=== PATIENT | female | born 1965 | race Caucasian/White ===

== ENCOUNTER 2018-03-08 07:52 | Inpatient (IN) | payer BC, MEDICARE ==
[2018-03-08] MEDS ORDERED: Acetaminophen 500 MG Tab PO ONE (08:15)
[2018-03-08] MEDS ORDERED: Celecoxib 200 MG Cap PO ONE (08:15)
[2018-03-08] MEDS ORDERED: Dextrose 5%-Lactated Ringers 1,000 ML IV SCH (08:30)
[2018-03-08] MEDS ORDERED: Naloxone 0.4 MG/ML SDV IV PRN (08:42)
[2018-03-08] MEDS ORDERED: Succinylcholine 200 MG/10 ML MDV ONE (08:54)
[2018-03-08] MEDS ORDERED: fentaNYL 250 MCG/5 ML SDV ONE ×3 (08:54→12:17)
[2018-03-08] MEDS ORDERED: Propofol 200 MG/20 ML SDV ONE (08:54)
[2018-03-08] MEDS ORDERED: Neostigmine Methylsulfate 1 MG/ML 5 ML Syringe ONE (08:54)
[2018-03-08] MEDS ORDERED: Dexamethasone 4 MG/ML SDV ONE (08:54)
[2018-03-08] MEDS ORDERED: Ondansetron 4 MG/2 ML SDV ONE (08:54)
[2018-03-08] MEDS ORDERED: Rocuronium 50 MG/5 ML Vial ONE ×3 (08:54→12:56)
[2018-03-08] MEDS ORDERED: Glycopyrrolate 0.2 MG/ML 5 ML MDV ONE (08:54)
[2018-03-08] MEDS ORDERED: Meropenem 500 MG SDV ONE (09:20)
[2018-03-08] MEDS ORDERED: cefOXitin 2 GM in Sodium Chloride 0.9% 50 ML IV ONE ×4 (09:30)
[2018-03-08] MEDS ORDERED: Lidocaine 2% 100 MG/5 ML Syringe IVPUSH SCH (09:45)
[2018-03-08] MEDS ORDERED: Ketamine 50 MG in Sodium Chloride 0.9% 49.5 ML IV SCH (09:45)
[2018-03-08] MEDS ORDERED: Ropivacaine 34 ML, Dexamethasone 8 MG, EPINEPHrine 0.4 MG, Sodium Chloride 0.9% 43.6 ML NERVRT SCH ×4 (09:45)
[2018-03-08] MEDS ORDERED: Ketamine 500 MG/5 ML MDV IV SCH (09:45)
[2018-03-08] MEDS: HYDROmorphone/Normal Saline 15 MG/30 ML PCA IV PRN (10:06)
[2018-03-08] MEDS ORDERED: Lactated Ringers 1,000 ML ONE ×2 (11:46→14:05)
[2018-03-08] MEDS ORDERED: Labetalol 20 MG/4 ML Syringe ONE (12:57)
[2018-03-08] MEDS ORDERED: hydrOXYzine HCl 100 MG/2 ML SDV IM ONE (15:29)
[2018-03-08] MEDS ORDERED: Labetalol 20 MG/4 ML Syringe IVPUSH PRN (16:00)
[2018-03-08] MEDS ORDERED: Metoclopramide 10 MG/2 ML SDV IVPUSH PRN (16:00)
[2018-03-08] MEDS ORDERED: diphenhydrAMINE 50 MG/ML SDV IVPUSH PRN (16:00)
[2018-03-08] MEDS ORDERED: SCOPOLAMINE PATCH CHECK TOP SCH (16:00)
[2018-03-08] MEDS: Acetaminophen Soln 650 MG/20.3 ML UD Cup PO SCH ×2 (16:35→21:44)
[2018-03-08] MEDS: Pantoprazole 40 MG Vial IVPUSH SCH (16:35)
[2018-03-08] MEDS: Lidocaine 0.4%/D5W 2 GM/500 ML BAG IV SCH (16:36)
[2018-03-08] MEDS: cefOXitin 2 GM in Sodium Chloride 0.9% 50 ML IV SCH ×2 (16:36→21:46)
[2018-03-08] MEDS: Dextrose 5%-Lactated Ringers 1,000 ML IV SCH (18:39)
[2018-03-09] MEDS: Dextrose 5%-Lactated Ringers 1,000 ML IV SCH ×2 (00:44→05:21)
[2018-03-09] MEDS ORDERED: Iohexol 647 MG/ML 50 ML SDV PO STA (03:42)
[2018-03-09] MEDS: cefOXitin 2 GM in Sodium Chloride 0.9% 50 ML IV SCH ×4 (05:20→23:02)
[2018-03-09] MEDS: Acetaminophen Soln 650 MG/20.3 ML UD Cup PO SCH ×4 (05:20→23:02)
[2018-03-09] MEDS ORDERED: Celecoxib 200 MG Cap PO SCH (08:00)
[2018-03-09] MEDS ORDERED: LORazepam 0.5 MG Tab PO PRN (08:24)
[2018-03-09] MEDS ORDERED: Central Total Parenteral Nutrition Bag SCH (08:30)
--- NOTE | 2018-03-09 08:38 | CR ---
CHEST: Portable CLINICAL HISTORY:NG tube placement COMPARISON:None FINDINGS: Patient is a central venous line from the left subclavian approach. The tip is in the right atrium. NG tube is in the body of the stomach. There are surgical drains in the left upper quadrant. Lung trotter are clear Impression: Recent abdominal surgery Lungs are clear NG tube and central venous catheter are in place
--- NOTE | 2018-03-09 08:44 | CR ---
UGI wo KUB HISTORY: eval R -Y GBP FINDINGS: After administration of oral contrast, upright views were obtained. Post operative changes gastric bypass. Surgical drains in place. No evidence for leak. There is a delay in passage of contrast into the small bowel L2 the 1 hour 45 minute delayed image. IMPRESSION: No evidence for leak. There is delay of passage of contrast into the small bowel. This may represent postop ileus. Some element of obstruction is not excluded. Short-term follow-up recommended
[2018-03-09] MEDS ORDERED: Non-Formulary Medication 1 Each (Estradiol [Estradiol] 2 MG) PO SCH (09:00)
[2018-03-09] MEDS ORDERED: Dextrose 5%-Lactated Ringers 1,000 ML IV SCH (09:00)
[2018-03-09] MEDS: ESTRADIOL 1 MG PO SCH (09:56)
[2018-03-09] MEDS ORDERED: [UNRECOGNIZED DRUG - MIXTURE] IV SCH (11:00)
[2018-03-09] MEDS: Magnesium Sulfate/Water 2 GM in Premix Bag 1 BAG IV SCH ×3 (11:48→23:02)
[2018-03-09] MEDS: Lidocaine 0.4%/D5W 2 GM/500 ML BAG IV SCH (12:48)
[2018-03-09] MEDS: [UNRECOGNIZED DRUG - MIXTURE] IV SCH (13:06)
[2018-03-09] MEDS: Pantoprazole 40 MG Vial IVPUSH SCH (16:46)
--- NOTE | 2018-03-09 18:03 | PN ---
DATE OF SERVICE: 03/09/2018 SUBJECTIVE: Trisha is postoperative day #1. She states her pain is controlled. Urine output has been marginal since surgery at 366 mL. JOSUE drain put out 40 and 50 of a light red drainage. Oral intake 180. Vital signs have been stable. REVIEW OF SYSTEMS: Remainder of review of systems negative for any pertinent positives or negatives. OBJECTIVE: GENERAL: Trisha Wilcox is a 52-year-old female. She is alert and orientated, sitting up in bed. VITAL SIGNS: TPR is 98.6, 96, 16, and blood pressure 125/78. HEENT: Negative. NECK: Supple. HEART: Regular rate and rhythm. LUNGS: Clear. ABDOMEN: Dressings dry and intact. JOSUE drains intact. Keller catheter in place. EXTREMITIES: SCDs are on, and there is no peripheral edema. ASSESSMENT: Exploratory laparotomy with esophageal gastrectomy and placement of central venous catheter for inadequate peripheral vein access. Date of surgery, 03/08/2018. PLAN: 1. TPN, order sheet faxed to Pharmacy. 2. Magnesium 2 grams IV q.6 hours x72 hours. 3. Leave Keller catheter in for accurate intake and output. 4. When TPN is started, to decrease IV to 100 mL per hour. 5. Decrease IV to 25 mL per hour at 1800 hours. 6. Check CBC, CMP, and phos. 7. Home medications were started. She is to use her estradiol 2 mg p.o. daily, to restart Cymbalta. 8. Good pulmonary toilet. 9. We will evaluate p.r.n. or in a.m. Peri Zambrano PA-C /[id number]
[2018-03-09] MEDS: hydrOXYzine HCl 100 MG/2 ML SDV IM PRN (20:22)
[2018-03-09] MEDS: HYDROmorphone/Normal Saline 15 MG/30 ML PCA IV PRN (20:29)
[2018-03-10] MEDS: Acetaminophen Soln 650 MG/20.3 ML UD Cup PO SCH ×4 (03:41→20:59)
[2018-03-10] MEDS: Magnesium Sulfate/Water 2 GM in Premix Bag 1 BAG IV SCH ×4 (03:42→20:59)
[2018-03-10] MEDS: cefOXitin 2 GM in Sodium Chloride 0.9% 50 ML IV SCH ×4 (03:46→20:59)
[2018-03-10] MEDS: ESTRADIOL 1 MG PO SCH (08:32)
--- NOTE | 2018-03-10 08:57 | CR ---
Abdomen 2V AP Flat Upright CLINICAL HISTORY: Abdominal pain and pressure FINDINGS: The patient is status post bariatric surgery. Oral contrast is now seen in the right colon. The intestinal gas pattern is nonacute IMPRESSION: Status post bariatric surgery Nonacute intestinal gas pattern
[2018-03-10] MEDS ORDERED: Cyanocobalamin (Vitamin B12) 1,000 MCG/ML SDV IM ONE (09:00)
[2018-03-10] MEDS: [UNRECOGNIZED DRUG - MIXTURE] IV SCH (09:22)
[2018-03-10] MEDS: Potassium Phosphates 20 MMOLE in Sodium Chloride 0.9% 100 ML IV SCH ×3 (09:23→15:25)
--- NOTE | 2018-03-10 09:23 | PN ---
DATE OF SERVICE: 03/10/2018 SUBJECTIVE: Trisha has been up ambulating 5 times. She reports pain consistently at a 7, but is resting comfortably. LABORATORY DATA: Labs this morning, phosphorus was 2.4 and albumin was 1.7. Oral intake is 710. Urine output via Keller catheter was 1755. Ej-Kelley drains have put out 95 and 90 respectively of a light red drainage. REVIEW OF SYSTEMS: Remainder of review of systems is negative for any pertinent positives and negatives. OBJECTIVE: GENERAL: Trisha Wilcox is a 52-year-old female. VITAL SIGNS: Temperature is 98.7, pulse is 85, respirations are 14, and blood pressure is 117/22. HEENT: Negative. NECK: Supple. HEART: Regular rate and rhythm. PULMONARY: Lungs are clear. ABDOMEN: Dressings are dry and intact. JOSUE drains, as above. Abdominal binder is on. EXTREMITIES: Without peripheral edema. ASSESSMENT: Exploratory laparotomy with esophageal gastrectomy and placement of central venous catheter for inadequate peripheral vein access. Date of surgery was 03/08/2018. PLAN: 1. K-Phos 60 millimoles in minimal IV fluids, IV today. 2. Step-2 gastric bypass diet with no solids. 3. Albumin 25 g daily IV x4 days. 4. Discontinue Keller catheter. 5. Check abdominal flat and upright now, and to notify Stan Atkinson MD, in OR that the x- ray is completed. 6. Shower, leaving Aquacel on. 7. Check CBC, CMP, and phosphorus in a.m. 8. Good pulmonary toilet. 9. We will evaluate p.r.n. or in a.m. Peri Zambrano PA-C /[id number]
[2018-03-10] MEDS: Pantoprazole 40 MG Vial IVPUSH SCH (15:35)
[2018-03-10] MEDS: hydrOXYzine HCl 100 MG/2 ML SDV IM PRN (22:26)
[2018-03-11] MEDS: HYDROmorphone/Normal Saline 15 MG/30 ML PCA IV PRN (01:54)
[2018-03-11] MEDS: Acetaminophen Soln 650 MG/20.3 ML UD Cup PO SCH ×4 (03:30→22:25)
[2018-03-11] MEDS: cefOXitin 2 GM in Sodium Chloride 0.9% 50 ML IV SCH ×4 (03:30→22:27)
[2018-03-11] MEDS: [UNRECOGNIZED DRUG - MIXTURE] IV SCH (03:30)
[2018-03-11] MEDS: Magnesium Sulfate/Water 2 GM in Premix Bag 1 BAG IV SCH ×4 (03:35→22:32)
[2018-03-11] MEDS ORDERED: Central Total Parenteral Nutrition Bag SCH (07:15)
[2018-03-11] MEDS: oxyCODONE 5 MG Tab PO PRN ×4 (07:35→22:54)
[2018-03-11] MEDS: ESTRADIOL 1 MG PO SCH (08:56)
[2018-03-11] MEDS: Magnesium Hydroxide 400 MG/5 ML Susp 30 ML Cup PO SCH ×2 (08:56→22:25)
--- NOTE | 2018-03-11 09:49 | PN ---
DATE OF SERVICE: 03/11/2018 HISTORY OF PRESENT ILLNESS: Trisha is postoperative day 4. She states her pain is between a 5 and a 6/10. She is using her GAS LEAK TESTER. TPN is running without difficulty. Urine output is 4050. JOSUE drains put out 25 and 50 respectively of a light pink red drainage. Afebrile, up ambulating, has not started to pass flatus yet. REVIEW OF SYSTEMS: Remainder of review of systems negative for any pertinent positives and negatives. OBJECTIVE: GENERAL: Trisha Wilcox is a pleasant 52-year-old female. VITAL SIGNS: TPR is 97.8, 99, 18, blood pressure 107/75. HEENT: Negative. NECK: Supple. HEART: Regular rate and rhythm. LUNGS: Clear. ABDOMEN: Aquacel dressing is on. There is some shadowing. JOSUE drains x2 and abdominal binder has been on. EXTREMITIES: Without peripheral edema. ASSESSMENT: Exploratory laparotomy with lysis of extensive adhesions, esophagogastrostomy with esophagogastric anastomosis, small bowel resection, separate small bowel stricturoplasty, partial left hepatic lobectomy, excision of possible neuroma involving the right interior inguinal nerve, placement of Interceed mesh x2, and insertion of left subclavian triple lumen for limited peripheral vein access, extensive intraabdominal adhesions, persistent stricturing and dysphagia at the esophagogastric junction, severe persistent diarrhea with focal devascularized small bowel, left lobe of liver closely adherent to previous gastrojejunostomy, separate small-bowel stricture, and probable neuroma in lower aspect of the left mid incision. Date of surgery, 03/08/2018. Surgeon, Stan Atkinson MD. PLAN: 1. Continue same TPN rate and content. 2. Check CBC, CMP, phos in a.m. 3. Atarax 50 mg every 4 hours p.r.n. severe pain, 7-10. 4. Milk of magnesia 30 mL b.i.d. today. 5. Oxycodone 5 mg p.o. every 4 hours, take 1-2. 6. Remove Aquacel dressing. 7. Discontinue GAS LEAK TESTER. 8. Discontinue continuous pulse ox. 9. Discontinue cardiac monitoring. 10.Good pulmonary toilet. 11.We will evaluate p.r.n. or in a.m. Peri Zambrano PA-C /[id number]
[2018-03-11] MEDS: hydrOXYzine HCl 25 MG Tab PO PRN (12:38)
[2018-03-11] MEDS: Dextrose 5%-Lactated Ringers 1,000 ML IV SCH (12:43)
[2018-03-11] MEDS: Ondansetron 4 MG/2 ML SDV IVPUSH PRN (15:00)
[2018-03-11] MEDS: Pantoprazole 40 MG Delayed-Release Granules 1 Packet PO SCH (16:47)
[2018-03-11] MEDS: hydrOXYzine HCl 100 MG/2 ML SDV IM PRN (18:52)
[2018-03-11] MEDS: LORazepam 2 MG/ML SDV IVPUSH PRN (20:46)
[2018-03-11] MEDS: Metoclopramide 10 MG/2 ML SDV IVPUSH SCH (22:25)
[2018-03-12] MEDS: AA 5%/Calcium/D15W/Lytes 1,000 ML IV SCH ×6 (01:36→21:09)
[2018-03-12] MEDS: Magnesium Sulfate/Water 2 GM in Premix Bag 1 BAG IV SCH (03:25)
[2018-03-12] MEDS: Metoclopramide 10 MG/2 ML SDV IVPUSH SCH ×4 (03:25→22:44)
[2018-03-12] MEDS: cefOXitin 2 GM in Sodium Chloride 0.9% 50 ML IV SCH ×4 (03:25→22:44)
[2018-03-12] MEDS: Acetaminophen Soln 650 MG/20.3 ML UD Cup PO SCH ×4 (03:26→22:44)
[2018-03-12] MEDS: oxyCODONE 5 MG Tab PO PRN (03:42)
[2018-03-12] MEDS ORDERED: Iohexol 647 MG/ML 50 ML SDV IVPUSH PRN (06:55)
[2018-03-12] MEDS: ESTRADIOL 1 MG PO SCH (08:38)
[2018-03-12] MEDS ORDERED: Naloxone 0.4 MG/ML SDV IV PRN (09:16)
[2018-03-12] MEDS: HYDROmorphone/Normal Saline 15 MG/30 ML PCA IV PRN (10:35)
[2018-03-12] MEDS: Hyoscyamine 0.125 MG Tab.SL SL SCH ×3 (12:08→22:44)
[2018-03-12] MEDS: Pantoprazole 40 MG Delayed-Release Granules 1 Packet PO SCH (16:59)
[2018-03-12] MEDS: hydrOXYzine HCl 100 MG/2 ML SDV IM PRN (23:48)
[2018-03-13] MEDS: Acetaminophen Soln 650 MG/20.3 ML UD Cup PO SCH ×4 (04:01→22:45)
[2018-03-13] MEDS: Metoclopramide 10 MG/2 ML SDV IVPUSH SCH ×4 (04:01→22:45)
[2018-03-13] MEDS: cefOXitin 2 GM in Sodium Chloride 0.9% 50 ML IV SCH ×4 (04:01→22:45)
[2018-03-13] MEDS: Hyoscyamine 0.125 MG Tab.SL SL SCH ×4 (05:57→22:45)
[2018-03-13] MEDS: AA 5%/Calcium/D15W/Lytes 1,000 ML IV SCH ×4 (07:58→17:05)
[2018-03-13] MEDS: Dextrose 5%-Lactated Ringers 1,000 ML IV SCH (07:58)
[2018-03-13] MEDS ORDERED: fentaNYL 100 MCG/2 ML SDV ONE (08:07)
[2018-03-13] MEDS ORDERED: Propofol 200 MG/20 ML SDV ONE (08:08)
[2018-03-13] MEDS ORDERED: Midazolam 1 MG/ML 2 ML SDV ONE (08:08)
[2018-03-13] MEDS ORDERED: Central Total Parenteral Nutrition Bag SCH (10:00)
[2018-03-13] MEDS: ESTRADIOL 1 MG PO SCH ×2 (11:32→16:36)
[2018-03-13] MEDS: Magnesium Hydroxide 400 MG/5 ML Susp 30 ML Cup PO SCH (16:37)
[2018-03-13] MEDS: Pantoprazole 40 MG Delayed-Release Granules 1 Packet PO SCH (16:38)
[2018-03-13] MEDS: HYDROmorphone/Normal Saline 15 MG/30 ML PCA IV PRN (19:42)
[2018-03-14] MEDS: AA 5%/Calcium/D15W/Lytes 1,000 ML IV SCH ×6 (02:41→23:03)
[2018-03-14] MEDS: Acetaminophen Soln 650 MG/20.3 ML UD Cup PO SCH ×4 (03:56→21:07)
[2018-03-14] MEDS: Metoclopramide 10 MG/2 ML SDV IVPUSH SCH ×4 (03:57→21:07)
[2018-03-14] MEDS: cefOXitin 2 GM in Sodium Chloride 0.9% 50 ML IV SCH ×4 (03:57→21:09)
[2018-03-14] MEDS: Hyoscyamine 0.125 MG Tab.SL SL SCH ×4 (05:52→21:10)
[2018-03-14] MEDS ORDERED: Central Total Parenteral Nutrition Bag SCH (07:45)
[2018-03-14] MEDS: Magnesium Hydroxide 400 MG/5 ML Susp 30 ML Cup PO SCH ×2 (08:01→21:07)
[2018-03-14] MEDS: ESTRADIOL 1 MG PO SCH (08:02)
--- NOTE | 2018-03-14 08:28 | PN ---
DATE OF SERVICE: 03/12/2018 The patient has been afebrile with stable vital signs. The main complaint is some ongoing nausea and heartburn type symptoms. We did repeat upper GI x-ray this morning. It does show things emptying out of the esophagus, but holding up a fair bit in the stomach, and we will repeat another x-ray in about an hour and half to see how the stomach emptying is going. Otherwise, we will get her back to SPECIAL EDUCATION TUTOR today so that we are not having to rely on oral absorption for pain control and also add some Levsin sublingual to see if that helps with regard to the esophageal spasm. If she continues to have problems with gastric emptying, we will consider an upper endoscopy and dilation of pyloric sphincter tomorrow. Stan Atkinson MD /[id number]
--- NOTE | 2018-03-14 08:59 | OR ---
DATE OF PROCEDURE: 03/08/2018 PREOPERATIVE DIAGNOSES: 1. Persistent stricturing and dysphagia of esophagogastric junction and gastrojejunostomy. 2. Severe persistent diarrhea. 3. Probable neuroma involving the lower aspect of the lower midline incision. 4. Limited peripheral venous access. POSTOPERATIVE DIAGNOSES: 1. Persistent stricturing and dysphagia of esophagogastric junction and gastrojejunostomy. 2. Severe persistent diarrhea with focal defunctionalization of the small bowel. 3. Left lobe of liver densely adherent to previous gastrojejunostomy and esophagogastric junction. 4. Separate small bowel stricture. 5. Probable neuroma of lower aspect of the midline incision. 6. Limited peripheral venous access. OPERATIVE PROCEDURE: 1. Insertion of left subclavian vein triple-lumen catheter (63181). 2. Exploratory laparotomy with lysis of extensive adhesions and: a. Esophagogastrectomy with esophagogastric anastomosis (69473). b. Small bowel resection (37041). c. Separate small bowel stricturoplasty (25450). d. Partial left hepatic lobectomy (96500). e. Excision of a nerve entering the probable neuroma, lower midline incision (68817). f. Placement of Interceed mesh to limit recurrent adhesion formation (63304). ANESTHESIA: General. FREIGHT CAR BUILDER: Peri Zambrano PA-C INDICATIONS FOR PROCEDURE: This is a 52-year-old status post previous Ozzy-en-Y gastric bypass, presenting with problems of persistent stricturing and dysphagia at esophagogastric junction and gastrojejunostomy and also severe persistent diarrhea, despite ongoing medical management. The plan is to proceed with an open laparotomy and esophagogastrectomy with esophagogastric anastomosis, and we will then also review the small bowel to see what pathology might be associated with the poorly functioning small bowel. The patient also has chronic pain in a focal area in the lowermost aspect of her midline incision, more or less in the suprapubic area, suggestive of probable neuroma in that area. Finally, the patient has limited peripheral venous access and will have a central line inserted to facilitate perioperative care, along with providing postoperative IV hyperalimentation. Potential risks of the procedure including bleeding, infection, leaks from various GI tract closures, possible persistence of some or all of the symptoms postoperatively, along with possible pneumohemothorax or vascular injury with the central line insertion were gone over, and the patient wishes to proceed. DETAILS OF PROCEDURE: The patient was taken to the operating room and after general endotracheal anesthesia was induced, the upper chest and neck areas were prepped and draped. The left subclavian vein was then cannulated and guidewire passed, and over the guidewire, a triple-lumen catheter was positioned. Good in and outflow was confirmed. The ports were flushed with heparinized saline, and the catheter was sutured to skin with some 3-0 silk stitch. Subsequent chest x-ray showed good catheter position without any complication. At this point, the abdomen was prepped and draped. Initially, with continuous ultrasound guidance, transversus abdominis plane blocks were placed bilaterally and Keller catheter was inserted, and the abdomen was prepped and draped. A midline incision which eventually extended from the xiphoid to somewhat below the umbilicus in terms of full-thickness and then extending also somewhat into the subcutaneous tissue down to the end of the incision. At the end of the incision, a painful scar was identified, consistent with neuroma, and nerve entering that was also individually identified and divided. These were sent as separate specimens to facilitate a more complete pathologic exam. The nerve divided would be consistent with the ilioinguinal nerve in terms of its location, this coming from the right side. Upon entering the peritoneal cavity, extensive adhesions were encountered. These were eventually all lysed to the point where the anatomy could be sorted out. The patient had extremely dense scarring in the area of the esophagogastric anastomosis and distal esophagus. The left lobe of the liver in that area was essentially fused with that region. After this was dissected free, it was felt that that segment of liver would be best resected. This was accomplished with FAIZAN staple loads, removing roughly the lateral third of segments II and III of the liver. At that point, the distal esophagus was then encircled and divided with a FAIZAN black load. The small bowel adjacent to the gastrojejunostomy was then likewise divided, and the remaining attachments of the distal esophagus, proximal stomach, and adjacent gastrojejunostomy were divided with mesenteric loads and the specimen delivered from the field. The small bowel was then evaluated. There appeared to be a large defunctionalized area where the patient had a previous jejunojejunostomy. This likely may be contributing to the patient's diarrhea, as there may be some overgrowth of that occurring in that area. This was strikingly dilated. This area was then resected, along with some of the slightly more proximal small bowel leading up to the previous Ozzy limb. The bowel being divided with FAIZAN saucedo loads and the mesentery with mesenteric and saucedo loads, depending upon the thickness, and that specimen delivered from the field. What had now been the distal end of the biliopancreatic limb was now anastomosed to the area that had previously been the proximalmost area of the common limb. This was with internal firings of the FAIZAN saucedo load, the common opening closed transversely with the purple load. The angles were anastomosed. The mesenteric defect was approximated with some 3-0 Vicryl stitch. The patient was noted to have, in the mid ileum, a separate area of stricturing present. After bringing up the adhesions in that area, the bowel was flipped over on itself, enterotomy made, and a stricturoplasty accomplished with firing of the FAIZAN stapler into one of these portions of bowel lying [id number], common opening closed transversely with purple load. Then, the angles were anastomosed and were reinforced with some 3-0 Vicryl stitch. At this point, the small bowel was then mapped out from the ligament of Treitz to the ileocecal valve. This measured now around 600 cm, which should be quite sufficient with regard to the absorptive capacity with all that bowel being relatively normal in appearance at this point. At this point, the esophagogastric anastomosis was accomplished. A 25 mm EEA stapler anvil was then attached to a Beckham sump tube, brought down through the mouth, taken out of a small opening in the distal esophagus. In the greater curvature of the stomach, a gastrotomy was then placed, and the main body of the EEA stapler was passed several centimeters into the lumen of the stomach up to the most dependent portion lying up against the divided esophagus, and the 2 components of the stapler then united, creating the esophagogastric anastomosis. Upon removal of the stapler, double donuts of mucosa were noted within it, and the stomach opening was then closed off with a purple FAIZAN load. A Beckham sump tube was then passed nasally per Anesthesia, taken across the esophagogastric anastomosis, then through length of the stomach and into the duodenum, confirming that the pylorus at this point was wide open. The esophagogastric anastomosis was reinforced with some 3-0 Vicryl seromuscular stitch, along with fibrin sealant. At that point, no further problems noted. Two Ej- Kelley drains were placed in the left subcostal area, placed adjacent to the esophagogastric anastomosis. Interceed mesh was placed underneath the open part of the incision, as no omentum was available to separate that area of the incision, as well as the pelvic sidewalls from the underlying viscera, and at that point, the midline fascia was approximated with #2 stitch. The subcutaneous tissue was then approximated with 2 layers of 3-0 and 4-0 Vicryl stitch deep and kecia for the skin. Dressing was applied. The patient was taken to the recovery room in satisfactory condition. There were no evident complications. Physician physician assistant psychiatry, Peri Zambrano, played an essential role in assisting in this case, helping to position the patient, retract structures as needed, as well as suturing and stapling when necessary. Her presence improved the patient's safety and decreased operative time. Stan Atkinson MD /[id number]
[2018-03-14] MEDS: HYDROmorphone 2 MG Tab PO PRN ×3 (10:03→21:08)
--- NOTE | 2018-03-14 10:23 | CR ---
UGI wo KUB HISTORY: Prior Ozzy-en-Y surgery. COMPARISON: 03/10/2018 FINDINGS: The stomach is partially emptied since the prior film. Contrast in the right colon fairly similar to prior study with some mild dilatation may represent mild ileus of the right colon. Surgical drains underneath the left hemidiaphragm in good position.
--- NOTE | 2018-03-14 10:50 | CR ---
Abdomen 2V AP Flat Upright HISTORY: Gastroparesis. Prior Ozzy-en-Y surgery. COMPARISON: 03/12/2018 FINDINGS: Diffuse contrast overlying the region of the stomach. 2 surgical drains present. The stomach appears to be more distended with contrast on the prior study. Contrast remains within the right colon.
--- NOTE | 2018-03-14 11:47 | PN ---
DATE OF SERVICE: 03/14/2018 SUBJECTIVE: The patient is feeling better after her EGD. She remains on clear liquids. OBJECTIVE: Vital signs have been stable. Pain has been controlled and she has had one bowel movement. REVIEW OF SYSTEMS: Remainder of review of systems negative for any pertinent positives and negatives. OBJECTIVE: Trisha Wilcox is a pleasant 52-year-old female. VITAL SIGNS: TPR is 98.4, 91, 16, blood pressure 131/77. HEENT: Negative. NECK: Supple. HEART: Regular rate and rhythm. LUNGS: Clear. ABDOMEN: Dressings dry and intact. Abdominal binder is on. EXTREMITIES: Without peripheral edema. ASSESSMENT: 1. EGD with removal of foreign body, old food/fluid from stomach and dilatation of the pyloric sphincter for esophageal gastric spasms, large volume retained fluid and food in stomach and tight pyloric sphincter. Date of surgery 03/13/2018. Surgeon, Stan Atkinson MD. 2. Exploratory laparotomy with lysis of extensive adhesions, esophagogastrostomy with esophagogastric anastomosis, small bowel resection, separate small bowel strictureplasty, partial left hepatic lobectomy, excision of possible neuroma involving the right anterior inguinal nerve, placement of Interceed mesh x2 and insertion of left subclavian triple lumen for limited peripheral access, extensive intraabdominal adhesions, persistent stricturing and dysphagia at the esophagogastric junction, severe persistent diarrhea with focal devascularized small bowel. Left lobe of liver closely adherent to previous gastrojejunostomy, separate small bowel stricture and probable neuroma in lower aspect of the left mid incision. Date of surgery 03/08/2018. Surgeon, Stan Atkinson MD. PLAN: 1. Clear liquid diet. 2. Ensure Clear three times a day. 3. Continue same TPN rate and content. 4. Discontinue CIVIL DESIGN TECHNICIAN and continuous pulse ox. 5. Dilaudid 2 mg 1 to 2 every 4 hours p.r.n. pain. 6. Check CBC, CMP, mag, and phos in a.m. 7. Good pulmonary toilet. 8. We will evaluate p.r.n. or in a.m. Peri Zambrano PA-C /[id number]
[2018-03-14] MEDS: Calcium Carbonate 500 MG Tab.Chew PO PRN ×2 (14:16→21:09)
[2018-03-14] MEDS: Dextrose 5%-Lactated Ringers 1,000 ML IV SCH (15:10)
--- NOTE | 2018-03-14 15:26 | OR ---
DATE OF PROCEDURE: 03/13/2018 PREOPERATIVE DIAGNOSIS: Gastroparesis with large volume of retained fluid in stomach. POSTOPERATIVE DIAGNOSIS: Gastroparesis associated with large volume of retained fluid as well as solid food in stomach. OPERATIVE PROCEDURES: Esophagogastroduodenoscopy with; 1. Removal of foreign body (old food and fluid) from the stomach (94250). 2. Dilation of pyloric sphincter to facilitate gastric emptying (47389). ANESTHESIA: IV sedation. INDICATIONS FOR PROCEDURE: The patient is status post takedown of gastric bypass and now has problems with gastroparesis with a large amount of retained fluid present within the stomach. The plan is to proceed with upper GI endoscopy, evacuation of where food would be in the stomach and dilation of pyloric sphincter to facilitate gastric emptying. Potential risks of the procedure including bleeding, perforation, and aspiration of gastric contents were reviewed, and the patient wishes to proceed. DETAILS OF PROCEDURE: The patient was taken to the operating room and placed in a semi- sitting position. She was maintained in roughly 45-degree upright position to minimize aspiration risk. IV sedation was administered, after which the gastroscope was then passed into the distal esophagus. At that point, a fair amount of fluid was present, and this was evacuated. The scope was then passed into the stomach. Further large amount of fluid, with a total of around 300 mL of fluid being eventually evacuated, was identified. This included some solid food, which was evacuated by means of suction as well as an endoscopic net. Once these were well evacuated, the scope was then further sent into the more distal stomach. The pyloric sphincter was identified. The scope could gradually be advanced across that, although this was fairly tight, and the Bard gastrointestinal balloon catheter was then deployed, and then the scope was pulled back such that the catheter traversed the pylorus. This was then inflated to 45-Greek size and held in position for 1 minute, after which, the balloon catheter was deflated and withdrawn. The scope was easily then passed through the pylorus. There was visible increase in diameter at this point, and the scope was withdrawn. The procedure concluded. There were no evident complications. Stan Atkinson MD /[id number]
--- NOTE | 2018-03-14 15:44 | PN ---
DATE OF SERVICE: 03/13/2018 Trisha continues to have some nausea and heartburn overnight. Her abdominal x-ray today shows some retained contrast within the stomach, consistent with gastroparesis. Plan will be to proceed with an upper endoscopy later today along with evacuation of the fluid and dilation of pyloric sphincter, hopefully to facilitate more satisfactory drainage of the stomach. Otherwise, continue the TPN and maximize activity and work with pulmonary toilet. Stan Atkinson MD /[id number]
[2018-03-14] MEDS: Pantoprazole 40 MG Delayed-Release Granules 1 Packet PO SCH (16:13)
[2018-03-14] MEDS: hydrOXYzine HCl 25 MG Tab PO PRN (23:39)
[2018-03-15] MEDS: HYDROmorphone 2 MG Tab PO PRN ×4 (03:05→22:17)
[2018-03-15] MEDS: Acetaminophen Soln 650 MG/20.3 ML UD Cup PO SCH ×4 (03:08→21:57)
[2018-03-15] MEDS: Metoclopramide 10 MG/2 ML SDV IVPUSH SCH ×4 (03:09→21:57)
[2018-03-15] MEDS: cefOXitin 2 GM in Sodium Chloride 0.9% 50 ML IV SCH ×2 (03:17→09:05)
[2018-03-15] MEDS: hydrOXYzine HCl 25 MG Tab PO PRN (04:19)
[2018-03-15] MEDS: Hyoscyamine 0.125 MG Tab.SL SL SCH ×4 (05:59→21:57)
[2018-03-15] MEDS: AA 5%/Calcium/D15W/Lytes 1,000 ML IV SCH ×4 (08:01→19:38)
[2018-03-15] MEDS: Magnesium Hydroxide 400 MG/5 ML Susp 30 ML Cup PO SCH ×2 (08:02→20:07)
[2018-03-15] MEDS: ESTRADIOL 1 MG PO SCH (08:02)
[2018-03-15] MEDS ORDERED: Pantoprazole 40 MG Delayed-Release Granules 1 Packet PO SCH (09:00)
--- NOTE | 2018-03-15 13:36 | PN ---
DATE OF SERVICE: 03/15/2018 The patient has been afebrile with stable vital signs. She began having a little bit in the way of nausea and heartburn overnight and backed down on the oral intake somewhat. She did have 460 mL in during the 24-hour period. She is on scheduled Reglan and I think we will go to a full-liquid diet with no solids today which might be a little less irritating than the clear liquids. She is uncertain what reaction she had from the erythromycin, but does not remember anything being severe with that. So, to augment gastric emptying, I think we will put her on some low-dose erythromycin orally 50 mg q.i.d. and stop that if she has some adverse reaction to that. Otherwise, we will get the JOSUE drains out, continue the TPN, add some fat emulsion at this point as well to the TPN regimen. Stan Atkinson MD /[id number]
[2018-03-15] MEDS: Erythromycin Ethylsuccinate Susp 400 MG/5 ML 100 ML Bottle PO SCH ×3 (14:02→21:57)
[2018-03-15] MEDS: Pantoprazole 40 MG Delayed-Release Granules 1 Packet PO SCH (15:56)
[2018-03-15] MEDS: Fat Emulsion 100 ML IV SCH (15:56)
[2018-03-16] MEDS: HYDROmorphone 2 MG Tab PO PRN ×2 (02:11→12:58)
[2018-03-16] MEDS: Hyoscyamine 0.125 MG Tab.SL SL SCH ×4 (05:23→22:23)
[2018-03-16] MEDS: Erythromycin Ethylsuccinate Susp 400 MG/5 ML 100 ML Bottle PO SCH ×2 (05:23→05:30)
[2018-03-16] MEDS: Acetaminophen Soln 650 MG/20.3 ML UD Cup PO SCH ×4 (05:23→22:25)
[2018-03-16] MEDS: Metoclopramide 10 MG/2 ML SDV IVPUSH SCH ×4 (05:23→22:23)
[2018-03-16] MEDS: AA 5%/Calcium/D15W/Lytes 1,000 ML IV SCH ×4 (05:23→15:34)
[2018-03-16] MEDS: Dextrose 5%-Lactated Ringers 1,000 ML IV SCH (05:25)
[2018-03-16] MEDS ORDERED: Central Total Parenteral Nutrition Bag SCH (07:30)
[2018-03-16] MEDS: Ondansetron 4 MG/2 ML SDV IVPUSH PRN ×2 (07:51→16:00)
[2018-03-16] MEDS: Cyclobenzaprine 10 MG Tab PO PRN ×2 (07:59→14:30)
[2018-03-16] MEDS: Pantoprazole 40 MG Delayed-Release Granules 1 Packet PO SCH ×2 (08:07→15:34)
[2018-03-16] MEDS: ESTRADIOL 1 MG PO SCH (09:19)
--- NOTE | 2018-03-16 10:08 | PN ---
DATE OF SERVICE: 03/16/2018 SUBJECTIVE: Trisha has had more pressure in her chest with swallowing. Oral intake was 350. She has had several loose stools. TPN is running without difficulty, requesting some Flexeril. She is thinking that will help with some of the muscle tightness and the incision. Alk phosphate was 198. Sodium was 138 and hemoglobin 9.8 this morning. Not tolerating the erythromycin stating it is causing a lot a cramping. REVIEW OF SYSTEMS: Remainder of review of systems is negative for any pertinent positives and negatives. OBJECTIVE: GENERAL: Trisha Wilcox is a 52-year-old female. VITAL SIGNS: TPR on 03/16/2018, at 04:00, 97,2, 86, 16, blood pressure 133/87. HEENT: Negative. NECK: Supple. HEART: Regular rate and rhythm. LUNGS: Clear. ABDOMEN: Dressings dry and intact. JOSUE drains were removed yesterday. EXTREMITIES: Without peripheral edema. ASSESSMENT: 1. Insertion of left subclavian vein triple-lumen catheter. 2. Exploratory laparotomy with lysis of extensive adhesion and. a. Esophageal gastrectomy with esophagogastric anastomosis. b. Small-bowel resection. c. Separate small bowel stricture plasty. d. Partial left hepatic lobectomy. e. Excision of nerve entering the probable neuroma lower midline incision. f. Placement of Interceed mesh, to limit recurrent adhesion formation. Date of surgery 03/08/2018. Surgeon, Stan Atkinson MD. 3. EGD with: a. Removal of foreign body (old food and fluid) from the stomach. b. Dilation of pyloric sphincter to facilitate gastric emptying. Date of procedure 03/13/2018. Surgeon, Stan Atknison MD. PLAN: 1. Schedule and have consent signed for EGD on 03/17/2018, IV sedation, n.p.o. after midnight. 2. Hold erythromycin. 3. Continue TPN rate and content. 4. Flexeril 10 mg q.6 hours p.o. p.r.n. muscle spasms. 5. Milk of magnesia was discontinued due to loose bowel movements as already ordered. 6. Good pulmonary toilet. We will evaluate p.r.n. or in a.m. Peri Zambrano PA-C /[id number]
[2018-03-16] MEDS: Fat Emulsion 100 ML IV SCH (15:34)
[2018-03-16] MEDS ORDERED: Naloxone 0.4 MG/ML SDV IV PRN (16:21)
[2018-03-16] MEDS: HYDROmorphone/Normal Saline 15 MG/30 ML PCA IV PRN (17:30)
[2018-03-16] MEDS: Pantoprazole 40 MG Vial IVPUSH SCH (22:23)
[2018-03-17] MEDS: AA 5%/Calcium/D15W/Lytes 1,000 ML IV SCH ×6 (01:36→21:48)
[2018-03-17] MEDS: Metoclopramide 10 MG/2 ML SDV IVPUSH SCH ×4 (05:30→21:14)
[2018-03-17] MEDS: Hyoscyamine 0.125 MG Tab.SL SL SCH ×4 (05:30→21:14)
[2018-03-17] MEDS ORDERED: Propofol 200 MG/20 ML SDV ONE (07:11)
[2018-03-17] MEDS ORDERED: Midazolam 1 MG/ML 2 ML SDV ONE (07:11)
[2018-03-17] MEDS ORDERED: fentaNYL 100 MCG/2 ML SDV ONE (07:11)
[2018-03-17] MEDS ORDERED: Central Total Parenteral Nutrition Bag SCH (07:30)
[2018-03-17] MEDS: Pantoprazole 40 MG Vial IVPUSH SCH ×2 (09:26→21:13)
[2018-03-17] MEDS: ESTRADIOL 1 MG PO SCH (09:29)
--- NOTE | 2018-03-17 09:40 | PN ---
DATE OF SERVICE: 03/17/2018 SUBJECTIVE: Trisha is n.p.o. She will be going down to Surgery to have an EGD. She did have one emesis. Has head of the bed elevated to 45 degrees. Oral intake 120. Urine output is 2140. Vital signs, afebrile. 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 REVIEW OF SYSTEMS: Remainder of review of systems negative for any pertinent positives and negatives. OBJECTIVE: GENERAL: Trisha Wilcox is a 52-year-old female. VITAL SIGNS: TPR is 97.7, 112, 18, and blood pressure 122/76. HEENT: Negative. NECK: Supple. HEART: Regular rate and rhythm. LUNGS: Clear. ABDOMEN: Dressings dry and intact. Abdominal binder is on. EXTREMITIES: Without peripheral edema. ASSESSMENT: 1. Insertion of left subclavian vein triple-lumen catheter. 2. Exploratory laparotomy with lysis of extensive adhesions and;. a. Esophageal gastrectomy and esophagogastric anastomosis. b. Small-bowel resection. c. Separate small bowel stricturoplasty. d. Partial left hepatic lobectomy. e. Excision of nerve entering the probable neuroma lower midline incision. f. Placement of Interceed mesh to limit recurrent adhesion formation. Date of surgery, 03/08/2018. Surgeon, Stan Atkinson MD. 1. EGD with;. a. Removal of foreign body (old food and fluid) from the stomach. b. Dilation of the pyloric sphincter to facilitate gastric emptying. Date of procedure, 03/13/2018. Surgeon, Stan Atkinson MD. PLAN: 1. Continue same TPN rate and content. 2. Orders to be written after EGD. Peri Zambrano PA-C /[id number]
[2018-03-17] MEDS: Cyclobenzaprine 10 MG Tab PO PRN ×2 (11:50→18:23)
[2018-03-17] MEDS: Dextrose 5%-Lactated Ringers 1,000 ML IV SCH (11:51)
[2018-03-17] MEDS: Fat Emulsion 100 ML IV SCH (15:47)
[2018-03-18] MEDS: HYDROmorphone/Normal Saline 15 MG/30 ML PCA IV PRN (02:51)
[2018-03-18] MEDS: Cyclobenzaprine 10 MG Tab PO PRN ×4 (03:04→21:34)
[2018-03-18] MEDS: Hyoscyamine 0.125 MG Tab.SL SL SCH ×4 (05:44→21:34)
[2018-03-18] MEDS: Metoclopramide 10 MG/2 ML SDV IVPUSH SCH ×4 (05:45→21:34)
[2018-03-18] MEDS: AA 5%/Calcium/D15W/Lytes 1,000 ML IV SCH ×4 (08:45→18:34)
[2018-03-18] MEDS: Pantoprazole 40 MG Vial IVPUSH SCH ×2 (09:16→21:34)
[2018-03-18] MEDS: ESTRADIOL 1 MG PO SCH (09:16)
--- NOTE | 2018-03-18 11:19 | PN ---
DATE OF SERVICE: 03/17/2018 The patient underwent an upper endoscopy today. She had quite a bit of retained fluid as well as some solid material within the stomach, which was removed, and the pyloric sphincter was dilated to a 54-[place] size. At this point, we will see whether or not the more aggressive dilation is helpful with regard to establishing more adequate gastric emptying. We will continue the TPN and will let limited oral intake for today and then progress from that point further if tolerated. Otherwise, continue the TPN, maximize activity and work with pulmonary toilet. Stan Atkinson MD /[id number]
--- NOTE | 2018-03-18 11:19 | PN ---
DATE OF SERVICE: 03/18/2018 The patient has been afebrile with stable vital signs. Still having some sense of heartburn, but has not had any further emesis. A discussion was held with the patient regarding the plan at this point. We would continue with TPN through the weekend and see how she does with the liquid diet. If, by some chance, she is able to progress with that, we would continue in that mode. If, over the next 48 hours, we are not seeing any significant improvement, we will probably need to do a reoperation, I might need to provide a gastric drainage procedure, most likely, either a short Ozzy limb or loop gastrojejunostomy to more or less obviate the problem of, what appears to be, severe gastroparesis. Otherwise, continue the TPN, maximize activity and work with pulmonary toilet. We will leave the [employer] ongoing for the weekend as well. Stan Atkinson MD /[id number]
[2018-03-18] MEDS: Ondansetron 4 MG/2 ML SDV IVPUSH PRN (11:43)
[2018-03-18] MEDS: Fat Emulsion 100 ML IV SCH (15:40)
[2018-03-18] MEDS ORDERED: Naloxone 0.4 MG/ML SDV IV PRN (15:58)
[2018-03-18] MEDS: fentaNYL/Normal Saline 600 MCG/30 ML PCA Vial IV PRN (16:20)
[2018-03-19] MEDS: Metoclopramide 10 MG/2 ML SDV IVPUSH SCH (03:58)
[2018-03-19] MEDS: Cyclobenzaprine 10 MG Tab PO PRN ×3 (03:58→16:35)
[2018-03-19] MEDS: Dextrose 5%-Lactated Ringers 1,000 ML IV SCH (03:59)
[2018-03-19] MEDS: AA 5%/Calcium/D15W/Lytes 1,000 ML IV SCH ×4 (04:38→14:37)
[2018-03-19] MEDS: Hyoscyamine 0.125 MG Tab.SL SL SCH ×4 (05:50→22:35)
[2018-03-19] MEDS: Pantoprazole 40 MG Vial IVPUSH SCH ×2 (09:14→20:36)
[2018-03-19] MEDS: ESTRADIOL 1 MG PO SCH (09:21)
--- NOTE | 2018-03-19 10:40 | PN ---
DATE OF SERVICE: 03/19/2018 The patient has been afebrile with stable vital signs. No major problems have been noted overnight, other than that she is still having very limited oral intake and a sense of heartburn, indicating her stomach is still not emptying satisfactorily. She was having some jerking yesterday, which she thought might be related to the Dilaudid. On review of her medication, Reglan may be contributing to that as well, and we will stop that. She was switched over to fentanyl for the SKIN DIVER, which she has apparently having problems with nausea. At this point, she is doing okay without any additional pain medication. The plan at this point will be to see how things go over the next couple of days. If we are still looking at the situation of the stomach not emptying, we will need to reoperate on Wednesday to provide a drainage procedure to the stomach, most likely we will broaden the gastrojejunostomy. Otherwise, continue the TPN, maximize activity and work with pulmonary toilet. Stan Atkinson MD /[id number]
[2018-03-19] MEDS: Fat Emulsion 100 ML IV SCH (16:17)
[2018-03-19] MEDS: fentaNYL/Normal Saline 600 MCG/30 ML PCA Vial IV PRN (16:28)
[2018-03-19] MEDS: Acetaminophen 325 MG Tab PO PRN (23:02)
[2018-03-20] MEDS: AA 5%/Calcium/D15W/Lytes 1,000 ML IV SCH ×6 (00:36→20:05)
[2018-03-20] MEDS: Dextrose 5%-Lactated Ringers 1,000 ML IV SCH (00:36)
[2018-03-20] MEDS: Hyoscyamine 0.125 MG Tab.SL SL SCH ×4 (05:23→21:49)
[2018-03-20] MEDS: ESTRADIOL 1 MG PO SCH (08:59)
[2018-03-20] MEDS: Pantoprazole 40 MG Vial IVPUSH SCH ×2 (08:59→20:06)
--- NOTE | 2018-03-20 10:00 | PCM.PN ---
- General Info Date of Service: 03/20/18 Functional Status: Reports: Pain Controlled, Ambulating, Urinating, Other ( Abdominal pain continues. Passing some gas and loose stools. ) - Review of Systems General: Reports: Other (Chronic abdominal pain. ) Pulmonary: Reports: No Symptoms Cardiovascular: Reports: No Symptoms Gastrointestinal: Reports: Abdominal Pain Genitourinary: Reports: No Symptoms Musculoskeletal: Reports: No Symptoms Skin: Reports: No Symptoms Neurological: Reports: No Symptoms Psychiatric: Reports: No Symptoms - Patient Data Vitals - Most Recent: Last Vital Signs Temp 98.0 F 03/20/18 07:31 Pulse 85 03/20/18 07:31 Resp 16 03/20/18 07:31 BP 105/59 L 03/20/18 07:31 Pulse Ox 97 03/20/18 07:47 Weight - Most Recent: 153 lb I&O - Last 24 Hours: Intake & Output 03/19/18 03/20/18 03/20/18 22:59 06:59 14:59 Intake Total 1516 1578 Output Total 400 1750 300 Balance 1116 -172 -300 Lab Results Last 24 Hours: Laboratory Results - last 24 hr 03/20/18 03/20/18 03/20/18 Range/Units 04:23 04:23 04:23 WBC 7.1 (4.5-11.0) K/uL RBC 3.15 L (3.30-5.50) M/uL Hgb 9.6 L (12.0-15.0) g/dL Hct 30.2 L (36.0-48.0) % MCV 96 (80-98) fL MCH 31 (27-31) pg MCHC 32 (32-36) % Plt Count 378 (150-400) K/uL Sodium 138 L (140-148) mmol/L Potassium 4.3 (3.6-5.2) mmol/L Chloride 103 (100-108) mmol/L Carbon Dioxide 25 (21-32) mmol/L Anion Gap 14.3 H (5.0-14.0) mmol/L BUN 15 (7-18) mg/dL Creatinine 0.6 (0.6-1.0) mg/dL Est Cr Clr Drug Dosing 107.94 mL/min Estimated GFR (MDRD) > 60 (>60) Glucose 129 H (74-106) mg/dL Calcium 9.0 (8.5-10.1) mg/dL Phosphorus 3.7 (2.5-4.9) mg/dL Magnesium 1.7 L (1.8-2.4) mg/dL Total Bilirubin 0.2 (0.2-1.0) mg/dL AST 21 (15-37) U/L ALT 37 (12-78) U/L Alkaline Phosphatase 168 H (46-116) U/L Total Protein 5.8 L (6.4-8.2) g/dL Albumin 2.4 L (3.4-5.0) g/dL Globulin 3.4 (2.3-3.5) g/dL Albumin/Globulin Ratio 0.7 L (1.2-2.2) Blood Type O POSITIVE Gel Antibody Screen Negative Crossmatch See Detail Med Orders - Current: Current Medications Acetaminophen (Tylenol) 650 mg PO Q4H PRN PRN Reason: Pain Last Admin: 03/19/18 23:02 Dose: 650 mg Calcium Carbonate/Glycine (Tums) 1,000 mg PO Q2H PRN PRN Reason: Indigestion Last Admin: 03/14/18 21:09 Dose: 1,000 mg Cyclobenzaprine HCl (Flexeril) 10 mg PO Q6H PRN PRN Reason: MUSCLE SPASM Last Admin: 03/19/18 16:35 Dose: 10 mg Diphenhydramine HCl (Benadryl) 50 mg IVPUSH Q4H PRN PRN Reason: ITCHING Fentanyl Citrate (Fentanyl In Ns 20 Mcg/Ml 30 Ml Discovery Guide) 0 mcg IV ASDIRECTED PRN; Protocol PRN Reason: PAIN Last Admin: 03/19/18 16:28 Dose: 600 mcg Heparin Sodium (Porcine) (Heparin Lock Flush 100 Units/Ml) 500 units FLUSH ASDIRECTED PRN PRN Reason: Flush central line Last Admin: 03/14/18 10:03 Dose: 500 units Hydroxyzine HCl (Vistaril) 100 mg IM Q4H PRN PRN Reason: pain Last Admin: 03/12/18 23:48 Dose: 100 mg Hyoscyamine (Hyomax-Sl) 0.125 mg SL QID REYNALDO Last Admin: 03/20/18 05:23 Dose: 0.125 mg Dextrose/Lactated Ringer's (Dextrose 5%-Lactated Ringers) 1,000 mls @ 25 mls/ hr IV ASDIRECTED [facility] Last Admin: 03/20/18 00:36 Dose: 25 mls/hr Amino Ac/Electrol/Dextrose/Calcium (Clinimix E 5/15) 1,000 mls @ 100 mls/hr IV .Q10H [facility] Last Admin: 03/20/18 00:36 Dose: 100 mls/hr Labetalol HCl (Normodyne) 5 mg IVPUSH Q5M PRN PRN Reason: SBP over 160 OR DBP over 95 Lorazepam (Ativan) 0.5 mg IVPUSH Q2H PRN PRN Reason: Anxiety Last Admin: 03/11/18 20:46 Dose: 0.5 mg Naloxone HCl (Narcan) 0.1 mg IV ASDIRECTED PRN PRN Reason: RESP DISTRESS Ondansetron HCl (Zofran) 4 mg IVPUSH Q4H PRN PRN Reason: Nausea/Vomiting Last Admin: 03/18/18 11:43 Dose: 4 mg Pantoprazole Sodium (Protonix Iv) 40 mg IVPUSH Q12H [facility] Last Admin: 03/20/18 08:59 Dose: 40 mg Estradiol 1mg Tabs (Pom) 0 each PO DAILY [facility] Last Admin: 03/20/18 08:59 Dose: 2 each Discontinued Medications Acetaminophen (Tylenol Extra Strength) 1,000 mg PO ONETIME ONE Stop: 03/08/18 08:16 Last Admin: 03/08/18 08:32 Dose: 1,000 mg Acetaminophen (Tylenol) 650 mg PO Q6H [facility] Last Admin: 03/16/18 22:25 Dose: Not Given Celecoxib (Celebrex) 200 mg PO ONETIME ONE Stop: 03/08/18 08:16 Last Admin: 03/08/18 08:32 Dose: 200 mg Celecoxib (Celebrex) 200 mg PO DAILY@0800 [facility] Last Admin: 03/09/18 08:40 Dose: 200 mg Ropivacaine 34 ml/Dexamethasone 8 mg/Epinephrine HCl 0.4 mg/ Sodium Chloride 43.6 ml 0 ml NERVRT ASDIRECTED [facility] Last Admin: 03/08/18 11:15 Dose: 80 syringe Cyanocobalamin (Vitamin B12) 1,000 mcg IM ONETIME ONE Stop: 03/10/18 09:01 Last Admin: 03/10/18 08:34 Dose: Not Given Cyclobenzaprine HCl (Flexeril) 10 mg PO Q6H PRN PRN Reason: muscle spasms Last Admin: 03/16/18 14:30 Dose: 10 mg Dexamethasone (Dexamethasone) Confirm Administered Dose 4 mg .ROUTE .STK-MED ONE Stop: 03/08/18 08:55 Erythromycin Ethylsuccinate (Eryped 400) 50 mg PO QID REYNALDO Last Admin: 03/16/18 05:30 Dose: Not Given Fentanyl (Sublimaze) Confirm Administered Dose 250 mcg .ROUTE .STK-MED ONE Stop: 03/08/18 08:55 Fentanyl (Sublimaze) Confirm Administered Dose 250 mcg .ROUTE .STK-MED ONE Stop: 03/08/18 11:44 Fentanyl (Sublimaze) Confirm Administered Dose 250 mcg .ROUTE .STK-MED ONE Stop: 03/08/18 12:18 Fentanyl (Sublimaze) Confirm Administered Dose 100 mcg .ROUTE .STK-MED ONE Stop: 03/13/18 08:08 Fentanyl (Sublimaze) Confirm Administered Dose 100 mcg .ROUTE .STK-MED ONE Stop: 03/17/18 07:12 Glycopyrrolate (Robinul) Confirm Administered Dose 1 mg .ROUTE .STK-MED ONE Stop: 03/08/18 08:55 Heparin Sodium (Porcine) (Heparin Lock Flush 100 Units/Ml) Confirm Administered Dose 500 units .ROUTE .STK-MED ONE Stop: 03/08/18 10:07 Last Admin: 03/08/18 11:13 Dose: 500 units Hydromorphone HCl (Dilaudid Discovery Guide 15 Mg In Ns 30 Ml) 0 mg IV ASDIRECTED PRN; Protocol PRN Reason: Pain Last Admin: 03/11/18 01:54 Dose: 15 mg Hydromorphone HCl (Dilaudid Discovery Guide 15 Mg In Ns 30 Ml) 0 mg IV ASDIRECTED PRN; Protocol PRN Reason: Pain Last Admin: 03/13/18 19:42 Dose: 15 mg Hydromorphone HCl (Dilaudid) 2 - 4 mg PO Q4H PRN PRN Reason: Pain Last Admin: 03/16/18 12:58 Dose: 4 mg Hydromorphone HCl (Dilaudid Discovery Guide 15 Mg In Ns 30 Ml) 0 mg IV ASDIRECTED PRN; Protocol PRN Reason: PAIN Last Admin: 03/18/18 02:51 Dose: 15 mg Hydroxyzine HCl (Vistaril) 100 mg IM ONETIME ONE Stop: 03/08/18 15:30 Last Admin: 03/08/18 15:34 Dose: 100 mg Hydroxyzine HCl (Atarax) 50 mg PO Q4H PRN PRN Reason: Pain (Severe 7-10) Last Admin: 03/15/18 04:19 Dose: 50 mg Cefoxitin Sodium 2 gm/ Sodium (Chloride) 50 mls @ 100 mls/hr IV ONETIME ONE Stop: 03/08/18 09:59 Dextrose/Lactated Ringer's (Dextrose 5%-Lactated Ringers) 1,000 mls @ 100 mls/ hr IV ASDIRECTED [facility] Last Admin: 03/08/18 08:32 Dose: 100 mls/hr Lidocaine HCl/Dextrose (Lidocaine 2 Gm/D5w 500 Ml) 2 gm in 500 mls @ 15 mls/hr IV .Q24H [facility] Stop: 03/09/18 16:00 Last Admin: 03/09/18 12:48 Dose: Not Given Ketamine HCl 50 mg/ Sodium (Chloride) 50 mls @ 18.82 mls/hr IV ASDIRECTED [facility] Cefoxitin Sodium 2 gm/ Sodium (Chloride) 50 mls @ 100 mls/hr IV ONETIME ONE Stop: 03/08/18 09:59 Last Admin: 03/08/18 10:45 Dose: 100 mls/hr Lactated Ringer's (Ringers, Lactated) Confirm Administered Dose 1,000 mls @ as directed .ROUTE .STK-MED ONE Stop: 03/08/18 11:47 Lactated Ringer's (Ringers, Lactated) Confirm Administered Dose 1,000 mls @ as directed .ROUTE .STK-MED ONE Stop: 03/08/18 14:06 Dextrose/Lactated Ringer's (Dextrose 5%-Lactated Ringers) 1,000 mls @ 200 mls/ hr IV ASDIRECTED [facility] Last Admin: 03/09/18 05:21 Dose: 200 mls/hr Cefoxitin Sodium 2 gm/ Sodium (Chloride) 50 mls @ 100 mls/hr IV Q6H [facility] Last Admin: 03/15/18 09:05 Dose: 100 mls/hr Magnesium Sulfate 2 gm/ Premix 50 mls @ 25 mls/hr IV Q6H REYNALDO Stop: 03/12/18 05:59 Last Admin: 03/12/18 03:25 Dose: 25 mls/hr Dextrose/Lactated Ringer's (Dextrose 5%-Lactated Ringers) 1,000 mls @ 100 mls/ hr IV ASDIRECTED REYNALDO Stop: 03/09/18 17:59 Amino Ac/Electrol/Dextrose/Calcium (Clinimix E 5/15) 2,000 mls @ 100 mls/hr IV .BY DURATION REYNALDO Stop: 03/11/18 22:59 Last Admin: 03/11/18 03:30 Dose: 100 mls/hr Amino Ac/Electrol/Dextrose/Calcium (Clinimix E 5/15) 2,000 mls @ 100 mls/hr IV .BY DURATION REYNALDO Stop: 03/11/18 22:59 Potassium Phosphate 20 mmole/ (Sodium Chloride) 106.6667 mls @ 35 mls/hr IV Q3H REYNALDO Stop: 03/10/18 18:29 Last Admin: 03/10/18 15:25 Dose: 35 mls/hr Albumin Human (Albumin 25%) 25 gm in 100 mls @ 25 mls/hr IV DAILY REYNALDO Stop: 03/14/18 09:01 Last Admin: 03/14/18 08:01 Dose: 25 mls/hr Amino Ac/Electrol/Dextrose/Calcium (Clinimix E 5/15) 1,000 mls @ 100 mls/hr IV .Q10H [facility] Last Admin: 03/17/18 11:52 Dose: 100 mls/hr Fat Emulsion Intravenous (Intralipid 20%) 100 mls @ 8.3 mls/hr IV Q24H REYNALDO Stop: 03/20/18 05:00 Last Admin: 03/19/18 16:17 Dose: 8.3 mls/hr Iohexol (Omnipaque-300) 50 ml PO .ASDIRECTED STA Stop: 03/09/18 03:43 Last Admin: 03/09/18 04:27 Dose: 50 ml Iohexol (Omnipaque-300) 50 ml IVPUSH . DIRECTED PRN PRN Reason: RADIOLOGY EXAM Stop: 03/13/18 06:56 Last Admin: 03/12/18 07:09 Dose: 50 ml Labetalol HCl (Normodyne) Confirm Administered Dose 20 mg .ROUTE .STK-MED ONE Stop: 03/08/18 12:58 Lidocaine HCl (Xylocaine 2%) 96 mg IVPUSH ASDIRECTED [facility] Lorazepam (Ativan) 0.5 mg PO BID PRN PRN Reason: Anxiety Magnesium Hydroxide (Milk Of Magnesia) 30 ml PO BID [facility] Stop: 03/11/18 23:59 Last Admin: 03/11/18 22:25 Dose: 30 ml Magnesium Hydroxide (Milk Of Magnesia) 30 ml PO BID [facility] Last Admin: 03/15/18 20:07 Dose: Not Given Meropenem (Merrem) Confirm Administered Dose 500 mg .ROUTE .STK-MED ONE Stop: 03/08/18 09:21 Last Admin: 03/08/18 11:44 Dose: 500 mg Metoclopramide HCl (Reglan) 10 mg IVPUSH Q6H PRN PRN Reason: NAUSEA NOT CONTROL BY ZOFRAN Last Admin: 03/11/18 15:34 Dose: 10 mg Metoclopramide HCl (Reglan) 10 mg IVPUSH Q6H [facility] Last Admin: 03/19/18 03:58 Dose: 10 mg Midazolam HCl (Versed 1 Mg/Ml) Confirm Administered Dose 2 mg .ROUTE .STK-MED ONE Stop: 03/13/18 08:09 Midazolam HCl (Versed 1 Mg/Ml) Confirm Administered Dose 2 mg .ROUTE .STK-MED ONE Stop: 03/17/18 07:12 Naloxone HCl (Narcan) 0.1 mg IV ASDIRECTED PRN PRN Reason: decreased respiratory rate Naloxone HCl (Narcan) 0.1 mg IV ASDIRECTED PRN PRN Reason: decreased respiratory rate Naloxone HCl (Narcan) 0.1 mg IV ASDIRECTED PRN PRN Reason: decreased respiratory rate Neostigmine Methylsulfate (Neostigmine) Confirm Administered Dose 5 mg .ROUTE .STK-MED ONE Stop: 03/08/18 08:55 Scopolamine Patch (Check) 1 each TOP DAILY [facility] Stop: 03/10/18 16:01 Non-Formulary Medication (Total Parenteral Nutrition, Central) 1,000 ml .XX .Continue Order [facility] Stop: 03/11/18 09:00 Non-Formulary Medication (Total Parenteral Nutrition, Central) 1,000 ml .XX .Continue Order [facility] Stop: 03/13/18 11:00 Non-Formulary Medication (Total Parenteral Nutrition, Central) 1,000 ml .XX .Continue Order [facility] Stop: 03/14/18 16:00 Non-Formulary Medication (Total Parenteral Nutrition, Central) 1,000 ml .XX .Continue Order [facility] Stop: 03/16/18 12:00 Non-Formulary Medication (Total Parenteral Nutrition, Central) 1,000 ml .XX .Continue Order [facility] Stop: 03/17/18 07:31 Ondansetron HCl (Zofran) Confirm Administered Dose 4 mg .ROUTE .STK-MED ONE Stop: 03/08/18 08:55 Oxycodone HCl (Oxycodone) 5 mg PO Q4H PRN PRN Reason: Pain (severe 7-10) Last Admin: 03/12/18 03:42 Dose: 5 mg Pantoprazole Sodium (Protonix Iv) 40 mg IVPUSH Q24H [facility] Last Admin: 03/10/18 15:35 Dose: 40 mg Pantoprazole Sodium (Protonix Granules) 40 mg PO Q24H [facility] Last Admin: 03/14/18 16:13 Dose: 40 mg Pantoprazole Sodium (Protonix Granules) 40 mg PO DAILY@0730 [facility] Last Admin: 03/15/18 08:57 Dose: 40 mg Pantoprazole Sodium (Protonix Granules) 40 mg PO BIDAC [facility] Last Admin: 03/16/18 15:34 Dose: 40 mg Pharmacy Consult (Consult To Pharmacy) 1 each .XX ASDIRECTED [facility] Pharmacy Consult (Consult To Pharmacy) 1 each .XX ASDIRECTED [facility] Stop: 03/08/18 17:04 Propofol (Diprivan 20 Ml) Confirm Administered Dose 200 mg .ROUTE .STK-MED ONE Stop: 03/08/18 08:55 Propofol (Diprivan 20 Ml) Confirm Administered Dose 200 mg .ROUTE .STK-MED ONE Stop: 03/13/18 08:09 Propofol (Diprivan 20 Ml) Confirm Administered Dose 200 mg .ROUTE .STK-MED ONE Stop: 03/17/18 07:12 Rocuronium [place] (Zemuron) Confirm Administered Dose 50 mg .ROUTE .STK-MED ONE Stop: 03/08/18 08:55 Rocuronium [place] (Zemuron) Confirm Administered Dose 50 mg .ROUTE .STK-MED ONE Stop: 03/08/18 11:45 Rocuronium [place] (Zemuron) Confirm Administered Dose 100 mg .ROUTE .STK-MED ONE Stop: 03/08/18 12:57 Succinylcholine Chloride (Quelicin) Confirm Administered Dose 200 mg .ROUTE .STK -MED ONE Stop: 03/08/18 08:55 - Exam General: Alert, Oriented, Cooperative, Mild Distress (Up walking in the griffin.) Lungs: Clear to Auscultation, Normal Respiratory Effort Cardiovascular: Regular Rate, Regular Rhythm GI/Abdominal Exam: Normal Bowel Sounds, Tender (No peritoneal signs. ) Back Exam: Normal Inspection Extremities: Normal Inspection Skin: Warm, Dry, Intact Psy/Mental Status: Alert, Normal Affect - Problem List & Annotations (1) Abdominal pain SNOMED Code(s): 63433670 Code(s): R10.9 - UNSPECIFIED ABDOMINAL PAIN Status: Acute Current Visit: No - Problem List Review Problem List Initiated/Reviewed/Updated: Yes - Assessment Assessment:: Poor gastric emptying. - Plan Plan:: Continue TPN. Probable surgery tomorrow.
[2018-03-20] MEDS: Acetaminophen 325 MG Tab PO PRN (18:20)
[2018-03-21] MEDS: Hyoscyamine 0.125 MG Tab.SL SL SCH ×4 (05:53→21:13)
[2018-03-21] MEDS: AA 5%/Calcium/D15W/Lytes 1,000 ML IV SCH ×4 (05:53→18:39)
[2018-03-21] MEDS ORDERED: Meropenem 500 MG SDV ONE (07:26)
[2018-03-21] MEDS ORDERED: Bupivacaine 0.5%/EPINEPHrine 1:200,000 50 ML MDV ONE (07:26)
[2018-03-21] MEDS ORDERED: Rocuronium 50 MG/5 ML Vial ONE (09:18)
[2018-03-21] MEDS ORDERED: Dexamethasone 4 MG/ML SDV ONE (09:18)
[2018-03-21] MEDS ORDERED: Glycopyrrolate 0.2 MG/ML 5 ML MDV ONE (09:18)
[2018-03-21] MEDS ORDERED: Ondansetron 4 MG/2 ML SDV ONE (09:18)
[2018-03-21] MEDS ORDERED: Succinylcholine 200 MG/10 ML MDV ONE (09:18)
[2018-03-21] MEDS ORDERED: Propofol 200 MG/20 ML SDV ONE (09:18)
[2018-03-21] MEDS ORDERED: fentaNYL 250 MCG/5 ML SDV ONE ×2 (09:18→13:00)
[2018-03-21] MEDS ORDERED: Neostigmine Methylsulfate 1 MG/ML 5 ML Syringe ONE (09:18)
[2018-03-21] MEDS ORDERED: Ampicillin/Sulbactam Na 3 GM in Sodium Chloride 0.9% 100 ML IV ONE (09:30)
[2018-03-21] MEDS: ESTRADIOL 1 MG PO SCH (09:41)
[2018-03-21] MEDS: Fluconazole/Normal Saline 200 MG in Premix Bag 1 BAG IV SCH (09:43)
[2018-03-21] MEDS: Pantoprazole 40 MG Vial IVPUSH SCH ×2 (09:43→21:13)
[2018-03-21] MEDS ORDERED: Fluconazole/Normal Saline 200 MG in Premix Bag 1 BAG IV ONE (10:00)
[2018-03-21] MEDS ORDERED: Naloxone 0.4 MG/ML SDV IV PRN (10:00)
[2018-03-21] MEDS: HYDROmorphone/Normal Saline 15 MG/30 ML PCA IV PRN (10:19)
[2018-03-21] MEDS ORDERED: Ropivacaine 35 ML, Dexamethasone 8 MG, EPINEPHrine 0.4 MG, Sodium Chloride 0.9% 42.6 ML NERVRT SCH ×4 (11:00)
[2018-03-21] MEDS ORDERED: Lactated Ringers 1,000 ML ONE (12:23)
[2018-03-21] MEDS: Dextrose 5%-Lactated Ringers 1,000 ML IV SCH (16:13)
[2018-03-21] MEDS: Ondansetron 4 MG/2 ML SDV IVPUSH PRN ×2 (18:01→22:28)
[2018-03-21] MEDS ORDERED: Dextrose 5%-Lactated Ringers 1,000 ML IV SCH (20:00)
[2018-03-21] MEDS: Ampicillin/Sulbactam Na 3 GM in Sodium Chloride 0.9% 100 ML IV SCH (21:13)
[2018-03-21] MEDS ORDERED: Lactated Ringers 500 ML IV SCH (23:30)
[2018-03-22] MEDS: AA 5%/Calcium/D15W/Lytes 1,000 ML IV SCH ×6 (03:45→23:21)
[2018-03-22] MEDS: Ampicillin/Sulbactam Na 3 GM in Sodium Chloride 0.9% 100 ML IV SCH ×4 (03:46→21:38)
[2018-03-22] MEDS ORDERED: Iohexol 647 MG/ML 50 ML SDV PO SCH (04:00)
[2018-03-22] MEDS: Hyoscyamine 0.125 MG Tab.SL SL SCH ×4 (05:36→21:30)
[2018-03-22] MEDS ORDERED: Benzocaine/Cetylpyridinium/Menthol Lozenge MUCMEM PRN (08:16)
[2018-03-22] MEDS: Dextrose 5%-Lactated Ringers 1,000 ML IV SCH (09:04)
[2018-03-22] MEDS: Pantoprazole 40 MG Vial IVPUSH SCH ×2 (09:10→21:29)
[2018-03-22] MEDS: Fluconazole/Normal Saline 200 MG in Premix Bag 1 BAG IV SCH (09:10)
[2018-03-22] MEDS: ESTRADIOL 1 MG PO SCH (09:10)
[2018-03-22] MEDS: HYDROmorphone/Normal Saline 15 MG/30 ML PCA IV PRN (21:43)
[2018-03-23] MEDS: Ampicillin/Sulbactam Na 3 GM in Sodium Chloride 0.9% 100 ML IV SCH ×3 (04:29→16:00)
[2018-03-23] MEDS: Hyoscyamine 0.125 MG Tab.SL SL SCH ×4 (06:47→22:08)
--- NOTE | 2018-03-23 08:59 | CR ---
UGI wo KUB HISTORY: eval R -Y GBP FINDINGS: After administration of oral contrast, upright views were obtained. Post operative changes in the upper abdomen. No evidence for leak. Contrast remains in the presumed gastric pouch and extends minimally into the Ozzy limb, out to 2 hours and 45 minutes. Continued imaging recommended. IMPRESSION: Delayed passage of oral contrast. Continued imaging recommended.
--- NOTE | 2018-03-23 09:00 | CR ---
Abdomen 1V Upright INDICATION: assess gastric emptying FINDINGS: Comparison exam from yesterday. Moderate oral contrast persists within the presumed gastric pouch. There is now extension of contrast into the right side of the colon. IMPRESSION: Extension of contrast to the colon.
[2018-03-23] MEDS: Pantoprazole 40 MG Vial IVPUSH SCH ×2 (09:20→22:08)
[2018-03-23] MEDS: Fluconazole/Normal Saline 200 MG in Premix Bag 1 BAG IV SCH (09:26)
[2018-03-23] MEDS: ESTRADIOL 1 MG PO SCH ×2 (09:30→09:32)
[2018-03-23] MEDS: AA 5%/Calcium/D15W/Lytes 1,000 ML IV SCH ×4 (12:06→22:30)
--- NOTE | 2018-03-23 12:24 | PN ---
DATE OF SERVICE: 03/22/2018 The patient has been afebrile with stable vital signs. Generally, feeling a little bit better, not as much in the way of heartburn and such. Her abdominal x-ray still shows a fair bit of hang-up in the stomach, but it appears to be emptying out of the gastrojejunostomy reasonably well. I think, once the dye gets out of the stomach and goes so quickly through the small bowel, that we are not seeing it really aggregating and overtime, the volume in the stomach appears to be decreasing over the series of x-rays. The plan will be to keep her more or less n.p.o., except ice chips for today. We will reassess the gastric emptying level with followup x-ray. Otherwise, continue the TPN. She is more mobile and appears to be in better spirits, generally feeling less in the way of heartburn, and fairly less in the way of nausea. So, I think things are gradually improving. We will continue to maximize activity and work with pulmonary toilet. Stan Atkinson MD /[id number]
--- NOTE | 2018-03-23 13:01 | PN ---
DATE OF SERVICE: 03/21/2018 The patient has clinically not significantly changed. She is still having quite a bit in the way of heartburn even though she is n.p.o. and it is fairly clear that her stomach is not adequately emptying. The plan is to proceed with exploratory laparotomy with formation of gastrojejunostomy. We will probably do a short Ozzy limb for that procedure so as to avoid problems with bile getting into the stomach, which I think would be problematic in this case. Prior to her going to sleep, we will do an upper GI endoscopy with the patient in the sitting position to empty the fluid out of her stomach, which will make the induction of the general anesthetic safer. Otherwise, she may have some yeast-type symptoms, so we will give her some IV Diflucan this morning and then continue that postoperatively. Otherwise, continue the present TPN today. Stan Atkinson MD /[id number]
--- NOTE | 2018-03-23 13:10 | PN ---
DATE OF SERVICE: 03/23/2018 The patient has been afebrile with stable vital signs. No major problems have been noted overnight. Her abdominal x-ray shows still quite a bit of dye in the stomach, but a large amount has gotten into the large bowel, indicating that it is getting some ongoing emptying through the small bowel. I think, once it gets to the small bowel, the rapidity of the transit time is such that it doesn't fill enough to see well on the x-rays. At any rate, we will not push the oral intake until we see better gastric emptying, repeat an x-ray tomorrow, and continue the TPN. This may be a case in which we might have to consider a period of home TPN, while we are waiting for the edema around the gastrojejunostomy to subside. Stan Atkinson MD /[id number]
[2018-03-23] MEDS: Dextrose 5%-Lactated Ringers 1,000 ML IV SCH (22:23)
[2018-03-24] MEDS: Acetaminophen 325 MG Tab PO PRN ×3 (01:17→21:06)
[2018-03-24] MEDS: Hyoscyamine 0.125 MG Tab.SL SL SCH ×4 (06:30→21:07)
[2018-03-24] MEDS: Ondansetron 4 MG/2 ML SDV IVPUSH PRN ×2 (07:24→12:24)
[2018-03-24] MEDS ORDERED: Central Total Parenteral Nutrition Bag SCH (07:30)
[2018-03-24] MEDS: AA 5%/Calcium/D15W/Lytes 1,000 ML IV SCH ×4 (08:54→19:00)
[2018-03-24] MEDS: Fluconazole/Normal Saline 200 MG in Premix Bag 1 BAG IV SCH (08:55)
[2018-03-24] MEDS: Pantoprazole 40 MG Vial IVPUSH SCH ×2 (09:01→21:07)
[2018-03-24] MEDS: ESTRADIOL 1 MG PO SCH (09:05)
[2018-03-25] MEDS: Acetaminophen 325 MG Tab PO PRN (03:20)
[2018-03-25] MEDS: Ondansetron 4 MG/2 ML SDV IVPUSH PRN ×3 (03:30→17:09)
[2018-03-25] MEDS: Hyoscyamine 0.125 MG Tab.SL SL SCH ×4 (05:13→22:12)
[2018-03-25] MEDS: AA 5%/Calcium/D15W/Lytes 1,000 ML IV SCH ×2 (05:13)
[2018-03-25] MEDS ORDERED: Acetaminophen 1,000 MG in Premix Bag 1 BAG IV ONE (07:46)
[2018-03-25] MEDS ORDERED: Central Total Parenteral Nutrition Bag SCH (08:00)
[2018-03-25] MEDS: Dextrose 5%-Lactated Ringers 1,000 ML IV SCH (08:11)
[2018-03-25] MEDS: Fluconazole/Normal Saline 200 MG in Premix Bag 1 BAG IV SCH (09:21)
[2018-03-25] MEDS: Pantoprazole 40 MG Vial IVPUSH SCH ×2 (09:21→20:11)
[2018-03-25] MEDS: ESTRADIOL 1 MG PO SCH (09:30)
--- NOTE | 2018-03-25 09:36 | CR ---
Single view abdomen Comparison: Previous day. There continues to be a large amount of ingested contrast remaining within the stomach. The contrast is more diluted. There has been progression of the contrast through the bowel on the right. Impression: 1. Mild progression of gastric emptying.
--- NOTE | 2018-03-25 09:38 | CR ---
Single view abdomen Comparison: 24 March 2018 Contrast within the stomach is more dilute. There is likely progression of emptying. There continues to be contrast within the bowel on the right. Increasing accumulation of contrast in the right lower quadrant.
--- NOTE | 2018-03-25 10:04 | PN ---
DATE OF SERVICE: 03/25/2018 SUBJECTIVE: Trisha has been nauseated and took Zofran twice yesterday. She is having more abdominal discomfort and gas and reports a headache. REVIEW OF SYSTEMS: Remainder of review of systems negative for any pertinent positives or negatives. OBJECTIVE: GENERAL: Trisha Wilcox is a 52-year-old female. VITAL SIGNS: TPR is 97.9, 99, 16, blood pressure 127/83. HEENT: Negative. NECK: Supple. HEART: Regular rate and rhythm. LUNGS: Clear. ABDOMEN: Dressings dry and intact. Abdominal binder is on. EXTREMITIES: Without peripheral edema. ASSESSMENT: 1. Exploratory laparotomy, formation of the gastrojejunostomy, debridement of abdominal wall, partial gastrectomy, and gastroscopy. Date of surgery: 03/21/2018. 2. Insertion of left subclavian vein triple-lumen, exploratory laparotomy with lysis of extensive adhesions: a. Esophageal gastrectomy and esophagogastric anastomosis. b. Small-bowel resection. c. Separate small bowel strictureplasty. d. Partial left hepatic lobectomy. e. Excision of nerve entering the probable neuroma, lower midline incision. f. Placement of Interceed mesh to limit recurrent adhesion formation. Date of surgery: 03/08/2018. Surgeon: Stan Atkinson MD. 3. Esophagogastroduodenoscopy with: a. Removal of foreign body (old food and fluid from the stomach). b. Dilatation of the pyloric sphincter to facilitate gastric emptying. Date of procedure: 03/13/2018. Surgeon: Stan Atkinson MD. PLAN: 1. Dulcolax suppository b.i.d. until BM. 2. IV Tylenol 1 g one time today. 3. Set up home care for home TPN. Plan discharge on Wednesday03/30/2018. 4. Continue same TPN rate and content. Peri Zambrano PA-C /[id number]
--- NOTE | 2018-03-25 13:08 | CR ---
Chest 2V FINDINGS: The heart and vascular structures are normal in appearance. No infiltrates or effusions are demonstrated. The skeletal structures are unremarkable. There is a left-sided venous catheter. The tip descends down into the SVC. IMPRESSION: 1. No acute findings.
[2018-03-25] MEDS: Bisacodyl 10 MG Supp RECTAL SCH ×2 (13:18→20:12)
[2018-03-25] MEDS ORDERED: Lactated Ringers 1,000 ML IV SCH (13:30)
--- NOTE | 2018-03-25 13:36 | PCM.CONS ---
H&P History of Present Illness - General Date of Service: 03/25/18 Admit Problem/Dx: Admission Diagnosis/Problem Admission Diagnosis/Problem Abdominal adhesions Source of Information: Patient, Old Records, Provider, RN Notes Reviewed History Limitations: Reports: No Limitations - History of Present Illness Initial Comments - Free Text/Narative: Ms. Wilcox is a 52-year-old woman with been asked to see by Dr. Atkinson for further suggestions concerning evaluation and management of fever. She was admitted to this facility on 09 March and underwent a takedown of her gastric bypass surgery because of ongoing difficulty with stricturing in maintaining adequate nutrition. She is been found to have an element of gastroparesis and had been receiving TPN through a left subclavian central line. She was doing well until yesterday when she began to develop frontal headache with generalized weakness and fatigue. This morning white blood cell count was normal but she has spiked a temp to 101.7. Associated with this has been a sinus tachycardia rate of 130. Urinalysis is pending, chest x-ray shows no obvious infiltrates. She has had ongoing abdominal pain related to abdominal wall incisions and denies that abdominal pain has changed or worsen in anyway over the past few days. Abdomen Pain Score (Numeric/FACES): 8 - Related Data Allergies/Adverse Reactions: Allergies Allergy/AdvReac Type Severity Reaction Status Date / Time clarithromycin [From Biaxin] Allergy Severe Difficulty Verified 03/08/18 08:25 Breathing multivitamin infusion, adult Allergy Severe Respiratory Verified 03/08/18 08:25 no.4 w Distress [From Infuvite Adult] Sulfa (Sulfonamide Allergy Severe Cardiac Verified 03/08/18 08:25 Antibiotics) Arrest celecoxib [From Celebrex] Allergy Itching Verified 03/09/18 12:19 erythromycin base Allergy Other Verified 03/08/18 08:25 fentanyl [From Duragesic] Allergy Hives Verified 03/08/18 08:25 mushroom Allergy Hives Verified 03/10/18 10:54 scopolamine Allergy Rash Verified 03/08/18 08:25 duloxetine HCl AdvReac Hallucinati Verified 03/16/18 16:20 [From Cymbalta] ons morphine AdvReac Hallucinati Verified 03/16/18 16:20 ons *banna bag Allergy Severe Difficulty Uncoded 03/08/18 08:25 Breathing Home Medications: Home Meds Aspirin 81 mg PO DAILY 10/29/18 [History] Cyanocobalamin (Vitamin B-12) [Cyanocobalamin Injection] 1,000 mcg IJ ASDIRECTED 01/24/18 [History] Diphenoxylate HCl/Atropine [Diphenoxylate-Atrop 2.5-0.025] 1 tab PO ASDIRECTED PRN 01/24/18 [History] Ergocalciferol (Vitamin D2) [Ergocalciferol] 50,000 unit PO WEEKLY 01/24/18 [ History] Estradiol 2 mg PO DAILY 01/24/18 [History] LORazepam [Ativan] 0.5 mg PO BID PRN 01/24/18 [History] Lansoprazole [Prevacid Solutab] 30 mg PO DAILY 01/24/18 [History] Multivitamin with Minerals [Multiple Vitamin] 1 tab PO DAILY 01/24/18 [History] Acetaminophen/HYDROcodone [[place] 325-5 MG] 1 - 2 tab PO Q4H PRN #40 tablet 01/29 [Rx] Cyclobenzaprine [Flexeril] 5 mg PO Q6H PRN #30 tablet 01/29/18 [Rx] Ondansetron [Zofran ODT] 4 mg PO Q4H PRN #30 tab.dis 01/29/18 [Rx] Acetaminophen [Tylenol] 650 mg PO Q6H PRN 03/08/18 [History] Past Medical History HEENT History: Reports: Allergic Rhinitis, Impaired Vision Cardiovascular History: Reports: Hypertension Gastrointestinal History: Reports: Bowel Obstruction, Cholelithiasis, Chronic Diarrhea, GERD, Hemorrhoids, Irritable Bowel Syndrome Other Gastrointestinal History: dumping syndrome Genitourinary History: Reports: None TAX EXAMINER History: 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: Dysfunctional Uterine Bleeding, Other OB/BYN History: hysterectomy Musculoskeletal History: Reports: Arthritis, Fibromyalgia Other Musculoskeletal History: back pain, Other Endocrine/Metabolic History: none Hematologic History: Reports: B12 Deficiency, Blood Transfusion(s), Iron Deficiency - Infectious Disease History Infectious Disease History: Reports: Chicken Pox, Measles, Shingles - Past Surgical History HEENT Surgical History: Reports: Oral Surgery Cardiovascular Surgical History: Reports: None GI Surgical History: Reports: Appendectomy, Bariatric Procedure, Cholecystectomy , Colon, Colonoscopy, EGD, Hernia, Abdominal, Lysis of Adhesions, Small Bowel Other GI Surgeries/Procedures: 0000 Female Surgical History: Reports: Hysterectomy Other Endocrine Surgeries/Procedures: Pt states she is "hypoglycemic" and uses diet control Musculoskeletal Surgical History: Reports: Arthroscopic Knee, Knee Replacement Other Musculoskeletal Surgeries/Procedures:: mass removed from shoulder Benign Dermatological Surgical History: Reports: None, Other (See Below) Social & Family History - Family History Family Medical History: Noncontributory - Tobacco Use Smoking Status *Q: Never Smoker Second Hand Smoke Exposure: No - Caffeine Use Caffeine Use: Reports: Tea - Recreational Drug Use Recreational Drug Use: No H&P Review of Systems - Review of Systems: Review Of Systems: See Below General: Reports: Fever, Chills, Weakness, Fatigue HEENT: Reports: Headaches. Denies: Ear Pain, Rhinitis, Post Nasal Drip, Sinus Congestion, Sore Throat Pulmonary: Reports: No Symptoms Cardiovascular: Reports: No Symptoms Gastrointestinal: Reports: Abdominal Pain, Nausea. Denies: Black Stool, Bloody Stool, Constipation, Diarrhea, Difficulty Swallowing, Distension, Vomiting Genitourinary: Reports: No Symptoms Musculoskeletal: Reports: No Symptoms Skin: Reports: No Symptoms Neurological: Reports: Weakness. Denies: Confusion, Dizziness, Headache, Numbness, Paresthesia, Difficulty Walking, Change in Speech Exam - Exam Exam: See Below - Vital Signs Vital Signs: Last Vital Signs Temp 101.7 F H 03/25/18 13:13 Pulse 136 H 03/25/18 13:13 Resp 20 03/25/18 13:13 BP 147/93 H 03/25/18 11:05 Pulse Ox 95 03/25/18 13:13 Weight: 152 lb 8 oz - Exam Quality Assessment: DVT Prophylaxis General: Alert, Oriented, Moderate Distress Neck: Supple, Trachea Midline, +2 Carotid Pulse wo Bruit Lungs: Clear to Auscultation, Normal Respiratory Effort Cardiovascular: Regular Rhythm, Normal S1, Normal S2, Tachycardia. No: Systolic Murmur, Diastolic Murmur GI/Abdominal Exam: Soft, No Organomegaly, Tender. No: Distended, Guarding, Rigid, Rebound Extremities: Non-Tender, No Pedal Edema Skin: Warm, Dry, Intact Neurological: Cranial Nerves Intact, Strength Equal Bilateral, Normal Speech, Normal Tone, Sensation Intact. No: Focal Deficit Neuro Extensive - Mental Status: Alert, Oriented x3, Normal Mood/Affect, Normal Cognition, Memory Intact - Patient Data Lab Results Last 24 hrs: Laboratory Results - last 24 hr 03/25/18 03/25/18 Range/Units 04:00 04:15 WBC 7.2 (4.5-11.0) K/uL RBC 3.40 (3.30-5.50) M/uL Hgb 10.2 L (12.0-15.0) g/dL Hct 32.5 L (36.0-48.0) % MCV 96 (80-98) fL MCH 30 (27-31) pg MCHC 31 L (32-36) % Plt Count 348 (150-400) K/uL Sodium 136 L (140-148) mmol/L Potassium 4.3 (3.6-5.2) mmol/L Chloride 101 (100-108) mmol/L Carbon Dioxide 27 (21-32) mmol/L Anion Gap 12.3 (5.0-14.0) mmol/L BUN 16 (7-18) mg/dL Creatinine 0.6 (0.6-1.0) mg/dL Est Cr Clr Drug Dosing 106.66 mL/min Estimated GFR (MDRD) > 60 (>60) Glucose 137 H (74-106) mg/dL Calcium 9.1 (8.5-10.1) mg/dL Phosphorus 4.4 (2.5-4.9) mg/dL Magnesium 1.9 (1.8-2.4) mg/dL Total Bilirubin 0.3 (0.2-1.0) mg/dL AST 12 L (15-37) U/L ALT 21 (12-78) U/L Alkaline Phosphatase 88 (46-116) U/L Total Protein 6.3 L (6.4-8.2) g/dL Albumin 2.5 L (3.4-5.0) g/dL Globulin 3.8 H (2.3-3.5) g/dL Albumin/Globulin Ratio 0.7 L (1.2-2.2) Result Diagrams: 03/25/18 04:15 03/25/18 04:00 [place] Results Last 24 hrs: Microbiology 03/21/18 12:26 Gram Stain - Final Abdomen - Incision Wound Culture - Final Staphylococcus Epidermidis Anaerobic Culture - Final NO GROWTH AFTER 3 DAYS Consult PN Assessment/Plan Procedures: Procedures ASSAY OF LACTIC ACID (02/07/18) ASSAY OF LIPASE (02/07/18) C DIFF AMPLIFIED PROBE (02/09/18) COMPLETE CBC W/AUTO DIFF WBC (02/07/18) COMPREHEN METABOLIC PANEL (02/07/18) CT ABD & PELV W/CONTRAST (02/07/18) EMERGENCY DEPT VISIT (02/07/18) ROUTINE VENIPUNCTURE (02/07/18) THER/PROPH/DIAG INJ IV PUSH (02/07/18) TX/PRO/DX INJ NEW DRUG ADDON (02/07/18) URINALYSIS AUTO W/SCOPE (02/07/18) Problem List Initiated/Reviewed/Updated: Yes My Orders Last 24 Hours: My Active Orders 03/25/18 11:46 Blood Culture x2 Reflex Set [OM.PC] Urgent EKG 12 Lead [EK] Stat 03/25/18 12:04 CULTURE BLOOD [BC] Stat CULTURE BLOOD [BC] Stat 03/25/18 13:30 Lactated Ringers [Ringers, Lactated] 1,000 ml IV ASDIRECTED Linezolid [Zyvox] 600 mg Premix Bag 1 bag IV Q12H Meropenem [Merrem] 1 gm Sodium Chloride 0.9% [Normal Saline] 50 ml IV Q8H Plan: ASSESSMENT AND RECOMMENDATIONS FEVER-associated with frontal headache, nausea, malaise, and weakness. She had been progressing well following her surgery until yesterday. This morning was noted to have normal white blood cell count, now has spiked a temp to 101.7. Abdominal pain related to recent surgery which has not changed significantly over the past few days. By history and physical examination no other obvious source of potential infection. Blood cultures have been obtained, unable to draw blood from the central line, so cultures were not obtained through the line. -Urinalysis pending -Blood cultures pending -1000 mL fluid bolus lactated Ringer's over 2 hours -Initiate IV antibiotic therapy with Zyvox and meropenem pending culture results -Remove central line and culture tip STATUS POST REVERSAL OF LELAND-EN-Y GASTRIC BYPASS SURGERY -Postoperative care per Dr. Atkinson Requesting Provider: [facility] Date Consult Requested: 03/25/18 Reason for Consult: Fever Patient History Reviewed: Yes
[2018-03-25] MEDS ORDERED: Sodium Chloride 0.9% 10 ML Syringe FLUSH PRN (13:37)
[2018-03-25] MEDS: Linezolid 600 MG in Premix Bag 1 BAG IV SCH (13:55)
[2018-03-25] MEDS ORDERED: Dextrose 5%-Lactated Ringers 1,000 ML IV SCH (14:00)
[2018-03-25] MEDS: Acetaminophen 1,000 MG in Premix Bag 1 BAG IV SCH ×2 (15:14→20:11)
[2018-03-25] MEDS ORDERED: HYDROmorphone 1 MG/ML Syringe IVPUSH PRN (19:24)
[2018-03-25] MEDS ORDERED: Sodium Chloride 0.9% 1,000 ML IV SCH (19:30)
--- NOTE | 2018-03-25 19:33 | PCM.SN ---
- Free Text/Narrative Note: time : 1800 , call from [address] [place] [address], Ms. Wilcox continues to have frontal headache. no other concerns O: vital signs 37.0-124- blood pressure 128/86 O2 sat 100% A: headache P: give fluid bolus, 1 liter NS over one hour, then restart IV fluids at previous rate order Dilaudid 1 mg IV every 4 hours as needed for pain continue present plan of care.
[2018-03-25] MEDS: oxyCODONE 5 MG Tab PO PRN (22:12)
[2018-03-26] MEDS: Linezolid 600 MG in Premix Bag 1 BAG IV SCH ×3 (01:51→13:22)
[2018-03-26] MEDS ORDERED: Dextrose 5%-Lactated Ringers 1,000 ML IV SCH ×2 (02:00→08:15)
[2018-03-26] MEDS: Acetaminophen 1,000 MG in Premix Bag 1 BAG IV SCH (02:02)
[2018-03-26] MEDS: oxyCODONE 5 MG Tab PO PRN ×2 (02:07→06:26)
[2018-03-26] MEDS: Hyoscyamine 0.125 MG Tab.SL SL SCH ×4 (06:26→21:12)
[2018-03-26] MEDS: Fluconazole/Normal Saline 200 MG in Premix Bag 1 BAG IV SCH (08:43)
[2018-03-26] MEDS: Pantoprazole 40 MG Vial IVPUSH SCH ×2 (08:43→21:12)
[2018-03-26] MEDS: ESTRADIOL 1 MG PO SCH (08:44)
[2018-03-26] MEDS ORDERED: Ketorolac 60 MG/2 ML SDV IM ONE (09:00)
--- NOTE | 2018-03-26 10:01 | PCM.CONSN ---
- General Info Date of Service: 03/26/18 Subjective Update: Ms. Wilcox feels modestly improved today, headache better but has not totally resolved. Continues to experience symptoms of nausea with poor appetite. Heart rate has improved following hydration and initiation of antibiotic therapy. Blood cultures growing gram-positive cocci, there is also growth from the catheter tip that was removed yesterday. Functional Status: Reports: Pain Controlled, Urinating - Review of Systems General: Reports: Fever, Weakness Pulmonary: Reports: No Symptoms Cardiovascular: Reports: No Symptoms Gastrointestinal: Reports: Abdominal Pain, Nausea. Denies: Diarrhea, Difficulty Swallowing, Vomiting - Patient Data Vitals - Most Recent: Last Vital Signs Temp 98.1 F 03/26/18 07:19 Pulse 98 03/26/18 07:19 Resp 16 03/26/18 07:19 BP 109/73 03/26/18 07:19 Pulse Ox 99 03/26/18 07:19 Weight - Most Recent: 149 lb 8 oz I&O - Last 24 Hours: Intake & Output 03/25/18 03/26/18 03/26/18 22:59 06:59 14:59 Intake Total 2084 1639 100 Output Total 300 300 Balance 1784 1339 100 Lab Results Last 24 Hours: Laboratory Results - last 24 hr 03/25/18 Range/Units 14:39 Urine Color Yellow Urine Appearance Slightly cloudy Urine pH 5.0 (4.5-8.0) Ur Specific [place] 1.015 (1.008-1.030) Urine Protein Negative (NEGATIVE) mg/dL Urine Glucose (UA) Normal (NEGATIVE) mg/dL Urine Ketones Negative (NEGATIVE) mg/dL Urine Occult Blood Moderate (NEGATIVE) Urine Nitrite Negative (NEGATIVE) Urine Bilirubin Negative (NEGATIVE) Urine Urobilinogen Normal (NORMAL) mg/dL Ur Leukocyte Esterase Moderate (NEGATIVE) Urine RBC 0-5 (0-5) Urine WBC 5-10 H (0-5) Ur Epithelial Cells Few Amorphous Sediment Not seen Urine Bacteria Few Urine Mucus Rare [place] Results Last 24 Hours: Microbiology 03/25/18 13:56 Catheter Tip Culture - Preliminary Catheter Tip Other - Central Line 03/25/18 12:04 Aerobic Blood Culture - Preliminary Blood - Venous 03/25/18 12:04 Aerobic Blood Culture - Preliminary Blood - Venous - Lab Draw 03/21/18 12:26 Gram Stain - Final Abdomen - Incision Wound Culture - Final Staphylococcus Epidermidis Anaerobic Culture - Final NO GROWTH AFTER 3 DAYS Med Orders - Current: Current Medications Acetaminophen (Tylenol) 650 mg PO Q4H PRN PRN Reason: Pain OR HEADACHE Last Admin: 03/25/18 03:20 Dose: 650 mg Benzocaine/Menthol (Cepacol Sore Throat) 1 lozenge MUCMEM ASDIRECTED PRN PRN Reason: Sore Throat Last Admin: 03/22/18 09:19 Dose: 1 lozenge Bisacodyl (Dulcolax) 10 mg RECTAL BID PRN PRN Reason: Constipation Calcium Carbonate/Glycine (Tums) 1,000 mg PO Q2H PRN PRN Reason: Indigestion Last Admin: 03/14/18 21:09 Dose: 1,000 mg Cyclobenzaprine HCl (Flexeril) 10 mg PO Q6H PRN PRN Reason: MUSCLE SPASM Last Admin: 03/19/18 16:35 Dose: 10 mg Diphenhydramine HCl (Benadryl) 50 mg IVPUSH Q4H PRN PRN Reason: ITCHING Heparin Sodium (Porcine) (Heparin Lock Flush 100 Units/Ml) 500 units FLUSH ASDIRECTED PRN PRN Reason: Flush central line Last Admin: 03/21/18 16:21 Dose: 500 units Hydroxyzine HCl (Vistaril) 100 mg IM Q4H PRN PRN Reason: pain Last Admin: 03/12/18 23:48 Dose: 100 mg Hyoscyamine (Hyomax-Sl) 0.125 mg SL QID [facility] Last Admin: 03/26/18 09:44 Dose: Not Given Fluconazole/Sodium Chloride (200 mg/ Premix) 100 mls @ 100 mls/hr IV Q24H [facility] Last Admin: 03/26/18 08:43 Dose: 100 mls/hr Linezolid 600 mg/ Premix 300 mls @ 300 mls/hr IV Q12H [facility] Last Admin: 03/26/18 02:28 Dose: 150 mls/hr Dextrose/Lactated Ringer's (Dextrose 5%-Lactated Ringers) 1,000 mls @ 100 mls/ hr IV ASDIRECTED [facility] Labetalol HCl (Normodyne) 5 mg IVPUSH Q5M PRN PRN Reason: SBP over 160 OR DBP over 95 Lorazepam (Ativan) 0.5 mg IVPUSH Q2H PRN PRN Reason: Anxiety Last Admin: 03/11/18 20:46 Dose: 0.5 mg Ondansetron HCl (Zofran) 4 mg IVPUSH Q4H PRN PRN Reason: Nausea/Vomiting Last Admin: 03/25/18 17:09 Dose: 4 mg Oxycodone HCl (Oxycodone) 5 - 10 mg PO Q4H PRN PRN Reason: Pain Last Admin: 03/26/18 06:26 Dose: 5 mg Pantoprazole Sodium (Protonix Iv) 40 mg IVPUSH Q12H [facility] Last Admin: 03/26/18 08:43 Dose: 40 mg Estradiol 1mg Tabs (Pom) 0 each PO DAILY [facility] Last Admin: 03/26/18 08:44 Dose: 1 each Sodium Chloride (Saline Flush) 10 ml FLUSH ASDIRECTED PRN PRN Reason: Keep Vein Open Discontinued Medications Acetaminophen (Tylenol Extra Strength) 1,000 mg PO ONETIME ONE Stop: 03/08/18 08:16 Last Admin: 03/08/18 08:32 Dose: 1,000 mg Acetaminophen (Tylenol) 650 mg PO Q6H [facility] Last Admin: 03/16/18 22:25 Dose: Not Given Bisacodyl (Dulcolax) 10 mg RECTAL BID [facility] Last Admin: 03/25/18 20:12 Dose: Not Given Bupivacaine HCl/Epinephrine Bitart (Marcaine 0.5%/Epinephrine 1:200,000) Confirm Administered Dose 50 ml .ROUTE .STK-MED ONE Stop: 03/21/18 07:27 Celecoxib (Celebrex) 200 mg PO ONETIME ONE Stop: 03/08/18 08:16 Last Admin: 03/08/18 08:32 Dose: 200 mg Celecoxib (Celebrex) 200 mg PO DAILY@0800 [facility] Last Admin: 03/09/18 08:40 Dose: 200 mg Ropivacaine 34 ml/Dexamethasone 8 mg/Epinephrine HCl 0.4 mg/ Sodium Chloride 43.6 ml 0 ml NERVRT ASDIRECTED [facility] Last Admin: 03/08/18 11:15 Dose: 80 syringe Ropivacaine 35 ml/Dexamethasone 8 mg/Epinephrine HCl 0.4 mg/ Sodium Chloride 42.6 ml 0 ml NERVRT ASDIRECTED [facility] Last Admin: 03/21/18 13:32 Dose: 80 syringe Cyanocobalamin (Vitamin B12) 1,000 mcg IM ONETIME ONE Stop: 03/10/18 09:01 Last Admin: 03/10/18 08:34 Dose: Not Given Cyclobenzaprine HCl (Flexeril) 10 mg PO Q6H PRN PRN Reason: muscle spasms Last Admin: 03/16/18 14:30 Dose: 10 mg Dexamethasone (Dexamethasone) Confirm Administered Dose 4 mg .ROUTE .STK-MED ONE Stop: 03/08/18 08:55 Dexamethasone (Dexamethasone) Confirm Administered Dose 4 mg .ROUTE .STK-MED ONE Stop: 03/21/18 09:19 Erythromycin Ethylsuccinate (Eryped 400) 50 mg PO QID [facility] Last Admin: 03/16/18 05:30 Dose: Not Given Fentanyl (Sublimaze) Confirm Administered Dose 250 mcg .ROUTE .STK-MED ONE Stop: 03/08/18 08:55 Fentanyl (Sublimaze) Confirm Administered Dose 250 mcg .ROUTE .STK-MED ONE Stop: 03/08/18 11:44 Fentanyl (Sublimaze) Confirm Administered Dose 250 mcg .ROUTE .STK-MED ONE Stop: 03/08/18 12:18 Fentanyl (Sublimaze) Confirm Administered Dose 100 mcg .ROUTE .STK-MED ONE Stop: 03/13/18 08:08 Fentanyl (Sublimaze) Confirm Administered Dose 100 mcg .ROUTE .STK-MED ONE Stop: 03/17/18 07:12 Fentanyl (Sublimaze) Confirm Administered Dose 250 mcg .ROUTE .STK-MED ONE Stop: 03/21/18 09:19 Fentanyl (Sublimaze) Confirm Administered Dose 250 mcg .ROUTE .STK-MED ONE Stop: 03/21/18 13:01 Fentanyl Citrate (Fentanyl In Ns 20 Mcg/Ml 30 Ml Cloth Bolt Bander) 0 mcg IV ASDIRECTED PRN; Protocol PRN Reason: PAIN Stop: 03/21/18 11:00 Last Admin: 03/19/18 16:28 Dose: 600 mcg Glycopyrrolate (Robinul) Confirm Administered Dose 1 mg .ROUTE .STK-MED ONE Stop: 03/08/18 08:55 Glycopyrrolate (Robinul) Confirm Administered Dose 1 mg .ROUTE .STK-MED ONE Stop: 03/21/18 09:19 Heparin Sodium (Porcine) (Heparin Lock Flush 100 Units/Ml) Confirm Administered Dose 500 units .ROUTE .STK-MED ONE Stop: 03/08/18 10:07 Last Admin: 03/08/18 11:13 Dose: 500 units Hydromorphone HCl (Dilaudid Cloth Bolt Bander 15 Mg In Ns 30 Ml) 0 mg IV ASDIRECTED PRN; Protocol PRN Reason: Pain Last Admin: 03/11/18 01:54 Dose: 15 mg Hydromorphone HCl (Dilaudid Cloth Bolt Bander 15 Mg In Ns 30 Ml) 0 mg IV ASDIRECTED PRN; Protocol PRN Reason: Pain Last Admin: 03/13/18 19:42 Dose: 15 mg Hydromorphone HCl (Dilaudid) 2 - 4 mg PO Q4H PRN PRN Reason: Pain Last Admin: 03/16/18 12:58 Dose: 4 mg Hydromorphone HCl (Dilaudid Cloth Bolt Bander 15 Mg In Ns 30 Ml) 0 mg IV ASDIRECTED PRN; Protocol PRN Reason: PAIN Last Admin: 03/18/18 02:51 Dose: 15 mg Hydromorphone HCl (Dilaudid Cloth Bolt Bander 15 Mg In Ns 30 Ml) 0 mg IV ASDIRECTED PRN; Protocol PRN Reason: [employer] PAIN CONTROL Last Admin: 03/22/18 21:43 Dose: 15 mg Hydromorphone HCl (Dilaudid) 1 mg IVPUSH Q4H PRN PRN Reason: Pain (moderate 4-6) Hydroxyzine HCl (Vistaril) 100 mg IM ONETIME ONE Stop: 03/08/18 15:30 Last Admin: 03/08/18 15:34 Dose: 100 mg Hydroxyzine HCl (Atarax) 50 mg PO Q4H PRN PRN Reason: Pain (Severe 7-10) Last Admin: 03/15/18 04:19 Dose: 50 mg Cefoxitin Sodium 2 gm/ Sodium (Chloride) 50 mls @ 100 mls/hr IV ONETIME ONE Stop: 03/08/18 09:59 Dextrose/Lactated Ringer's (Dextrose 5%-Lactated Ringers) 1,000 mls @ 100 mls/ hr IV ASDIRECTED [facility] Last Admin: 03/08/18 08:32 Dose: 100 mls/hr Lidocaine HCl/Dextrose (Lidocaine 2 Gm/D5w 500 Ml) 2 gm in 500 mls @ 15 mls/hr IV .Q24H [facility] Stop: 03/09/18 16:00 Last Admin: 03/09/18 12:48 Dose: Not Given Ketamine HCl 50 mg/ Sodium (Chloride) 50 mls @ 18.82 mls/hr IV ASDIRECTED [facility] Cefoxitin Sodium 2 gm/ Sodium (Chloride) 50 mls @ 100 mls/hr IV ONETIME ONE Stop: 03/08/18 09:59 Last Admin: 03/08/18 10:45 Dose: 100 mls/hr Lactated Ringer's (Ringers, Lactated) Confirm Administered Dose 1,000 mls @ as directed .ROUTE .STK-MED ONE Stop: 03/08/18 11:47 Lactated Ringer's (Ringers, Lactated) Confirm Administered Dose 1,000 mls @ as directed .ROUTE .STK-MED ONE Stop: 03/08/18 14:06 Dextrose/Lactated Ringer's (Dextrose 5%-Lactated Ringers) 1,000 mls @ 200 mls/ hr IV ASDIRECTED [facility] Last Admin: 03/09/18 05:21 Dose: 200 mls/hr Cefoxitin Sodium 2 gm/ Sodium (Chloride) 50 mls @ 100 mls/hr IV Q6H [facility] Last Admin: 03/15/18 09:05 Dose: 100 mls/hr Dextrose/Lactated Ringer's (Dextrose 5%-Lactated Ringers) 1,000 mls @ 75 mls/ hr IV ASDIRECTED [facility] Last Admin: 03/21/18 16:13 Dose: 25 mls/hr Magnesium Sulfate 2 gm/ Premix 50 mls @ 25 mls/hr IV Q6H [facility] Stop: 03/12/18 05:59 Last Admin: 03/12/18 03:25 Dose: 25 mls/hr Dextrose/Lactated Ringer's (Dextrose 5%-Lactated Ringers) 1,000 mls @ 100 mls/ hr IV ASDIRECTED [facility] Stop: 03/09/18 17:59 Amino Ac/Electrol/Dextrose/Calcium (Clinimix E 08/10) 2,000 mls @ 100 mls/hr IV .BY DURATION [facility] Stop: 03/11/18 22:59 Last Admin: 03/11/18 03:30 Dose: 100 mls/hr Amino Ac/Electrol/Dextrose/Calcium (Clinimix E 5/15) 2,000 mls @ 100 mls/hr IV .BY DURATION [facility] Stop: 03/11/18 22:59 Potassium Phosphate 20 mmole/ (Sodium Chloride) 106.6667 mls @ 35 mls/hr IV Q3H [facility] Stop: 03/10/18 18:29 Last Admin: 03/10/18 15:25 Dose: 35 mls/hr Albumin Human (Albumin 25%) 25 gm in 100 mls @ 25 mls/hr IV DAILY [facility] Stop: 03/14/18 09:01 Last Admin: 03/14/18 08:01 Dose: 25 mls/hr Amino Ac/Electrol/Dextrose/Calcium (Clinimix E 5/15) 1,000 mls @ 100 mls/hr IV .Q10H [facility] Last Admin: 03/17/18 11:52 Dose: 100 mls/hr Fat Emulsion Intravenous (Intralipid 20%) 100 mls @ 8.3 mls/hr IV Q24H [facility] Stop: 03/20/18 05:00 Last Admin: 03/19/18 16:17 Dose: 8.3 mls/hr Amino Ac/Electrol/Dextrose/Calcium (Clinimix E 5/15) 1,000 mls @ 100 mls/hr IV .Q10H [facility] Stop: 03/23/18 17:59 Last Admin: 03/23/18 12:06 Dose: 100 mls/hr Fluconazole/Sodium Chloride (200 mg/ Premix) 100 mls @ 100 mls/hr IV ONETIME ONE Stop: 03/21/18 10:59 Last Admin: 03/21/18 11:16 Dose: 100 mls/hr Ampicillin Sodium/Sulbactam (Sodium 3 gm/ Sodium Chloride) 100 mls @ 200 mls/ hr IV ONETIME ONE Stop: 03/21/18 09:59 Last Admin: 03/21/18 15:15 Dose: Not Given Lactated Ringer's (Ringers, Lactated) Confirm Administered Dose 1,000 mls @ as directed .ROUTE .STK-MED ONE Stop: 03/21/18 12:24 Ampicillin Sodium/Sulbactam (Sodium 3 gm/ Sodium Chloride) 100 mls @ 200 mls/ hr IV Q6H [facility] Stop: 03/23/18 16:29 Last Admin: 03/23/18 16:00 Dose: 200 mls/hr Dextrose/Lactated Ringer's (Dextrose 5%-Lactated Ringers) 1,000 mls @ 75 mls/ hr IV ASDIRECTED [facility] Lactated Ringer's (Ringers, Lactated) 500 mls @ 500 mls/hr IV .BOLUS [facility] Last Admin: 03/21/18 23:31 Dose: 500 mls/hr Dextrose/Lactated Ringer's (Dextrose 5%-Lactated Ringers) 1,000 mls @ 25 mls/ hr IV ASDIRECTED [facility] Last Admin: 03/25/18 08:11 Dose: 25 mls/hr Amino Ac/Electrol/Dextrose/Calcium (Clinimix E 5/15) 1,000 mls @ 100 mls/hr IV .Q10H [facility] Last Admin: 03/25/18 05:13 Dose: 100 mls/hr Acetaminophen 1,000 mg/ Premix 100 mls @ 400 mls/hr IV NOW ONE Stop: 03/25/18 08:00 Last Admin: 03/25/18 08:14 Dose: 400 mls/hr Meropenem 1 gm/ Sodium (Chloride) 50 mls @ 100 mls/hr IV Q8H [facility] Last Admin: 03/26/18 06:26 Dose: 100 mls/hr Lactated Ringer's (Ringers, Lactated) 1,000 mls @ 500 mls/hr IV ASDIRECTED [facility] Stop: 03/25/18 15:31 Acetaminophen 1,000 mg/ Premix 100 mls @ 400 mls/hr IV Q6H [facility] Stop: 03/26/18 09:14 Last Admin: 03/26/18 02:02 Dose: 400 mls/hr Dextrose/Lactated Ringer's (Dextrose 5%-Lactated Ringers) 1,000 mls @ 125 mls/ hr IV ASDIRECTED [facility] Sodium Chloride (Normal Saline) 1,000 mls @ 999 mls/hr IV ASDIRECTED [facility] Last Infusion: 03/25/18 20:46 Dose: 500 mls/hr Dextrose/Lactated Ringer's (Dextrose 5%-Lactated Ringers) 1,000 mls @ 125 mls/ hr IV ASDIRECTED [facility] Last Admin: 03/26/18 02:29 Dose: 125 mls/hr Iohexol (Omnipaque-300) 50 ml PO .ASDIRECTED [facility] Stop: 03/09/18 03:43 Last Admin: 03/09/18 04:27 Dose: 50 ml Iohexol (Omnipaque-300) 50 ml IVPUSH . DIRECTED PRN PRN Reason: RADIOLOGY EXAM Stop: 03/13/18 06:56 Last Admin: 03/12/18 07:09 Dose: 50 ml Iohexol (Omnipaque-300) 50 ml PO .ASDIRECTED [facility] Last Admin: 03/22/18 04:39 Dose: 50 ml Ketorolac Tromethamine (Toradol) 60 mg IM ONETIME ONE Stop: 03/26/18 09:01 Last Admin: 03/26/18 08:47 Dose: 60 mg Labetalol HCl (Normodyne) Confirm Administered Dose 20 mg .ROUTE .STK-MED ONE Stop: 03/08/18 12:58 Lidocaine HCl (Xylocaine 2%) 96 mg IVPUSH ASDIRECTED [facility] Lorazepam (Ativan) 0.5 mg PO BID PRN PRN Reason: Anxiety Magnesium Hydroxide (Milk Of Magnesia) 30 ml PO BID [facility] Stop: 03/11/18 23:59 Last Admin: 03/11/18 22:25 Dose: 30 ml Magnesium Hydroxide (Milk Of Magnesia) 30 ml PO BID [facility] Last Admin: 03/15/18 20:07 Dose: Not Given Meropenem (Merrem) Confirm Administered Dose 500 mg .ROUTE .STK-MED ONE Stop: 03/08/18 09:21 Last Admin: 03/08/18 11:44 Dose: 500 mg Meropenem (Merrem) Confirm Administered Dose 500 mg .ROUTE .STK-MED ONE Stop: 03/21/18 07:27 Last Admin: 03/21/18 13:32 Dose: 500 mg Metoclopramide HCl (Reglan) 10 mg IVPUSH Q6H PRN PRN Reason: NAUSEA NOT CONTROL BY ZOFRAN Last Admin: 03/11/18 15:34 Dose: 10 mg Metoclopramide HCl (Reglan) 10 mg IVPUSH Q6H [facility] Last Admin: 03/19/18 03:58 Dose: 10 mg Midazolam HCl (Versed 1 Mg/Ml) Confirm Administered Dose 2 mg .ROUTE .STK-MED ONE Stop: 03/13/18 08:09 Midazolam HCl (Versed 1 Mg/Ml) Confirm Administered Dose 2 mg .ROUTE .STK-MED ONE Stop: 03/17/18 07:12 Naloxone HCl (Narcan) 0.1 mg IV ASDIRECTED PRN PRN Reason: decreased respiratory rate Naloxone HCl (Narcan) 0.1 mg IV ASDIRECTED PRN PRN Reason: decreased respiratory rate Naloxone HCl (Narcan) 0.1 mg IV ASDIRECTED PRN PRN Reason: decreased respiratory rate Naloxone HCl (Narcan) 0.1 mg IV ASDIRECTED PRN PRN Reason: decreased respiratory rate Neostigmine Methylsulfate (Neostigmine) Confirm Administered Dose 5 mg .ROUTE .STK-MED ONE Stop: 03/08/18 08:55 Neostigmine Methylsulfate (Neostigmine) Confirm Administered Dose 5 mg .ROUTE .STK-MED ONE Stop: 03/21/18 09:19 Scopolamine Patch (Check) 1 each TOP DAILY [facility] Stop: 03/10/18 16:01 Non-Formulary Medication (Total Parenteral Nutrition, Central) 1,000 ml .XX .Continue Order [facility] Stop: 03/11/18 09:00 Non-Formulary Medication (Total Parenteral Nutrition, Central) 1,000 ml .XX .Continue Order [facility] Stop: 03/13/18 11:00 Non-Formulary Medication (Total Parenteral Nutrition, Central) 1,000 ml .XX .Continue Order [facility] Stop: 03/14/18 16:00 Non-Formulary Medication (Total Parenteral Nutrition, Central) 1,000 ml .XX .Continue Order [facility] Stop: 03/16/18 12:00 Non-Formulary Medication (Total Parenteral Nutrition, Central) 1,000 ml .XX .Continue Order [facility] Stop: 03/17/18 07:31 Non-Formulary Medication (Total Parenteral Nutrition, Central) 1,000 ml .XX .Continue Order [facility] Stop: 03/24/18 16:00 Ondansetron HCl (Zofran) Confirm Administered Dose 4 mg .ROUTE .STK-MED ONE Stop: 03/08/18 08:55 Ondansetron HCl (Zofran) Confirm Administered Dose 4 mg .ROUTE .STK-MED ONE Stop: 03/21/18 09:19 Oxycodone HCl (Oxycodone) 5 mg PO Q4H PRN PRN Reason: Pain (severe 7-10) Last Admin: 03/12/18 03:42 Dose: 5 mg Pantoprazole Sodium (Protonix Iv) 40 mg IVPUSH Q24H [facility] Last Admin: 03/10/18 15:35 Dose: 40 mg Pantoprazole Sodium (Protonix Granules) 40 mg PO Q24H [facility] Last Admin: 03/14/18 16:13 Dose: 40 mg Pantoprazole Sodium (Protonix Granules) 40 mg PO DAILY@0730 [facility] Last Admin: 03/15/18 08:57 Dose: 40 mg Pantoprazole Sodium (Protonix Granules) 40 mg PO BIDAC [facility] Last Admin: 03/16/18 15:34 Dose: 40 mg Pharmacy Consult (Consult To Pharmacy) 1 each .XX ASDIRECTED [facility] Pharmacy Consult (Consult To Pharmacy) 1 each .XX ASDIRECTED [facility] Stop: 03/08/18 17:04 Propofol (Diprivan 20 Ml) Confirm Administered Dose 200 mg .ROUTE .STK-MED ONE Stop: 03/08/18 08:55 Propofol (Diprivan 20 Ml) Confirm Administered Dose 200 mg .ROUTE .STK-MED ONE Stop: 03/13/18 08:09 Propofol (Diprivan 20 Ml) Confirm Administered Dose 200 mg .ROUTE .STK-MED ONE Stop: 03/17/18 07:12 Propofol (Diprivan 20 Ml) Confirm Administered Dose 200 mg .ROUTE .STK-MED ONE Stop: 03/21/18 09:19 Rocuronium [place] (Zemuron) Confirm Administered Dose 50 mg .ROUTE .STK-MED ONE Stop: 03/08/18 08:55 Rocuronium [place] (Zemuron) Confirm Administered Dose 50 mg .ROUTE .STK-MED ONE Stop: 03/08/18 11:45 Rocuronium [place] (Zemuron) Confirm Administered Dose 100 mg .ROUTE .STK-MED ONE Stop: 03/08/18 12:57 Rocuronium [place] (Zemuron) Confirm Administered Dose 50 mg .ROUTE .STK-MED ONE Stop: 03/21/18 09:19 Succinylcholine Chloride (Quelicin) Confirm Administered Dose 200 mg .ROUTE .STK -MED ONE Stop: 03/08/18 08:55 Succinylcholine Chloride (Quelicin) Confirm Administered Dose 200 mg .ROUTE .STK -MED ONE Stop: 03/21/18 09:19 - Exam General: Alert, Oriented, Cooperative, Mild Distress Lungs: Clear to Auscultation, Normal Respiratory Effort Cardiovascular: Regular Rate, Regular Rhythm, No Murmurs Extremities: Non-Tender, No Pedal Edema Consult PN Assessment/Plan Procedures: Procedures ASSAY OF LACTIC ACID (02/07/18) ASSAY OF LIPASE (02/07/18) C DIFF AMPLIFIED PROBE (02/09/18) COMPLETE CBC W/AUTO DIFF WBC (02/07/18) COMPREHEN METABOLIC PANEL (02/07/18) CT ABD & PELV W/CONTRAST (02/07/18) EMERGENCY DEPT VISIT (02/07/18) ROUTINE VENIPUNCTURE (02/07/18) THER/PROPH/DIAG INJ IV PUSH (02/07/18) TX/PRO/DX INJ NEW DRUG ADDON (02/07/18) URINALYSIS AUTO W/SCOPE (02/07/18) Problem List Initiated/Reviewed/Updated: Yes My Orders Last 24 Hours: My Active Orders 03/25/18 11:46 Blood Culture x2 Reflex Set [OM.PC] Urgent EKG 12 Lead [EK] Stat 03/25/18 11:48 UA W/MICROSCOPIC [URIN] Stat 03/25/18 12:04 CULTURE BLOOD [BC] Stat CULTURE BLOOD [BC] Stat 03/25/18 13:30 Linezolid [Zyvox] 600 mg Premix Bag 1 bag IV Q12H Plan: ASSESSMENT AND RECOMMENDATIONS CENTRAL LINE CATHETER INFECTION-associated with frontal headache, nausea, malaise, and weakness. Modest improvement since yesterday. Blood cultures growing gram-positive cocci, final ID and sensitivities are pending. Central line catheter tip also showing growth, ID and sensitivities pending. -Blood cultures and catheter tip cultures pending -Continue IV Zyvox -Discontinue meropenem STATUS POST REVERSAL OF LELAND-EN-Y GASTRIC BYPASS SURGERY -Postoperative care per Dr. Atkinson
--- NOTE | 2018-03-26 21:07 | PCM.SN ---
- Free Text/Narrative Note: time: 2199 call from [address] [place] [address], Ms. Wilcox has concerns of thrush O: Nursing staff report white exudates on tongue and inflammation of oral cavity A: thrush P: Clotrimazole 10mg 5 times a day continue present plan of care.
[2018-03-26] MEDS: Clotrimazole 10 MG Troche PO SCH (21:13)
[2018-03-27] MEDS: Linezolid 600 MG in Premix Bag 1 BAG IV SCH ×2 (01:25→14:28)
[2018-03-27] MEDS: Hyoscyamine 0.125 MG Tab.SL SL SCH ×4 (05:12→21:18)
[2018-03-27] MEDS: Clotrimazole 10 MG Troche PO SCH ×5 (05:15→21:18)
[2018-03-27] MEDS: Fluconazole/Normal Saline 200 MG in Premix Bag 1 BAG IV SCH (08:56)
[2018-03-27] MEDS: Pantoprazole 40 MG Vial IVPUSH SCH ×2 (08:57→21:18)
[2018-03-27] MEDS: ESTRADIOL 1 MG PO SCH (08:57)
[2018-03-27] MEDS ORDERED: Ketorolac 60 MG/2 ML SDV IM ONE (09:30)
--- NOTE | 2018-03-27 11:16 | PCM.CONSN ---
- General Info Date of Service: 03/27/18 Subjective Update: Ms. Wilcox continues to experience difficulty with nausea as well as abdominal distention. Vital signs have been stable and she has remained afebrile. Blood cultures as well as catheter tip are growing staph aureus, sensitivities are pending. - Review of Systems General: Reports: Weakness. Denies: Fever, Chills Pulmonary: Reports: No Symptoms Cardiovascular: Reports: No Symptoms Gastrointestinal: Reports: Abdominal Pain, Decreased Appetite, Nausea, Vomiting - Patient Data Vitals - Most Recent: Last Vital Signs Temp 97.9 F 03/27/18 10:59 Pulse 86 03/27/18 10:59 Resp 16 03/27/18 10:59 BP 110/75 03/27/18 10:59 Pulse Ox 97 03/27/18 10:59 Weight - Most Recent: 156 lb I&O - Last 24 Hours: Intake & Output 03/26/18 03/27/18 03/27/18 22:59 06:59 14:59 Intake Total 1818 Output Total 500 200 600 Balance -500 1618 -600 [place] Results Last 24 Hours: Microbiology 03/25/18 12:04 Aerobic Blood Culture - Preliminary Blood - Venous - Lab Draw Staphylococcus Aureus Anaerobic Blood Culture - Preliminary NO GROWTH AFTER 2 DAYS 03/25/18 12:04 Aerobic Blood Culture - Preliminary Blood - Venous Staphylococcus Aureus Anaerobic Blood Culture - Final NO GROWTH AFTER 2 DAYS 03/25/18 13:56 Catheter Tip Culture - Preliminary Catheter Tip Other - Central Line Staphylococcus Aureus Med Orders - Current: Current Medications Acetaminophen (Tylenol) 650 mg PO Q4H PRN PRN Reason: Pain OR HEADACHE Last Admin: 03/25/18 03:20 Dose: 650 mg Benzocaine/Menthol (Cepacol Sore Throat) 1 lozenge MUCMEM ASDIRECTED PRN PRN Reason: Sore Throat Last Admin: 03/22/18 09:19 Dose: 1 lozenge Bisacodyl (Dulcolax) 10 mg RECTAL BID PRN PRN Reason: Constipation Calcium Carbonate/Glycine (Tums) 1,000 mg PO Q2H PRN PRN Reason: Indigestion Last Admin: 03/14/18 21:09 Dose: 1,000 mg Clotrimazole (Mycelex) 10 mg PO 5XDAY [facility] Last Admin: 03/27/18 09:01 Dose: 10 mg Cyclobenzaprine HCl (Flexeril) 10 mg PO Q6H PRN PRN Reason: MUSCLE SPASM Last Admin: 03/19/18 16:35 Dose: 10 mg Diphenhydramine HCl (Benadryl) 50 mg IVPUSH Q4H PRN PRN Reason: ITCHING Heparin Sodium (Porcine) (Heparin Lock Flush 100 Units/Ml) 500 units FLUSH ASDIRECTED PRN PRN Reason: Flush central line Last Admin: 03/21/18 16:21 Dose: 500 units Hydroxyzine HCl (Vistaril) 100 mg IM Q4H PRN PRN Reason: pain Last Admin: 03/12/18 23:48 Dose: 100 mg Hyoscyamine (Hyomax-Sl) 0.125 mg SL QID [facility] Last Admin: 03/27/18 09:01 Dose: Not Given Fluconazole/Sodium Chloride (200 mg/ Premix) 100 mls @ 100 mls/hr IV Q24H [facility] Last Admin: 03/27/18 08:56 Dose: 100 mls/hr Linezolid 600 mg/ Premix 300 mls @ 300 mls/hr IV Q12H [facility] Last Admin: 03/27/18 01:25 Dose: 150 mls/hr Dextrose/Lactated Ringer's (Dextrose 5%-Lactated Ringers) 1,000 mls @ 125 mls/ hr IV ASDIRECTED [facility] Labetalol HCl (Normodyne) 5 mg IVPUSH Q5M PRN PRN Reason: SBP over 160 OR DBP over 95 Lorazepam (Ativan) 0.5 mg IVPUSH Q2H PRN PRN Reason: Anxiety Last Admin: 03/11/18 20:46 Dose: 0.5 mg Ondansetron HCl (Zofran) 4 mg IVPUSH Q4H PRN PRN Reason: Nausea/Vomiting Last Admin: 03/25/18 17:09 Dose: 4 mg Oxycodone HCl (Oxycodone) 5 - 10 mg PO Q4H PRN PRN Reason: Pain Last Admin: 03/26/18 06:26 Dose: 5 mg Pantoprazole Sodium (Protonix Iv) 40 mg IVPUSH Q12H [facility] Last Admin: 03/27/18 08:57 Dose: 40 mg Estradiol 1mg Tabs (Pom) 0 each PO DAILY [facility] Last Admin: 03/27/18 08:57 Dose: 1 each Sodium Chloride (Saline Flush) 10 ml FLUSH ASDIRECTED PRN PRN Reason: Keep Vein Open Discontinued Medications Acetaminophen (Tylenol Extra Strength) 1,000 mg PO ONETIME ONE Stop: 03/08/18 08:16 Last Admin: 03/08/18 08:32 Dose: 1,000 mg Acetaminophen (Tylenol) 650 mg PO Q6H [facility] Last Admin: 03/16/18 22:25 Dose: Not Given Bisacodyl (Dulcolax) 10 mg RECTAL BID [facility] Last Admin: 03/25/18 20:12 Dose: Not Given Bupivacaine HCl/Epinephrine Bitart (Marcaine 0.5%/Epinephrine 1:200,000) Confirm Administered Dose 50 ml .ROUTE .STK-MED ONE Stop: 03/21/18 07:27 Celecoxib (Celebrex) 200 mg PO ONETIME ONE Stop: 03/08/18 08:16 Last Admin: 03/08/18 08:32 Dose: 200 mg Celecoxib (Celebrex) 200 mg PO DAILY@0800 [facility] Last Admin: 03/09/18 08:40 Dose: 200 mg Ropivacaine 34 ml/Dexamethasone 8 mg/Epinephrine HCl 0.4 mg/ Sodium Chloride 43.6 ml 0 ml NERVRT ASDIRECTED [facility] Last Admin: 03/08/18 11:15 Dose: 80 syringe Ropivacaine 35 ml/Dexamethasone 8 mg/Epinephrine HCl 0.4 mg/ Sodium Chloride 42.6 ml 0 ml NERVRT ASDIRECTED [facility] Last Admin: 03/21/18 13:32 Dose: 80 syringe Cyanocobalamin (Vitamin B12) 1,000 mcg IM ONETIME ONE Stop: 03/10/18 09:01 Last Admin: 03/10/18 08:34 Dose: Not Given Cyclobenzaprine HCl (Flexeril) 10 mg PO Q6H PRN PRN Reason: muscle spasms Last Admin: 03/16/18 14:30 Dose: 10 mg Dexamethasone (Dexamethasone) Confirm Administered Dose 4 mg .ROUTE .STK-MED ONE Stop: 03/08/18 08:55 Dexamethasone (Dexamethasone) Confirm Administered Dose 4 mg .ROUTE .STK-MED ONE Stop: 03/21/18 09:19 Erythromycin Ethylsuccinate (Eryped 400) 50 mg PO QID [facility] Last Admin: 03/16/18 05:30 Dose: Not Given Fentanyl (Sublimaze) Confirm Administered Dose 250 mcg .ROUTE .STK-MED ONE Stop: 03/08/18 08:55 Fentanyl (Sublimaze) Confirm Administered Dose 250 mcg .ROUTE .STK-MED ONE Stop: 03/08/18 11:44 Fentanyl (Sublimaze) Confirm Administered Dose 250 mcg .ROUTE .STK-MED ONE Stop: 03/08/18 12:18 Fentanyl (Sublimaze) Confirm Administered Dose 100 mcg .ROUTE .STK-MED ONE Stop: 03/13/18 08:08 Fentanyl (Sublimaze) Confirm Administered Dose 100 mcg .ROUTE .STK-MED ONE Stop: 03/17/18 07:12 Fentanyl (Sublimaze) Confirm Administered Dose 250 mcg .ROUTE .STK-MED ONE Stop: 03/21/18 09:19 Fentanyl (Sublimaze) Confirm Administered Dose 250 mcg .ROUTE .STK-MED ONE Stop: 03/21/18 13:01 Fentanyl Citrate (Fentanyl In Ns 20 Mcg/Ml 30 Ml [facility]) 0 mcg IV ASDIRECTED PRN; Protocol PRN Reason: PAIN Stop: 03/21/18 11:00 Last Admin: 03/19/18 16:28 Dose: 600 mcg Glycopyrrolate (Robinul) Confirm Administered Dose 1 mg .ROUTE .STK-MED ONE Stop: 03/08/18 08:55 Glycopyrrolate (Robinul) Confirm Administered Dose 1 mg .ROUTE .STK-MED ONE Stop: 03/21/18 09:19 Heparin Sodium (Porcine) (Heparin Lock Flush 100 Units/Ml) Confirm Administered Dose 500 units .ROUTE .STK-MED ONE Stop: 03/08/18 10:07 Last Admin: 03/08/18 11:13 Dose: 500 units Hydromorphone HCl (Dilaudid [facility] 15 Mg In Ns 30 Ml) 0 mg IV ASDIRECTED PRN; Protocol PRN Reason: Pain Last Admin: 03/11/18 01:54 Dose: 15 mg Hydromorphone HCl (Dilaudid [facility] 15 Mg In Ns 30 Ml) 0 mg IV ASDIRECTED PRN; Protocol PRN Reason: Pain Last Admin: 03/13/18 19:42 Dose: 15 mg Hydromorphone HCl (Dilaudid) 2 - 4 mg PO Q4H PRN PRN Reason: Pain Last Admin: 03/16/18 12:58 Dose: 4 mg Hydromorphone HCl (Dilaudid [facility] 15 Mg In Ns 30 Ml) 0 mg IV ASDIRECTED PRN; Protocol PRN Reason: PAIN Last Admin: 03/18/18 02:51 Dose: 15 mg Hydromorphone HCl (Dilaudid [facility] 15 Mg In Ns 30 Ml) 0 mg IV ASDIRECTED PRN; Protocol PRN Reason: [employer] PAIN CONTROL Last Admin: 03/22/18 21:43 Dose: 15 mg Hydromorphone HCl (Dilaudid) 1 mg IVPUSH Q4H PRN PRN Reason: Pain (moderate 4-6) Hydroxyzine HCl (Vistaril) 100 mg IM ONETIME ONE Stop: 03/08/18 15:30 Last Admin: 03/08/18 15:34 Dose: 100 mg Hydroxyzine HCl (Atarax) 50 mg PO Q4H PRN PRN Reason: Pain (Severe 7-10) Last Admin: 03/15/18 04:19 Dose: 50 mg Cefoxitin Sodium 2 gm/ Sodium (Chloride) 50 mls @ 100 mls/hr IV ONETIME ONE Stop: 03/08/18 09:59 Dextrose/Lactated Ringer's (Dextrose 5%-Lactated Ringers) 1,000 mls @ 100 mls/ hr IV ASDIRECTED [facility] Last Admin: 03/08/18 08:32 Dose: 100 mls/hr Lidocaine HCl/Dextrose (Lidocaine 2 Gm/D5w 500 Ml) 2 gm in 500 mls @ 15 mls/hr IV .Q24H [facility] Stop: 03/09/18 16:00 Last Admin: 03/09/18 12:48 Dose: Not Given Ketamine HCl 50 mg/ Sodium (Chloride) 50 mls @ 18.82 mls/hr IV ASDIRECTED [facility] Cefoxitin Sodium 2 gm/ Sodium (Chloride) 50 mls @ 100 mls/hr IV ONETIME ONE Stop: 03/08/18 09:59 Last Admin: 03/08/18 10:45 Dose: 100 mls/hr Lactated Ringer's (Ringers, Lactated) Confirm Administered Dose 1,000 mls @ as directed .ROUTE .STK-MED ONE Stop: 03/08/18 11:47 Lactated Ringer's (Ringers, Lactated) Confirm Administered Dose 1,000 mls @ as directed .ROUTE .STK-MED ONE Stop: 03/08/18 14:06 Dextrose/Lactated Ringer's (Dextrose 5%-Lactated Ringers) 1,000 mls @ 200 mls/ hr IV ASDIRECTED [facility] Last Admin: 03/09/18 05:21 Dose: 200 mls/hr Cefoxitin Sodium 2 gm/ Sodium (Chloride) 50 mls @ 100 mls/hr IV Q6H [facility] Last Admin: 03/15/18 09:05 Dose: 100 mls/hr Dextrose/Lactated Ringer's (Dextrose 5%-Lactated Ringers) 1,000 mls @ 75 mls/ hr IV ASDIRECTED [facility] Last Admin: 03/21/18 16:13 Dose: 25 mls/hr Magnesium Sulfate 2 gm/ Premix 50 mls @ 25 mls/hr IV Q6H [facility] Stop: 03/12/18 05:59 Last Admin: 03/12/18 03:25 Dose: 25 mls/hr Dextrose/Lactated Ringer's (Dextrose 5%-Lactated Ringers) 1,000 mls @ 100 mls/ hr IV ASDIRECTED [facility] Stop: 03/09/18 17:59 Amino Ac/Electrol/Dextrose/Calcium (Clinimix E 5/15) 2,000 mls @ 100 mls/hr IV .BY DURATION [facility] Stop: 03/11/18 22:59 Last Admin: 03/11/18 03:30 Dose: 100 mls/hr Amino Ac/Electrol/Dextrose/Calcium (Clinimix E 5/15) 2,000 mls @ 100 mls/hr IV .BY DURATION [facility] Stop: 03/11/18 22:59 Potassium Phosphate 20 mmole/ (Sodium Chloride) 106.6667 mls @ 35 mls/hr IV Q3H [facility] Stop: 03/10/18 18:29 Last Admin: 03/10/18 15:25 Dose: 35 mls/hr Albumin Human (Albumin 25%) 25 gm in 100 mls @ 25 mls/hr IV DAILY [facility] Stop: 03/14/18 09:01 Last Admin: 03/14/18 08:01 Dose: 25 mls/hr Amino Ac/Electrol/Dextrose/Calcium (Clinimix E 5/15) 1,000 mls @ 100 mls/hr IV .Q10H [facility] Last Admin: 03/17/18 11:52 Dose: 100 mls/hr Fat Emulsion Intravenous (Intralipid 20%) 100 mls @ 8.3 mls/hr IV Q24H [facility] Stop: 03/20/18 05:00 Last Admin: 03/19/18 16:17 Dose: 8.3 mls/hr Amino Ac/Electrol/Dextrose/Calcium (Clinimix E 5/15) 1,000 mls @ 100 mls/hr IV .Q10H [facility] Stop: 03/23/18 17:59 Last Admin: 03/23/18 12:06 Dose: 100 mls/hr Fluconazole/Sodium Chloride (200 mg/ Premix) 100 mls @ 100 mls/hr IV ONETIME ONE Stop: 03/21/18 10:59 Last Admin: 03/21/18 11:16 Dose: 100 mls/hr Ampicillin Sodium/Sulbactam (Sodium 3 gm/ Sodium Chloride) 100 mls @ 200 mls/ hr IV ONETIME ONE Stop: 03/21/18 09:59 Last Admin: 03/21/18 15:15 Dose: Not Given Lactated Ringer's (Ringers, Lactated) Confirm Administered Dose 1,000 mls @ as directed .ROUTE .STK-MED ONE Stop: 03/21/18 12:24 Ampicillin Sodium/Sulbactam (Sodium 3 gm/ Sodium Chloride) 100 mls @ 200 mls/ hr IV Q6H [facility] Stop: 03/23/18 16:29 Last Admin: 03/23/18 16:00 Dose: 200 mls/hr Dextrose/Lactated Ringer's (Dextrose 5%-Lactated Ringers) 1,000 mls @ 75 mls/ hr IV ASDIRECTED [facility] Lactated Ringer's (Ringers, Lactated) 500 mls @ 500 mls/hr IV .BOLUS [facility] Last Admin: 03/21/18 23:31 Dose: 500 mls/hr Dextrose/Lactated Ringer's (Dextrose 5%-Lactated Ringers) 1,000 mls @ 25 mls/ hr IV ASDIRECTED [facility] Last Admin: 03/25/18 08:11 Dose: 25 mls/hr Amino Ac/Electrol/Dextrose/Calcium (Clinimix E 5/15) 1,000 mls @ 100 mls/hr IV .Q10H [facility] Last Admin: 03/25/18 05:13 Dose: 100 mls/hr Acetaminophen 1,000 mg/ Premix 100 mls @ 400 mls/hr IV NOW ONE Stop: 03/25/18 08:00 Last Admin: 03/25/18 08:14 Dose: 400 mls/hr Meropenem 1 gm/ Sodium (Chloride) 50 mls @ 100 mls/hr IV Q8H [facility] Last Admin: 03/26/18 06:26 Dose: 100 mls/hr Lactated Ringer's (Ringers, Lactated) 1,000 mls @ 500 mls/hr IV ASDIRECTED [facility] Stop: 03/25/18 15:31 Acetaminophen 1,000 mg/ Premix 100 mls @ 400 mls/hr IV Q6H [facility] Stop: 03/26/18 09:14 Last Admin: 03/26/18 02:02 Dose: 400 mls/hr Dextrose/Lactated Ringer's (Dextrose 5%-Lactated Ringers) 1,000 mls @ 125 mls/ hr IV ASDIRECTED [facility] Sodium Chloride (Normal Saline) 1,000 mls @ 999 mls/hr IV ASDIRECTED [facility] Last Infusion: 03/25/18 20:46 Dose: 500 mls/hr Dextrose/Lactated Ringer's (Dextrose 5%-Lactated Ringers) 1,000 mls @ 125 mls/ hr IV ASDIRECTED [facility] Last Admin: 03/26/18 02:29 Dose: 125 mls/hr Dextrose/Lactated Ringer's (Dextrose 5%-Lactated Ringers) 1,000 mls @ 100 mls/ hr IV ASDIRECTED [facility] Last Admin: 03/27/18 01:27 Dose: 100 mls/hr Iohexol (Omnipaque-300) 50 ml PO .ASDIRECTED [facility] Stop: 03/09/18 03:43 Last Admin: 03/09/18 04:27 Dose: 50 ml Iohexol (Omnipaque-300) 50 ml IVPUSH . DIRECTED PRN PRN Reason: RADIOLOGY EXAM Stop: 03/13/18 06:56 Last Admin: 03/12/18 07:09 Dose: 50 ml Iohexol (Omnipaque-300) 50 ml PO .ASDIRECTED [facility] Last Admin: 03/22/18 04:39 Dose: 50 ml Ketorolac Tromethamine (Toradol) 60 mg IM ONETIME ONE Stop: 03/26/18 09:01 Last Admin: 03/26/18 08:47 Dose: 60 mg Ketorolac Tromethamine (Toradol) 60 mg IM ONETIME ONE Stop: 03/27/18 09:31 Last Admin: 03/27/18 08:56 Dose: 60 mg Labetalol HCl (Normodyne) Confirm Administered Dose 20 mg .ROUTE .STK-MED ONE Stop: 03/08/18 12:58 Lidocaine HCl (Xylocaine 2%) 96 mg IVPUSH ASDIRECTED [facility] Lorazepam (Ativan) 0.5 mg PO BID PRN PRN Reason: Anxiety Magnesium Hydroxide (Milk Of Magnesia) 30 ml PO BID [facility] Stop: 03/11/18 23:59 Last Admin: 03/11/18 22:25 Dose: 30 ml Magnesium Hydroxide (Milk Of Magnesia) 30 ml PO BID [facility] Last Admin: 03/15/18 20:07 Dose: Not Given Meropenem (Merrem) Confirm Administered Dose 500 mg .ROUTE .STK-MED ONE Stop: 03/08/18 09:21 Last Admin: 03/08/18 11:44 Dose: 500 mg Meropenem (Merrem) Confirm Administered Dose 500 mg .ROUTE .STK-MED ONE Stop: 03/21/18 07:27 Last Admin: 03/21/18 13:32 Dose: 500 mg Metoclopramide HCl (Reglan) 10 mg IVPUSH Q6H PRN PRN Reason: NAUSEA NOT CONTROL BY ZOFRAN Last Admin: 03/11/18 15:34 Dose: 10 mg Metoclopramide HCl (Reglan) 10 mg IVPUSH Q6H [facility] Last Admin: 03/19/18 03:58 Dose: 10 mg Midazolam HCl (Versed 1 Mg/Ml) Confirm Administered Dose 2 mg .ROUTE .STK-MED ONE Stop: 03/13/18 08:09 Midazolam HCl (Versed 1 Mg/Ml) Confirm Administered Dose 2 mg .ROUTE .STK-MED ONE Stop: 03/17/18 07:12 Naloxone HCl (Narcan) 0.1 mg IV ASDIRECTED PRN PRN Reason: decreased respiratory rate Naloxone HCl (Narcan) 0.1 mg IV ASDIRECTED PRN PRN Reason: decreased respiratory rate Naloxone HCl (Narcan) 0.1 mg IV ASDIRECTED PRN PRN Reason: decreased respiratory rate Naloxone HCl (Narcan) 0.1 mg IV ASDIRECTED PRN PRN Reason: decreased respiratory rate Neostigmine Methylsulfate (Neostigmine) Confirm Administered Dose 5 mg .ROUTE .STK-MED ONE Stop: 03/08/18 08:55 Neostigmine Methylsulfate (Neostigmine) Confirm Administered Dose 5 mg .ROUTE .STK-MED ONE Stop: 03/21/18 09:19 Scopolamine Patch (Check) 1 each TOP DAILY [facility] Stop: 03/10/18 16:01 Non-Formulary Medication (Total Parenteral Nutrition, Central) 1,000 ml .XX .Continue Order [facility] Stop: 03/11/18 09:00 Non-Formulary Medication (Total Parenteral Nutrition, Central) 1,000 ml .XX .Continue Order [facility] Stop: 03/13/18 11:00 Non-Formulary Medication (Total Parenteral Nutrition, Central) 1,000 ml .XX .Continue Order [facility] Stop: 03/14/18 16:00 Non-Formulary Medication (Total Parenteral Nutrition, Central) 1,000 ml .XX .Continue Order [facility] Stop: 03/16/18 12:00 Non-Formulary Medication (Total Parenteral Nutrition, Central) 1,000 ml .XX .Continue Order [facility] Stop: 03/17/18 07:31 Non-Formulary Medication (Total Parenteral Nutrition, Central) 1,000 ml .XX .Continue Order [facility] Stop: 03/24/18 16:00 Ondansetron HCl (Zofran) Confirm Administered Dose 4 mg .ROUTE .STK-MED ONE Stop: 03/08/18 08:55 Ondansetron HCl (Zofran) Confirm Administered Dose 4 mg .ROUTE .STK-MED ONE Stop: 03/21/18 09:19 Oxycodone HCl (Oxycodone) 5 mg PO Q4H PRN PRN Reason: Pain (severe 7-10) Last Admin: 03/12/18 03:42 Dose: 5 mg Pantoprazole Sodium (Protonix Iv) 40 mg IVPUSH Q24H [facility] Last Admin: 03/10/18 15:35 Dose: 40 mg Pantoprazole Sodium (Protonix Granules) 40 mg PO Q24H [facility] Last Admin: 03/14/18 16:13 Dose: 40 mg Pantoprazole Sodium (Protonix Granules) 40 mg PO DAILY@0730 [facility] Last Admin: 03/15/18 08:57 Dose: 40 mg Pantoprazole Sodium (Protonix Granules) 40 mg PO BIDAC [facility] Last Admin: 03/16/18 15:34 Dose: 40 mg Pharmacy Consult (Consult To Pharmacy) 1 each .XX ASDIRECTED [facility] Pharmacy Consult (Consult To Pharmacy) 1 each .XX ASDIRECTED [facility] Stop: 03/08/18 17:04 Propofol (Diprivan 20 Ml) Confirm Administered Dose 200 mg .ROUTE .STK-MED ONE Stop: 03/08/18 08:55 Propofol (Diprivan 20 Ml) Confirm Administered Dose 200 mg .ROUTE .STK-MED ONE Stop: 03/13/18 08:09 Propofol (Diprivan 20 Ml) Confirm Administered Dose 200 mg .ROUTE .STK-MED ONE Stop: 03/17/18 07:12 Propofol (Diprivan 20 Ml) Confirm Administered Dose 200 mg .ROUTE .STK-MED ONE Stop: 03/21/18 09:19 Rocuronium Luck (Zemuron) Confirm Administered Dose 50 mg .ROUTE .STK-MED ONE Stop: 03/08/18 08:55 Rocuronium Luck (Zemuron) Confirm Administered Dose 50 mg .ROUTE .STK-MED ONE Stop: 03/08/18 11:45 Rocuronium Luck (Zemuron) Confirm Administered Dose 100 mg .ROUTE .STK-MED ONE Stop: 03/08/18 12:57 Rocuronium Luck (Zemuron) Confirm Administered Dose 50 mg .ROUTE .STK-MED ONE Stop: 03/21/18 09:19 Succinylcholine Chloride (Quelicin) Confirm Administered Dose 200 mg .ROUTE .STK -MED ONE Stop: 03/08/18 08:55 Succinylcholine Chloride (Quelicin) Confirm Administered Dose 200 mg .ROUTE .STK -MED ONE Stop: 03/21/18 09:19 - Exam General: Alert, Oriented, Cooperative, Moderate Distress Lungs: Clear to Auscultation, Normal Respiratory Effort Cardiovascular: Regular Rate, Regular Rhythm, No Murmurs GI/Abdominal Exam: Soft, Non-Tender, No Organomegaly, No Distention Extremities: Non-Tender, No Pedal Edema Consult PN Assessment/Plan Procedures: Procedures ASSAY OF LACTIC ACID (02/07/18) ASSAY OF LIPASE (02/07/18) C DIFF AMPLIFIED PROBE (02/09/18) COMPLETE CBC W/AUTO DIFF WBC (02/07/18) COMPREHEN METABOLIC PANEL (02/07/18) CT ABD & PELV W/CONTRAST (02/07/18) EMERGENCY DEPT VISIT (02/07/18) ROUTINE VENIPUNCTURE (02/07/18) THER/PROPH/DIAG INJ IV PUSH (02/07/18) TX/PRO/DX INJ NEW DRUG ADDON (02/07/18) URINALYSIS AUTO W/SCOPE (02/07/18) Problem List Initiated/Reviewed/Updated: Yes Plan: ASSESSMENT AND RECOMMENDATIONS CENTRAL LINE CATHETER INFECTION-associated with frontal headache, nausea, malaise, and weakness. Staph aureus growing from both blood cultures as well as catheter tip, sensitivities pending -Continue IV Zyvox, pending sensitivity results STATUS POST REVERSAL OF LELAND-EN-Y GASTRIC BYPASS SURGERY -Postoperative care per Dr. Atkinson
[2018-03-27] MEDS: Bisacodyl 10 MG Supp RECTAL PRN (14:37)
[2018-03-27] MEDS: Dextrose 5%-Lactated Ringers 1,000 ML IV SCH (22:46)
[2018-03-28] MEDS: Linezolid 600 MG in Premix Bag 1 BAG IV SCH ×2 (02:29→13:51)
[2018-03-28] MEDS: Clotrimazole 10 MG Troche PO SCH ×5 (05:05→22:35)
[2018-03-28] MEDS: Hyoscyamine 0.125 MG Tab.SL SL SCH (05:05)
[2018-03-28] MEDS: LORazepam 2 MG/ML SDV IVPUSH PRN (06:32)
[2018-03-28] MEDS ORDERED: Ketorolac 60 MG/2 ML SDV IM PRN (07:59)
[2018-03-28] MEDS ORDERED: Ciprofloxacin in D5W 400 MG in Premix Bag 1 BAG IV SCH ×2 (08:00)
[2018-03-28] MEDS: ESTRADIOL 1 MG PO SCH (08:05)
[2018-03-28] MEDS: Pantoprazole 40 MG Vial IVPUSH SCH ×2 (08:07→20:18)
[2018-03-28] MEDS: Fluconazole/Normal Saline 200 MG in Premix Bag 1 BAG IV SCH (08:07)
[2018-03-28] MEDS ORDERED: Bisacodyl 10 MG Supp RECTAL ONE (08:15)
[2018-03-28] MEDS ORDERED: Central Total Parenteral Nutrition Bag SCH (08:15)
[2018-03-28] MEDS: Dextrose 5%-Lactated Ringers 1,000 ML IV SCH (08:17)
--- NOTE | 2018-03-28 10:22 | CR ---
Chest 2V HISTORY: Central line removed. COMPARISON: 03/25/2018 FINDINGS: Cardiac size and pulmonary vessels are normal. No pneumothorax or infiltrates. Left-sided central line catheter has been removed.
--- NOTE | 2018-03-28 10:28 | PCM.CONSN ---
- General Info Date of Service: 03/28/18 Subjective Update: There were no acute events overnight. She continues to have sensation of nausea and has been having difficulty eating. Blood culture and catheter tip culture returned with MSSA. She was started on ciprofloxacin this morning but unfortunately had a reaction to this with erythema and itching at the IV insertion site. Feeding tube and Boyd placement are planned for tomorrow. Functional Status: Reports: Pain Controlled - Review of Systems Gastrointestinal: Reports: Nausea - Patient Data Vitals - Most Recent: Last Vital Signs Temp 37.2 C 03/28/18 07:57 Pulse 73 03/28/18 07:57 Resp 16 03/28/18 07:57 BP 138/84 03/28/18 07:57 Pulse Ox 97 03/28/18 07:57 Weight - Most Recent: 70.307 kg I&O - Last 24 Hours: Intake & Output 03/27/18 03/28/18 03/28/18 22:59 06:59 14:59 Intake Total 1589 360 Output Total 500 1950 Balance -500 -361 360 Lab Results Last 24 Hours: Laboratory Results - last 24 hr 03/28/18 03/28/18 Range/Units 04:30 04:30 WBC 6.3 (4.5-11.0) K/uL RBC 3.08 L (3.30-5.50) M/uL Hgb 9.3 L (12.0-15.0) g/dL Hct 28.8 L (36.0-48.0) % MCV 94 (80-98) fL MCH 30 (27-31) pg MCHC 32 (32-36) % Plt Count 207 (150-400) K/uL Neut % (Auto) 60 (36-66) % Lymph % (Auto) 19 L (24-44) % Peach % (Auto) 17 H (2-6) % Eos % (Auto) 4 (2-4) % Baso % (Auto) 0 (0-1) % Sodium 138 L (140-148) mmol/L Potassium 3.3 L (3.6-5.2) mmol/L Chloride 102 (100-108) mmol/L Carbon Dioxide 25 (21-32) mmol/L Anion Gap 14.3 H (5.0-14.0) mmol/L BUN 4 L D (7-18) mg/dL Creatinine 0.7 (0.6-1.0) mg/dL Est Cr Clr Drug Dosing 91.42 mL/min Estimated GFR (MDRD) > 60 (>60) Glucose 117 H (74-106) mg/dL Calcium 8.5 (8.5-10.1) mg/dL Phosphorus 2.0 L (2.5-4.9) mg/dL Magnesium 1.6 L (1.8-2.4) mg/dL Total Bilirubin 0.3 (0.2-1.0) mg/dL AST 31 D (15-37) U/L ALT 24 (12-78) U/L Alkaline Phosphatase 157 H D (46-116) U/L Total Protein 5.6 L (6.4-8.2) g/dL Albumin 2.1 L (3.4-5.0) g/dL Globulin 3.5 (2.3-3.5) g/dL Albumin/Globulin Ratio 0.6 L (1.2-2.2) Davis Results Last 24 Hours: Microbiology 03/25/18 12:04 Aerobic Blood Culture - Final Blood - Venous Staphylococcus Aureus Anaerobic Blood Culture - Final Not Reportable 03/25/18 12:04 Aerobic Blood Culture - Final Blood - Venous - Lab Draw Staphylococcus Aureus Anaerobic Blood Culture - Final Not Reportable 03/25/18 13:56 Catheter Tip Culture - Final Catheter Tip Other - Central Line Staphylococcus Aureus Med Orders - Current: Current Medications Acetaminophen (Tylenol) 650 mg PO Q4H PRN PRN Reason: Pain OR HEADACHE Last Admin: 03/25/18 03:20 Dose: 650 mg Benzocaine/Menthol (Cepacol Sore Throat) 1 lozenge MUCMEM ASDIRECTED PRN PRN Reason: Sore Throat Last Admin: 03/22/18 09:19 Dose: 1 lozenge Bisacodyl (Dulcolax) 10 mg RECTAL BID PRN PRN Reason: Constipation Last Admin: 03/27/18 14:37 Dose: 10 mg Calcium Carbonate/Glycine (Tums) 1,000 mg PO Q2H PRN PRN Reason: Indigestion Last Admin: 03/14/18 21:09 Dose: 1,000 mg Clotrimazole (Mycelex) 10 mg PO 5XDAY RE[facility]NALDO Last Admin: 03/28/18 05:05 Dose: 10 mg Cyclobenzaprine HCl (Flexeril) 10 mg PO Q6H PRN PRN Reason: MUSCLE SPASM Last Admin: 03/19/18 16:35 Dose: 10 mg Diphenhydramine HCl (Benadryl) 50 mg IVPUSH Q4H PRN PRN Reason: ITCHING Heparin Sodium (Porcine) (Heparin Lock Flush 100 Units/Ml) 500 units FLUSH ASDIRECTED PRN PRN Reason: Flush central line Last Admin: 03/21/18 16:21 Dose: 500 units Hydroxyzine HCl (Vistaril) 100 mg IM Q4H PRN PRN Reason: pain Last Admin: 03/12/18 23:48 Dose: 100 mg Fluconazole/Sodium Chloride (200 mg/ Premix) 100 mls @ 100 mls/hr IV Q24H [facility] Last Admin: 03/28/18 08:07 Dose: 100 mls/hr Dextrose/Lactated Ringer's (Dextrose 5%-Lactated Ringers) 1,000 mls @ 125 mls/ hr IV ASDIRECTED [facility] Last Admin: 03/28/18 08:17 Dose: 125 mls/hr Magnesium Sulfate 2 gm/ Premix 50 mls @ 25 mls/hr IV BID [facility] Stop: 04/02/18 22:59 Potassium Phosphate 22.5 mmole (/ Sodium Chloride) 257.5 mls @ 85 mls/hr IV Q3H [facility] Stop: 03/28/18 15:29 Linezolid 600 mg/ Premix 300 mls @ 300 mls/hr IV Q12H [facility] Ketorolac Tromethamine (Toradol) 60 mg IM ONETIME PRN PRN Reason: Headache Stop: 04/02/18 08:00 Labetalol HCl (Normodyne) 5 mg IVPUSH Q5M PRN PRN Reason: SBP over 160 OR DBP over 95 Lorazepam (Ativan) 0.5 mg IVPUSH Q2H PRN PRN Reason: Anxiety Last Admin: 03/28/18 06:32 Dose: 0.5 mg Ondansetron HCl (Zofran) 4 mg IVPUSH Q4H PRN PRN Reason: Nausea/Vomiting Last Admin: 03/25/18 17:09 Dose: 4 mg Oxycodone HCl (Oxycodone) 5 - 10 mg PO Q4H PRN PRN Reason: Pain Last Admin: 03/26/18 06:26 Dose: 5 mg Pantoprazole Sodium (Protonix Iv) 40 mg IVPUSH Q12H [facility] Last Admin: 03/28/18 08:07 Dose: 40 mg Estradiol 1mg Tabs (Pom) 0 each PO DAILY [facility] Last Admin: 03/28/18 08:05 Dose: 2 each Sodium Chloride (Saline Flush) 10 ml FLUSH ASDIRECTED PRN PRN Reason: Keep Vein Open Discontinued Medications Acetaminophen (Tylenol Extra Strength) 1,000 mg PO ONETIME ONE Stop: 03/08/18 08:16 Last Admin: 03/08/18 08:32 Dose: 1,000 mg Acetaminophen (Tylenol) 650 mg PO Q6H [facility] Last Admin: 03/16/18 22:25 Dose: Not Given Bisacodyl (Dulcolax) 10 mg RECTAL BID [facility] Last Admin: 03/25/18 20:12 Dose: Not Given Bisacodyl (Dulcolax) 10 mg RECTAL ONETIME ONE Stop: 03/28/18 08:16 Last Admin: 03/28/18 09:46 Dose: 10 mg Bupivacaine HCl/Epinephrine Bitart (Marcaine 0.5%/Epinephrine 1:200,000) Confirm Administered Dose 50 ml .ROUTE .STK-MED ONE Stop: 03/21/18 07:27 Celecoxib (Celebrex) 200 mg PO ONETIME ONE Stop: 03/08/18 08:16 Last Admin: 03/08/18 08:32 Dose: 200 mg Celecoxib (Celebrex) 200 mg PO DAILY@0800 [facility] Last Admin: 03/09/18 08:40 Dose: 200 mg Ropivacaine 34 ml/Dexamethasone 8 mg/Epinephrine HCl 0.4 mg/ Sodium Chloride 43.6 ml 0 ml NERVRT ASDIRECTED [facility] Last Admin: 03/08/18 11:15 Dose: 80 syringe Ropivacaine 35 ml/Dexamethasone 8 mg/Epinephrine HCl 0.4 mg/ Sodium Chloride 42.6 ml 0 ml NERVRT ASDIRECTED [facility] Last Admin: 03/21/18 13:32 Dose: 80 syringe Cyanocobalamin (Vitamin B12) 1,000 mcg IM ONETIME ONE Stop: 03/10/18 09:01 Last Admin: 03/10/18 08:34 Dose: Not Given Cyclobenzaprine HCl (Flexeril) 10 mg PO Q6H PRN PRN Reason: muscle spasms Last Admin: 03/16/18 14:30 Dose: 10 mg Dexamethasone (Dexamethasone) Confirm Administered Dose 4 mg .ROUTE .STK-MED ONE Stop: 03/08/18 08:55 Dexamethasone (Dexamethasone) Confirm Administered Dose 4 mg .ROUTE .STK-MED ONE Stop: 03/21/18 09:19 Erythromycin Ethylsuccinate (Eryped 400) 50 mg PO QID [facility] Last Admin: 03/16/18 05:30 Dose: Not Given Fentanyl (Sublimaze) Confirm Administered Dose 250 mcg .ROUTE .STK-MED ONE Stop: 03/08/18 08:55 Fentanyl (Sublimaze) Confirm Administered Dose 250 mcg .ROUTE .STK-MED ONE Stop: 03/08/18 11:44 Fentanyl (Sublimaze) Confirm Administered Dose 250 mcg .ROUTE .STK-MED ONE Stop: 03/08/18 12:18 Fentanyl (Sublimaze) Confirm Administered Dose 100 mcg .ROUTE .STK-MED ONE Stop: 03/13/18 08:08 Fentanyl (Sublimaze) Confirm Administered Dose 100 mcg .ROUTE .STK-MED ONE Stop: 03/17/18 07:12 Fentanyl (Sublimaze) Confirm Administered Dose 250 mcg .ROUTE .STK-MED ONE Stop: 03/21/18 09:19 Fentanyl (Sublimaze) Confirm Administered Dose 250 mcg .ROUTE .STK-MED ONE Stop: 03/21/18 13:01 Fentanyl Citrate (Fentanyl In Ns 20 Mcg/Ml 30 Ml Food Mixer Assembler) 0 mcg IV ASDIRECTED PRN; Protocol PRN Reason: PAIN Stop: 03/21/18 11:00 Last Admin: 03/19/18 16:28 Dose: 600 mcg Glycopyrrolate (Robinul) Confirm Administered Dose 1 mg .ROUTE .STK-MED ONE Stop: 03/08/18 08:55 Glycopyrrolate (Robinul) Confirm Administered Dose 1 mg .ROUTE .STK-MED ONE Stop: 03/21/18 09:19 Heparin Sodium (Porcine) (Heparin Lock Flush 100 Units/Ml) Confirm Administered Dose 500 units .ROUTE .STK-MED ONE Stop: 03/08/18 10:07 Last Admin: 03/08/18 11:13 Dose: 500 units Hydromorphone HCl (Dilaudid [employer] Assembler 15 Mg In Ns 30 Ml) 0 mg IV ASDIRECTED PRN; Protocol PRN Reason: Pain Last Admin: 03/11/18 01:54 Dose: 15 mg Hydromorphone HCl (Dilaudid Food Mixer Assembler 15 Mg In Ns 30 Ml) 0 mg IV ASDIRECTED PRN; Protocol PRN Reason: Pain Last Admin: 03/13/18 19:42 Dose: 15 mg Hydromorphone HCl (Dilaudid) 2 - 4 mg PO Q4H PRN PRN Reason: Pain Last Admin: 03/16/18 12:58 Dose: 4 mg Hydromorphone HCl (Dilaudid [employer] Assembler 15 Mg In Ns 30 Ml) 0 mg IV ASDIRECTED PRN; Protocol PRN Reason: PAIN Last Admin: 03/18/18 02:51 Dose: 15 mg Hydromorphone HCl (Dilaudid Food Mixer Assembler 15 Mg In Ns 30 Ml) 0 mg IV ASDIRECTED PRN; Protocol PRN Reason: [employer]ESSOR PAIN CONTROL Last Admin: 03/22/18 21:43 Dose: 15 mg Hydromorphone HCl (Dilaudid) 1 mg IVPUSH Q4H PRN PRN Reason: Pain (moderate 4-6) Hydroxyzine HCl (Vistaril) 100 mg IM ONETIME ONE Stop: 03/08/18 15:30 Last Admin: 03/08/18 15:34 Dose: 100 mg Hydroxyzine HCl (Atarax) 50 mg PO Q4H PRN PRN Reason: Pain (Severe 7-10) Last Admin: 03/15/18 04:19 Dose: 50 mg Hyoscyamine (Hyomax-Sl) 0.125 mg SL QID [facility] Last Admin: 03/28/18 05:05 Dose: Not Given Cefoxitin Sodium 2 gm/ Sodium (Chloride) 50 mls @ 100 mls/hr IV ONETIME ONE Stop: 03/08/18 09:59 Dextrose/Lactated Ringer's (Dextrose 5%-Lactated Ringers) 1,000 mls @ 100 mls/ hr IV ASDIRECTED [facility]LDO Last Admin: 03/08/18 08:32 Dose: 100 mls/hr Lidocaine HCl/Dextrose (Lidocaine 2 Gm/D5w 500 Ml) 2 gm in 500 mls @ 15 mls/hr IV .Q24H [facility] Stop: 03/09/18 16:00 Last Admin: 03/09/18 12:48 Dose: Not Given Ketamine HCl 50 mg/ Sodium (Chloride) 50 mls @ 18.82 mls/hr IV ASDIRECTED [facility] Cefoxitin Sodium 2 gm/ Sodium (Chloride) 50 mls @ 100 mls/hr IV ONETIME ONE Stop: 03/08/18 09:59 Last Admin: 03/08/18 10:45 Dose: 100 mls/hr Lactated Ringer's (Ringers, Lactated) Confirm Administered Dose 1,000 mls @ as directed .ROUTE .STK-MED ONE Stop: 03/08/18 11:47 Lactated Ringer's (Ringers, Lactated) Confirm Administered Dose 1,000 mls @ as directed .ROUTE .STK-MED ONE Stop: 03/08/18 14:06 Dextrose/Lactated Ringer's (Dextrose 5%-Lactated Ringers) 1,000 mls @ 200 mls/ hr IV ASDIRECTED [facility] Last Admin: 03/09/18 05:21 Dose: 200 mls/hr Cefoxitin Sodium 2 gm/ Sodium (Chloride) 50 mls @ 100 mls/hr IV Q6H [facility] Last Admin: 03/15/18 09:05 Dose: 100 mls/hr Dextrose/Lactated Ringer's (Dextrose 5%-Lactated Ringers) 1,000 mls @ 75 mls/ hr IV ASDIRECTED [facility] Last Admin: 03/21/18 16:13 Dose: 25 mls/hr Magnesium Sulfate 2 gm/ Premix 50 mls @ 25 mls/hr IV Q6H [facility] Stop: 03/12/18 05:59 Last Admin: 03/12/18 03:25 Dose: 25 mls/hr Dextrose/Lactated Ringer's (Dextrose 5%-Lactated Ringers) 1,000 mls @ 100 mls/ hr IV ASDIRECTED [facility] Stop: 03/09/18 17:59 Amino Ac/Electrol/Dextrose/Calcium (Clinimix E 5/15) 2,000 mls @ 100 mls/hr IV .BY DURATION [facility] Stop: 03/11/18 22:59 Last Admin: 03/11/18 03:30 Dose: 100 mls/hr Amino Ac/Electrol/Dextrose/Calcium (Clinimix E 5/15) 2,000 mls @ 100 mls/hr IV .BY DURATION [facility] Stop: 03/11/18 22:59 Potassium Phosphate 20 mmole/ (Sodium Chloride) 106.6667 mls @ 35 mls/hr IV Q3H [facility] Stop: 03/10/18 18:29 Last Admin: 03/10/18 15:25 Dose: 35 mls/hr Albumin Human (Albumin 25%) 25 gm in 100 mls @ 25 mls/hr IV DAILY [facility] Stop: 03/14/18 09:01 Last Admin: 03/14/18 08:01 Dose: 25 mls/hr Amino Ac/Electrol/Dextrose/Calcium (Clinimix E 5/15) 1,000 mls @ 100 mls/hr IV .Q10H [facility] Last Admin: 03/17/18 11:52 Dose: 100 mls/hr Fat Emulsion Intravenous (Intralipid 20%) 100 mls @ 8.3 mls/hr IV Q24H [facility] Stop: 03/20/18 05:00 Last Admin: 03/19/18 16:17 Dose: 8.3 mls/hr Amino Ac/Electrol/Dextrose/Calcium (Clinimix E 5/15) 1,000 mls @ 100 mls/hr IV .Q10H [facility] Stop: 03/23/18 17:59 Last Admin: 03/23/18 12:06 Dose: 100 mls/hr Fluconazole/Sodium Chloride (200 mg/ Premix) 100 mls @ 100 mls/hr IV ONETIME ONE Stop: 03/21/18 10:59 Last Admin: 03/21/18 11:16 Dose: 100 mls/hr Ampicillin Sodium/Sulbactam (Sodium 3 gm/ Sodium Chloride) 100 mls @ 200 mls/ hr IV ONETIME ONE Stop: 03/21/18 09:59 Last Admin: 03/21/18 15:15 Dose: Not Given Lactated Ringer's (Ringers, Lactated) Confirm Administered Dose 1,000 mls @ as directed .ROUTE .STK-MED ONE Stop: 03/21/18 12:24 Ampicillin Sodium/Sulbactam (Sodium 3 gm/ Sodium Chloride) 100 mls @ 200 mls/ hr IV Q6H [facility] Stop: 03/23/18 16:29 Last Admin: 03/23/18 16:00 Dose: 200 mls/hr Dextrose/Lactated Ringer's (Dextrose 5%-Lactated Ringers) 1,000 mls @ 75 mls/ hr IV ASDIRECTED [facility]LDO Lactated Ringer's (Ringers, Lactated) 500 mls @ 500 mls/hr IV .BOLUS REYNALDO Last Admin: 03/21/18 23:31 Dose: 500 mls/hr Dextrose/Lactated Ringer's (Dextrose 5%-Lactated Ringers) 1,000 mls @ 25 mls/ hr IV ASDIRECTED [facility] Last Admin: 03/25/18 08:11 Dose: 25 mls/hr Amino Ac/Electrol/Dextrose/Calcium (Clinimix E 5/15) 1,000 mls @ 100 mls/hr IV .Q10H [facility] Last Admin: 03/25/18 05:13 Dose: 100 mls/hr Acetaminophen 1,000 mg/ Premix 100 mls @ 400 mls/hr IV NOW ONE Stop: 03/25/18 08:00 Last Admin: 03/25/18 08:14 Dose: 400 mls/hr Linezolid 600 mg/ Premix 300 mls @ 300 mls/hr IV Q12H [facility] Last Admin: 03/28/18 02:29 Dose: 150 mls/hr Meropenem 1 gm/ Sodium (Chloride) 50 mls @ 100 mls/hr IV Q8H [facility] Last Admin: 03/26/18 06:26 Dose: 100 mls/hr Lactated Ringer's (Ringers, Lactated) 1,000 mls @ 500 mls/hr IV ASDIRECTED [facility] Stop: 03/25/18 15:31 Acetaminophen 1,000 mg/ Premix 100 mls @ 400 mls/hr IV Q6H [facility] Stop: 03/26/18 09:14 Last Admin: 03/26/18 02:02 Dose: 400 mls/hr Dextrose/Lactated Ringer's (Dextrose 5%-Lactated Ringers) 1,000 mls @ 125 mls/ hr IV ASDIRECTED [facility]LDO Sodium Chloride (Normal Saline) 1,000 mls @ 999 mls/hr IV ASDIRECTED REYNALDO Last Infusion: 03/25/18 20:46 Dose: 500 mls/hr Dextrose/Lactated Ringer's (Dextrose 5%-Lactated Ringers) 1,000 mls @ 125 mls/ hr IV ASDIRECTED [facility] Last Admin: 03/26/18 02:29 Dose: 125 mls/hr Dextrose/Lactated Ringer's (Dextrose 5%-Lactated Ringers) 1,000 mls @ 100 mls/ hr IV ASDIRECTED [facility] Last Admin: 03/27/18 01:27 Dose: 100 mls/hr Ciprofloxacin/Dextrose 400 mg/ (Premix) 200 mls @ 200 mls/hr IV Q12H [facility] Last Admin: 03/28/18 09:46 Dose: 200 mls/hr Iohexol (Omnipaque-300) 50 ml PO .ASDIRECTED [facility] Stop: 03/09/18 03:43 Last Admin: 03/09/18 04:27 Dose: 50 ml Iohexol (Omnipaque-300) 50 ml IVPUSH . DIRECTED PRN PRN Reason: RADIOLOGY EXAM Stop: 03/13/18 06:56 Last Admin: 03/12/18 07:09 Dose: 50 ml Iohexol (Omnipaque-300) 50 ml PO .ASDIRECTED [facility] Last Admin: 03/22/18 04:39 Dose: 50 ml Ketorolac Tromethamine (Toradol) 60 mg IM ONETIME ONE Stop: 03/26/18 09:01 Last Admin: 03/26/18 08:47 Dose: 60 mg Ketorolac Tromethamine (Toradol) 60 mg IM ONETIME ONE Stop: 03/27/18 09:31 Last Admin: 03/27/18 08:56 Dose: 60 mg Labetalol HCl (Normodyne) Confirm Administered Dose 20 mg .ROUTE .STK-MED ONE Stop: 03/08/18 12:58 Lidocaine HCl (Xylocaine 2%) 96 mg IVPUSH ASDIRECTED [facility] Lorazepam (Ativan) 0.5 mg PO BID PRN PRN Reason: Anxiety Magnesium Hydroxide (Milk Of Magnesia) 30 ml PO BID [facility] Stop: 03/11/18 23:59 Last Admin: 03/11/18 22:25 Dose: 30 ml Magnesium Hydroxide (Milk Of Magnesia) 30 ml PO BID [facility] Last Admin: 03/15/18 20:07 Dose: Not Given Meropenem (Merrem) Confirm Administered Dose 500 mg .ROUTE .STK-MED ONE Stop: 03/08/18 09:21 Last Admin: 03/08/18 11:44 Dose: 500 mg Meropenem (Merrem) Confirm Administered Dose 500 mg .ROUTE .STK-MED ONE Stop: 03/21/18 07:27 Last Admin: 03/21/18 13:32 Dose: 500 mg Metoclopramide HCl (Reglan) 10 mg IVPUSH Q6H PRN PRN Reason: NAUSEA NOT CONTROL BY ZOFRAN Last Admin: 03/11/18 15:34 Dose: 10 mg Metoclopramide HCl (Reglan) 10 mg IVPUSH Q6H [facility] Last Admin: 03/19/18 03:58 Dose: 10 mg Midazolam HCl (Versed 1 Mg/Ml) Confirm Administered Dose 2 mg .ROUTE .STK-MED ONE Stop: 03/13/18 08:09 Midazolam HCl (Versed 1 Mg/Ml) Confirm Administered Dose 2 mg .ROUTE .STK-MED ONE Stop: 03/17/18 07:12 Naloxone HCl (Narcan) 0.1 mg IV ASDIRECTED PRN PRN Reason: decreased respiratory rate Naloxone HCl (Narcan) 0.1 mg IV ASDIRECTED PRN PRN Reason: decreased respiratory rate Naloxone HCl (Narcan) 0.1 mg IV ASDIRECTED PRN PRN Reason: decreased respiratory rate Naloxone HCl (Narcan) 0.1 mg IV ASDIRECTED PRN PRN Reason: decreased respiratory rate Neostigmine Methylsulfate (Neostigmine) Confirm Administered Dose 5 mg .ROUTE .STK-MED ONE Stop: 03/08/18 08:55 Neostigmine Methylsulfate (Neostigmine) Confirm Administered Dose 5 mg .ROUTE .STK-MED ONE Stop: 03/21/18 09:19 Scopolamine Patch (Check) 1 each TOP DAILY [facility] Stop: 03/10/18 16:01 Non-Formulary Medication (Total Parenteral Nutrition, Central) 1,000 ml .XX .Continue Order [facility] Stop: 03/11/18 09:00 Non-Formulary Medication (Total Parenteral Nutrition, Central) 1,000 ml .XX .Continue Order [facility] Stop: 03/13/18 11:00 Non-Formulary Medication (Total Parenteral Nutrition, Central) 1,000 ml .XX .Continue Order [facility] Stop: 03/14/18 16:00 Non-Formulary Medication (Total Parenteral Nutrition, Central) 1,000 ml .XX .Continue Order [facility] Stop: 03/16/18 12:00 Non-Formulary Medication (Total Parenteral Nutrition, Central) 1,000 ml .XX .Continue Order [facility] Stop: 03/17/18 07:31 Non-Formulary Medication (Total Parenteral Nutrition, Central) 1,000 ml .XX .Continue Order [facility] Stop: 03/24/18 16:00 Ondansetron HCl (Zofran) Confirm Administered Dose 4 mg .ROUTE .STK-MED ONE Stop: 03/08/18 08:55 Ondansetron HCl (Zofran) Confirm Administered Dose 4 mg .ROUTE .STK-MED ONE Stop: 03/21/18 09:19 Oxycodone HCl (Oxycodone) 5 mg PO Q4H PRN PRN Reason: Pain (severe 7-10) Last Admin: 03/12/18 03:42 Dose: 5 mg Pantoprazole Sodium (Protonix Iv) 40 mg IVPUSH Q24H [facility] Last Admin: 03/10/18 15:35 Dose: 40 mg Pantoprazole Sodium (Protonix Granules) 40 mg PO Q24H [facility] Last Admin: 03/14/18 16:13 Dose: 40 mg Pantoprazole Sodium (Protonix Granules) 40 mg PO DAILY@0730 [facility] Last Admin: 03/15/18 08:57 Dose: 40 mg Pantoprazole Sodium (Protonix Granules) 40 mg PO BIDAC [facility] Last Admin: 03/16/18 15:34 Dose: 40 mg Pharmacy Consult (Consult To Pharmacy) 1 each .XX ASDIRECTED [facility] Pharmacy Consult (Consult To Pharmacy) 1 each .XX ASDIRECTED [facility] Stop: 03/08/18 17:04 Propofol (Diprivan 20 Ml) Confirm Administered Dose 200 mg .ROUTE .STK-MED ONE Stop: 03/08/18 08:55 Propofol (Diprivan 20 Ml) Confirm Administered Dose 200 mg .ROUTE .STK-MED ONE Stop: 03/13/18 08:09 Propofol (Diprivan 20 Ml) Confirm Administered Dose 200 mg .ROUTE .STK-MED ONE Stop: 03/17/18 07:12 Propofol (Diprivan 20 Ml) Confirm Administered Dose 200 mg .ROUTE .STK-MED ONE Stop: 03/21/18 09:19 Rocuronium [place] (Zemuron) Confirm Administered Dose 50 mg .ROUTE .STK-MED ONE Stop: 03/08/18 08:55 Rocuronium [place] (Zemuron) Confirm Administered Dose 50 mg .ROUTE .STK-MED ONE Stop: 03/08/18 11:45 Rocuronium [place] (Zemuron) Confirm Administered Dose 100 mg .ROUTE .STK-MED ONE Stop: 03/08/18 12:57 Rocuronium [place] (Zemuron) Confirm Administered Dose 50 mg .ROUTE .STK-MED ONE Stop: 03/21/18 09:19 Succinylcholine Chloride (Quelicin) Confirm Administered Dose 200 mg .ROUTE .STK -MED ONE Stop: 03/08/18 08:55 Succinylcholine Chloride (Quelicin) Confirm Administered Dose 200 mg .ROUTE .STK -MED ONE Stop: 03/21/18 09:19 - Exam Quality Assessment: No: Supplemental Oxygen General: Alert, Oriented, Cooperative, No Acute Distress Lungs: Normal Respiratory Effort GI/Abdominal Exam: Soft, No Distention Extremities: No Pedal Edema Skin: Warm, Dry, Rash (erythema right wrist near IV site ) Psy/Mental Status: Alert, Normal Affect Consult PN Assessment/Plan Procedures: Procedures ASSAY OF LACTIC ACID (02/07/18) ASSAY OF LIPASE (02/07/18) C DIFF AMPLIFIED PROBE (02/09/18) COMPLETE CBC W/AUTO DIFF WBC (02/07/18) COMPREHEN METABOLIC PANEL (02/07/18) CT ABD & PELV W/CONTRAST (02/07/18) EMERGENCY DEPT VISIT (02/07/18) ROUTINE VENIPUNCTURE (02/07/18) THER/PROPH/DIAG INJ IV PUSH (02/07/18) TX/PRO/DX INJ NEW DRUG ADDON (02/07/18) URINALYSIS AUTO W/SCOPE (02/07/18) Problem List Initiated/Reviewed/Updated: Yes My Orders Last 24 Hours: My Active Orders 03/28/18 10:30 Linezolid [Zyvox] 600 mg Premix Bag 1 bag IV Q12H Plan: ASSESSMENT AND RECOMMENDATIONS CENTRAL LINE CATHETER INFECTION - cultures grew out MSSA. Antibiotics were switched to ciprofloxacin this morning but unfortunately she had a reaction to this so linezolid has been restarted. -currently on linezolid, could consider cefazolin -recommend two weeks of therapy with Staph bacteremia STATUS POST REVERSAL OF LELAND-EN-Y GASTRIC BYPASS SURGERY - complicated by gastroparesis. -Postoperative care per Dr. Demetrio Leiva M.D.
--- NOTE | 2018-03-28 10:45 | CR ---
Abdomen 1V Upright HISTORY: Follow-up ileus. COMPARISON: 03/25/2018. FINDINGS: Previously seen contrast in the right colon is much less apparent some of this is in the transverse colon extensive postoperative changes in the left abdomen. Surgical clips in the midline. No dilated bowel loops or free air seen.
--- NOTE | 2018-03-28 10:52 | CR ---
Abdomen 1V Upright HISTORY: Follow-up ileus. COMPARISON: 03/27/2018 FINDINGS: Minimal contrast in the distal transverse colon similar to yesterday's study. No dilated small or large bowel loops. No free air seen. Extensive postoperative change.
[2018-03-28] MEDS: Magnesium Sulfate/Water 2 GM in Premix Bag 1 BAG IV SCH ×2 (11:09→20:17)
--- NOTE | 2018-03-28 14:18 | PN ---
DATE OF SERVICE: 03/28/2018 SUBJECTIVE: Trisha was started on linezolid, broad-spectrum antibiotic for the catheter tip and blood cultures showing Staphylococcus aureus. She has been afebrile. Oral intake zero. Reports increased nausea. Has not been receiving TPN because of the triple lumen being removed. Reports daily headaches, but it has helped with one dose of Toradol 60 mg IM. REVIEW OF SYSTEMS: Remainder of review of systems is negative for any pertinent positives and negatives. OBJECTIVE: GENERAL: Trisha is a 52-year-old female, alert and orientated. VITAL SIGNS: TPR is 98.9,73, 16, blood pressure 138/84. HEENT: Negative. NECK: Supple. HEART: Regular rate and rhythm. LUNGS: Clear. ABDOMEN: Negative. Abdominal binder is on. EXTREMITIES: Without peripheral edema. LABORATORY DATA: Labs today hemoglobin is 9.3, potassium is 3.3, phosphorus is 2, magnesium is 1.6. ASSESSMENT: 1. Nausea. 2. Staphylococci aureus blood culture and catheter tip. Abdominal incision, Staphylococcus epidermidis. 3. Exploratory laparotomy, formation of the gastrojejunostomy, debridement of abdominal wall, partial gastrectomy, and gastroscopy. Date of surgery 03/21/2018. 4. Insertion of left subclavian vein triple-lumen, exploratory laparotomy with lysis of extensive adhesions. a. Esophageal gastrectomy and esophagogastric anastomosis. b. Small-bowel resection. c. Separate small bowel stricture plasty. d. Partial left hepatic lobectomy: I. Excision of nerve entering the probable neuroma of lower midline incision. e. Placement of Interceed mesh, to limit recurrent adhesion formation. Date of surgery 03/08/2018. Surgeon, Stan Atkinson MD. 5. Esophagogastroduodenoscopy with: a. Removal of foreign body (old food and fluid from the stomach). b. Dilatation of the pyloric sphincter to facilitate gastric emptying. Date of procedure, 03/13/2018. Surgeon, Stan Atkinson MD. PLAN: 1. Cipro 500 mg IV q.12 hour. Discontinue linezolid. 2. Rx K-Phos 45 millimoles IV today. 3. Magnesium 2 g IV q.12 hours x72 hours. 4. Toradol 60 mg IM every 24 hours p.r.n. headache. 5. Discontinue Levsin. 6. Dulcolax suppositories, give one this morning, then b.i.d. p.r.n. 7. Schedule and have consent signed for placement of Boyd catheter and gastrostomy tube with local plus IV sedation, possible general on 03/29/2018 at 07:30, surgeon, Stan Atkinson MD. NPO after midnight. Continue good pulmonary toilet. 8. We will evaluate p.r.n. or in a.m. Peri Zambrano PA-C /[id number]
[2018-03-28] MEDS: Potassium Phosphates 22.5 MMOLE in Sodium Chloride 0.9% 250 ML IV SCH ×2 (15:03→18:54)
--- NOTE | 2018-03-28 22:00 | OR ---
DATE OF PROCEDURE: 03/21/2018 PREOPERATIVE DIAGNOSIS: Persistent gastroparesis despite medical management. POSTOPERATIVE DIAGNOSES: 1. Persistent gastroparesis, refractory to medical management. 2. Retained intragastric contents. 3. Focal abdominal wall necrosis. 4. Extensive intraabdominal adhesions. OPERATIVE PROCEDURE: 1. Upper GI endoscopy with evacuation of gastric contents (12627). 2. Exploratory laparotomy with lysis of extensive adhesions with. a. Partial gastrectomy with Ozzy-en-Y gastrojejunostomy (15147). b. Placement of Interceed mesh to limit recurrent adhesion formation between the viscera and abdominopelvic wall (17071). c. Debridement of abdominal wall (42313). ANESTHESIA: General. INDICATIONS FOR PROCEDURE: Please see previous progress notes. The potential risks of the procedure including bleeding, infection, leaks from various GI tract closures, possibility that the stomach may not empty well despite placement of a wide gastrojejunostomy, were all gone over and the patient wishes to proceed. Preliminary upper endoscopy will be performed with IV sedation prior to the induction of general anesthetic so as to minimize the risk of aspiration of the gastric contents. DETAILS OF PROCEDURE: The patient was taken to the operating room and placed in a 45-degree upright position. Initially IV sedation was administered, after which the upper GI endoscope was passed orally through the length of the esophagus and into the stomach. Moderate amount of old liquid and small pieces of solid material were then evacuated to the point where it became evident that it would be safe to proceed with the general anesthetic. Scope was then withdrawn and general endotracheal anesthetic was induced. A Keller catheter was inserted, and the abdomen was prepped and draped. Using ultrasound guidance, bilateral subcostal transversus abdominis plane blocks were then placed as well. The previous midline incision was then opened up to where it would have been more or less down to the area of the umbilicus. This included the entire area of full laparotomy previously undertaken. As expected, the patient had very tedious adhesions present, which were eventually taken down. No inverted enterotomies occurred during the course of the dissection. Potentially the area of the distal stomach more or less the junction between the antrum and the body was dissected free on its inferior aspect. A small amount of this was then resected and through that opening prior to this being closed, a 28 mm EEA stapler anvil was placed into the stomach and after epigastric resection was closed, this was then brought out through that staple line with the closure of the stomach being accomplished with FAIZAN black loads. The small bowel at that point was dissected out so as to avoid problems with bowel reflux into the stomach. A short Ozzy limb was fashioned. This measured roughly 45 cm. Initially, the bowel was divided roughly 20 cm distal to the ligament of Treitz and then a secondary anastomosis that being jejunojejunostomy was accomplished kind of roughly 45 cm distal to the initial point of bowel division. This was accomplished with an internal firing of the Endo-FAIZAN 60 mm stapler. Common opening was closed transversely with the same stapler and the angles anastomosed, reinforced with some 3-0 Vicryl stitch and fibrin sealant. The divided Ozzy limb was then brought up through an opening made in the transverse mesocolon. This was intentionally made quite wide open so as to avoid any increased resistance of flow through that subsequent gastrojejunostomy, and divided Ozzy limb was then opened and the main body of the EEA stapler brought a few centimeters into it or up to the anvil and fired, thus creating the gastrojejunostomy. Upon removal of stapler, double donuts of mucosa were noted within it and prior to closure of the small bowel, the anastomosis was inspected digitally and found to be wide open with a good solid bring-up tissue in all areas of the anastomosis. The small bowel was then closed off with a FAIZAN saucedo load and the gastrojejunostomy reinforced with some 3-0 Vicryl seromuscular stitch along with fibrin sealant. At that point, no further problems were noted intra-abdominally. A drain was felt not to be necessary. We were at one point considering placement of gastrostomy tube, but the anastomosis at this point appeared to be extremely wide open and one would expect the stomach, which should be able to pass through the empty fairly well. Given this, the area was irrigated with meropenem-containing saline solution to limit recurrent adhesion formation. Interceed mesh was then placed behind the urinary bladder along the abdominal wall and underneath the current incision to displace fistula from those surfaces to limit recurrent adhesion formation. The patient was noted to have some focal necrosis of abdominal wall, which included subcutaneous tissue and fascia. This was debrided. The midline fascia was then approximated with #2 Vicryl stitch and the subcutaneous tissue approximated with 2 layers of 3-0 and 4-0 Vicryl stitch deep. A Ej- Kelley drain was taken out through a stab wound beneath the incision and placed along the bed of the fascial closure and the skin closed with kecia. Dressing was applied and the patient was taken to the recovery room in satisfactory condition. There were no other complications. Stan Atkinson MD /[id number]
--- NOTE | 2018-03-29 01:00 | OR ---
DATE OF PROCEDURE: 03/17/2018 PREOPERATIVE DIAGNOSIS: Gastroparesis with retained gastric contents. POSTOPERATIVE DIAGNOSIS: Gastroparesis with retained gastric contents. PROCEDURE PERFORMED: Upper gastrointestinal endoscopy with: 1. Removal of foreign body (ingested food) from stomach (58898). 2. Dilation of pyloric sphincter (48955). ANESTHESIA: IV sedation. INDICATION FOR PROCEDURE: The patient continues to have a picture of gastroparesis with poor gastric emptying. The plan is to proceed with upper GI endoscopy. The patient notably has a fair amount of ingested contents within the stomach which will be evacuated and then we will attempt a dilation of pyloric sphincter. Previously, we dilated this to 45-Cambodian size which did not seem to help too much, and we will try a 54-Cambodian dilator today. She is aware this may or may not be efficacious and there is a rare chance of perforation or aspiration of GI contents during the procedure and wishes to proceed. DESCRIPTION OF PROCEDURE: The patient was taken to the operating room and placed in a sitting position more or less 45 degrees upright to minimize the aspiration risk. IV sedation was administered, after which the upper GI endoscope was passed orally through the length of the esophagus and the esophagogastric anastomosis and a large amount of old, primarily fluid was evacuated. Some small chunks of solids were present as well. This was all evacuated to the extent possible, which resulted in only minimal amount of gastric contents remaining. Following this, pyloric sphincter was identified. This was easily traversed with the gastroscope and a 54-Cambodian balloon catheter was then centered across the anastomosis and inflated and held there for 1 minute. Balloon catheter was deflated and withdrawn and the procedure then concluded. The patient was taken to the recovery room in satisfactory condition. There were no evident complications. Stan Atkinson MD /[id number]
[2018-03-29] MEDS: Dextrose 5%-Lactated Ringers 1,000 ML IV SCH (02:41)
[2018-03-29] MEDS: Linezolid 600 MG in Premix Bag 1 BAG IV SCH ×2 (02:42→13:04)
[2018-03-29] MEDS: Clotrimazole 10 MG Troche PO SCH ×5 (05:51→22:32)
[2018-03-29] MEDS ORDERED: Lidocaine 1% with EPINEPHrine 1:100,000 50 ML MDV ONE (06:25)
[2018-03-29] MEDS ORDERED: Bupivacaine 0.5% 50 ML MDV ONE (06:25)
[2018-03-29] MEDS ORDERED: Rocuronium 50 MG/5 ML Vial ONE (07:15)
[2018-03-29] MEDS ORDERED: Succinylcholine 200 MG/10 ML MDV ONE (07:15)
[2018-03-29] MEDS ORDERED: Ondansetron 4 MG/2 ML SDV ONE (07:15)
[2018-03-29] MEDS ORDERED: Glycopyrrolate 0.2 MG/ML 5 ML MDV ONE (07:15)
[2018-03-29] MEDS ORDERED: Dexamethasone 4 MG/ML SDV ONE (07:15)
[2018-03-29] MEDS ORDERED: Propofol 200 MG/20 ML SDV ONE (07:15)
[2018-03-29] MEDS ORDERED: Neostigmine Methylsulfate 1 MG/ML 5 ML Syringe ONE (07:15)
[2018-03-29] MEDS ORDERED: fentaNYL 250 MCG/5 ML SDV ONE (07:16)
[2018-03-29] MEDS ORDERED: Lactated Ringers 1,000 ML ONE (08:05)
[2018-03-29] MEDS ORDERED: Clindamycin Phosphate 900 MG/6 ML SDV ONE (08:45)
[2018-03-29] MEDS ORDERED: fentaNYL 100 MCG/2 ML SDV ONE (09:15)
[2018-03-29] MEDS ORDERED: Naloxone 0.4 MG/ML SDV IV PRN (09:48)
[2018-03-29] MEDS ORDERED: HYDROmorphone/Normal Saline 15 MG/30 ML PCA IV PRN (09:48)
[2018-03-29] MEDS: LORazepam 2 MG/ML SDV IVPUSH PRN ×3 (10:46→17:24)
[2018-03-29] MEDS: AA 5%/Calcium/D15W/Lytes 1,000 ML IV SCH ×4 (10:50→20:58)
[2018-03-29] MEDS: Pantoprazole 40 MG Vial IVPUSH SCH ×2 (10:51→20:32)
[2018-03-29] MEDS ORDERED: Dextrose 5%-Lactated Ringers 1,000 ML IV SCH (11:00)
[2018-03-29] MEDS: Magnesium Sulfate/Water 2 GM in Premix Bag 1 BAG IV SCH ×3 (11:05→21:00)
--- NOTE | 2018-03-29 11:14 | PN ---
DATE OF SERVICE: 03/29/2018 The patient has been afebrile over the last 24 hours, temperature is running in the 97 to 98 range and vital signs have been stable. She continues to be nauseated most of the time and the plan as outlined in the last couple of days will be to place Boyd catheter to facilitate IV hyperalimentation as well as placement of a gastrostomy tube to drain the stomach. The latter may need to be done with an open approach depending on whether or not we are able to identify light at the time of initial endoscopy. The potential risks of the procedure were reviewed with the patient and she wishes to proceed. The procedure will be undertaken later this morning and we will start the TPN later today as well. Stan Atkinson MD /[id number]
[2018-03-29] MEDS: Potassium Phosphates 20 MMOLE in Sodium Chloride 0.9% 100 ML IV SCH ×3 (11:48→18:23)
[2018-03-29] MEDS: Fluconazole/Normal Saline 200 MG in Premix Bag 1 BAG IV SCH (11:48)
[2018-03-29] MEDS: ESTRADIOL 1 MG PO SCH (11:53)
[2018-03-29] MEDS: Multivitamins with Iron Tab.Chew PO SCH (11:55)
[2018-03-29] MEDS: Metoclopramide 10 MG/2 ML SDV IV SCH ×2 (17:25→22:32)
[2018-03-29] MEDS: Sodium Chloride 0.9% 1,000 ML IV SCH (18:24)
[2018-03-29] MEDS: Cyclobenzaprine 10 MG Tab PO PRN (19:22)
[2018-03-30] MEDS: Linezolid 600 MG in Premix Bag 1 BAG IV SCH ×2 (03:23→15:40)
[2018-03-30] MEDS: Magnesium Sulfate/Water 2 GM in Premix Bag 1 BAG IV SCH ×4 (03:24→21:42)
[2018-03-30] MEDS: Metoclopramide 10 MG/2 ML SDV IV SCH ×4 (05:54→21:43)
[2018-03-30] MEDS: Clotrimazole 10 MG Troche PO SCH ×5 (05:54→21:43)
[2018-03-30] MEDS ORDERED: Central Total Parenteral Nutrition Bag SCH (08:00)
[2018-03-30] MEDS: AA 5%/Calcium/D15W/Lytes 1,000 ML IV SCH ×6 (08:06→20:17)
[2018-03-30] MEDS: ESTRADIOL 1 MG PO SCH (08:11)
[2018-03-30] MEDS: Fluconazole/Normal Saline 200 MG in Premix Bag 1 BAG IV SCH (08:11)
[2018-03-30] MEDS: Multivitamins with Iron Tab.Chew PO SCH (08:12)
[2018-03-30] MEDS: Pantoprazole 40 MG Vial IVPUSH SCH ×2 (08:12→21:42)
--- NOTE | 2018-03-30 08:28 | PN ---
DATE OF SERVICE: 03/26/2018 The patient developed a fever of 101 range and heart rate in the 130s yesterday. The only thing that became evident was possibility of a line infection. Cultures were obtained, which are pending. The line was removed, and she has now defervesced and now has a heart rate back in the normal range. Chest x-ray looks good, so it does not appear there has been an aspiration event, and the plan at this point will be to continue the peripheral IV through the weekend. On Wednesday or Wednesday, we will get a Boyd catheter in preparation for probable initiation of home TPN. She is still complaining of nausea and some heartburn, but much less than previous, so I think the stomach may be beginning to empty a little bit better, and we will try one dose of IM Toradol today for the headaches, which otherwise have been refractory to other approaches such as IV Tylenol. If her stomach continues to empty poorly over over the next 2 to 3 days, one consideration would be the placement of a gastrostomy tube, which would be helpful in regard to being able to vent the stomach and get rid of some of the nausea. She did switch over to oral oxycodone yesterday, so we will go ahead and switch her Tylenol to oral form as well. Stan Atkinson MD /[id number]
--- NOTE | 2018-03-30 08:54 | PN ---
DATE OF SERVICE: 03/27/2018 The patient has been afebrile with stable vital signs. The blood cultures and tip of the catheter appeared to be growing out Staph. Staph has been identified on the catheter tip, and the blood culture grew gram-positive cocci. The patient is presently on Zyvox, which should cover that, and we will simplify the antiobic selection once the sensitivities become available. Given this, I think we will hold off getting a Boyd catheter in, probably until Wednesday, giving some additional time for the IV antibiotics to treat the positive blood cultures. Otherwise, we will give her one additional dose of Toradol today, which seemed to help for many hours following the dose yesterday with headache, and bump up the IV rate somewhat, as urine output is slightly on the low side. She continued to have some nausea, and on Wednesday, if this still remains an issue, we will consider placement of gastrostomy tube at the time of Boyd catheter placement. Stan Atkinson MD /[id number]
--- NOTE | 2018-03-30 08:58 | PN ---
DATE OF SERVICE: 03/30/2018 SUBJECTIVE: Trisha had a G tube placed and Boyd catheter placed yesterday. She reports increased pain in left upper quadrant, an 8/10. 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 Episodic nausea remains. Has been up, ambulating, afebrile. REVIEW OF SYSTEMS: Remainder of review of systems negative for any pertinent positives and negatives. OBJECTIVE: GENERAL: Trisha Wilcox is a 52-year-old female. Color pale. VITAL SIGNS: TPR 98.3, 87, 16, blood pressure 125/67. HEENT: Negative. NECK: Supple. HEART: Regular rate and rhythm. LUNGS: Clear. ABDOMEN: Dressings dry and intact. Abdominal binder is on. Gastrostomy tube in place. EXTREMITIES: Without peripheral edema. ASSESSMENT: Placement of Boyd catheter and gastrostomy tube on 03/29/2018. PLAN: 1. Planned discharge on Wednesday04/04/2018 with home health care for TPN. New order written for TPN and lipids to be faxed to Pharmacy. 2. Check CBC, CMP, mag, and phos in a.m. Continue medications as is. 3. We will evaluate p.r.n. or in a.m. Peri Zambrano PA-C /[id number]
[2018-03-30] MEDS ORDERED: Fat Emulsion 100 ML IV ONE (16:00)
[2018-03-30] MEDS: LORazepam 2 MG/ML SDV IVPUSH PRN (16:49)
[2018-03-31] MEDS: Cyclobenzaprine 10 MG Tab PO PRN ×3 (00:44→19:52)
[2018-03-31] MEDS: Linezolid 600 MG in Premix Bag 1 BAG IV SCH ×2 (02:58→16:05)
[2018-03-31] MEDS: Magnesium Sulfate/Water 2 GM in Premix Bag 1 BAG IV SCH ×3 (03:07→22:36)
[2018-03-31] MEDS: Metoclopramide 10 MG/2 ML SDV IV SCH (05:04)
[2018-03-31] MEDS: AA 5%/Calcium/D15W/Lytes 1,000 ML IV SCH ×4 (05:05→15:28)
[2018-03-31] MEDS: Clotrimazole 10 MG Troche PO SCH ×5 (05:05→22:36)
[2018-03-31] MEDS ORDERED: Metoclopramide 10 MG/2 ML SDV IVPUSH PRN (07:29)
[2018-03-31] MEDS: ESTRADIOL 1 MG PO SCH (08:32)
[2018-03-31] MEDS: Multivitamins with Iron Tab.Chew PO SCH (08:32)
[2018-03-31] MEDS: Pantoprazole 40 MG Vial IVPUSH SCH ×2 (08:32→22:37)
[2018-03-31] MEDS: oxyCODONE 5 MG Tab PO PRN ×3 (08:54→22:35)
--- NOTE | 2018-03-31 10:25 | PN ---
DATE OF SERVICE: 03/31/2018 SUBJECTIVE: Trisha states that she feels her nausea is a little bit better. She has been up ambulating. Vital signs have been stable. Oral intake 240. Urine output 4500. TPN is running through Boyd catheter and gastrostomy tube. Gastric tube output in the past 24 hours was 350. REVIEW OF SYSTEMS: Remainder of review of systems negative for any pertinent positives and negatives. OBJECTIVE: GENERAL: Trisha Wilcox is a 52-year-old female. She does look like she is feeling better today. VITAL SIGNS: TPR is 98.4, pulse 96, respirations 18, blood pressure of 128/83. HEENT: Negative. NECK: Supple. HEART: Regular rate and rhythm. LUNGS: Clear. ABDOMEN: Gastrostomy tube intact to drainage. EXTREMITIES: Without peripheral edema. ASSESSMENT: 1. Chronic nausea, gastroparesis. 2. Staphylococcus aureus blood culture and catheter tip. Abdominal incision staphylococcus epidermidis. 3. Exploratory laparotomy, formation of gastrojejunostomy, debridement of abdominal wall, partial gastrectomy, and gastroscopy, date of surgery, 03/21/2018. 4. Insertion of left subclavian vein triple-lumen, exploratory laparotomy with lysis of extensive adhesions. a. Esophageal gastrectomy and esophagogastric anastomosis. b. Small-bowel resection. c. Separate small bowel stricture plasty. d. Partial left hepatic lobectomy. e. Excision of nerve entering the probable neuroma of the lower midline incision. f. Placement of Interceed mesh, to limit recurrent admission formation. Date of surgery, 03/08/2018. Surgeon, Stan Atkinson MD. 5. Esophagogastroduodenoscopy with: a. Removal of foreign body, old food and fluid from the stomach. b. Dilatation of the pyloric sphincter to facilitate gastric emptying. Date of procedure, 03/21/2018. Surgeon, Stan Atkinson MD. 6. Placement of Boyd catheter and gastrostomy tube on 03/29/2018. PLAN: 1. Decrease TPN to 40 mL per hour for 1 hour, then stop. 2. Off TPN from 8:00 a.m. to 4:00 p.m. daily. 3. Start TPN. New orders sent to pharmacy from 4:00 p.m. until 8:00 a.m. daily. 4. Give magnesium 2 g IV three times a day during the time that she is getting the TPN to allow her freedom from having to walk with the IV pull between 8:00 a.m. and 4:00 p.m. 5. An upper GI was scheduled with water-soluble contrast through the gastrostomy tube with radiologist present on 04/01/2018, unclamp tube after procedure. 6. Call Stan Atkinson MD when the procedure is done to discuss the results with radiologist. 7. Reglan 10 mg q.6 hours p.m. changed from scheduled to p.r.n. 8. Check CBC, CMP, phosphorus in a.m. 9. Good pulmonary toilet. 10.Planned discharge on Wednesday04/04/2018 with home health care and TPN. 11.We will evaluate p.r.n. or in a.m. Peri Zambrano PA-C /[id number]
[2018-03-31] MEDS ORDERED: Magnesium Sulfate/Water 2 GM in Premix Bag 1 BAG IV SCH (16:00)
[2018-03-31] MEDS ORDERED: Fat Emulsion 100 ML IV ONE (16:00)
[2018-03-31] MEDS: [UNRECOGNIZED DRUG - OTHER] IV SCH (16:06)
[2018-03-31] MEDS: LYTES IV SCH (16:06)
[2018-03-31] MEDS: CALCIUM IV SCH (16:06)
[2018-03-31] MEDS: LORazepam 2 MG/ML SDV IVPUSH PRN (17:34)
[2018-04-01] MEDS: Linezolid 600 MG in Premix Bag 1 BAG IV SCH ×2 (02:42→15:06)
[2018-04-01] MEDS: Ondansetron 4 MG/2 ML SDV IVPUSH PRN ×2 (02:56→12:19)
[2018-04-01] MEDS: oxyCODONE 5 MG Tab PO PRN ×2 (02:58→09:59)
[2018-04-01] MEDS: Magnesium Sulfate/Water 2 GM in Premix Bag 1 BAG IV SCH ×3 (05:30→21:43)
[2018-04-01] MEDS: Clotrimazole 10 MG Troche PO SCH ×5 (05:30→21:45)
[2018-04-01] MEDS ORDERED: Central Total Parenteral Nutrition Bag SCH (07:30)
[2018-04-01] MEDS: Multivitamins with Iron Tab.Chew PO SCH (10:00)
[2018-04-01] MEDS: Pantoprazole 40 MG Vial IVPUSH SCH ×2 (10:00→21:44)
[2018-04-01] MEDS: ESTRADIOL 1 MG PO SCH (10:01)
[2018-04-01] MEDS ORDERED: oxyCODONE 10 MG/0.5 ML ORAL U/D PO PRN (10:11)
[2018-04-01] MEDS: oxyCODONE 10 MG/0.5 ML ORAL U/D SL PRN ×2 (15:06→22:55)
[2018-04-01] MEDS ORDERED: Fat Emulsion 100 ML IV ONE (16:00)
--- NOTE | 2018-04-01 16:29 | PN ---
DATE OF SERVICE: 04/01/2018 DIAGNOSES: 1. Chronic nausea. 2. Gastroparesis. 3. Exploratory laparotomy with formation of gastrojejunostomy, debridement of abdominal wall, partial gastrectomy, and gastroscopy, date of surgery 03/21/2018. 4. Insertion of left subclavian vein triple-lumen, exploratory laparotomy with lysis of extensive adhesions, esophageal gastrectomy and esophagogastric anastomosis, small- bowel resection, separate small-bowel stricturoplasty, partial left hepatic lobectomy, excision of nerve entering the probable neuroma of the lower midline incision. Placement of Interceed mesh to limit recurrent adhesion formation, date of surgery 03/08/2018. 5. Removal of foreign body, old food and fluid from the stomach and dilatation of the pyloric sphincter to facilitate gastric emptying. Date of procedure 03/21/2018. Surgeon, Stan Atkinson MD. The patient is in need of home TPN therapy. Wait 3 months prior to TPN. On 02/02/2018, was 151. Weight today 147 pounds 12.8 ounces. Albumin prior on 03/28/2018 was 2.1. Length of stay in regard to TPN therapy will be when the patient is able to eat normally and maintain weight. See copy of labs, CT imaging, and nutritional assessment by registered dietitian. Peri Zambrano PA-C /[id number]
[2018-04-01] MEDS: LYTES IV SCH (16:47)
[2018-04-01] MEDS: CALCIUM IV SCH (16:47)
[2018-04-01] MEDS: [UNRECOGNIZED DRUG - OTHER] IV SCH (16:47)
[2018-04-01] MEDS: LORazepam 2 MG/ML SDV IVPUSH PRN (23:52)
[2018-04-02] MEDS: oxyCODONE 10 MG/0.5 ML ORAL U/D SL PRN ×4 (04:36→22:02)
[2018-04-02] MEDS: Linezolid 600 MG in Premix Bag 1 BAG IV SCH ×2 (04:54→16:16)
[2018-04-02] MEDS: LORazepam 2 MG/ML SDV IVPUSH PRN (06:34)
[2018-04-02] MEDS: Clotrimazole 10 MG Troche PO SCH ×5 (06:42→21:55)
[2018-04-02] MEDS ORDERED: LORazepam ORAL Concentrate 1MG/0.5ML U/D BUCCAL PRN (07:58)
[2018-04-02] MEDS: Multivitamins with Iron Tab.Chew PO SCH (08:28)
[2018-04-02] MEDS: ESTRADIOL 1 MG PO SCH (08:29)
[2018-04-02] MEDS: Pantoprazole 40 MG Vial IVPUSH SCH ×2 (08:29→21:54)
[2018-04-02] MEDS: Ondansetron 4 MG Tab.DIS PO SCH ×3 (11:00→21:55)
[2018-04-02] MEDS: Metoclopramide 10 MG Tab PO SCH ×3 (11:05→21:56)
[2018-04-02] MEDS: Bisacodyl 10 MG Supp RECTAL PRN ×2 (14:34→22:03)
[2018-04-02] MEDS: CALCIUM IV SCH (16:15)
[2018-04-02] MEDS: Fat Emulsion 100 ML IV SCH (16:15)
[2018-04-02] MEDS: [UNRECOGNIZED DRUG - OTHER] IV SCH (16:15)
[2018-04-02] MEDS: LYTES IV SCH (16:15)
[2018-04-03] MEDS: LORazepam 2 MG/ML SDV IVPUSH PRN ×3 (01:15→15:05)
[2018-04-03] MEDS: Sodium Chloride 0.9% 1,000 ML IV SCH (01:24)
[2018-04-03] MEDS: Linezolid 600 MG in Premix Bag 1 BAG IV SCH ×2 (04:22→16:02)
[2018-04-03] MEDS: Clotrimazole 10 MG Troche PO SCH ×5 (05:54→21:02)
[2018-04-03] MEDS ORDERED: Metoclopramide 10 MG/2 ML SDV IVPUSH PRN (05:56)
[2018-04-03] MEDS: Multivitamins with Iron Tab.Chew PO SCH (09:09)
[2018-04-03] MEDS: ESTRADIOL 1 MG PO SCH (09:11)
[2018-04-03] MEDS: Pantoprazole 40 MG Vial IVPUSH SCH ×2 (09:11→20:56)
[2018-04-03] MEDS: Scopolamine 1.5 MG Transdermal Patch TOP SCH (11:26)
[2018-04-03] MEDS: LYTES IV SCH (15:52)
[2018-04-03] MEDS: [UNRECOGNIZED DRUG - OTHER] IV SCH (15:52)
[2018-04-03] MEDS: CALCIUM IV SCH (15:52)
[2018-04-03] MEDS: oxyCODONE 10 MG/0.5 ML ORAL U/D SL PRN ×2 (15:52→21:05)
[2018-04-03] MEDS: Fat Emulsion 100 ML IV SCH (15:54)
[2018-04-04] MEDS: LORazepam 2 MG/ML SDV IVPUSH PRN (03:28)
[2018-04-04] MEDS: Linezolid 600 MG in Premix Bag 1 BAG IV SCH ×2 (03:31→15:55)
[2018-04-04] MEDS: oxyCODONE 10 MG/0.5 ML ORAL U/D SL PRN ×2 (03:56→08:50)
[2018-04-04] MEDS: Clotrimazole 10 MG Troche PO SCH ×5 (06:01→21:02)
[2018-04-04] MEDS ORDERED: Magnesium Sulfate/Water 2 GM in Premix Bag 1 BAG IV SCH (07:45)
[2018-04-04] MEDS ORDERED: Central Total Parenteral Nutrition Bag SCH (07:45)
[2018-04-04] MEDS: Metoclopramide 10 MG/2 ML SDV IVPUSH SCH ×3 (08:26→19:37)
[2018-04-04] MEDS: VERIFY SCOP PATCH TOP SCH (08:36)
[2018-04-04] MEDS: Pantoprazole 40 MG Vial IVPUSH SCH (08:37)
[2018-04-04] MEDS: Multivitamins with Iron Tab.Chew PO SCH (08:37)
[2018-04-04] MEDS: ESTRADIOL 1 MG PO SCH (08:39)
--- NOTE | 2018-04-04 08:43 | PN ---
DATE OF SERVICE: 04/04/2018 SUBJECTIVE: Trisha remains to be quite nauseated. G tube has put out 550 of a thick sputum type material. Oral intake zero. Emesis 50 mL. Ambulated once yesterday due to extensive nausea with movement. She did have a Scop patch placed, but has not noticed much difference yet. She is n.p.o., scheduled for an upper GI through the gastrostomy tube today. TPN is running without any difficulty. Labs were drawn today. Hemoglobin 9.2, sodium 135, glucose 182, magnesium is 1.5. REVIEW OF SYSTEMS: Remainder of review of systems negative for any pertinent positives and negatives. OBJECTIVE: GENERAL: Trisha Wilcox is a 52-year-old female. She is lying in bed. VITAL SIGNS: TPR is 98.2, 95, 15, blood pressure 104/60. HEENT: Negative. NECK: Supple. HEART: Regular rate and rhythm. LUNGS: Clear. ABDOMEN: Generalized tenderness. No distention. Abdominal binder has been on. G tube intact. EXTREMITIES: Without peripheral edema. ASSESSMENT: 1. Chronic nausea. 2. Low magnesium. 3. Gastroparesis. 4. Postop ileus. 5. Exploratory laparotomy, formation of gastrojejunostomy, debridement of abdominal wall, partial gastrectomy, and gastroscopy. Date of surgery: 03/21/2018. 6. Insertion of left subclavian vein triple-lumen exploratory laparotomy, lysis of extensive adhesions, esophageal gastrectomy, esophagogastric anastomosis, small bowel resection, separate small bowel stricture plasty, partial left hepatic lobectomy, excision of nerve entering the probable neuroma of the lower midline incision, placement of Interceed mesh to limit recurrent adhesion formation. Date of surgery: 03/08/2018. 7. Removal of foreign body (old food and fluid from the stomach) and dilatation of the pyloric sphincter to facilitate gastric emptying. Date of procedure: 03/21/2018. Surgeon: Stan Atkinson MD. PLAN: 1. Reglan 10 mg IV q.6 h. scheduled. 2. Magnesium 2 g IV q.6 h. x72 hours IV. 3. To call Stan Atkinson MD., after upper GI through gastrostomy tube. 4. Check CBC, CMP, and phos in a.m. Peri Zambrano PA-C /[id number]
--- NOTE | 2018-04-04 08:54 | PN ---
DATE OF SERVICE: 04/01/2018 SUBJECTIVE: Trisha was on oral pain medication yesterday stating her pain was not controlled. She did well until her TPN and magnesium were restarted at 4:00 p.m. yesterday, then became very nauseated, had 1 bowel movement yesterday. Vital signs have been stable. Oral intake 2500. Urine output 4850. Trisha did report during the night that she was becoming more depressed. REVIEW OF SYSTEMS: Remainder of review of systems negative for any pertinent positives and negatives. OBJECTIVE: GENERAL: Trisha Wilcox is a 52-year-old female. VITAL SIGNS: TPR is 98.1, 97, 15, and blood pressure 119/77. HEENT: Negative. NECK: Supple. HEART: Regular rate and rhythm. LUNGS: Clear. ABDOMEN: Ruby intact. Gastrostomy tube is in place. There is no redness or drainage around the tube site. EXTREMITIES: Without peripheral edema. ASSESSMENT: 1. Chronic nausea and gastroparesis. 2. Staphylococci aureus, blood cultures and catheter tip. Abdominal incision Staphylococcus epidermidis. 3. Exploratory laparotomy, formation of gastrojejunostomy, debridement of abdominal wall, partial gastrectomy, gastroscopy. Date of surgery 03/21/2018. 4. Insertion of left subclavian vein triple-lumen, exploratory laparotomy with lysis of extensive adhesions: a. Esophageal gastrectomy any esophagogastric anastomosis. b. Small-bowel resection. c. Separate small bowel strictureplasty. d. Partial left hepatic lobectomy. e. Excision of nerve entering probable neuroma of the lower midline incision. f. Placement of Interceed mesh to limit recurrent adhesion formation. Date of surgery 03/08/2018. Surgeon, Stan Atkinson MD. Esophagogastroduodenoscopy with: A. Removal of foreign body, old food and fluid from the stomach. B. Dilatation of the pyloric sphincter to facilitate gastric emptying. Date of surgery 03/21/2018. Surgeon, Stan Atkinson MD. PLAN: 1. Continue same TPN rate and content. 2. Restart CANCER REGISTRY MANAGER 0.3 settings. 3. Pharmacy consult to help with either sublingual or buccal pain management for better absorption. 4. Discharge planning in regard to discharge with TPN home care versus swing bed, pending insurance. 5. Discussion regarding antidepressants. Trisha states she has been on several antidepressants in the past, they usually make her worse. At this time opted to hold any additional medication. 6. Good referral to [facility] Services for lifestyle management to see Nick or Jamel. We will evaluate p.montserrat or in a.m. Peri Zambrano PA-C /[id number]
[2018-04-04] MEDS ORDERED: Iohexol 647 MG/ML 50 ML SDV PO SCH (13:00)
--- NOTE | 2018-04-04 14:20 | CR ---
Limited upper GI Approximately 100 cc of nonionic contrast was administered via the G-tube. The stomach is not distended. Contrast empties from the distal antral portion of the stomach into the duodenum. There is no extravasation of contrast. Multiple surgical sutures are demonstrated throughout the left abdomen. Contrast was noted to readily reflux into the esophagus. When the contrast refluxed to the mid thoracic level the patient became nauseated with the urge to vomit. The symptoms result in the upright position.
[2018-04-04] MEDS: LYTES IV SCH (15:46)
[2018-04-04] MEDS: CALCIUM IV SCH (15:46)
[2018-04-04] MEDS: [UNRECOGNIZED DRUG - OTHER] IV SCH (15:46)
[2018-04-04] MEDS: Magnesium Sulfate/Water 2 GM in Premix Bag 1 BAG IV SCH (15:52)
[2018-04-04] MEDS: Fat Emulsion 100 ML IV SCH (16:01)
[2018-04-04] MEDS: LORazepam 2 MG/ML SDV IVPUSH SCH ×2 (16:53→22:11)
--- NOTE | 2018-04-04 17:12 | PCM.CONSN ---
- General Info Date of Service: 04/04/18 Subjective Update: Ms. Wilcox is a 52-year-old woman who I been asked to see by Dr. Atkinson for reassessment concerning her ongoing symptoms of nausea. 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 Postoperative course has been complicated by difficulty with nausea and vomiting. She initially did better following the surgery but after a few weeks began to have more difficulty with nausea vomiting which has persisted over the past few weeks. Course was also complicated by central line infection, from which she has recovered and is completing a course of IV antibiotic therapy. She reports her symptoms of nausea recur even at the site of food, when she puts anything in her mouth including medications, any attempts at eating, activity of even minimal level, and manipulation of her gastrostomy tube. She has been treated with Reglan, Protonix, Zofran, and a scopolamine patch. She feels that none of these interventions have provided significant improvement in her ongoing symptoms of nausea. Other than use of IV lorazepam she is noted no other interventions that seemed to help. Symptoms are present throughout the day and there is no clear association with use of other medications as a precipitating factor. She is in the process of being evaluated for gastroparesis by Dr. Atkinson and did undergo upper GI x-ray today. Functional Status: Reports: Pain Controlled, Urinating. Denies: Tolerating Diet - Review of Systems General: Reports: Weakness. Denies: Fever, Chills Pulmonary: Reports: No Symptoms Cardiovascular: Reports: No Symptoms Gastrointestinal: Reports: Abdominal Pain, Flatus, Nausea, Vomiting. Denies: Constipation, Diarrhea, Difficulty Swallowing Psychiatric: Reports: Depression, Anxiety - Patient Data Vitals - Most Recent: Last Vital Signs Temp 98.6 F 04/04/18 14:35 Pulse 93 04/04/18 14:35 Resp 16 04/04/18 14:35 BP 103/65 04/04/18 14:35 Pulse Ox 97 04/04/18 14:35 Weight - Most Recent: 149 lb 12.8 oz I&O - Last 24 Hours: Intake & Output 04/04/18 04/04/18 04/04/18 06:59 14:59 22:59 Intake Total 2058 356 350 Output Total 625 600 Balance 1433 -244 350 Lab Results Last 24 Hours: Laboratory Results - last 24 hr 04/04/18 04/04/18 Range/Units 05:03 05:03 WBC 5.5 (4.5-11.0) K/uL RBC 3.17 L (3.30-5.50) M/uL Hgb 9.2 L (12.0-15.0) g/dL Hct 29.6 L (36.0-48.0) % MCV 93 (80-98) fL MCH 29 (27-31) pg MCHC 31 L (32-36) % Plt Count 272 (150-400) K/uL Sodium 135 L (140-148) mmol/L Potassium 4.0 (3.6-5.2) mmol/L Chloride 102 (100-108) mmol/L Carbon Dioxide 24 (21-32) mmol/L Anion Gap 13.0 (5.0-14.0) mmol/L BUN 19 H (7-18) mg/dL Creatinine 0.7 (0.6-1.0) mg/dL Est Cr Clr Drug Dosing 91.42 mL/min Estimated GFR (MDRD) > 60 (>60) Glucose 182 H (74-106) mg/dL Calcium 8.4 L (8.5-10.1) mg/dL Phosphorus 3.4 (2.5-4.9) mg/dL Magnesium 1.5 L D (1.8-2.4) mg/dL Total Bilirubin 0.2 (0.2-1.0) mg/dL AST 10 L (15-37) U/L ALT 14 (12-78) U/L Alkaline Phosphatase 118 H (46-116) U/L Total Protein 5.6 L (6.4-8.2) g/dL Albumin 2.2 L (3.4-5.0) g/dL Globulin 3.4 (2.3-3.5) g/dL Albumin/Globulin Ratio 0.7 L (1.2-2.2) Med Orders - Current: Current Medications Acetaminophen (Tylenol) 650 mg PO Q4H PRN PRN Reason: Pain OR HEADACHE Last Admin: 03/25/18 03:20 Dose: 650 mg Benzocaine/Menthol (Cepacol Sore Throat) 1 lozenge MUCMEM ASDIRECTED PRN PRN Reason: Sore Throat Last Admin: 03/22/18 09:19 Dose: 1 lozenge Bisacodyl (Dulcolax) 10 mg RECTAL BID PRN PRN Reason: Constipation Last Admin: 04/02/18 22:03 Dose: 10 mg Calcium Carbonate/Glycine (Tums) 1,000 mg PO Q2H PRN PRN Reason: Indigestion Last Admin: 03/14/18 21:09 Dose: 1,000 mg Clotrimazole (Mycelex) 10 mg PO 5XDAY [facility] Last Admin: 04/04/18 13:25 Dose: Not Given Cyclobenzaprine HCl (Flexeril) 10 mg PO Q6H PRN PRN Reason: MUSCLE SPASM Last Admin: 03/31/18 19:52 Dose: 10 mg Diphenhydramine HCl (Benadryl) 50 mg IVPUSH Q4H PRN PRN Reason: ITCHING Last Admin: 03/28/18 10:30 Dose: 50 mg Famotidine (Pepcid) 20 mg IVPUSH BID [facility] Heparin Sodium (Porcine) (Heparin Lock Flush 100 Units/Ml) 500 units FLUSH ASDIRECTED PRN PRN Reason: Flush central line Last Admin: 04/04/18 08:35 Dose: 500 units Hydromorphone HCl (Dilaudid Fire Tender 15 Mg In Ns 30 Ml) 0 mg IV ASDIRECTED PRN; Protocol PRN Reason: IT ADMINISTRATOR PAIN CONTROL Hydroxyzine HCl (Vistaril) 100 mg IM Q4H PRN PRN Reason: pain Last Admin: 03/12/18 23:48 Dose: 100 mg Sodium Chloride (Normal Saline) 1,000 mls @ 0 mls/hr IV ASDIRECTED [facility] Last Admin: 04/03/18 01:24 Dose: 25 mls/hr Fat Emulsion Intravenous (Intralipid 20%) 100 mls @ 8.333 mls/hr IV Q24H [facility] Last Admin: 04/04/18 16:01 Dose: 8.333 mls/hr Amino Ac/Electrol/Dextrose/Calcium (Clinimix E 20) 1,712 mls @ 107 mls/hr IV Q24H [facility] Last Admin: 04/04/18 15:46 Dose: 107 mls/hr Magnesium Sulfate 2 gm/ Premix 50 mls @ 25 mls/hr IV Q12H [facility] Stop: 04/07/18 05:59 Last Admin: 04/04/18 15:52 Dose: 25 mls/hr Doxycycline Hyclate 100 mg/ (Sodium Chloride) 100 mls @ 100 mls/hr IV Q12H [facility] Stop: 04/08/18 04:59 Labetalol HCl (Normodyne) 5 mg IVPUSH Q5M PRN PRN Reason: SBP over 160 OR DBP over 95 Lorazepam (Ativan) 0.5 mg IVPUSH Q2H PRN PRN Reason: Nausea Lorazepam (Ativan) 0.5 mg IVPUSH QID [facility] Last Admin: 04/04/18 16:53 Dose: 0.5 mg Metoclopramide HCl (Reglan) 10 mg IVPUSH Q6H [facility] Last Admin: 04/04/18 13:25 Dose: 10 mg Multivitamins/Iron (Child Chew Iron) 2 tab PO DAILY [facility] Last Admin: 04/04/18 08:37 Dose: Not Given Naloxone HCl (Narcan) 0.1 mg IV ASDIRECTED PRN PRN Reason: decreased respiratory rate Verify Scop Patch 0 each TOP DAILY [facility] Last Admin: 04/04/18 08:36 Dose: Not Given Ondansetron HCl (Zofran) 4 mg IVPUSH Q4H PRN PRN Reason: Nausea/Vomiting Oxycodone HCl (Oxycodone Oral Concentrate 10mg/0.5 Ml U/D) 10 mg SL Q3H PRN PRN Reason: Pain Last Admin: 04/04/18 08:50 Dose: 10 mg Estradiol 1mg Tabs (Pom) 0 each PO DAILY [facility] Last Admin: 04/04/18 08:39 Dose: 2 each Scopolamine (Transderm-Scop) 1.5 mg TOP Q48H [facility] Last Admin: 04/03/18 11:26 Dose: 1.5 mg Sodium Chloride (Saline Flush) 10 ml FLUSH ASDIRECTED PRN PRN Reason: Keep Vein Open Last Admin: 04/04/18 15:45 Dose: 10 ml Discontinued Medications Acetaminophen (Tylenol Extra Strength) 1,000 mg PO ONETIME ONE Stop: 03/08/18 08:16 Last Admin: 03/08/18 08:32 Dose: 1,000 mg Acetaminophen (Tylenol) 650 mg PO Q6H [facility] Last Admin: 03/16/18 22:25 Dose: Not Given Bisacodyl (Dulcolax) 10 mg RECTAL BID [facility] Last Admin: 03/25/18 20:12 Dose: Not Given Bisacodyl (Dulcolax) 10 mg RECTAL ONETIME ONE Stop: 03/28/18 08:16 Last Admin: 03/28/18 09:46 Dose: 10 mg Bupivacaine HCl (Marcaine 0.5%) Confirm Administered Dose 50 ml .ROUTE .STK-MED ONE Stop: 03/29/18 06:26 Last Admin: 03/29/18 11:11 Dose: 10 ml Bupivacaine HCl/Epinephrine Bitart (Marcaine 0.5%/Epinephrine 1:200,000) Confirm Administered Dose 50 ml .ROUTE .STK-MED ONE Stop: 03/21/18 07:27 Celecoxib (Celebrex) 200 mg PO ONETIME ONE Stop: 03/08/18 08:16 Last Admin: 03/08/18 08:32 Dose: 200 mg Celecoxib (Celebrex) 200 mg PO DAILY@0800 [facility] Last Admin: 03/09/18 08:40 Dose: 200 mg Clindamycin Phosphate (Cleocin) Confirm Administered Dose 900 mg .ROUTE .STK- MED ONE Stop: 03/29/18 08:46 Last Admin: 03/29/18 11:12 Dose: 900 mg Ropivacaine 34 ml/Dexamethasone 8 mg/Epinephrine HCl 0.4 mg/ Sodium Chloride 43.6 ml 0 ml NERVRT ASDIRECTED [facility] Last Admin: 03/08/18 11:15 Dose: 80 syringe Ropivacaine 35 ml/Dexamethasone 8 mg/Epinephrine HCl 0.4 mg/ Sodium Chloride 42.6 ml 0 ml NERVRT ASDIRECTED [facility] Last Admin: 03/21/18 13:32 Dose: 80 syringe Cyanocobalamin (Vitamin B12) 1,000 mcg IM ONETIME ONE Stop: 03/10/18 09:01 Last Admin: 03/10/18 08:34 Dose: Not Given Cyclobenzaprine HCl (Flexeril) 10 mg PO Q6H PRN PRN Reason: muscle spasms Last Admin: 03/16/18 14:30 Dose: 10 mg Dexamethasone (Dexamethasone) Confirm Administered Dose 4 mg .ROUTE .STK-MED ONE Stop: 03/08/18 08:55 Dexamethasone (Dexamethasone) Confirm Administered Dose 4 mg .ROUTE .STK-MED ONE Stop: 03/21/18 09:19 Dexamethasone (Dexamethasone) Confirm Administered Dose 4 mg .ROUTE .STK-MED ONE Stop: 03/29/18 07:16 Erythromycin Ethylsuccinate (Eryped 400) 50 mg PO QID [facility] Last Admin: 03/16/18 05:30 Dose: Not Given Fentanyl (Sublimaze) Confirm Administered Dose 250 mcg .ROUTE .STK-MED ONE Stop: 03/08/18 08:55 Fentanyl (Sublimaze) Confirm Administered Dose 250 mcg .ROUTE .STK-MED ONE Stop: 03/08/18 11:44 Fentanyl (Sublimaze) Confirm Administered Dose 250 mcg .ROUTE .STK-MED ONE Stop: 03/08/18 12:18 Fentanyl (Sublimaze) Confirm Administered Dose 100 mcg .ROUTE .STK-MED ONE Stop: 03/13/18 08:08 Fentanyl (Sublimaze) Confirm Administered Dose 100 mcg .ROUTE .STK-MED ONE Stop: 03/17/18 07:12 Fentanyl (Sublimaze) Confirm Administered Dose 250 mcg .ROUTE .STK-MED ONE Stop: 03/21/18 09:19 Fentanyl (Sublimaze) Confirm Administered Dose 250 mcg .ROUTE .STK-MED ONE Stop: 03/21/18 13:01 Fentanyl (Sublimaze) Confirm Administered Dose 250 mcg .ROUTE .STK-MED ONE Stop: 03/29/18 07:17 Fentanyl (Sublimaze) Confirm Administered Dose 100 mcg .ROUTE .STK-MED ONE Stop: 03/29/18 09:16 Fentanyl Citrate (Fentanyl In Ns 20 Mcg/Ml 30 Ml Fire Tender) 0 mcg IV ASDIRECTED PRN; Protocol PRN Reason: PAIN Stop: 03/21/18 11:00 Last Admin: 03/19/18 16:28 Dose: 600 mcg Glycopyrrolate (Robinul) Confirm Administered Dose 1 mg .ROUTE .STK-MED ONE Stop: 03/08/18 08:55 Glycopyrrolate (Robinul) Confirm Administered Dose 1 mg .ROUTE .STK-MED ONE Stop: 03/21/18 09:19 Glycopyrrolate (Robinul) Confirm Administered Dose 1 mg .ROUTE .STK-MED ONE Stop: 03/29/18 07:16 Heparin Sodium (Porcine) (Heparin Lock Flush 100 Units/Ml) Confirm Administered Dose 500 units .ROUTE .STK-MED ONE Stop: 03/08/18 10:07 Last Admin: 03/08/18 11:13 Dose: 500 units Heparin Sodium (Porcine) (Heparin Lock Flush 100 Units/Ml) Confirm Administered Dose 1,500 units .ROUTE .STK-MED ONE Stop: 03/29/18 06:26 Last Admin: 03/29/18 11:11 Dose: 1,500 units Hydromorphone HCl (Dilaudid Fire Tender 15 Mg In Ns 30 Ml) 0 mg IV ASDIRECTED PRN; Protocol PRN Reason: Pain Last Admin: 03/11/18 01:54 Dose: 15 mg Hydromorphone HCl (Dilaudid Fire Tender 15 Mg In Ns 30 Ml) 0 mg IV ASDIRECTED PRN; Protocol PRN Reason: Pain Last Admin: 03/13/18 19:42 Dose: 15 mg Hydromorphone HCl (Dilaudid) 2 - 4 mg PO Q4H PRN PRN Reason: Pain Last Admin: 03/16/18 12:58 Dose: 4 mg Hydromorphone HCl (Dilaudid Fire Tender 15 Mg In Ns 30 Ml) 0 mg IV ASDIRECTED PRN; Protocol PRN Reason: PAIN Last Admin: 03/18/18 02:51 Dose: 15 mg Hydromorphone HCl (Dilaudid Fire Tender 15 Mg In Ns 30 Ml) 0 mg IV ASDIRECTED PRN; Protocol PRN Reason: IT ADMINISTRATOR PAIN CONTROL Last Admin: 03/22/18 21:43 Dose: 15 mg Hydromorphone HCl (Dilaudid) 1 mg IVPUSH Q4H PRN PRN Reason: Pain (moderate 4-6) Hydromorphone HCl (Dilaudid Fire Tender 15 Mg In Ns 30 Ml) 0 mg IV ASDIRECTED PRN; Protocol PRN Reason: IT ADMINISTRATOR PAIN CONTROL Last Admin: 03/29/18 09:57 Dose: 15 mg Hydroxyzine HCl (Vistaril) 100 mg IM ONETIME ONE Stop: 03/08/18 15:30 Last Admin: 03/08/18 15:34 Dose: 100 mg Hydroxyzine HCl (Atarax) 50 mg PO Q4H PRN PRN Reason: Pain (Severe 7-10) Last Admin: 03/15/18 04:19 Dose: 50 mg Hyoscyamine (Hyomax-Sl) 0.125 mg SL QID [facility] Last Admin: 03/28/18 05:05 Dose: Not Given Cefoxitin Sodium 2 gm/ Sodium (Chloride) 50 mls @ 100 mls/hr IV ONETIME ONE Stop: 03/08/18 09:59 Dextrose/Lactated Ringer's (Dextrose 5%-Lactated Ringers) 1,000 mls @ 100 mls/ hr IV ASDIRECTED [facility] Last Admin: 03/08/18 08:32 Dose: 100 mls/hr Lidocaine HCl/Dextrose (Lidocaine 2 Gm/D5w 500 Ml) 2 gm in 500 mls @ 15 mls/hr IV .Q24H [facility] Stop: 03/09/18 16:00 Last Admin: 03/09/18 12:48 Dose: Not Given Ketamine HCl 50 mg/ Sodium (Chloride) 50 mls @ 18.82 mls/hr IV ASDIRECTED [facility] Cefoxitin Sodium 2 gm/ Sodium (Chloride) 50 mls @ 100 mls/hr IV ONETIME ONE Stop: 03/08/18 09:59 Last Admin: 03/08/18 10:45 Dose: 100 mls/hr Lactated Ringer's (Ringers, Lactated) Confirm Administered Dose 1,000 mls @ as directed .ROUTE .STK-MED ONE Stop: 03/08/18 11:47 Lactated Ringer's (Ringers, Lactated) Confirm Administered Dose 1,000 mls @ as directed .ROUTE .STK-MED ONE Stop: 03/08/18 14:06 Dextrose/Lactated Ringer's (Dextrose 5%-Lactated Ringers) 1,000 mls @ 200 mls/ hr IV ASDIRECTED [facility] Last Admin: 03/09/18 05:21 Dose: 200 mls/hr Cefoxitin Sodium 2 gm/ Sodium (Chloride) 50 mls @ 100 mls/hr IV Q6H [facility] Last Admin: 03/15/18 09:05 Dose: 100 mls/hr Dextrose/Lactated Ringer's (Dextrose 5%-Lactated Ringers) 1,000 mls @ 75 mls/ hr IV ASDIRECTED [facility] Last Admin: 03/21/18 16:13 Dose: 25 mls/hr Magnesium Sulfate 2 gm/ Premix 50 mls @ 25 mls/hr IV Q6H [facility] Stop: 03/12/18 05:59 Last Admin: 03/12/18 03:25 Dose: 25 mls/hr Dextrose/Lactated Ringer's (Dextrose 5%-Lactated Ringers) 1,000 mls @ 100 mls/ hr IV ASDIRECTED [facility] Stop: 03/09/18 17:59 Amino Ac/Electrol/Dextrose/Calcium (Clinimix E 5/15) 2,000 mls @ 100 mls/hr IV .BY DURATION [facility] Stop: 03/11/18 22:59 Last Admin: 03/11/18 03:30 Dose: 100 mls/hr Amino Ac/Electrol/Dextrose/Calcium (Clinimix E 5/15) 2,000 mls @ 100 mls/hr IV .BY DURATION [facility] Stop: 03/11/18 22:59 Potassium Phosphate 20 mmole/ (Sodium Chloride) 106.6667 mls @ 35 mls/hr IV Q3H [facility] Stop: 03/10/18 18:29 Last Admin: 03/10/18 15:25 Dose: 35 mls/hr Albumin Human (Albumin 25%) 25 gm in 100 mls @ 25 mls/hr IV DAILY [facility] Stop: 03/14/18 09:01 Last Admin: 03/14/18 08:01 Dose: 25 mls/hr Amino Ac/Electrol/Dextrose/Calcium (Clinimix E 5/15) 1,000 mls @ 100 mls/hr IV .Q10H [facility] Last Admin: 03/17/18 11:52 Dose: 100 mls/hr Fat Emulsion Intravenous (Intralipid 20%) 100 mls @ 8.3 mls/hr IV Q24H [facility] Stop: 03/20/18 05:00 Last Admin: 03/19/18 16:17 Dose: 8.3 mls/hr Amino Ac/Electrol/Dextrose/Calcium (Clinimix E 5/15) 1,000 mls @ 100 mls/hr IV .Q10H [facility] Stop: 03/23/18 17:59 Last Admin: 03/23/18 12:06 Dose: 100 mls/hr Fluconazole/Sodium Chloride (200 mg/ Premix) 100 mls @ 100 mls/hr IV Q24H [facility] Stop: 03/30/18 10:00 Last Admin: 03/30/18 08:11 Dose: 100 mls/hr Fluconazole/Sodium Chloride (200 mg/ Premix) 100 mls @ 100 mls/hr IV ONETIME ONE Stop: 03/21/18 10:59 Last Admin: 03/21/18 11:16 Dose: 100 mls/hr Ampicillin Sodium/Sulbactam (Sodium 3 gm/ Sodium Chloride) 100 mls @ 200 mls/ hr IV ONETIME ONE Stop: 03/21/18 09:59 Last Admin: 03/21/18 15:15 Dose: Not Given Lactated Ringer's (Ringers, Lactated) Confirm Administered Dose 1,000 mls @ as directed .ROUTE .STK-MED ONE Stop: 03/21/18 12:24 Ampicillin Sodium/Sulbactam (Sodium 3 gm/ Sodium Chloride) 100 mls @ 200 mls/ hr IV Q6H [facility] Stop: 03/23/18 16:29 Last Admin: 03/23/18 16:00 Dose: 200 mls/hr Dextrose/Lactated Ringer's (Dextrose 5%-Lactated Ringers) 1,000 mls @ 75 mls/ hr IV ASDIRECTED [facility] Lactated Ringer's (Ringers, Lactated) 500 mls @ 500 mls/hr IV .BOLUS [facility] Last Admin: 03/21/18 23:31 Dose: 500 mls/hr Dextrose/Lactated Ringer's (Dextrose 5%-Lactated Ringers) 1,000 mls @ 25 mls/ hr IV ASDIRECTED [facility] Last Admin: 03/25/18 08:11 Dose: 25 mls/hr Amino Ac/Electrol/Dextrose/Calcium (Clinimix E 5/15) 1,000 mls @ 100 mls/hr IV .Q10H [facility] Last Admin: 03/25/18 05:13 Dose: 100 mls/hr Acetaminophen 1,000 mg/ Premix 100 mls @ 400 mls/hr IV NOW ONE Stop: 03/25/18 08:00 Last Admin: 03/25/18 08:14 Dose: 400 mls/hr Linezolid 600 mg/ Premix 300 mls @ 300 mls/hr IV Q12H [facility] Last Admin: 03/28/18 02:29 Dose: 150 mls/hr Meropenem 1 gm/ Sodium (Chloride) 50 mls @ 100 mls/hr IV Q8H [facility] Last Admin: 03/26/18 06:26 Dose: 100 mls/hr Lactated Ringer's (Ringers, Lactated) 1,000 mls @ 500 mls/hr IV ASDIRECTED [facility] Stop: 03/25/18 15:31 Acetaminophen 1,000 mg/ Premix 100 mls @ 400 mls/hr IV Q6H [facility] Stop: 03/26/18 09:14 Last Admin: 03/26/18 02:02 Dose: 400 mls/hr Dextrose/Lactated Ringer's (Dextrose 5%-Lactated Ringers) 1,000 mls @ 125 mls/ hr IV ASDIRECTED [facility] Sodium Chloride (Normal Saline) 1,000 mls @ 999 mls/hr IV ASDIRECTED [facility] Last Infusion: 03/25/18 20:46 Dose: 500 mls/hr Dextrose/Lactated Ringer's (Dextrose 5%-Lactated Ringers) 1,000 mls @ 125 mls/ hr IV ASDIRECTED [facility] Last Admin: 03/26/18 02:29 Dose: 125 mls/hr Dextrose/Lactated Ringer's (Dextrose 5%-Lactated Ringers) 1,000 mls @ 100 mls/ hr IV ASDIRECTED [facility] Last Admin: 03/27/18 01:27 Dose: 100 mls/hr Dextrose/Lactated Ringer's (Dextrose 5%-Lactated Ringers) 1,000 mls @ 125 mls/ hr IV ASDIRECTED [facility] Stop: 03/29/18 10:59 Last Admin: 03/29/18 02:41 Dose: 125 mls/hr Ciprofloxacin/Dextrose 400 mg/ (Premix) 200 mls @ 200 mls/hr IV Q12H [facility] Last Admin: 03/28/18 09:46 Dose: 200 mls/hr Magnesium Sulfate 2 gm/ Premix 50 mls @ 25 mls/hr IV BID [facility] Stop: 04/02/18 22:59 Last Admin: 03/28/18 20:17 Dose: 25 mls/hr Potassium Phosphate 22.5 mmole (/ Sodium Chloride) 257.5 mls @ 85 mls/hr IV Q3H [facility] Stop: 03/28/18 15:29 Last Admin: 03/28/18 18:54 Dose: 85 mls/hr Linezolid 600 mg/ Premix 300 mls @ 300 mls/hr IV Q12H [facility] Last Admin: 04/01/18 02:42 Dose: 300 mls/hr Lactated Ringer's (Ringers, Lactated) Confirm Administered Dose 1,000 mls @ as directed .ROUTE .STK-MED ONE Stop: 03/29/18 08:06 Magnesium Sulfate 2 gm/ Premix 50 mls @ 25 mls/hr IV Q6HR [facility] Stop: 04/01/18 05:59 Last Admin: 03/31/18 03:07 Dose: 25 mls/hr Dextrose/Lactated Ringer's (Dextrose 5%-Lactated Ringers) 1,000 mls @ 25 mls/ hr IV ASDIRECTED [facility] Potassium Phosphate 20 mmole/ (Sodium Chloride) 106.6667 mls @ 35 mls/hr IV Q3H [facility] Stop: 03/29/18 19:59 Last Admin: 03/29/18 18:23 Dose: 35 mls/hr Amino Ac/Electrol/Dextrose/Calcium (Clinimix E 5/15) 1,000 mls @ 100 mls/hr IV .Q10H [facility] Stop: 03/30/18 16:58 Last Admin: 03/30/18 08:06 Dose: 100 mls/hr Fat Emulsion Intravenous (Intralipid 20%) 100 mls @ 8.333 mls/hr IV ONETIME ONE Stop: 03/31/18 03:59 Last Admin: 03/30/18 16:50 Dose: 8.333 mls/hr Amino Ac/Electrol/Dextrose/Calcium (Clinimix E 5/15) 1,000 mls @ 100 mls/hr IV .Q10H [facility] Stop: 03/31/18 15:45 Last Admin: 03/31/18 15:28 Dose: Not Given Magnesium Sulfate 2 gm/ Premix 50 mls @ 25 mls/hr IV TID@0600,1600,2200 [facility] Stop: 04/01/18 23:59 Last Admin: 04/01/18 21:43 Dose: 25 mls/hr Fat Emulsion Intravenous (Intralipid 20%) 100 mls @ 8.333 mls/hr IV ONETIME ONE Stop: 04/01/18 03:59 Last Admin: 03/31/18 16:05 Dose: 8.333 mls/hr Amino Ac/Electrol/Dextrose/Calcium (Clinimix E 5/20) 1,712 mls @ 107 mls/hr IV Q24H [facility] Last Admin: 04/03/18 15:52 Dose: 107 mls/hr Fat Emulsion Intravenous (Intralipid 20%) 100 mls @ 8.333 mls/hr IV ONETIME ONE Stop: 04/02/18 03:59 Last Admin: 04/01/18 15:06 Dose: 8.333 mls/hr Linezolid 600 mg/ Premix 300 mls @ 300 mls/hr IV Q12H [facility] Last Admin: 04/04/18 15:55 Dose: 300 mls/hr Iohexol (Omnipaque-300) 50 ml PO .ASDIRECTED STA Stop: 03/09/18 03:43 Last Admin: 03/09/18 04:27 Dose: 50 ml Iohexol (Omnipaque-300) 50 ml IVPUSH . DIRECTED PRN PRN Reason: RADIOLOGY EXAM Stop: 03/13/18 06:56 Last Admin: 03/12/18 07:09 Dose: 50 ml Iohexol (Omnipaque-300) 50 ml PO .ASDIRECTED [facility] Last Admin: 03/22/18 04:39 Dose: 50 ml Iohexol (Omnipaque-300) 100 ml PO . DIRECTED [facility] Stop: 04/04/18 14:00 Last Admin: 04/04/18 13:05 Dose: 100 ml Ketorolac Tromethamine (Toradol) 60 mg IM ONETIME ONE Stop: 03/26/18 09:01 Last Admin: 03/26/18 08:47 Dose: 60 mg Ketorolac Tromethamine (Toradol) 60 mg IM ONETIME ONE Stop: 03/27/18 09:31 Last Admin: 03/27/18 08:56 Dose: 60 mg Ketorolac Tromethamine (Toradol) 60 mg IM ONETIME PRN PRN Reason: Headache Stop: 04/02/18 08:00 Labetalol HCl (Normodyne) Confirm Administered Dose 20 mg .ROUTE .STK-MED ONE Stop: 03/08/18 12:58 Lidocaine HCl (Xylocaine 2%) 96 mg IVPUSH ASDIRECTED [facility] Lidocaine/Epinephrine (Xylocaine 1% With Epinephrine 1:100,000) Confirm Administered Dose 50 ml .ROUTE .STK-MED ONE Stop: 03/29/18 06:26 Last Admin: 03/29/18 11:12 Dose: 10 ml Lorazepam (Ativan) 0.5 mg PO BID PRN PRN Reason: Anxiety Lorazepam (Ativan) 0.5 mg IVPUSH Q2H PRN PRN Reason: Anxiety Last Admin: 04/02/18 06:34 Dose: 0.5 mg Lorazepam (Ativan Oral Concentrate 1mg/0.5 Ml U/D) 1 mg BUCCAL Q4H PRN PRN Reason: ANXIETY Lorazepam (Ativan) 1 mg IVPUSH Q4H PRN PRN Reason: Nausea Last Admin: 04/04/18 03:28 Dose: 1 mg Magnesium Hydroxide (Milk Of Magnesia) 30 ml PO BID [facility] Stop: 03/11/18 23:59 Last Admin: 03/11/18 22:25 Dose: 30 ml Magnesium Hydroxide (Milk Of Magnesia) 30 ml PO BID [facility] Last Admin: 03/15/18 20:07 Dose: Not Given Meropenem (Merrem) Confirm Administered Dose 500 mg .ROUTE .STK-MED ONE Stop: 03/08/18 09:21 Last Admin: 03/08/18 11:44 Dose: 500 mg Meropenem (Merrem) Confirm Administered Dose 500 mg .ROUTE .STK-MED ONE Stop: 03/21/18 07:27 Last Admin: 03/21/18 13:32 Dose: 500 mg Metoclopramide HCl (Reglan) 10 mg IVPUSH Q6H PRN PRN Reason: NAUSEA NOT CONTROL BY ZOFRAN Last Admin: 03/11/18 15:34 Dose: 10 mg Metoclopramide HCl (Reglan) 10 mg IVPUSH Q6H [facility] Last Admin: 03/19/18 03:58 Dose: 10 mg Metoclopramide HCl (Reglan) 10 mg IV Q6H [facility] Last Admin: 03/30/18 05:54 Dose: 10 mg Metoclopramide HCl (Reglan) 10 mg IV Q6H [facility] Last Admin: 03/31/18 05:04 Dose: 10 mg Metoclopramide HCl (Reglan) 10 mg IVPUSH Q6H PRN PRN Reason: Nausea Last Admin: 04/01/18 15:06 Dose: 10 mg Metoclopramide HCl (Reglan) 10 mg PO QID [facility] Last Admin: 04/02/18 21:56 Dose: 10 mg Metoclopramide HCl (Reglan) 10 mg IVPUSH Q6H PRN PRN Reason: Nausea Midazolam HCl (Versed 1 Mg/Ml) Confirm Administered Dose 2 mg .ROUTE .STK-MED ONE Stop: 03/13/18 08:09 Midazolam HCl (Versed 1 Mg/Ml) Confirm Administered Dose 2 mg .ROUTE .STK-MED ONE Stop: 03/17/18 07:12 Naloxone HCl (Narcan) 0.1 mg IV ASDIRECTED PRN PRN Reason: decreased respiratory rate Naloxone HCl (Narcan) 0.1 mg IV ASDIRECTED PRN PRN Reason: decreased respiratory rate Naloxone HCl (Narcan) 0.1 mg IV ASDIRECTED PRN PRN Reason: decreased respiratory rate Naloxone HCl (Narcan) 0.1 mg IV ASDIRECTED PRN PRN Reason: decreased respiratory rate Neostigmine Methylsulfate (Neostigmine) Confirm Administered Dose 5 mg .ROUTE .STK-MED ONE Stop: 03/08/18 08:55 Neostigmine Methylsulfate (Neostigmine) Confirm Administered Dose 5 mg .ROUTE .STK-MED ONE Stop: 03/21/18 09:19 Neostigmine Methylsulfate (Neostigmine) Confirm Administered Dose 5 mg .ROUTE .STK-MED ONE Stop: 03/29/18 07:16 Scopolamine Patch (Check) 1 each TOP DAILY [facility] Stop: 03/10/18 16:01 Non-Formulary Medication (Total Parenteral Nutrition, Central) 1,000 ml .XX .Continue Order REYNALDO Stop: 03/11/18 09:00 Non-Formulary Medication (Total Parenteral Nutrition, Central) 1,000 ml .XX .Continue Order REYNALDO Stop: 03/13/18 11:00 Non-Formulary Medication (Total Parenteral Nutrition, Central) 1,000 ml .XX .Continue Order REYNALDO Stop: 03/14/18 16:00 Non-Formulary Medication (Total Parenteral Nutrition, Central) 1,000 ml .XX .Continue Order REYNALDO Stop: 03/16/18 12:00 Non-Formulary Medication (Total Parenteral Nutrition, Central) 1,000 ml .XX .Continue Order REYNALDO Stop: 03/17/18 07:31 Non-Formulary Medication (Total Parenteral Nutrition, Central) 1,000 ml .XX .Continue Order REYNALDO Stop: 03/24/18 16:00 Non-Formulary Medication (Total Parenteral Nutrition, Central) 1,000 ml .XX .Continue Order [facility] Stop: 03/30/18 09:08 Non-Formulary Medication (Total Parenteral Nutrition, Central) 1,000 ml .XX .Continue Order [facility] Stop: 04/01/18 12:00 Non-Formulary Medication (Total Parenteral Nutrition, Central) 1,000 ml .XX .Continue Order [facility] Stop: 04/04/18 10:00 Ondansetron HCl (Zofran) Confirm Administered Dose 4 mg .ROUTE .STK-MED ONE Stop: 03/08/18 08:55 Ondansetron HCl (Zofran) 4 mg IVPUSH Q4H PRN PRN Reason: Nausea/Vomiting Last Admin: 04/01/18 12:19 Dose: 4 mg Ondansetron HCl (Zofran) Confirm Administered Dose 4 mg .ROUTE .STK-MED ONE Stop: 03/21/18 09:19 Ondansetron HCl (Zofran) Confirm Administered Dose 4 mg .ROUTE .STK-MED ONE Stop: 03/29/18 07:16 Ondansetron HCl (Zofran Odt) 4 mg PO QID [facility] Last Admin: 04/02/18 21:55 Dose: 4 mg Oxycodone HCl (Oxycodone) 5 mg PO Q4H PRN PRN Reason: Pain (severe 7-10) Last Admin: 03/12/18 03:42 Dose: 5 mg Oxycodone HCl (Oxycodone) 5 - 10 mg PO Q4H PRN PRN Reason: Pain Last Admin: 04/01/18 09:59 Dose: 10 mg Oxycodone HCl (Oxycodone Oral Concentrate 10mg/0.5 Ml U/D) 5 - 10 mg PO Q4H PRN PRN Reason: Pain Oxycodone HCl (Oxycodone Oral Concentrate 10mg/0.5 Ml U/D) 5 - 10 mg SL Q4H PRN PRN Reason: Pain Last Admin: 04/02/18 04:36 Dose: 10 mg Pantoprazole Sodium (Protonix Iv) 40 mg IVPUSH Q24H [facility] Last Admin: 03/10/18 15:35 Dose: 40 mg Pantoprazole Sodium (Protonix Granules) 40 mg PO Q24H [facility] Last Admin: 03/14/18 16:13 Dose: 40 mg Pantoprazole Sodium (Protonix Granules) 40 mg PO DAILY@0730 [facility] Last Admin: 03/15/18 08:57 Dose: 40 mg Pantoprazole Sodium (Protonix Granules) 40 mg PO BIDAC [facility] Last Admin: 03/16/18 15:34 Dose: 40 mg Pantoprazole Sodium (Protonix Iv) 40 mg IVPUSH Q12H [facility] Last Admin: 04/04/18 08:37 Dose: 40 mg Pharmacy Consult (Consult To Pharmacy) 1 each .XX ASDIRECTED [facility] Pharmacy Consult (Consult To Pharmacy) 1 each .XX ASDIRECTED [facility] Stop: 03/08/18 17:04 Propofol (Diprivan 20 Ml) Confirm Administered Dose 200 mg .ROUTE .STK-MED ONE Stop: 03/08/18 08:55 Propofol (Diprivan 20 Ml) Confirm Administered Dose 200 mg .ROUTE .STK-MED ONE Stop: 03/13/18 08:09 Propofol (Diprivan 20 Ml) Confirm Administered Dose 200 mg .ROUTE .STK-MED ONE Stop: 03/17/18 07:12 Propofol (Diprivan 20 Ml) Confirm Administered Dose 200 mg .ROUTE .STK-MED ONE Stop: 03/21/18 09:19 Propofol (Diprivan 20 Ml) Confirm Administered Dose 200 mg .ROUTE .STK-MED ONE Stop: 03/29/18 07:16 Rocuronium [place] (Zemuron) Confirm Administered Dose 50 mg .ROUTE .STK-MED ONE Stop: 03/08/18 08:55 Rocuronium [place] (Zemuron) Confirm Administered Dose 50 mg .ROUTE .STK-MED ONE Stop: 03/08/18 11:45 Rocuronium [place] (Zemuron) Confirm Administered Dose 100 mg .ROUTE .STK-MED ONE Stop: 03/08/18 12:57 Rocuronium [place] (Zemuron) Confirm Administered Dose 50 mg .ROUTE .STK-MED ONE Stop: 03/21/18 09:19 Rocuronium [place] (Zemuron) Confirm Administered Dose 50 mg .ROUTE .STK-MED ONE Stop: 03/29/18 07:16 Succinylcholine Chloride (Quelicin) Confirm Administered Dose 200 mg .ROUTE .STK -MED ONE Stop: 03/08/18 08:55 Succinylcholine Chloride (Quelicin) Confirm Administered Dose 200 mg .ROUTE .STK -MED ONE Stop: 03/21/18 09:19 Succinylcholine Chloride (Quelicin) Confirm Administered Dose 200 mg .ROUTE .STK -MED ONE Stop: 03/29/18 07:16 - Exam Quality Assessment: DVT Prophylaxis General: Alert, Oriented, Cooperative, Moderate Distress Lungs: Clear to Auscultation, Normal Respiratory Effort Cardiovascular: Regular Rate, Regular Rhythm, No Murmurs GI/Abdominal Exam: Soft, No Organomegaly, Tender. No: Distended, Guarding, Rigid, Rebound Extremities: Non-Tender, No Pedal Edema Consult PN Assessment/Plan Procedures: Procedures ASSAY OF LACTIC ACID (02/07/18) ASSAY OF LIPASE (02/07/18) C DIFF AMPLIFIED PROBE (02/09/18) COMPLETE CBC W/AUTO DIFF WBC (02/07/18) COMPREHEN METABOLIC PANEL (02/07/18) CT ABD & PELV W/CONTRAST (02/07/18) EMERGENCY DEPT VISIT (02/07/18) ROUTINE VENIPUNCTURE (02/07/18) THER/PROPH/DIAG INJ IV PUSH (02/07/18) TX/PRO/DX INJ NEW DRUG ADDON (02/07/18) URINALYSIS AUTO W/SCOPE (02/07/18) Problem List Initiated/Reviewed/Updated: Yes My Orders Last 24 Hours: My Active Orders 04/04/18 16:22 LORazepam [Ativan] 0.5 mg IVPUSH Q2H PRN 04/04/18 16:23 LORazepam [Ativan] 0.5 mg IVPUSH QID 04/04/18 16:45 Doxycycline [Vibramycin] 100 mg Sodium Chloride 0.9% [Normal Saline] 100 ml IV Q12HR 04/04/18 21:00 Famotidine [Pepcid] 20 mg IVPUSH BID Plan: ASSESSMENT AND RECOMMENDATIONS PERSISTENT NAUSEA AND VOMITING-ongoing symptoms over the past few weeks, question of underlying gastroparesis, status post upper GI x-ray obtained earlier today. There is been no evidence of obstruction other than possible gastroparesis. There may be a medication effect, the only medications that she is taking consistently over the past few weeks have been Zyvox and Protonix. Much less likely would be to consider adrenal insufficiency as a potential cause. Blood pressures have trended lower, she has not had significant electrolyte abnormalities. -Discontinue IV Zyvox and Protonix -Pepcid 20 mg IV every 12 hours -Schedule IV lorazepam 0.5 mg 4 times daily -Lorazepam IV 0.5 mg every 2 hours when necessary -Consider evaluation for adrenal insufficiency 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 MSSA grown from blood cultures and catheter tip -Will complete a 14 day course of IV antibiotic therapy with doxycycline 100 mg IV every 12 hours STATUS POST REVERSAL OF OZZY-EN-Y GASTRIC BYPASS SURGERY -Postoperative care per Dr. Atkinson
[2018-04-04] MEDS: Sodium Chloride 0.9% 1,000 ML IV SCH (17:49)
[2018-04-04] MEDS: Famotidine 20 MG/2 ML SDV IVPUSH SCH (20:57)
[2018-04-05] MEDS: Metoclopramide 10 MG/2 ML SDV IVPUSH SCH ×4 (01:54→22:11)
[2018-04-05] MEDS: Doxycycline 100 MG in Sodium Chloride 0.9% 100 ML IV SCH ×2 (03:21→15:41)
[2018-04-05] MEDS: Magnesium Sulfate/Water 2 GM in Premix Bag 1 BAG IV SCH ×2 (03:26→15:53)
[2018-04-05] MEDS: LORazepam 2 MG/ML SDV IVPUSH SCH ×4 (05:15→22:10)
[2018-04-05] MEDS: Clotrimazole 10 MG Troche PO SCH (06:20)
[2018-04-05] MEDS ORDERED: Central Total Parenteral Nutrition Bag SCH (07:30)
[2018-04-05] MEDS: Famotidine 20 MG/2 ML SDV IVPUSH SCH ×2 (08:49→22:11)
[2018-04-05] MEDS: Scopolamine 1.5 MG Transdermal Patch TOP SCH (09:08)
[2018-04-05] MEDS: VERIFY SCOP PATCH TOP SCH (09:17)
[2018-04-05] MEDS: ESTRADIOL 1 MG PO SCH (09:18)
[2018-04-05] MEDS: Erythromycin Ethylsuccinate Susp 400 MG/5 ML 100 ML Bottle GTUBE SCH ×3 (09:19→22:11)
[2018-04-05] MEDS: Multivitamins with Iron Tab.Chew PO SCH (09:19)
--- NOTE | 2018-04-05 09:41 | CR ---
Gastrostomy tube. Contrast is now within the colon on the left. There is some gaseous distended loops right upper quadrant which are similar. Extensive postsurgical suture throughout the abdomen..
[2018-04-05] MEDS: LORazepam 2 MG/ML SDV IVPUSH PRN ×2 (11:04→17:54)
[2018-04-05] MEDS: oxyCODONE 10 MG/0.5 ML ORAL U/D SL PRN (14:54)
[2018-04-05] MEDS: LYTES IV SCH (15:44)
[2018-04-05] MEDS: [UNRECOGNIZED DRUG - OTHER] IV SCH (15:44)
[2018-04-05] MEDS: CALCIUM IV SCH (15:44)
[2018-04-05] MEDS: Fat Emulsion 100 ML IV SCH (15:47)
--- NOTE | 2018-04-05 17:08 | PCM.CONSN ---
- General Info Date of Service: 04/05/18 Subjective Update: Ms. Wilcox continues to experience ongoing difficulty with nausea, symptoms modestly improved since yesterday with changes in medication. Functional Status: Reports: Urinating. Denies: Tolerating Diet, Ambulating - Review of Systems General: Reports: Weakness. Denies: Fever, Chills Pulmonary: Reports: No Symptoms Cardiovascular: Reports: No Symptoms Gastrointestinal: Reports: Abdominal Pain, Decreased Appetite, Nausea, Vomiting. Denies: Difficulty Swallowing - Patient Data Vitals - Most Recent: Last Vital Signs Temp 97.2 F 04/05/18 16:09 Pulse 100 04/05/18 16:09 Resp 18 04/05/18 16:09 BP 123/74 04/05/18 16:09 Pulse Ox 98 04/05/18 16:09 Weight - Most Recent: 150 lb 3.2 oz I&O - Last 24 Hours: Intake & Output 04/05/18 04/05/18 04/05/18 06:59 14:59 22:59 Intake Total 1951 277 100 Output Total 1250 1250 Balance 701 -973 100 Lab Results Last 24 Hours: Laboratory Results - last 24 hr 04/05/18 04/05/18 Range/Units 04:32 04:32 WBC 6.4 (4.5-11.0) K/uL RBC 3.29 L (3.30-5.50) M/uL Hgb 9.5 L (12.0-15.0) g/dL Hct 30.3 L (36.0-48.0) % MCV 92 (80-98) fL MCH 29 (27-31) pg MCHC 31 L (32-36) % Plt Count 290 (150-400) K/uL Sodium 136 L (140-148) mmol/L Potassium 4.2 (3.6-5.2) mmol/L Chloride 104 (100-108) mmol/L Carbon Dioxide 25 (21-32) mmol/L Anion Gap 11.2 (5.0-14.0) mmol/L BUN 18 (7-18) mg/dL Creatinine 0.7 (0.6-1.0) mg/dL Est Cr Clr Drug Dosing 91.42 mL/min Estimated GFR (MDRD) > 60 (>60) Glucose 141 H (74-106) mg/dL Calcium 8.5 (8.5-10.1) mg/dL Phosphorus 2.9 (2.5-4.9) mg/dL Total Bilirubin 0.2 (0.2-1.0) mg/dL AST 10 L (15-37) U/L ALT 19 (12-78) U/L Alkaline Phosphatase 121 H (46-116) U/L Total Protein 5.9 L (6.4-8.2) g/dL Albumin 2.3 L (3.4-5.0) g/dL Globulin 3.6 H (2.3-3.5) g/dL Albumin/Globulin Ratio 0.6 L (1.2-2.2) Med Orders - Current: Current Medications Acetaminophen (Tylenol) 650 mg PO Q4H PRN PRN Reason: Pain OR HEADACHE Last Admin: 03/25/18 03:20 Dose: 650 mg Benzocaine/Menthol (Cepacol Sore Throat) 1 lozenge MUCMEM ASDIRECTED PRN PRN Reason: Sore Throat Last Admin: 03/22/18 09:19 Dose: 1 lozenge Bisacodyl (Dulcolax) 10 mg RECTAL BID PRN PRN Reason: Constipation Last Admin: 04/02/18 22:03 Dose: 10 mg Calcium Carbonate/Glycine (Tums) 1,000 mg PO Q2H PRN PRN Reason: Indigestion Last Admin: 03/14/18 21:09 Dose: 1,000 mg Cyclobenzaprine HCl (Flexeril) 10 mg PO Q6H PRN PRN Reason: MUSCLE SPASM Last Admin: 03/31/18 19:52 Dose: 10 mg Diphenhydramine HCl (Benadryl) 50 mg IVPUSH Q4H PRN PRN Reason: ITCHING Last Admin: 03/28/18 10:30 Dose: 50 mg Erythromycin Ethylsuccinate (Eryped 400) 100 mg GTUBE Q6HR [facility] Last Admin: 04/05/18 15:32 Dose: 100 mg Famotidine (Pepcid) 20 mg IVPUSH BID [facility] Last Admin: 04/05/18 08:49 Dose: 20 mg Heparin Sodium (Porcine) (Heparin Lock Flush 100 Units/Ml) 500 units FLUSH ASDIRECTED PRN PRN Reason: Flush central line Last Admin: 04/05/18 09:09 Dose: 500 units Hydromorphone HCl (Dilaudid Painting Machine Operator 15 Mg In Ns 30 Ml) 0 mg IV ASDIRECTED PRN; Protocol PRN Reason: INVOICE CHECKER PAIN CONTROL Hydroxyzine HCl (Vistaril) 100 mg IM Q4H PRN PRN Reason: pain Last Admin: 03/12/18 23:48 Dose: 100 mg Sodium Chloride (Normal Saline) 1,000 mls @ 0 mls/hr IV ASDIRECTED [facility] Last Admin: 04/04/18 17:49 Dose: 25 mls/hr Fat Emulsion Intravenous (Intralipid 20%) 100 mls @ 8.333 mls/hr IV Q24H [facility] Last Admin: 04/05/18 15:47 Dose: 8.333 mls/hr Amino Ac/Electrol/Dextrose/Calcium (Clinimix E 08/15) 1,712 mls @ 107 mls/hr IV Q24H [facility] Last Admin: 04/05/18 15:44 Dose: 107 mls/hr Magnesium Sulfate 2 gm/ Premix 50 mls @ 25 mls/hr IV Q12H [facility] Stop: 04/07/18 05:59 Last Admin: 04/05/18 15:53 Dose: 25 mls/hr Doxycycline Hyclate 100 mg/ (Sodium Chloride) 100 mls @ 100 mls/hr IV Q12H [facility] Stop: 04/08/18 04:59 Last Admin: 04/05/18 15:41 Dose: 100 mls/hr Labetalol HCl (Normodyne) 5 mg IVPUSH Q5M PRN PRN Reason: SBP over 160 OR DBP over 95 Lorazepam (Ativan) 0.5 mg IVPUSH Q2H PRN PRN Reason: Nausea Last Admin: 04/05/18 11:04 Dose: 0.5 mg Lorazepam (Ativan) 0.5 mg IVPUSH QID [facility] Last Admin: 04/05/18 15:00 Dose: 0.5 mg Metoclopramide HCl (Reglan) 10 mg IVPUSH Q6H [facility] Last Admin: 04/05/18 13:40 Dose: 10 mg Multivitamins/Iron (Child Chew Iron) 2 tab PO DAILY [facility] Last Admin: 04/05/18 09:19 Dose: Not Given Naloxone HCl (Narcan) 0.1 mg IV ASDIRECTED PRN PRN Reason: decreased respiratory rate Verify Scop Patch 0 each TOP DAILY [facility] Last Admin: 04/05/18 09:17 Dose: Not Given Ondansetron HCl (Zofran) 4 mg IVPUSH Q4H PRN PRN Reason: Nausea/Vomiting Oxycodone HCl (Oxycodone Oral Concentrate 10mg/0.5 Ml U/D) 10 mg SL Q3H PRN PRN Reason: Pain Last Admin: 04/05/18 14:54 Dose: 10 mg Estradiol 1mg Tabs (Pom) 0 each PO DAILY [facility] Last Admin: 04/05/18 09:18 Dose: 2 each Scopolamine (Transderm-Scop) 1.5 mg TOP Q48H [facility] Last Admin: 04/05/18 09:08 Dose: 1.5 mg Sodium Chloride (Saline Flush) 10 ml FLUSH ASDIRECTED PRN PRN Reason: Keep Vein Open Last Admin: 04/04/18 15:45 Dose: 10 ml Discontinued Medications Acetaminophen (Tylenol Extra Strength) 1,000 mg PO ONETIME ONE Stop: 03/08/18 08:16 Last Admin: 03/08/18 08:32 Dose: 1,000 mg Acetaminophen (Tylenol) 650 mg PO Q6H [facility] Last Admin: 03/16/18 22:25 Dose: Not Given Bisacodyl (Dulcolax) 10 mg RECTAL BID [facility] Last Admin: 03/25/18 20:12 Dose: Not Given Bisacodyl (Dulcolax) 10 mg RECTAL ONETIME ONE Stop: 03/28/18 08:16 Last Admin: 03/28/18 09:46 Dose: 10 mg Bupivacaine HCl (Marcaine 0.5%) Confirm Administered Dose 50 ml .ROUTE .STK-MED ONE Stop: 03/29/18 06:26 Last Admin: 03/29/18 11:11 Dose: 10 ml Bupivacaine HCl/Epinephrine Bitart (Marcaine 0.5%/Epinephrine 1:200,000) Confirm Administered Dose 50 ml .ROUTE .STK-MED ONE Stop: 03/21/18 07:27 Celecoxib (Celebrex) 200 mg PO ONETIME ONE Stop: 03/08/18 08:16 Last Admin: 03/08/18 08:32 Dose: 200 mg Celecoxib (Celebrex) 200 mg PO DAILY@0800 [facility] Last Admin: 03/09/18 08:40 Dose: 200 mg Clindamycin Phosphate (Cleocin) Confirm Administered Dose 900 mg .ROUTE .STK- MED ONE Stop: 03/29/18 08:46 Last Admin: 03/29/18 11:12 Dose: 900 mg Clotrimazole (Mycelex) 10 mg PO 5XDAY [facility] Last Admin: 04/05/18 06:20 Dose: Not Given Ropivacaine 34 ml/Dexamethasone 8 mg/Epinephrine HCl 0.4 mg/ Sodium Chloride 43.6 ml 0 ml NERVRT ASDIRECTED [facility] Last Admin: 03/08/18 11:15 Dose: 80 syringe Ropivacaine 35 ml/Dexamethasone 8 mg/Epinephrine HCl 0.4 mg/ Sodium Chloride 42.6 ml 0 ml NERVRT ASDIRECTED [facility] Last Admin: 03/21/18 13:32 Dose: 80 syringe Cyanocobalamin (Vitamin B12) 1,000 mcg IM ONETIME ONE Stop: 03/10/18 09:01 Last Admin: 03/10/18 08:34 Dose: Not Given Cyclobenzaprine HCl (Flexeril) 10 mg PO Q6H PRN PRN Reason: muscle spasms Last Admin: 03/16/18 14:30 Dose: 10 mg Dexamethasone (Dexamethasone) Confirm Administered Dose 4 mg .ROUTE .STK-MED ONE Stop: 03/08/18 08:55 Dexamethasone (Dexamethasone) Confirm Administered Dose 4 mg .ROUTE .STK-MED ONE Stop: 03/21/18 09:19 Dexamethasone (Dexamethasone) Confirm Administered Dose 4 mg .ROUTE .STK-MED ONE Stop: 03/29/18 07:16 Erythromycin Ethylsuccinate (Eryped 400) 50 mg PO QID [facility] Last Admin: 03/16/18 05:30 Dose: Not Given Fentanyl (Sublimaze) Confirm Administered Dose 250 mcg .ROUTE .STK-MED ONE Stop: 03/08/18 08:55 Fentanyl (Sublimaze) Confirm Administered Dose 250 mcg .ROUTE .STK-MED ONE Stop: 03/08/18 11:44 Fentanyl (Sublimaze) Confirm Administered Dose 250 mcg .ROUTE .STK-MED ONE Stop: 03/08/18 12:18 Fentanyl (Sublimaze) Confirm Administered Dose 100 mcg .ROUTE .STK-MED ONE Stop: 03/13/18 08:08 Fentanyl (Sublimaze) Confirm Administered Dose 100 mcg .ROUTE .STK-MED ONE Stop: 03/17/18 07:12 Fentanyl (Sublimaze) Confirm Administered Dose 250 mcg .ROUTE .STK-MED ONE Stop: 03/21/18 09:19 Fentanyl (Sublimaze) Confirm Administered Dose 250 mcg .ROUTE .STK-MED ONE Stop: 03/21/18 13:01 Fentanyl (Sublimaze) Confirm Administered Dose 250 mcg .ROUTE .STK-MED ONE Stop: 03/29/18 07:17 Fentanyl (Sublimaze) Confirm Administered Dose 100 mcg .ROUTE .STK-MED ONE Stop: 03/29/18 09:16 Fentanyl Citrate (Fentanyl In Ns 20 Mcg/Ml 30 Ml Painting Machine Operator) 0 mcg IV ASDIRECTED PRN; Protocol PRN Reason: PAIN Stop: 03/21/18 11:00 Last Admin: 03/19/18 16:28 Dose: 600 mcg Glycopyrrolate (Robinul) Confirm Administered Dose 1 mg .ROUTE .STK-MED ONE Stop: 03/08/18 08:55 Glycopyrrolate (Robinul) Confirm Administered Dose 1 mg .ROUTE .STK-MED ONE Stop: 03/21/18 09:19 Glycopyrrolate (Robinul) Confirm Administered Dose 1 mg .ROUTE .STK-MED ONE Stop: 03/29/18 07:16 Heparin Sodium (Porcine) (Heparin Lock Flush 100 Units/Ml) Confirm Administered Dose 500 units .ROUTE .STK-MED ONE Stop: 03/08/18 10:07 Last Admin: 03/08/18 11:13 Dose: 500 units Heparin Sodium (Porcine) (Heparin Lock Flush 100 Units/Ml) Confirm Administered Dose 1,500 units .ROUTE .STK-MED ONE Stop: 03/29/18 06:26 Last Admin: 03/29/18 11:11 Dose: 1,500 units Hydromorphone HCl (Dilaudid Painting Machine Operator 15 Mg In Ns 30 Ml) 0 mg IV ASDIRECTED PRN; Protocol PRN Reason: Pain Last Admin: 03/11/18 01:54 Dose: 15 mg Hydromorphone HCl (Dilaudid Painting Machine Operator 15 Mg In Ns 30 Ml) 0 mg IV ASDIRECTED PRN; Protocol PRN Reason: Pain Last Admin: 03/13/18 19:42 Dose: 15 mg Hydromorphone HCl (Dilaudid) 2 - 4 mg PO Q4H PRN PRN Reason: Pain Last Admin: 03/16/18 12:58 Dose: 4 mg Hydromorphone HCl (Dilaudid Painting Machine Operator 15 Mg In Ns 30 Ml) 0 mg IV ASDIRECTED PRN; Protocol PRN Reason: PAIN Last Admin: 03/18/18 02:51 Dose: 15 mg Hydromorphone HCl (Dilaudid Painting Machine Operator 15 Mg In Ns 30 Ml) 0 mg IV ASDIRECTED PRN; Protocol PRN Reason: INVOICE CHECKER PAIN CONTROL Last Admin: 03/22/18 21:43 Dose: 15 mg Hydromorphone HCl (Dilaudid) 1 mg IVPUSH Q4H PRN PRN Reason: Pain (moderate 4-6) Hydromorphone HCl (Dilaudid Painting Machine Operator 15 Mg In Ns 30 Ml) 0 mg IV ASDIRECTED PRN; Protocol PRN Reason: INVOICE CHECKER PAIN CONTROL Last Admin: 03/29/18 09:57 Dose: 15 mg Hydroxyzine HCl (Vistaril) 100 mg IM ONETIME ONE Stop: 03/08/18 15:30 Last Admin: 03/08/18 15:34 Dose: 100 mg Hydroxyzine HCl (Atarax) 50 mg PO Q4H PRN PRN Reason: Pain (Severe 7-10) Last Admin: 03/15/18 04:19 Dose: 50 mg Hyoscyamine (Hyomax-Sl) 0.125 mg SL QID [facility] Last Admin: 03/28/18 05:05 Dose: Not Given Cefoxitin Sodium 2 gm/ Sodium (Chloride) 50 mls @ 100 mls/hr IV ONETIME ONE Stop: 03/08/18 09:59 Dextrose/Lactated Ringer's (Dextrose 5%-Lactated Ringers) 1,000 mls @ 100 mls/ hr IV ASDIRECTED [facility] Last Admin: 03/08/18 08:32 Dose: 100 mls/hr Lidocaine HCl/Dextrose (Lidocaine 2 Gm/D5w 500 Ml) 2 gm in 500 mls @ 15 mls/hr IV .Q24H [facility] Stop: 03/09/18 16:00 Last Admin: 03/09/18 12:48 Dose: Not Given Ketamine HCl 50 mg/ Sodium (Chloride) 50 mls @ 18.82 mls/hr IV ASDIRECTED [facility] Cefoxitin Sodium 2 gm/ Sodium (Chloride) 50 mls @ 100 mls/hr IV ONETIME ONE Stop: 03/08/18 09:59 Last Admin: 03/08/18 10:45 Dose: 100 mls/hr Lactated Ringer's (Ringers, Lactated) Confirm Administered Dose 1,000 mls @ as directed .ROUTE .[facility] ONE Stop: 03/08/18 11:47 Lactated Ringer's (Ringers, Lactated) Confirm Administered Dose 1,000 mls @ as directed .ROUTE .[facility] ONE Stop: 03/08/18 14:06 Dextrose/Lactated Ringer's (Dextrose 5%-Lactated Ringers) 1,000 mls @ 200 mls/ hr IV ASDIRECTED [facility] Last Admin: 03/09/18 05:21 Dose: 200 mls/hr Cefoxitin Sodium 2 gm/ Sodium (Chloride) 50 mls @ 100 mls/hr IV Q6H [facility] Last Admin: 03/15/18 09:05 Dose: 100 mls/hr Dextrose/Lactated Ringer's (Dextrose 5%-Lactated Ringers) 1,000 mls @ 75 mls/ hr IV ASDIRECTED [facility] Last Admin: 03/21/18 16:13 Dose: 25 mls/hr Magnesium Sulfate 2 gm/ Premix 50 mls @ 25 mls/hr IV Q6H [facility] Stop: 03/12/18 05:59 Last Admin: 03/12/18 03:25 Dose: 25 mls/hr Dextrose/Lactated Ringer's (Dextrose 5%-Lactated Ringers) 1,000 mls @ 100 mls/ hr IV ASDIRECTED [facility] Stop: 03/09/18 17:59 Amino Ac/Electrol/Dextrose/Calcium (Clinimix E 5/15) 2,000 mls @ 100 mls/hr IV .BY DURATION [facility] Stop: 03/11/18 22:59 Last Admin: 03/11/18 03:30 Dose: 100 mls/hr Amino Ac/Electrol/Dextrose/Calcium (Clinimix E 5/15) 2,000 mls @ 100 mls/hr IV .BY DURATION [facility] Stop: 03/11/18 22:59 Potassium Phosphate 20 mmole/ (Sodium Chloride) 106.6667 mls @ 35 mls/hr IV Q3H [facility] Stop: 03/10/18 18:29 Last Admin: 03/10/18 15:25 Dose: 35 mls/hr Albumin Human (Albumin 25%) 25 gm in 100 mls @ 25 mls/hr IV DAILY [facility] Stop: 03/14/18 09:01 Last Admin: 03/14/18 08:01 Dose: 25 mls/hr Amino Ac/Electrol/Dextrose/Calcium (Clinimix E 5/15) 1,000 mls @ 100 mls/hr IV .Q10H [facility] Last Admin: 03/17/18 11:52 Dose: 100 mls/hr Fat Emulsion Intravenous (Intralipid 20%) 100 mls @ 8.3 mls/hr IV Q24H [facility] Stop: 03/20/18 05:00 Last Admin: 03/19/18 16:17 Dose: 8.3 mls/hr Amino Ac/Electrol/Dextrose/Calcium (Clinimix E 5/15) 1,000 mls @ 100 mls/hr IV .Q10H [facility] Stop: 03/23/18 17:59 Last Admin: 03/23/18 12:06 Dose: 100 mls/hr Fluconazole/Sodium Chloride (200 mg/ Premix) 100 mls @ 100 mls/hr IV Q24H [facility] Stop: 03/30/18 10:00 Last Admin: 03/30/18 08:11 Dose: 100 mls/hr Fluconazole/Sodium Chloride (200 mg/ Premix) 100 mls @ 100 mls/hr IV ONETIME ONE Stop: 03/21/18 10:59 Last Admin: 03/21/18 11:16 Dose: 100 mls/hr Ampicillin Sodium/Sulbactam (Sodium 3 gm/ Sodium Chloride) 100 mls @ 200 mls/ hr IV ONETIME ONE Stop: 03/21/18 09:59 Last Admin: 03/21/18 15:15 Dose: Not Given Lactated Ringer's (Ringers, Lactated) Confirm Administered Dose 1,000 mls @ as directed .ROUTE .STK-MED ONE Stop: 03/21/18 12:24 Ampicillin Sodium/Sulbactam (Sodium 3 gm/ Sodium Chloride) 100 mls @ 200 mls/ hr IV Q6H [facility] Stop: 03/23/18 16:29 Last Admin: 03/23/18 16:00 Dose: 200 mls/hr Dextrose/Lactated Ringer's (Dextrose 5%-Lactated Ringers) 1,000 mls @ 75 mls/ hr IV ASDIRECTED [facility] Lactated Ringer's (Ringers, Lactated) 500 mls @ 500 mls/hr IV .BOLUS [facility] Last Admin: 03/21/18 23:31 Dose: 500 mls/hr Dextrose/Lactated Ringer's (Dextrose 5%-Lactated Ringers) 1,000 mls @ 25 mls/ hr IV ASDIRECTED [facility] Last Admin: 03/25/18 08:11 Dose: 25 mls/hr Amino Ac/Electrol/Dextrose/Calcium (Clinimix E 5/15) 1,000 mls @ 100 mls/hr IV .Q10H [facility] Last Admin: 03/25/18 05:13 Dose: 100 mls/hr Acetaminophen 1,000 mg/ Premix 100 mls @ 400 mls/hr IV NOW ONE Stop: 03/25/18 08:00 Last Admin: 03/25/18 08:14 Dose: 400 mls/hr Linezolid 600 mg/ Premix 300 mls @ 300 mls/hr IV Q12H [facility] Last Admin: 03/28/18 02:29 Dose: 150 mls/hr Meropenem 1 gm/ Sodium (Chloride) 50 mls @ 100 mls/hr IV Q8H [facility] Last Admin: 03/26/18 06:26 Dose: 100 mls/hr Lactated Ringer's (Ringers, Lactated) 1,000 mls @ 500 mls/hr IV ASDIRECTED [facility] Stop: 03/25/18 15:31 Acetaminophen 1,000 mg/ Premix 100 mls @ 400 mls/hr IV Q6H [facility] Stop: 03/26/18 09:14 Last Admin: 03/26/18 02:02 Dose: 400 mls/hr Dextrose/Lactated Ringer's (Dextrose 5%-Lactated Ringers) 1,000 mls @ 125 mls/ hr IV ASDIRECTED [facility] Sodium Chloride (Normal Saline) 1,000 mls @ 999 mls/hr IV ASDIRECTED [facility] Last Infusion: 03/25/18 20:46 Dose: 500 mls/hr Dextrose/Lactated Ringer's (Dextrose 5%-Lactated Ringers) 1,000 mls @ 125 mls/ hr IV ASDIRECTED [facility] Last Admin: 03/26/18 02:29 Dose: 125 mls/hr Dextrose/Lactated Ringer's (Dextrose 5%-Lactated Ringers) 1,000 mls @ 100 mls/ hr IV ASDIRECTED [facility] Last Admin: 03/27/18 01:27 Dose: 100 mls/hr Dextrose/Lactated Ringer's (Dextrose 5%-Lactated Ringers) 1,000 mls @ 125 mls/ hr IV ASDIRECTED [facility] Stop: 03/29/18 10:59 Last Admin: 03/29/18 02:41 Dose: 125 mls/hr Ciprofloxacin/Dextrose 400 mg/ (Premix) 200 mls @ 200 mls/hr IV Q12H [facility] Last Admin: 03/28/18 09:46 Dose: 200 mls/hr Magnesium Sulfate 2 gm/ Premix 50 mls @ 25 mls/hr IV BID [facility] Stop: 04/02/18 22:59 Last Admin: 03/28/18 20:17 Dose: 25 mls/hr Potassium Phosphate 22.5 mmole (/ Sodium Chloride) 257.5 mls @ 85 mls/hr IV Q3H [facility] Stop: 03/28/18 15:29 Last Admin: 03/28/18 18:54 Dose: 85 mls/hr Linezolid 600 mg/ Premix 300 mls @ 300 mls/hr IV Q12H [facility] Last Admin: 04/01/18 02:42 Dose: 300 mls/hr Lactated Ringer's (Ringers, Lactated) Confirm Administered Dose 1,000 mls @ as directed .ROUTE .[facility] ONE Stop: 03/29/18 08:06 Magnesium Sulfate 2 gm/ Premix 50 mls @ 25 mls/hr IV Q6HR [facility] Stop: 04/01/18 05:59 Last Admin: 03/31/18 03:07 Dose: 25 mls/hr Dextrose/Lactated Ringer's (Dextrose 5%-Lactated Ringers) 1,000 mls @ 25 mls/ hr IV ASDIRECTED [facility] Potassium Phosphate 20 mmole/ (Sodium Chloride) 106.6667 mls @ 35 mls/hr IV Q3H [facility] Stop: 03/29/18 19:59 Last Admin: 03/29/18 18:23 Dose: 35 mls/hr Amino Ac/Electrol/Dextrose/Calcium (Clinimix E 5/15) 1,000 mls @ 100 mls/hr IV .Q10H [facility] Stop: 03/30/18 16:58 Last Admin: 03/30/18 08:06 Dose: 100 mls/hr Fat Emulsion Intravenous (Intralipid 20%) 100 mls @ 8.333 mls/hr IV ONETIME ONE Stop: 03/31/18 03:59 Last Admin: 03/30/18 16:50 Dose: 8.333 mls/hr Amino Ac/Electrol/Dextrose/Calcium (Clinimix E 5/15) 1,000 mls @ 100 mls/hr IV .Q10H [facility] Stop: 03/31/18 15:45 Last Admin: 03/31/18 15:28 Dose: Not Given Magnesium Sulfate 2 gm/ Premix 50 mls @ 25 mls/hr IV TID@0600,1600,2200 [facility] Stop: 04/01/18 23:59 Last Admin: 04/01/18 21:43 Dose: 25 mls/hr Fat Emulsion Intravenous (Intralipid 20%) 100 mls @ 8.333 mls/hr IV ONETIME ONE Stop: 04/01/18 03:59 Last Admin: 03/31/18 16:05 Dose: 8.333 mls/hr Amino Ac/Electrol/Dextrose/Calcium (Clinimix E 5/20) 1,712 mls @ 107 mls/hr IV Q24H [facility] Last Admin: 04/03/18 15:52 Dose: 107 mls/hr Fat Emulsion Intravenous (Intralipid 20%) 100 mls @ 8.333 mls/hr IV ONETIME ONE Stop: 04/02/18 03:59 Last Admin: 04/01/18 15:06 Dose: 8.333 mls/hr Linezolid 600 mg/ Premix 300 mls @ 300 mls/hr IV Q12H [facility] Last Admin: 04/04/18 15:55 Dose: 300 mls/hr Iohexol (Omnipaque-300) 50 ml PO .ASDIRECTED [facility] Stop: 03/09/18 03:43 Last Admin: 03/09/18 04:27 Dose: 50 ml Iohexol (Omnipaque-300) 50 ml IVPUSH . DIRECTED PRN PRN Reason: RADIOLOGY EXAM Stop: 03/13/18 06:56 Last Admin: 03/12/18 07:09 Dose: 50 ml Iohexol (Omnipaque-300) 50 ml PO .ASDIRECTED [facility] Last Admin: 03/22/18 04:39 Dose: 50 ml Iohexol (Omnipaque-300) 100 ml PO . DIRECTED [facility] Stop: 04/04/18 14:00 Last Admin: 04/04/18 13:05 Dose: 100 ml Ketorolac Tromethamine (Toradol) 60 mg IM ONETIME ONE Stop: 03/26/18 09:01 Last Admin: 03/26/18 08:47 Dose: 60 mg Ketorolac Tromethamine (Toradol) 60 mg IM ONETIME ONE Stop: 03/27/18 09:31 Last Admin: 03/27/18 08:56 Dose: 60 mg Ketorolac Tromethamine (Toradol) 60 mg IM ONETIME PRN PRN Reason: Headache Stop: 04/02/18 08:00 Labetalol HCl (Normodyne) Confirm Administered Dose 20 mg .ROUTE .STK-MED ONE Stop: 03/08/18 12:58 Lidocaine HCl (Xylocaine 2%) 96 mg IVPUSH ASDIRECTED [facility] Lidocaine/Epinephrine (Xylocaine 1% With Epinephrine 1:100,000) Confirm Administered Dose 50 ml .ROUTE .STK-MED ONE Stop: 03/29/18 06:26 Last Admin: 03/29/18 11:12 Dose: 10 ml Lorazepam (Ativan) 0.5 mg PO BID PRN PRN Reason: Anxiety Lorazepam (Ativan) 0.5 mg IVPUSH Q2H PRN PRN Reason: Anxiety Last Admin: 04/02/18 06:34 Dose: 0.5 mg Lorazepam (Ativan Oral Concentrate 1mg/0.5 Ml U/D) 1 mg BUCCAL Q4H PRN PRN Reason: ANXIETY Lorazepam (Ativan) 1 mg IVPUSH Q4H PRN PRN Reason: Nausea Last Admin: 04/04/18 03:28 Dose: 1 mg Magnesium Hydroxide (Milk Of Magnesia) 30 ml PO BID [facility] Stop: 03/11/18 23:59 Last Admin: 03/11/18 22:25 Dose: 30 ml Magnesium Hydroxide (Milk Of Magnesia) 30 ml PO BID [facility] Last Admin: 03/15/18 20:07 Dose: Not Given Meropenem (Merrem) Confirm Administered Dose 500 mg .ROUTE .STK-MED ONE Stop: 03/08/18 09:21 Last Admin: 03/08/18 11:44 Dose: 500 mg Meropenem (Merrem) Confirm Administered Dose 500 mg .ROUTE .STK-MED ONE Stop: 03/21/18 07:27 Last Admin: 03/21/18 13:32 Dose: 500 mg Metoclopramide HCl (Reglan) 10 mg IVPUSH Q6H PRN PRN Reason: NAUSEA NOT CONTROL BY ZOFRAN Last Admin: 03/11/18 15:34 Dose: 10 mg Metoclopramide HCl (Reglan) 10 mg IVPUSH Q6H [facility] Last Admin: 03/19/18 03:58 Dose: 10 mg Metoclopramide HCl (Reglan) 10 mg IV Q6H [facility] Last Admin: 03/30/18 05:54 Dose: 10 mg Metoclopramide HCl (Reglan) 10 mg IV Q6H [facility] Last Admin: 03/31/18 05:04 Dose: 10 mg Metoclopramide HCl (Reglan) 10 mg IVPUSH Q6H PRN PRN Reason: Nausea Last Admin: 04/01/18 15:06 Dose: 10 mg Metoclopramide HCl (Reglan) 10 mg PO QID [facility] Last Admin: 04/02/18 21:56 Dose: 10 mg Metoclopramide HCl (Reglan) 10 mg IVPUSH Q6H PRN PRN Reason: Nausea Midazolam HCl (Versed 1 Mg/Ml) Confirm Administered Dose 2 mg .ROUTE .STK-MED ONE Stop: 03/13/18 08:09 Midazolam HCl (Versed 1 Mg/Ml) Confirm Administered Dose 2 mg .ROUTE .STK-MED ONE Stop: 03/17/18 07:12 Naloxone HCl (Narcan) 0.1 mg IV ASDIRECTED PRN PRN Reason: decreased respiratory rate Naloxone HCl (Narcan) 0.1 mg IV ASDIRECTED PRN PRN Reason: decreased respiratory rate Naloxone HCl (Narcan) 0.1 mg IV ASDIRECTED PRN PRN Reason: decreased respiratory rate Naloxone HCl (Narcan) 0.1 mg IV ASDIRECTED PRN PRN Reason: decreased respiratory rate Neostigmine Methylsulfate (Neostigmine) Confirm Administered Dose 5 mg .ROUTE .STK-MED ONE Stop: 03/08/18 08:55 Neostigmine Methylsulfate (Neostigmine) Confirm Administered Dose 5 mg .ROUTE .STK-MED ONE Stop: 03/21/18 09:19 Neostigmine Methylsulfate (Neostigmine) Confirm Administered Dose 5 mg .ROUTE .STK-MED ONE Stop: 03/29/18 07:16 Scopolamine Patch (Check) 1 each TOP DAILY [facility] Stop: 03/10/18 16:01 Non-Formulary Medication (Total Parenteral Nutrition, Central) 1,000 ml .XX .Continue Order [facility] Stop: 03/11/18 09:00 Non-Formulary Medication (Total Parenteral Nutrition, Central) 1,000 ml .XX .Continue Order [facility] Stop: 03/13/18 11:00 Non-Formulary Medication (Total Parenteral Nutrition, Central) 1,000 ml .XX .Continue Order [facility] Stop: 03/14/18 16:00 Non-Formulary Medication (Total Parenteral Nutrition, Central) 1,000 ml .XX .Continue Order [facility] Stop: 03/16/18 12:00 Non-Formulary Medication (Total Parenteral Nutrition, Central) 1,000 ml .XX .Continue Order [facility] Stop: 03/17/18 07:31 Non-Formulary Medication (Total Parenteral Nutrition, Central) 1,000 ml .XX .Continue Order [facility] Stop: 03/24/18 16:00 Non-Formulary Medication (Total Parenteral Nutrition, Central) 1,000 ml .XX .Continue Order [facility] Stop: 03/30/18 09:08 Non-Formulary Medication (Total Parenteral Nutrition, Central) 1,000 ml .XX .Continue Order [facility] Stop: 04/01/18 12:00 Non-Formulary Medication (Total Parenteral Nutrition, Central) 1,000 ml .XX .Continue Order [facility] Stop: 04/04/18 10:00 Non-Formulary Medication (Total Parenteral Nutrition, Central) 1,000 ml .XX .Continue Order [facility] Stop: 04/05/18 10:00 Ondansetron HCl (Zofran) Confirm Administered Dose 4 mg .ROUTE .STK-MED ONE Stop: 03/08/18 08:55 Ondansetron HCl (Zofran) 4 mg IVPUSH Q4H PRN PRN Reason: Nausea/Vomiting Last Admin: 04/01/18 12:19 Dose: 4 mg Ondansetron HCl (Zofran) Confirm Administered Dose 4 mg .ROUTE .STK-MED ONE Stop: 03/21/18 09:19 Ondansetron HCl (Zofran) Confirm Administered Dose 4 mg .ROUTE .STK-MED ONE Stop: 03/29/18 07:16 Ondansetron HCl (Zofran Odt) 4 mg PO QID [facility] Last Admin: 04/02/18 21:55 Dose: 4 mg Oxycodone HCl (Oxycodone) 5 mg PO Q4H PRN PRN Reason: Pain (severe 7-10) Last Admin: 03/12/18 03:42 Dose: 5 mg Oxycodone HCl (Oxycodone) 5 - 10 mg PO Q4H PRN PRN Reason: Pain Last Admin: 04/01/18 09:59 Dose: 10 mg Oxycodone HCl (Oxycodone Oral Concentrate 10mg/0.5 Ml U/D) 5 - 10 mg PO Q4H PRN PRN Reason: Pain Oxycodone HCl (Oxycodone Oral Concentrate 10mg/0.5 Ml U/D) 5 - 10 mg SL Q4H PRN PRN Reason: Pain Last Admin: 04/02/18 04:36 Dose: 10 mg Pantoprazole Sodium (Protonix Iv) 40 mg IVPUSH Q24H [facility] Last Admin: 03/10/18 15:35 Dose: 40 mg Pantoprazole Sodium (Protonix Granules) 40 mg PO Q24H [facility] Last Admin: 03/14/18 16:13 Dose: 40 mg Pantoprazole Sodium (Protonix Granules) 40 mg PO DAILY@0730 [facility] Last Admin: 03/15/18 08:57 Dose: 40 mg Pantoprazole Sodium (Protonix Granules) 40 mg PO BIDAC [facility] Last Admin: 03/16/18 15:34 Dose: 40 mg Pantoprazole Sodium (Protonix Iv) 40 mg IVPUSH Q12H [facility] Last Admin: 04/04/18 08:37 Dose: 40 mg Pharmacy Consult (Consult To Pharmacy) 1 each .XX ASDIRECTED [facility] Pharmacy Consult (Consult To Pharmacy) 1 each .XX ASDIRECTED [facility] Stop: 03/08/18 17:04 Propofol (Diprivan 20 Ml) Confirm Administered Dose 200 mg .ROUTE .STK-MED ONE Stop: 03/08/18 08:55 Propofol (Diprivan 20 Ml) Confirm Administered Dose 200 mg .ROUTE .STK-MED ONE Stop: 03/13/18 08:09 Propofol (Diprivan 20 Ml) Confirm Administered Dose 200 mg .ROUTE .STK-MED ONE Stop: 03/17/18 07:12 Propofol (Diprivan 20 Ml) Confirm Administered Dose 200 mg .ROUTE .STK-MED ONE Stop: 03/21/18 09:19 Propofol (Diprivan 20 Ml) Confirm Administered Dose 200 mg .ROUTE .[facility] ONE Stop: 03/29/18 07:16 Rocuronium [place] (Zemuron) Confirm Administered Dose 50 mg .ROUTE .STK-MED ONE Stop: 03/08/18 08:55 Rocuronium [place] (Zemuron) Confirm Administered Dose 50 mg .ROUTE .STK-MED ONE Stop: 03/08/18 11:45 Rocuronium [place] (Zemuron) Confirm Administered Dose 100 mg .ROUTE .STK-MED ONE Stop: 03/08/18 12:57 Rocuronium [place] (Zemuron) Confirm Administered Dose 50 mg .ROUTE .ST-MED ONE Stop: 03/21/18 09:19 Rocuronium [place] (Zemuron) Confirm Administered Dose 50 mg .ROUTE .STK-MED ONE Stop: 03/29/18 07:16 Succinylcholine Chloride (Quelicin) Confirm Administered Dose 200 mg .ROUTE .STK -MED ONE Stop: 03/08/18 08:55 Succinylcholine Chloride (Quelicin) Confirm Administered Dose 200 mg .ROUTE .STK -MED ONE Stop: 03/21/18 09:19 Succinylcholine Chloride (Quelicin) Confirm Administered Dose 200 mg .ROUTE .[facility] -MED ONE Stop: 03/29/18 07:16 - Exam Quality Assessment: DVT Prophylaxis General: Alert, Oriented, Cooperative, Mild Distress Lungs: Clear to Auscultation, Normal Respiratory Effort Cardiovascular: Regular Rate, Regular Rhythm, No Murmurs Consult PN Assessment/Plan Procedures: Procedures ASSAY OF LACTIC ACID (02/07/18) ASSAY OF LIPASE (02/07/18) C DIFF AMPLIFIED PROBE (02/09/18) COMPLETE CBC W/AUTO DIFF WBC (02/07/18) COMPREHEN METABOLIC PANEL (02/07/18) CT ABD & PELV W/CONTRAST (02/07/18) EMERGENCY DEPT VISIT (02/07/18) ROUTINE VENIPUNCTURE (02/07/18) THER/PROPH/DIAG INJ IV PUSH (02/07/18) TX/PRO/DX INJ NEW DRUG ADDON (02/07/18) URINALYSIS AUTO W/SCOPE (02/07/18) Problem List Initiated/Reviewed/Updated: Yes My Orders Last 24 Hours: My Active Orders 04/04/18 16:22 LORazepam [Ativan] 0.5 mg IVPUSH Q2H PRN 04/04/18 16:45 LORazepam [Ativan] 0.5 mg IVPUSH QID 04/04/18 21:00 Famotidine [Pepcid] 20 mg IVPUSH BID 04/05/18 04:00 Doxycycline [Vibramycin] 100 mg Sodium Chloride 0.9% [Normal Saline] 100 ml IV Q12H 04/05/18 04:32 CORTISOL - AM Routine Plan: ASSESSMENT AND RECOMMENDATIONS PERSISTENT NAUSEA AND VOMITING-modest improvement in symptoms since yesterday with changes in medications -Pepcid 20 mg IV every 12 hours -Schedule IV lorazepam 0.5 mg 4 times daily -Lorazepam IV 0.5 mg every 2 hours when necessary -Am cortisol level pending 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 MSSA grown from blood cultures and catheter tip -Will complete a 14 day course of IV antibiotic therapy with doxycycline 100 mg IV every 12 hours STATUS POST REVERSAL OF LELAND-EN-Y GASTRIC BYPASS SURGERY -Postoperative care per Dr. Atkinson
--- NOTE | 2018-04-05 18:51 | PN ---
DATE OF SERVICE: 04/05/2018 SUBJECTIVE: The patient had 250 over the past 24 hours out of her G-tube. She has had 2 emesis. Reports dizziness with nausea after she has been up. Labs were normal today and TPN has been running without difficulty. Pain has been controlled. Tolerating the IV Ativan, which is scheduled. Has been keeping the nausea under control for the most part. OBJECTIVE: GENERAL: Trisha Wilcox is a 52-year-old female. VITAL SIGNS: TPR is 99.1, 90, 15, blood pressure 109/65. HEENT: Negative. NECK: Supple. HEART: Regular rate and rhythm. LUNGS: Clear. ABDOMEN: Incision looks good. Abdominal binder is on. G-tube intact. EXTREMITIES: Without peripheral edema. ASSESSMENT: 1. Chronic nausea. 2. Gastroparesis. 3. Postop ileus. 4. Exploratory laparotomy, formation of gastrojejunostomy, debridement of abdominal wall, insertion of gastrectomy, and gastroscopy. Date of surgery 03/21/2018. 5. Insertion of left subclavian vein triple-lumen, exploratory laparotomy, lysis of extensive adhesions, esophageal gastrectomy, esophagogastric anastomosis, small bowel resection, separate small bowel stricturoplasty, partial left hepatic lobectomy, excision of nerve entering the probable neuroma of the lower midline incision, placement of Interceed mesh to limit recurrent adhesion formation. Date of surgery 03/08/2018. 6. Removal of foreign body (old food and fluid) from the stomach and dilation of the pyloric sphincter to facilitate gastric emptying. Date of surgery 03/21/2018. Surgeon, Stan Atkinson MD. PLAN: 1. Check flat and upright of abdominal x-ray now. 2. Discontinue Mycelex. 3. Continue same TPN rate and content. 4. Change the patient's room to a room with bigger window and brighter outside light. 5. Erythromycin 100 mg liquid to put in G-tube q.i.d. and to flush with 10 mL of water, clamp for 60 minutes, unclamp if unable to tolerate. 6. Pretreat ambulation with p.r.n. dosage of IV Ativan. 7. Good pulmonary toilet. 8. We will evaluate p.r.n. or in a.m. Peri Zambrano PA-C /[id number]
[2018-04-06] MEDS: Erythromycin Ethylsuccinate Susp 400 MG/5 ML 100 ML Bottle GTUBE SCH ×4 (03:22→21:00)
[2018-04-06] MEDS: oxyCODONE 10 MG/0.5 ML ORAL U/D SL PRN (03:22)
[2018-04-06] MEDS: Metoclopramide 10 MG/2 ML SDV IVPUSH SCH ×4 (03:22→20:08)
[2018-04-06] MEDS: Doxycycline 100 MG in Sodium Chloride 0.9% 100 ML IV SCH ×2 (03:23→15:14)
[2018-04-06] MEDS: Magnesium Sulfate/Water 2 GM in Premix Bag 1 BAG IV SCH ×2 (03:23→15:20)
[2018-04-06] MEDS: LORazepam 2 MG/ML SDV IVPUSH SCH ×4 (05:00→21:00)
[2018-04-06] MEDS ORDERED: Central Total Parenteral Nutrition Bag SCH (07:45)
[2018-04-06] MEDS: VERIFY SCOP PATCH TOP SCH (09:34)
[2018-04-06] MEDS: ESTRADIOL 1 MG PO SCH (09:38)
[2018-04-06] MEDS: Famotidine 20 MG/2 ML SDV IVPUSH SCH ×2 (09:39→20:48)
[2018-04-06] MEDS: Multivitamins with Iron Tab.Chew PO SCH (09:44)
--- NOTE | 2018-04-06 09:49 | PN ---
DATE OF SERVICE: 04/06/2018 SUBJECTIVE: Trisha had an oral intake of 60, urine output 1300, emesis 960, gastrostomy tube put out 200 mL. Pain is controlled. Main medical concern is persistent nausea, which has increased after movement. REVIEW OF SYSTEMS: Remainder of review of systems negative for any pertinent positives and negatives. OBJECTIVE: GENERAL: Trisha Wilcox is a 52-year-old female. VITAL SIGNS: Height is 5 feet 7 inches, weight is 150 pounds. TPR 96.7, 102, 20, blood pressure is 102/63. HEENT: Negative. NECK: Supple. HEART: Regular rate and rhythm. LUNGS: Clear. ABDOMEN: Negative. EXTREMITIES: Without peripheral edema. ASSESSMENT: 1. Chronic nausea. 2. Gastroparesis. 3. Postop ileus. 4. Exploratory laparotomy with formation of gastrojejunostomy, debridement of abdominal wall, insertion of gastrectomy, and gastroscopy. Date of surgery: 03/21/2018. 5. Insertion of left subclavian vein triple-lumen, exploratory laparotomy, lysis of extensive adhesions, esophageal gastrectomy, esophagogastric anastomosis, small-bowel resection, separate small bowel stricturoplasty, partial left hepatic lobectomy, excision of nerve entering the probable neuroma with a lower midline incision, placement of Interceed mesh to limit recurrent adhesion formation. Date of surgery: 03/08/2018. 6. Removal of foreign body, old food and fluid from the stomach, and dilation of the pyloric sphincter to facilitate gastric emptying. Date of surgery: 03/21/2018. Surgeon: Stan Atkinson MD. PLAN: 1. Type and cross for 2 units of packed red blood cells in a.m. 2. Check CBC, CMP, and phosphorus in a.m. 3. Continue same TPN rate and content. 4. We will evaluate p.r.n. or in a.m. Peri Zambrano PA-C /[id number]
[2018-04-06] MEDS: CALCIUM IV SCH (15:17)
[2018-04-06] MEDS: LYTES IV SCH (15:17)
[2018-04-06] MEDS: [UNRECOGNIZED DRUG - OTHER] IV SCH (15:17)
[2018-04-06] MEDS: Fat Emulsion 100 ML IV SCH (15:18)
--- NOTE | 2018-04-06 18:55 | PCM.CONSN ---
- General Info Date of Service: 04/06/18 Subjective Update: Ms. Wilcox continues to experience episodes of vomiting. Ongoing nausea does seem to be improved with regular scheduling of the lorazepam. Functional Status: Reports: Urinating - Review of Systems General: Reports: Weakness. Denies: Fever, Chills Pulmonary: Reports: No Symptoms Cardiovascular: Reports: No Symptoms Gastrointestinal: Reports: Abdominal Pain, Vomiting. Denies: Difficulty Swallowing, Nausea - Patient Data Vitals - Most Recent: Last Vital Signs Temp 96.8 F 04/06/18 18:27 Pulse 96 04/06/18 18:27 Resp 18 04/06/18 18:27 BP 122/63 04/06/18 18:27 Pulse Ox 96 04/06/18 18:27 Weight - Most Recent: 150 lb 12.8 oz I&O - Last 24 Hours: Intake & Output 04/06/18 04/06/18 04/06/18 06:59 14:59 22:59 Intake Total 1960 406 760 Output Total 650 1250 975 Balance 1310 -844 -215 Lab Results Last 24 Hours: Laboratory Results - last 24 hr 04/05/18 04/06/18 04/06/18 Range/Units 04:32 04:36 04:36 WBC 5.4 (4.5-11.0) K/uL RBC 3.00 L (3.30-5.50) M/uL Hgb 9.1 L (12.0-15.0) g/dL Hct 27.1 L (36.0-48.0) % MCV 90 (80-98) fL MCH 30 (27-31) pg MCHC 34 (32-36) % Plt Count 197 (150-400) K/uL Sodium 135 L (140-148) mmol/L Potassium 4.2 (3.6-5.2) mmol/L Chloride 105 (100-108) mmol/L Carbon Dioxide 23 (21-32) mmol/L Anion Gap 11.2 (5.0-14.0) mmol/L BUN 17 (7-18) mg/dL Creatinine 0.6 (0.6-1.0) mg/dL Est Cr Clr Drug Dosing 106.66 mL/min Estimated GFR (MDRD) > 60 (>60) Glucose 141 H (74-106) mg/dL Calcium 8.3 L (8.5-10.1) mg/dL Phosphorus 3.2 (2.5-4.9) mg/dL Total Bilirubin 0.2 (0.2-1.0) mg/dL AST 13 L (15-37) U/L ALT 14 (12-78) U/L Alkaline Phosphatase 115 (46-116) U/L Total Protein 5.8 L (6.4-8.2) g/dL Albumin 2.3 L (3.4-5.0) g/dL Globulin 3.5 (2.3-3.5) g/dL Albumin/Globulin Ratio 0.7 L (1.2-2.2) Cortisol AM Sample 15.3 (6.2-19.4) ug/dL Med Orders - Current: Current Medications Acetaminophen (Tylenol) 650 mg PO Q4H PRN PRN Reason: Pain OR HEADACHE Last Admin: 03/25/18 03:20 Dose: 650 mg Benzocaine/Menthol (Cepacol Sore Throat) 1 lozenge MUCMEM ASDIRECTED PRN PRN Reason: Sore Throat Last Admin: 03/22/18 09:19 Dose: 1 lozenge Bisacodyl (Dulcolax) 10 mg RECTAL BID PRN PRN Reason: Constipation Last Admin: 04/02/18 22:03 Dose: 10 mg Calcium Carbonate/Glycine (Tums) 1,000 mg PO Q2H PRN PRN Reason: Indigestion Last Admin: 03/14/18 21:09 Dose: 1,000 mg Cyclobenzaprine HCl (Flexeril) 10 mg PO Q6H PRN PRN Reason: MUSCLE SPASM Last Admin: 03/31/18 19:52 Dose: 10 mg Diphenhydramine HCl (Benadryl) 50 mg IVPUSH Q4H PRN PRN Reason: ITCHING Last Admin: 03/28/18 10:30 Dose: 50 mg Erythromycin Ethylsuccinate (Eryped 400) 100 mg GTUBE Q6HR [facility] Last Admin: 04/06/18 17:17 Dose: Not Given Famotidine (Pepcid) 20 mg IVPUSH BID [facility] Last Admin: 04/06/18 09:39 Dose: 20 mg Heparin Sodium (Porcine) (Heparin Lock Flush 100 Units/Ml) 500 units FLUSH ASDIRECTED PRN PRN Reason: Flush central line Last Admin: 04/06/18 08:00 Dose: 500 units Hydromorphone HCl (Dilaudid Lokie Driver 15 Mg In Ns 30 Ml) 0 mg IV ASDIRECTED PRN; Protocol 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 Hydroxyzine HCl (Vistaril) 100 mg IM Q4H PRN PRN Reason: pain Last Admin: 03/12/18 23:48 Dose: 100 mg Sodium Chloride (Normal Saline) 1,000 mls @ 0 mls/hr IV ASDIRECTED [facility] Last Admin: 04/04/18 17:49 Dose: 25 mls/hr Fat Emulsion Intravenous (Intralipid 20%) 100 mls @ 8.333 mls/hr IV Q24H [facility] Last Admin: 04/06/18 15:18 Dose: 8.333 mls/hr Amino Ac/Electrol/Dextrose/Calcium (Clinimix E 08/15) 1,712 mls @ 107 mls/hr IV Q24H [facility] Last Admin: 04/06/18 15:17 Dose: 107 mls/hr Magnesium Sulfate 2 gm/ Premix 50 mls @ 25 mls/hr IV Q12H [facility] Stop: 04/07/18 05:59 Last Admin: 04/06/18 15:20 Dose: 25 mls/hr Doxycycline Hyclate 100 mg/ (Sodium Chloride) 100 mls @ 100 mls/hr IV Q12H [facility] Stop: 04/08/18 04:59 Last Admin: 04/06/18 15:14 Dose: 100 mls/hr Labetalol HCl (Normodyne) 5 mg IVPUSH Q5M PRN PRN Reason: SBP over 160 OR DBP over 95 Lorazepam (Ativan) 0.5 mg IVPUSH Q2H PRN PRN Reason: Nausea Last Admin: 04/05/18 17:54 Dose: 0.5 mg Lorazepam (Ativan) 0.5 mg IVPUSH QID [facility] Last Admin: 04/06/18 15:16 Dose: 0.5 mg Metoclopramide HCl (Reglan) 10 mg IVPUSH Q6H [facility] Last Admin: 04/06/18 13:48 Dose: 10 mg Multivitamins/Iron (Child Chew Iron) 2 tab PO DAILY [facility] Last Admin: 04/06/18 09:44 Dose: Not Given Naloxone HCl (Narcan) 0.1 mg IV ASDIRECTED PRN PRN Reason: decreased respiratory rate Verify Scop Patch 0 each TOP DAILY [facility] Last Admin: 04/06/18 09:34 Dose: Not Given Non-Formulary Medication (Total Parenteral Nutrition, Central) 1,000 ml .XX .Continue Order [facility] Ondansetron HCl (Zofran) 4 mg IVPUSH Q4H PRN PRN Reason: Nausea/Vomiting Oxycodone HCl (Oxycodone Oral Concentrate 10mg/0.5 Ml U/D) 10 mg SL Q3H PRN PRN Reason: Pain Last Admin: 04/06/18 03:22 Dose: 10 mg Estradiol 1mg Tabs (Pom) 0 each PO DAILY [facility] Last Admin: 04/06/18 09:38 Dose: 1 each Scopolamine (Transderm-Scop) 1.5 mg TOP Q48H [facility] Last Admin: 04/05/18 09:08 Dose: 1.5 mg Sodium Chloride (Saline Flush) 10 ml FLUSH ASDIRECTED PRN PRN Reason: Keep Vein Open Last Admin: 04/04/18 15:45 Dose: 10 ml Discontinued Medications Acetaminophen (Tylenol Extra Strength) 1,000 mg PO ONETIME ONE Stop: 03/08/18 08:16 Last Admin: 03/08/18 08:32 Dose: 1,000 mg Acetaminophen (Tylenol) 650 mg PO Q6H [facility] Last Admin: 03/16/18 22:25 Dose: Not Given Bisacodyl (Dulcolax) 10 mg RECTAL BID [facility] Last Admin: 03/25/18 20:12 Dose: Not Given Bisacodyl (Dulcolax) 10 mg RECTAL ONETIME ONE Stop: 03/28/18 08:16 Last Admin: 03/28/18 09:46 Dose: 10 mg Bupivacaine HCl (Marcaine 0.5%) Confirm Administered Dose 50 ml .ROUTE .STK-MED ONE Stop: 03/29/18 06:26 Last Admin: 03/29/18 11:11 Dose: 10 ml Bupivacaine HCl/Epinephrine Bitart (Marcaine 0.5%/Epinephrine 1:200,000) Confirm Administered Dose 50 ml .ROUTE .STK-MED ONE Stop: 03/21/18 07:27 Celecoxib (Celebrex) 200 mg PO ONETIME ONE Stop: 03/08/18 08:16 Last Admin: 03/08/18 08:32 Dose: 200 mg Celecoxib (Celebrex) 200 mg PO DAILY@0800 [facility] Last Admin: 03/09/18 08:40 Dose: 200 mg Clindamycin Phosphate (Cleocin) Confirm Administered Dose 900 mg .ROUTE .STK- MED ONE Stop: 03/29/18 08:46 Last Admin: 03/29/18 11:12 Dose: 900 mg Clotrimazole (Mycelex) 10 mg PO 5XDAY [facility] Last Admin: 04/05/18 06:20 Dose: Not Given Ropivacaine 34 ml/Dexamethasone 8 mg/Epinephrine HCl 0.4 mg/ Sodium Chloride 43.6 ml 0 ml NERVRT ASDIRECTED [facility] Last Admin: 03/08/18 11:15 Dose: 80 syringe Ropivacaine 35 ml/Dexamethasone 8 mg/Epinephrine HCl 0.4 mg/ Sodium Chloride 42.6 ml 0 ml NERVRT ASDIRECTED [facility] Last Admin: 03/21/18 13:32 Dose: 80 syringe Cyanocobalamin (Vitamin B12) 1,000 mcg IM ONETIME ONE Stop: 03/10/18 09:01 Last Admin: 03/10/18 08:34 Dose: Not Given Cyclobenzaprine HCl (Flexeril) 10 mg PO Q6H PRN PRN Reason: muscle spasms Last Admin: 03/16/18 14:30 Dose: 10 mg Dexamethasone (Dexamethasone) Confirm Administered Dose 4 mg .ROUTE .STK-MED ONE Stop: 03/08/18 08:55 Dexamethasone (Dexamethasone) Confirm Administered Dose 4 mg .ROUTE .STK-MED ONE Stop: 03/21/18 09:19 Dexamethasone (Dexamethasone) Confirm Administered Dose 4 mg .ROUTE .STK-MED ONE Stop: 03/29/18 07:16 Erythromycin Ethylsuccinate (Eryped 400) 50 mg PO QID [facility] Last Admin: 03/16/18 05:30 Dose: Not Given Fentanyl (Sublimaze) Confirm Administered Dose 250 mcg .ROUTE .STK-MED ONE Stop: 03/08/18 08:55 Fentanyl (Sublimaze) Confirm Administered Dose 250 mcg .ROUTE .STK-MED ONE Stop: 03/08/18 11:44 Fentanyl (Sublimaze) Confirm Administered Dose 250 mcg .ROUTE .STK-MED ONE Stop: 03/08/18 12:18 Fentanyl (Sublimaze) Confirm Administered Dose 100 mcg .ROUTE .STK-MED ONE Stop: 03/13/18 08:08 Fentanyl (Sublimaze) Confirm Administered Dose 100 mcg .ROUTE .STK-MED ONE Stop: 03/17/18 07:12 Fentanyl (Sublimaze) Confirm Administered Dose 250 mcg .ROUTE .STK-MED ONE Stop: 03/21/18 09:19 Fentanyl (Sublimaze) Confirm Administered Dose 250 mcg .ROUTE .STK-MED ONE Stop: 03/21/18 13:01 Fentanyl (Sublimaze) Confirm Administered Dose 250 mcg .ROUTE .STK-MED ONE Stop: 03/29/18 07:17 Fentanyl (Sublimaze) Confirm Administered Dose 100 mcg .ROUTE .STK-MED ONE Stop: 03/29/18 09:16 Fentanyl Citrate (Fentanyl In Ns 20 Mcg/Ml 30 Ml Lokie Driver) 0 mcg IV ASDIRECTED PRN; Protocol PRN Reason: PAIN Stop: 03/21/18 11:00 Last Admin: 03/19/18 16:28 Dose: 600 mcg Glycopyrrolate (Robinul) Confirm Administered Dose 1 mg .ROUTE .STK-MED ONE Stop: 03/08/18 08:55 Glycopyrrolate (Robinul) Confirm Administered Dose 1 mg .ROUTE .STK-MED ONE Stop: 03/21/18 09:19 Glycopyrrolate (Robinul) Confirm Administered Dose 1 mg .ROUTE .STK-MED ONE Stop: 03/29/18 07:16 Heparin Sodium (Porcine) (Heparin Lock Flush 100 Units/Ml) Confirm Administered Dose 500 units .ROUTE .STK-MED ONE Stop: 03/08/18 10:07 Last Admin: 03/08/18 11:13 Dose: 500 units Heparin Sodium (Porcine) (Heparin Lock Flush 100 Units/Ml) Confirm Administered Dose 1,500 units .ROUTE .STK-MED ONE Stop: 03/29/18 06:26 Last Admin: 03/29/18 11:11 Dose: 1,500 units Hydromorphone HCl (Dilaudid Lokie Driver 15 Mg In Ns 30 Ml) 0 mg IV ASDIRECTED PRN; Protocol PRN Reason: Pain Last Admin: 03/11/18 01:54 Dose: 15 mg Hydromorphone HCl (Dilaudid Lokie Driver 15 Mg In Ns 30 Ml) 0 mg IV ASDIRECTED PRN; Protocol PRN Reason: Pain Last Admin: 03/13/18 19:42 Dose: 15 mg Hydromorphone HCl (Dilaudid) 2 - 4 mg PO Q4H PRN PRN Reason: Pain Last Admin: 03/16/18 12:58 Dose: 4 mg Hydromorphone HCl (Dilaudid Lokie Driver 15 Mg In Ns 30 Ml) 0 mg IV ASDIRECTED PRN; Protocol PRN Reason: PAIN Last Admin: 03/18/18 02:51 Dose: 15 mg Hydromorphone HCl (Dilaudid Lokie Driver 15 Mg In Ns 30 Ml) 0 mg IV ASDIRECTED PRN; Protocol 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 Last Admin: 03/22/18 21:43 Dose: 15 mg Hydromorphone HCl (Dilaudid) 1 mg IVPUSH Q4H PRN PRN Reason: Pain (moderate 4-6) Hydromorphone HCl (Dilaudid Lokie Driver 15 Mg In Ns 30 Ml) 0 mg IV ASDIRECTED PRN; Protocol 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 Last Admin: 03/29/18 09:57 Dose: 15 mg Hydroxyzine HCl (Vistaril) 100 mg IM ONETIME ONE Stop: 03/08/18 15:30 Last Admin: 03/08/18 15:34 Dose: 100 mg Hydroxyzine HCl (Atarax) 50 mg PO Q4H PRN PRN Reason: Pain (Severe 7-10) Last Admin: 03/15/18 04:19 Dose: 50 mg Hyoscyamine (Hyomax-Sl) 0.125 mg SL QID [facility] Last Admin: 03/28/18 05:05 Dose: Not Given Cefoxitin Sodium 2 gm/ Sodium (Chloride) 50 mls @ 100 mls/hr IV ONETIME ONE Stop: 03/08/18 09:59 Dextrose/Lactated Ringer's (Dextrose 5%-Lactated Ringers) 1,000 mls @ 100 mls/ hr IV ASDIRECTED [facility] Last Admin: 03/08/18 08:32 Dose: 100 mls/hr Lidocaine HCl/Dextrose (Lidocaine 2 Gm/D5w 500 Ml) 2 gm in 500 mls @ 15 mls/hr IV .Q24H [facility] Stop: 03/09/18 16:00 Last Admin: 03/09/18 12:48 Dose: Not Given Ketamine HCl 50 mg/ Sodium (Chloride) 50 mls @ 18.82 mls/hr IV ASDIRECTED [facility] Cefoxitin Sodium 2 gm/ Sodium (Chloride) 50 mls @ 100 mls/hr IV ONETIME ONE Stop: 03/08/18 09:59 Last Admin: 03/08/18 10:45 Dose: 100 mls/hr Lactated Ringer's (Ringers, Lactated) Confirm Administered Dose 1,000 mls @ as directed .ROUTE .STK-MED ONE Stop: 03/08/18 11:47 Lactated Ringer's (Ringers, Lactated) Confirm Administered Dose 1,000 mls @ as directed .ROUTE .STK-[facility] ONE Stop: 03/08/18 14:06 Dextrose/Lactated Ringer's (Dextrose 5%-Lactated Ringers) 1,000 mls @ 200 mls/ hr IV ASDIRECTED [facility] Last Admin: 03/09/18 05:21 Dose: 200 mls/hr Cefoxitin Sodium 2 gm/ Sodium (Chloride) 50 mls @ 100 mls/hr IV Q6H [facility] Last Admin: 03/15/18 09:05 Dose: 100 mls/hr Dextrose/Lactated Ringer's (Dextrose 5%-Lactated Ringers) 1,000 mls @ 75 mls/ hr IV ASDIRECTED [facility] Last Admin: 03/21/18 16:13 Dose: 25 mls/hr Magnesium Sulfate 2 gm/ Premix 50 mls @ 25 mls/hr IV Q6H [facility] Stop: 03/12/18 05:59 Last Admin: 03/12/18 03:25 Dose: 25 mls/hr Dextrose/Lactated Ringer's (Dextrose 5%-Lactated Ringers) 1,000 mls @ 100 mls/ hr IV ASDIRECTED [facility] Stop: 03/09/18 17:59 Amino Ac/Electrol/Dextrose/Calcium (Clinimix E 5/15) 2,000 mls @ 100 mls/hr IV .BY DURATION [facility] Stop: 03/11/18 22:59 Last Admin: 03/11/18 03:30 Dose: 100 mls/hr Amino Ac/Electrol/Dextrose/Calcium (Clinimix E 5/15) 2,000 mls @ 100 mls/hr IV .BY DURATION [facility] Stop: 03/11/18 22:59 Potassium Phosphate 20 mmole/ (Sodium Chloride) 106.6667 mls @ 35 mls/hr IV Q3H [facility] Stop: 03/10/18 18:29 Last Admin: 03/10/18 15:25 Dose: 35 mls/hr Albumin Human (Albumin 25%) 25 gm in 100 mls @ 25 mls/hr IV DAILY [facility] Stop: 03/14/18 09:01 Last Admin: 03/14/18 08:01 Dose: 25 mls/hr Amino Ac/Electrol/Dextrose/Calcium (Clinimix E 5/15) 1,000 mls @ 100 mls/hr IV .Q10H [facility] Last Admin: 03/17/18 11:52 Dose: 100 mls/hr Fat Emulsion Intravenous (Intralipid 20%) 100 mls @ 8.3 mls/hr IV Q24H [facility] Stop: 03/20/18 05:00 Last Admin: 03/19/18 16:17 Dose: 8.3 mls/hr Amino Ac/Electrol/Dextrose/Calcium (Clinimix E 5/15) 1,000 mls @ 100 mls/hr IV .Q10H [facility] Stop: 03/23/18 17:59 Last Admin: 03/23/18 12:06 Dose: 100 mls/hr Fluconazole/Sodium Chloride (200 mg/ Premix) 100 mls @ 100 mls/hr IV Q24H [facility] Stop: 03/30/18 10:00 Last Admin: 03/30/18 08:11 Dose: 100 mls/hr Fluconazole/Sodium Chloride (200 mg/ Premix) 100 mls @ 100 mls/hr IV ONETIME ONE Stop: 03/21/18 10:59 Last Admin: 03/21/18 11:16 Dose: 100 mls/hr Ampicillin Sodium/Sulbactam (Sodium 3 gm/ Sodium Chloride) 100 mls @ 200 mls/ hr IV ONETIME ONE Stop: 03/21/18 09:59 Last Admin: 03/21/18 15:15 Dose: Not Given Lactated Ringer's (Ringers, Lactated) Confirm Administered Dose 1,000 mls @ as directed .ROUTE .STK-MED ONE Stop: 03/21/18 12:24 Ampicillin Sodium/Sulbactam (Sodium 3 gm/ Sodium Chloride) 100 mls @ 200 mls/ hr IV Q6H [facility] Stop: 03/23/18 16:29 Last Admin: 03/23/18 16:00 Dose: 200 mls/hr Dextrose/Lactated Ringer's (Dextrose 5%-Lactated Ringers) 1,000 mls @ 75 mls/ hr IV ASDIRECTED [facility] Lactated Ringer's (Ringers, Lactated) 500 mls @ 500 mls/hr IV .BOLUS [facility] Last Admin: 03/21/18 23:31 Dose: 500 mls/hr Dextrose/Lactated Ringer's (Dextrose 5%-Lactated Ringers) 1,000 mls @ 25 mls/ hr IV ASDIRECTED [facility] Last Admin: 03/25/18 08:11 Dose: 25 mls/hr Amino Ac/Electrol/Dextrose/Calcium (Clinimix E 5/15) 1,000 mls @ 100 mls/hr IV .Q10H [facility] Last Admin: 03/25/18 05:13 Dose: 100 mls/hr Acetaminophen 1,000 mg/ Premix 100 mls @ 400 mls/hr IV NOW ONE Stop: 03/25/18 08:00 Last Admin: 03/25/18 08:14 Dose: 400 mls/hr Linezolid 600 mg/ Premix 300 mls @ 300 mls/hr IV Q12H [facility] Last Admin: 03/28/18 02:29 Dose: 150 mls/hr Meropenem 1 gm/ Sodium (Chloride) 50 mls @ 100 mls/hr IV Q8H [facility] Last Admin: 03/26/18 06:26 Dose: 100 mls/hr Lactated Ringer's (Ringers, Lactated) 1,000 mls @ 500 mls/hr IV ASDIRECTED [facility] Stop: 03/25/18 15:31 Acetaminophen 1,000 mg/ Premix 100 mls @ 400 mls/hr IV Q6H [facility] Stop: 03/26/18 09:14 Last Admin: 03/26/18 02:02 Dose: 400 mls/hr Dextrose/Lactated Ringer's (Dextrose 5%-Lactated Ringers) 1,000 mls @ 125 mls/ hr IV ASDIRECTED [facility] Sodium Chloride (Normal Saline) 1,000 mls @ 999 mls/hr IV ASDIRECTED [facility] Last Infusion: 03/25/18 20:46 Dose: 500 mls/hr Dextrose/Lactated Ringer's (Dextrose 5%-Lactated Ringers) 1,000 mls @ 125 mls/ hr IV ASDIRECTED [facility] Last Admin: 03/26/18 02:29 Dose: 125 mls/hr Dextrose/Lactated Ringer's (Dextrose 5%-Lactated Ringers) 1,000 mls @ 100 mls/ hr IV ASDIRECTED [facility] Last Admin: 03/27/18 01:27 Dose: 100 mls/hr Dextrose/Lactated Ringer's (Dextrose 5%-Lactated Ringers) 1,000 mls @ 125 mls/ hr IV ASDIRECTED [facility] Stop: 03/29/18 10:59 Last Admin: 03/29/18 02:41 Dose: 125 mls/hr Ciprofloxacin/Dextrose 400 mg/ (Premix) 200 mls @ 200 mls/hr IV Q12H [facility] Last Admin: 03/28/18 09:46 Dose: 200 mls/hr Magnesium Sulfate 2 gm/ Premix 50 mls @ 25 mls/hr IV BID [facility] Stop: 04/02/18 22:59 Last Admin: 03/28/18 20:17 Dose: 25 mls/hr Potassium Phosphate 22.5 mmole (/ Sodium Chloride) 257.5 mls @ 85 mls/hr IV Q3H [facility] Stop: 03/28/18 15:29 Last Admin: 03/28/18 18:54 Dose: 85 mls/hr Linezolid 600 mg/ Premix 300 mls @ 300 mls/hr IV Q12H [facility] Last Admin: 04/01/18 02:42 Dose: 300 mls/hr Lactated Ringer's (Ringers, Lactated) Confirm Administered Dose 1,000 mls @ as directed .ROUTE .STK-MED ONE Stop: 03/29/18 08:06 Magnesium Sulfate 2 gm/ Premix 50 mls @ 25 mls/hr IV Q6HR [facility] Stop: 04/01/18 05:59 Last Admin: 03/31/18 03:07 Dose: 25 mls/hr Dextrose/Lactated Ringer's (Dextrose 5%-Lactated Ringers) 1,000 mls @ 25 mls/ hr IV ASDIRECTED [facility] Potassium Phosphate 20 mmole/ (Sodium Chloride) 106.6667 mls @ 35 mls/hr IV Q3H [facility] Stop: 03/29/18 19:59 Last Admin: 03/29/18 18:23 Dose: 35 mls/hr Amino Ac/Electrol/Dextrose/Calcium (Clinimix E 5/15) 1,000 mls @ 100 mls/hr IV .Q10H [facility] Stop: 03/30/18 16:58 Last Admin: 03/30/18 08:06 Dose: 100 mls/hr Fat Emulsion Intravenous (Intralipid 20%) 100 mls @ 8.333 mls/hr IV ONETIME ONE Stop: 03/31/18 03:59 Last Admin: 03/30/18 16:50 Dose: 8.333 mls/hr Amino Ac/Electrol/Dextrose/Calcium (Clinimix E 5/15) 1,000 mls @ 100 mls/hr IV .Q10H [facility] Stop: 03/31/18 15:45 Last Admin: 03/31/18 15:28 Dose: Not Given Magnesium Sulfate 2 gm/ Premix 50 mls @ 25 mls/hr IV TID@0600,1600,2200 [facility] Stop: 04/01/18 23:59 Last Admin: 04/01/18 21:43 Dose: 25 mls/hr Fat Emulsion Intravenous (Intralipid 20%) 100 mls @ 8.333 mls/hr IV ONETIME ONE Stop: 04/01/18 03:59 Last Admin: 03/31/18 16:05 Dose: 8.333 mls/hr Amino Ac/Electrol/Dextrose/Calcium (Clinimix E 5/20) 1,712 mls @ 107 mls/hr IV Q24H [facility] Last Admin: 04/03/18 15:52 Dose: 107 mls/hr Fat Emulsion Intravenous (Intralipid 20%) 100 mls @ 8.333 mls/hr IV ONETIME ONE Stop: 04/02/18 03:59 Last Admin: 04/01/18 15:06 Dose: 8.333 mls/hr Linezolid 600 mg/ Premix 300 mls @ 300 mls/hr IV Q12H [facility] Last Admin: 04/04/18 15:55 Dose: 300 mls/hr Iohexol (Omnipaque-300) 50 ml PO .ASDIRECTED [facility] Stop: 03/09/18 03:43 Last Admin: 03/09/18 04:27 Dose: 50 ml Iohexol (Omnipaque-300) 50 ml IVPUSH . DIRECTED PRN PRN Reason: RADIOLOGY EXAM Stop: 03/13/18 06:56 Last Admin: 03/12/18 07:09 Dose: 50 ml Iohexol (Omnipaque-300) 50 ml PO .ASDIRECTED [facility] Last Admin: 03/22/18 04:39 Dose: 50 ml Iohexol (Omnipaque-300) 100 ml PO . DIRECTED [facility] Stop: 04/04/18 14:00 Last Admin: 04/04/18 13:05 Dose: 100 ml Ketorolac Tromethamine (Toradol) 60 mg IM ONETIME ONE Stop: 03/26/18 09:01 Last Admin: 03/26/18 08:47 Dose: 60 mg Ketorolac Tromethamine (Toradol) 60 mg IM ONETIME ONE Stop: 03/27/18 09:31 Last Admin: 03/27/18 08:56 Dose: 60 mg Ketorolac Tromethamine (Toradol) 60 mg IM ONETIME PRN PRN Reason: Headache Stop: 04/02/18 08:00 Labetalol HCl (Normodyne) Confirm Administered Dose 20 mg .ROUTE .STK-MED ONE Stop: 03/08/18 12:58 Lidocaine HCl (Xylocaine 2%) 96 mg IVPUSH ASDIRECTED [facility] Lidocaine/Epinephrine (Xylocaine 1% With Epinephrine 1:100,000) Confirm Administered Dose 50 ml .ROUTE .STK-MED ONE Stop: 03/29/18 06:26 Last Admin: 03/29/18 11:12 Dose: 10 ml Lorazepam (Ativan) 0.5 mg PO BID PRN PRN Reason: Anxiety Lorazepam (Ativan) 0.5 mg IVPUSH Q2H PRN PRN Reason: Anxiety Last Admin: 04/02/18 06:34 Dose: 0.5 mg Lorazepam (Ativan Oral Concentrate 1mg/0.5 Ml U/D) 1 mg BUCCAL Q4H PRN PRN Reason: ANXIETY Lorazepam (Ativan) 1 mg IVPUSH Q4H PRN PRN Reason: Nausea Last Admin: 04/04/18 03:28 Dose: 1 mg Magnesium Hydroxide (Milk Of Magnesia) 30 ml PO BID [facility] Stop: 03/11/18 23:59 Last Admin: 03/11/18 22:25 Dose: 30 ml Magnesium Hydroxide (Milk Of Magnesia) 30 ml PO BID [facility] Last Admin: 03/15/18 20:07 Dose: Not Given Meropenem (Merrem) Confirm Administered Dose 500 mg .ROUTE .STK-MED ONE Stop: 03/08/18 09:21 Last Admin: 03/08/18 11:44 Dose: 500 mg Meropenem (Merrem) Confirm Administered Dose 500 mg .ROUTE .STK-MED ONE Stop: 03/21/18 07:27 Last Admin: 03/21/18 13:32 Dose: 500 mg Metoclopramide HCl (Reglan) 10 mg IVPUSH Q6H PRN PRN Reason: NAUSEA NOT CONTROL BY ZOFRAN Last Admin: 03/11/18 15:34 Dose: 10 mg Metoclopramide HCl (Reglan) 10 mg IVPUSH Q6H [facility] Last Admin: 03/19/18 03:58 Dose: 10 mg Metoclopramide HCl (Reglan) 10 mg IV Q6H [facility] Last Admin: 03/30/18 05:54 Dose: 10 mg Metoclopramide HCl (Reglan) 10 mg IV Q6H [facility] Last Admin: 03/31/18 05:04 Dose: 10 mg Metoclopramide HCl (Reglan) 10 mg IVPUSH Q6H PRN PRN Reason: Nausea Last Admin: 04/01/18 15:06 Dose: 10 mg Metoclopramide HCl (Reglan) 10 mg PO QID [facility] Last Admin: 04/02/18 21:56 Dose: 10 mg Metoclopramide HCl (Reglan) 10 mg IVPUSH Q6H PRN PRN Reason: Nausea Midazolam HCl (Versed 1 Mg/Ml) Confirm Administered Dose 2 mg .ROUTE .STK-MED ONE Stop: 03/13/18 08:09 Midazolam HCl (Versed 1 Mg/Ml) Confirm Administered Dose 2 mg .ROUTE .STK-MED ONE Stop: 03/17/18 07:12 Naloxone HCl (Narcan) 0.1 mg IV ASDIRECTED PRN PRN Reason: decreased respiratory rate Naloxone HCl (Narcan) 0.1 mg IV ASDIRECTED PRN PRN Reason: decreased respiratory rate Naloxone HCl (Narcan) 0.1 mg IV ASDIRECTED PRN PRN Reason: decreased respiratory rate Naloxone HCl (Narcan) 0.1 mg IV ASDIRECTED PRN PRN Reason: decreased respiratory rate Neostigmine Methylsulfate (Neostigmine) Confirm Administered Dose 5 mg .ROUTE .STK-MED ONE Stop: 03/08/18 08:55 Neostigmine Methylsulfate (Neostigmine) Confirm Administered Dose 5 mg .ROUTE .STK-MED ONE Stop: 03/21/18 09:19 Neostigmine Methylsulfate (Neostigmine) Confirm Administered Dose 5 mg .ROUTE .STK-MED ONE Stop: 03/29/18 07:16 Scopolamine Patch (Check) 1 each TOP DAILY [facility] Stop: 03/10/18 16:01 Non-Formulary Medication (Total Parenteral Nutrition, Central) 1,000 ml .XX .Continue Order [facility] Stop: 03/11/18 09:00 Non-Formulary Medication (Total Parenteral Nutrition, Central) 1,000 ml .XX .Continue Order [facility] Stop: 03/13/18 11:00 Non-Formulary Medication (Total Parenteral Nutrition, Central) 1,000 ml .XX .Continue Order [facility] Stop: 03/14/18 16:00 Non-Formulary Medication (Total Parenteral Nutrition, Central) 1,000 ml .XX .Continue Order [facility] Stop: 03/16/18 12:00 Non-Formulary Medication (Total Parenteral Nutrition, Central) 1,000 ml .XX .Continue Order [facility] Stop: 03/17/18 07:31 Non-Formulary Medication (Total Parenteral Nutrition, Central) 1,000 ml .XX .Continue Order [facility] Stop: 03/24/18 16:00 Non-Formulary Medication (Total Parenteral Nutrition, Central) 1,000 ml .XX .Continue Order [facility] Stop: 03/30/18 09:08 Non-Formulary Medication (Total Parenteral Nutrition, Central) 1,000 ml .XX .Continue Order [facility] Stop: 04/01/18 12:00 Non-Formulary Medication (Total Parenteral Nutrition, Central) 1,000 ml .XX .Continue Order [facility] Stop: 04/04/18 10:00 Non-Formulary Medication (Total Parenteral Nutrition, Central) 1,000 ml .XX .Continue Order [facility] Stop: 04/05/18 10:00 Ondansetron HCl (Zofran) Confirm Administered Dose 4 mg .ROUTE .STK-MED ONE Stop: 03/08/18 08:55 Ondansetron HCl (Zofran) 4 mg IVPUSH Q4H PRN PRN Reason: Nausea/Vomiting Last Admin: 04/01/18 12:19 Dose: 4 mg Ondansetron HCl (Zofran) Confirm Administered Dose 4 mg .ROUTE .STK-MED ONE Stop: 03/21/18 09:19 Ondansetron HCl (Zofran) Confirm Administered Dose 4 mg .ROUTE .STK-MED ONE Stop: 03/29/18 07:16 Ondansetron HCl (Zofran Odt) 4 mg PO QID [facility] Last Admin: 04/02/18 21:55 Dose: 4 mg Oxycodone HCl (Oxycodone) 5 mg PO Q4H PRN PRN Reason: Pain (severe 7-10) Last Admin: 03/12/18 03:42 Dose: 5 mg Oxycodone HCl (Oxycodone) 5 - 10 mg PO Q4H PRN PRN Reason: Pain Last Admin: 04/01/18 09:59 Dose: 10 mg Oxycodone HCl (Oxycodone Oral Concentrate 10mg/0.5 Ml U/D) 5 - 10 mg PO Q4H PRN PRN Reason: Pain Oxycodone HCl (Oxycodone Oral Concentrate 10mg/0.5 Ml U/D) 5 - 10 mg SL Q4H PRN PRN Reason: Pain Last Admin: 04/02/18 04:36 Dose: 10 mg Pantoprazole Sodium (Protonix Iv) 40 mg IVPUSH Q24H [facility] Last Admin: 03/10/18 15:35 Dose: 40 mg Pantoprazole Sodium (Protonix Granules) 40 mg PO Q24H [facility] Last Admin: 03/14/18 16:13 Dose: 40 mg Pantoprazole Sodium (Protonix Granules) 40 mg PO DAILY@0730 [facility] Last Admin: 03/15/18 08:57 Dose: 40 mg Pantoprazole Sodium (Protonix Granules) 40 mg PO BIDAC [facility] Last Admin: 03/16/18 15:34 Dose: 40 mg Pantoprazole Sodium (Protonix Iv) 40 mg IVPUSH Q12H [facility] Last Admin: 04/04/18 08:37 Dose: 40 mg Pharmacy Consult (Consult To Pharmacy) 1 each .XX ASDIRECTED [facility] Pharmacy Consult (Consult To Pharmacy) 1 each .XX ASDIRECTED [facility] Stop: 03/08/18 17:04 Propofol (Diprivan 20 Ml) Confirm Administered Dose 200 mg .ROUTE .STK-MED ONE Stop: 03/08/18 08:55 Propofol (Diprivan 20 Ml) Confirm Administered Dose 200 mg .ROUTE .STK-MED ONE Stop: 03/13/18 08:09 Propofol (Diprivan 20 Ml) Confirm Administered Dose 200 mg .ROUTE .STK-MED ONE Stop: 03/17/18 07:12 Propofol (Diprivan 20 Ml) Confirm Administered Dose 200 mg .ROUTE .STK-MED ONE Stop: 03/21/18 09:19 Propofol (Diprivan 20 Ml) Confirm Administered Dose 200 mg .ROUTE .STK-MED ONE Stop: 03/29/18 07:16 Rocuronium [place] (Zemuron) Confirm Administered Dose 50 mg .ROUTE .STK-MED ONE Stop: 03/08/18 08:55 Rocuronium [place] (Zemuron) Confirm Administered Dose 50 mg .ROUTE .STK-MED ONE Stop: 03/08/18 11:45 Rocuronium [place] (Zemuron) Confirm Administered Dose 100 mg .ROUTE .STK-MED ONE Stop: 03/08/18 12:57 Rocuronium [place] (Zemuron) Confirm Administered Dose 50 mg .ROUTE .STK-MED ONE Stop: 03/21/18 09:19 Rocuronium [place] (Zemuron) Confirm Administered Dose 50 mg .ROUTE .STK-MED ONE Stop: 03/29/18 07:16 Succinylcholine Chloride (Quelicin) Confirm Administered Dose 200 mg .ROUTE .STK -MED ONE Stop: 03/08/18 08:55 Succinylcholine Chloride (Quelicin) Confirm Administered Dose 200 mg .ROUTE .STK -MED ONE Stop: 03/21/18 09:19 Succinylcholine Chloride (Quelicin) Confirm Administered Dose 200 mg .ROUTE .STK -MED ONE Stop: 03/29/18 07:16 - Exam General: Alert, Oriented, Cooperative, Moderate Distress Lungs: Clear to Auscultation, Normal Respiratory Effort Cardiovascular: Regular Rate, Regular Rhythm, No Murmurs Extremities: Non-Tender, No Pedal Edema Consult PN Assessment/Plan Procedures: Procedures ASSAY OF LACTIC ACID (02/07/18) ASSAY OF LIPASE (02/07/18) C DIFF AMPLIFIED PROBE (02/09/18) COMPLETE CBC W/AUTO DIFF WBC (02/07/18) COMPREHEN METABOLIC PANEL (02/07/18) CT ABD & PELV W/CONTRAST (02/07/18) EMERGENCY DEPT VISIT (02/07/18) ROUTINE VENIPUNCTURE (02/07/18) THER/PROPH/DIAG INJ IV PUSH (02/07/18) TX/PRO/DX INJ NEW DRUG ADDON (02/07/18) URINALYSIS AUTO W/SCOPE (02/07/18) Problem List Initiated/Reviewed/Updated: Yes Plan: ASSESSMENT AND RECOMMENDATIONS PERSISTENT NAUSEA AND VOMITING-nausea improved but she continues to experience intermittent episodes of vomiting -Pepcid 20 mg IV every 12 hours -Schedule IV lorazepam 0.5 mg 4 times daily -Lorazepam IV 0.5 mg every 2 hours when necessary -Am cortisol level pending 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 MSSA grown from blood cultures and catheter tip -Will complete a 14 day course of IV antibiotic therapy with doxycycline 100 mg IV every 12 hours STATUS POST REVERSAL OF LELAND-EN-Y GASTRIC BYPASS SURGERY -Postoperative care per Dr. Atkinson Will plan to follow-up on cortisol level, hospitalist service will otherwise sign off on the patient at this time. If we can be of further assistance in ongoing management please feel free to reconsult.
[2018-04-07] MEDS: LORazepam 2 MG/ML SDV IVPUSH PRN ×2 (01:32→07:52)
[2018-04-07] MEDS: Erythromycin Ethylsuccinate Susp 400 MG/5 ML 100 ML Bottle GTUBE SCH (03:34)
[2018-04-07] MEDS: Doxycycline 100 MG in Sodium Chloride 0.9% 100 ML IV SCH ×2 (03:34→16:08)
[2018-04-07] MEDS: Metoclopramide 10 MG/2 ML SDV IVPUSH SCH ×4 (03:34→19:30)
[2018-04-07] MEDS: Magnesium Sulfate/Water 2 GM in Premix Bag 1 BAG IV SCH (03:35)
[2018-04-07] MEDS: Sodium Chloride 0.9% 1,000 ML IV SCH (05:47)
[2018-04-07] MEDS: LORazepam 2 MG/ML SDV IVPUSH SCH ×4 (05:47→21:24)
[2018-04-07] MEDS ORDERED: Central Total Parenteral Nutrition Bag SCH (07:15)
--- NOTE | 2018-04-07 08:17 | PN ---
DATE OF SERVICE: 04/07/2018 SUBJECTIVE: Trisha's hemoglobin this morning is 9.1. Her G-tube was put to intermittent suction, after she had a 500 mL emesis. Since then, she has had a 50 emesis and 100 mL. Continues to be related to movement and extensive dry heaving. Pain is controlled. TPN is running as regularly scheduled. Having no difficulty. Reports increased fatigue and weakness. REVIEW OF SYSTEMS: Remainder of review of systems negative for any pertinent positives or negatives. OBJECTIVE: GENERAL: Trisha Wilcox is a 52-year-old female, appears weaker today, pale. Oral intake zero. Total gastrostomy tube output is 425. Emesis total is 700 mL. Urine output 2300. HEENT: Negative. NECK: Supple. HEART: Regular rate and rhythm. LUNGS: Clear. ABDOMEN: Dressings dry and intact. Gastrostomy tube in place to intermittent suction. No abdominal distention. Generalized tenderness. EXTREMITIES: Without peripheral edema. ASSESSMENT: 1. Chronic nausea. 2. Gastroparesis associated with postop ileus. 3. Exploratory laparotomy with formation of gastrojejunostomy, debridement of abdominal wall. Date of surgery: 03/21/2014. 4. Insertion of left subclavian vein triple-lumen, exploratory laparotomy, lysis of extensive adhesions, esophageal gastrectomy, esophagogastric anastomosis, small-bowel resection, separate small bowel stricturoplasty, partial left hepatic lobectomy, excision of nerve entering the probable neuroma of lower midline incision, placement of Interceed mesh to limit recurrent adhesion formation. Date of surgery: 03/08/2018. 5. Removal of foreign body, old food and fluid from the stomach, dilatation of pyloric sphincter to facilitate gastric emptying. PLAN: 1. I have consent signed for exploratory laparotomy with full gastrectomy and Ozzy-en-Y reconstruction, general anesthesia, TAP block, ketamine bolus and infusion. Date of surgery: 04/08/2018. Surgeon: Stan Atkinson MD. N.p.o. after midnight. 2. Meropenem 2 g IV on-call to OR 04/08/2018. 3. Discontinue Pepcid. 4. Protonix 40 mg IV b.i.d. 5. DC EryPed. 6. Continue same TPN rate and content. 7. Give 1 unit of packed red blood cells. 8. Check CBC, CMP, mag, and phos in a.m. 9. Good pulmonary toilet. 10.We will evaluate in a.m. or p.r.n. Peri Zambrano PA-C /[id number]
[2018-04-07] MEDS: Multivitamins with Iron Tab.Chew PO SCH (08:22)
[2018-04-07] MEDS: Pantoprazole 40 MG Vial IVPUSH SCH ×2 (08:27→19:30)
[2018-04-07] MEDS: ESTRADIOL 1 MG PO SCH (10:18)
[2018-04-07] MEDS: Scopolamine 1.5 MG Transdermal Patch TOP SCH (10:20)
[2018-04-07] MEDS: VERIFY SCOP PATCH TOP SCH (10:20)
[2018-04-07] MEDS: Ondansetron 4 MG/2 ML SDV IVPUSH PRN (12:03)
[2018-04-07] MEDS: [UNRECOGNIZED DRUG - OTHER] IV SCH (16:07)
[2018-04-07] MEDS: LYTES IV SCH (16:07)
[2018-04-07] MEDS: Fat Emulsion 100 ML IV SCH (16:07)
[2018-04-07] MEDS: CALCIUM IV SCH (16:07)
[2018-04-07] MEDS ORDERED: diphenhydrAMINE 50 MG/ML SDV IVPUSH PRN (16:52)
[2018-04-07] MEDS ORDERED: hydrOXYzine HCl 100 MG/2 ML SDV IM PRN (16:53)
[2018-04-07] MEDS ORDERED: Labetalol 20 MG/4 ML Syringe IVPUSH PRN (16:53)
[2018-04-08] MEDS: Metoclopramide 10 MG/2 ML SDV IVPUSH SCH ×3 (01:55→15:01)
[2018-04-08] MEDS: LORazepam 2 MG/ML SDV IVPUSH PRN ×2 (03:08→06:50)
[2018-04-08] MEDS: Doxycycline 100 MG in Sodium Chloride 0.9% 100 ML IV SCH (03:58)
[2018-04-08] MEDS: LORazepam 2 MG/ML SDV IVPUSH SCH ×2 (05:05→09:39)
[2018-04-08] MEDS ORDERED: Tap Block 1 ML BAG NERVRT SCH (07:15)
[2018-04-08] MEDS ORDERED: Ketamine 500 MG/5 ML MDV IV SCH ×2 (07:15→09:00)
[2018-04-08] MEDS ORDERED: Glycopyrrolate 0.2 MG/ML 5 ML MDV ONE (07:55)
[2018-04-08] MEDS ORDERED: Dexamethasone 4 MG/ML SDV ONE (07:55)
[2018-04-08] MEDS ORDERED: Ondansetron 4 MG/2 ML SDV ONE (07:55)
[2018-04-08] MEDS ORDERED: Neostigmine Methylsulfate 1 MG/ML 5 ML Syringe ONE (07:55)
[2018-04-08] MEDS ORDERED: Propofol 200 MG/20 ML SDV ONE (07:55)
[2018-04-08] MEDS ORDERED: Rocuronium 50 MG/5 ML Vial ONE ×2 (07:55→11:34)
[2018-04-08] MEDS ORDERED: Succinylcholine 200 MG/10 ML MDV ONE (07:55)
[2018-04-08] MEDS ORDERED: fentaNYL 250 MCG/5 ML SDV ONE ×3 (07:55→12:19)
[2018-04-08] MEDS: Pantoprazole 40 MG Vial IVPUSH SCH (08:31)
[2018-04-08] MEDS ORDERED: Meropenem 500 MG in Sodium Chloride 0.9% 50 ML IV ONE (09:00)
[2018-04-08] MEDS ORDERED: Ketamine 50 MG in Sodium Chloride 0.9% 49.5 ML IV SCH (09:00)
[2018-04-08] MEDS ORDERED: Ropivacaine 33 ML, Dexamethasone 8 MG, EPINEPHrine 0.4 MG, Sodium Chloride 0.9% 44.6 ML NERVRT SCH ×4 (09:00)
[2018-04-08] MEDS ORDERED: Meropenem 500 MG SDV ONE (10:43)
--- NOTE | 2018-04-08 11:00 | PN ---
DATE OF SERVICE: 04/08/2018 SUBJECTIVE: Trisha is actively dry heaving while doing rounds this morning. I did go back into the room and after receiving IV Ativan, the dry heaving resolved. Oral intake in the past 24 hours zero. TPN is running. Gastrostomy put out 375. Urine output 1465, emesis 1125. Pain, she states is controlled. Continues severe nausea, retching, emesis with movements. Vital signs have been stable. Afebrile. REVIEW OF SYSTEMS: Remainder review of systems negative for any pertinent positives and negatives. She is n.p.o. for OR this morning. and daughter are here. OBJECTIVE: GENERAL: Trisha Wilcox is a 52-year-old female. VITAL SIGNS: TPR is 96.7, 95, 16, blood pressure 126/80. HEENT: Negative. NECK: Supple. HEART: Regular rate and rhythm. LUNGS: Clear. ABDOMEN: Dressing dry and intact. G-tube intact. Abdomen was not palpated due to nausea, even though the dry heaving has stopped. Abdominal binder has been on. EXTREMITIES: Without peripheral edema. ASSESSMENT: 1. Chronic nausea with severe gastroparesis. a. Insertion of left subclavian vein triple-lumen, exploratory laparotomy, lysis of extensive adhesions, esophageal gastrectomy, esophagogastric anastomosis, small bowel resection, separate small bowel stricturoplasty, partial left hepatic lobectomy, excision of nerve entering probable neuroma of lower midline incision, placement of Interceed mesh to limit recurrent adhesion formation, date of surgery, 03/08/2018. 2. EGD with dilatation and removal of foreign body, old food and fluid from the stomach, dilatation of pyloric sphincter to facilitate gastric emptying, date of procedure, 03/13/2018, surgeon, Stan Atkinson MD. 3. Upper gastrointestinal endoscopy with: a. Removal of foreign body, ingested food from stomach, and dilation of pyloric sphincter for gastroparesis with retained gastric contents, date of procedure, 03/17/2018. b. Upper GI endoscopy with evacuation of gastric contents. 4. Exploratory laparotomy with lysis of extensive adhesion with: a. Partial gastrectomy with Ozzy-en-Y gastrojejunostomy. b. Placement of Interceed mesh to limit recurrent adhesion formation between the viscera and abdominal pelvic wall. c. Debridement of abdominal wall. 5. Persistent gastroparesis refractory to medical management, retained intragastric contents, focal abdominal wall necrosis and extensive intraabdominal adhesions, date of surgical procedure, 03/21/2018. Surgeon, Stan Atkinson MD. 6. Boyd catheter insertion, gastrostomy, percutaneous endoscopic gastrostomy tube insertion, date of surgery 03/29/2018, surgeon, Stan Atkinson MD. PLAN: 1. Remain n.p.o. for surgery. Case to follow. Orders to be written postoperatively. 2. We will evaluate p.r.n. or in a.m. Peri Zambrano PA-C /[id number]
--- NOTE | 2018-04-08 11:09 | PN ---
DATE OF SERVICE: 04/02/2018 The patient's heart rate is in the 100 range. The vital signs are otherwise stable. The temperatures have been in the 97 to 98 range over the last 24 hours. She was switched over to oxycodone oral concentrate yesterday, and that appears to be working somewhat better. We are still doing a little bit too inadequate pain control, and we will go up to a q.3 hour dosing regimen. We will also switch over the Ativan to buccally q.4 hours p.r.n. and try to switch the Reglan to oral form as well. We will add Zofran 4 mg ODT q.i.d. as a scheduled regimen, as well to try to decrease any nausea. We will continue the present TPN. At some point next week, she will probably be able to go home and will want to get all of these fine- tuning issues completed prior to that occurring, however. Stan Atkinson MD /[id number]
[2018-04-08] MEDS ORDERED: Lactated Ringers 1,000 ML ONE (11:30)
[2018-04-08] MEDS ORDERED: Labetalol 20 MG/4 ML Syringe ONE (11:30)
--- NOTE | 2018-04-08 11:48 | PN ---
DATE OF SERVICE: 04/03/2018 The patient has been afebrile. Continues to have quite a bit of nausea and some intermittent emesis. The emesis is very slightly yellow, but it appeared to be probably primarily more swallowed saliva per se. Given this, we will try adding a scopolamine patch. She reports that she has had these patches in the past with rash at this patch site, and we will try the scopolamine patch, as the other modes of nausea control appear to be somewhat inadequate, and she reports worsening nausea with motion, which is limiting her ability to walk. Otherwise, we will get an upper GI x-ray in the morning using water soluble contrast to try to assess what is going on anatomically in terms of gastric emptying and such. Again, otherwise continue the TPN. We will add some fat emulsion tonight as well. Stan Atkinson MD /[id number]
[2018-04-08] MEDS: ESTRADIOL 1 MG PO SCH (11:57)
[2018-04-08] MEDS: Multivitamins with Iron Tab.Chew PO SCH (11:57)
[2018-04-08] MEDS ORDERED: HYDROmorphone/Normal Saline 15 MG/30 ML PCA IV PRN (12:55)
[2018-04-08] MEDS: HYDROmorphone/Normal Saline 15 MG/30 ML PCA IV PRN (13:00)
--- NOTE | 2018-04-08 13:02 | PN ---
DATE OF SERVICE: 04/08/2018 As discussed yesterday and again this morning, we are dealing with a problem of intractable gastroparesis with even the G-tube not satisfactorily draining the stomach to prevent the problems with the nausea and emesis. The only thing that is coming up is gastric-type secretions, as well as her saliva and otherwise some clear-type fluid. It is notable that the dye that got into the small bowel with the upper GI earlier in the week, by the next day, was all pretty much in the colon. So, I think we are not dealing with an issue of small bowel motility, but basically a problem with intractable gastroparesis, and the plan will be to proceed with a total or near total gastrectomy and Ozzy-en-Y reconstruction today. This will be done with an open procedure, and that this will be a quite difficult and tedious procedure with risks of leaks and other bowel injury were all reviewed with the patient, as well as the this morning, and they wish to proceed. Her labs looked satisfactory this morning. Hemoglobin is up to 10.5 after the transfusion yesterday, and we will proceed with surgical intervention later this morning. Stan Atkinson MD /[id number]
[2018-04-08] MEDS: VERIFY SCOP PATCH TOP SCH (13:33)
[2018-04-08] MEDS ORDERED: Dextrose 5%-Lactated Ringers 1,000 ML IV SCH (15:30)
[2018-04-08] MEDS ORDERED: diphenhydrAMINE 50 MG/ML SDV IVPUSH PRN (16:00)
[2018-04-08] MEDS: CALCIUM IV SCH (16:37)
[2018-04-08] MEDS: [UNRECOGNIZED DRUG - OTHER] IV SCH (16:37)
[2018-04-08] MEDS: Meropenem 500 MG in Sodium Chloride 0.9% 50 ML IV SCH ×2 (16:37→21:43)
[2018-04-08] MEDS: LYTES IV SCH (16:37)
[2018-04-08] MEDS: Ondansetron 4 MG/2 ML SDV IVPUSH PRN (16:37)
[2018-04-08] MEDS: Metoclopramide 10 MG/2 ML SDV IVPUSH PRN (19:15)
[2018-04-09] MEDS: LORazepam 2 MG/ML SDV IVPUSH PRN ×4 (00:50→17:59)
[2018-04-09] MEDS ORDERED: Iohexol 647 MG/ML 50 ML SDV PO PRN (02:06)
[2018-04-09] MEDS: Meropenem 500 MG in Sodium Chloride 0.9% 50 ML IV SCH ×2 (03:30→10:00)
[2018-04-09] MEDS: Ondansetron 4 MG/2 ML SDV IVPUSH PRN ×3 (07:46→20:02)
[2018-04-09] MEDS ORDERED: ESTRADIOL 1 MG PO SCH (09:00)
[2018-04-09] MEDS: Pantoprazole 40 MG Vial IVPUSH SCH (09:11)
[2018-04-09] MEDS: Dextrose 5%-0.9% NaCl 1,000 ML IV SCH (09:57)
[2018-04-09] MEDS: [UNRECOGNIZED DRUG - OTHER] IV SCH (15:45)
[2018-04-09] MEDS: LYTES IV SCH (15:45)
[2018-04-09] MEDS: CALCIUM IV SCH (15:45)
[2018-04-09] MEDS ORDERED: Clotrimazole 10 MG Troche PO PRN (19:42)
[2018-04-09] MEDS: Metoclopramide 10 MG/2 ML SDV IVPUSH PRN (20:56)
[2018-04-10] MEDS: LORazepam 2 MG/ML SDV IVPUSH PRN ×4 (00:25→21:55)
[2018-04-10] MEDS: Ondansetron 4 MG/2 ML SDV IVPUSH PRN ×2 (02:22→15:04)
[2018-04-10] MEDS: Metoclopramide 10 MG/2 ML SDV IVPUSH PRN ×2 (03:15→19:59)
[2018-04-10] MEDS: HYDROmorphone/Normal Saline 15 MG/30 ML PCA IV PRN (03:19)
[2018-04-10] MEDS ORDERED: Scopolamine 1.5 MG Transdermal Patch TRDERM PRN (04:54)
[2018-04-10] MEDS: Clotrimazole 10 MG Troche PO SCH ×5 (05:06→21:01)
[2018-04-10] MEDS: Dextrose 5%-0.9% NaCl 1,000 ML IV SCH (05:19)
[2018-04-10] MEDS ORDERED: Cyclobenzaprine 10 MG Tab PO PRN (06:55)
[2018-04-10] MEDS ORDERED: Acetaminophen 1,000 MG in Premix Bag 1 BAG IV ONE (08:00)
[2018-04-10] MEDS: Pantoprazole 40 MG Vial IVPUSH SCH (08:23)
[2018-04-10] MEDS ORDERED: Cyanocobalamin (Vitamin B12) 1,000 MCG/ML SDV IM ONE (09:00)
[2018-04-10] MEDS: Potassium Phosphates 15 MMOLE in Sodium Chloride 0.9% 100 ML IV SCH ×3 (09:41→15:04)
--- NOTE | 2018-04-10 10:31 | PCM.CONSN ---
- General Info Date of Service: 04/10/18 Subjective Update: Ms. Wilcox is status post revision Ozzy-en-Y surgery done 2 days ago for management of gastroparesis with ongoing nausea and vomiting. Upper GI x-ray obtained yesterday shows good emptying through the small stomach pouch with no evidence of obstruction or ileus. She continues to experience symptoms of nausea and oral intake has been somewhat marginal. She continues to appear very depressed with flat affect and low energy level. She has been doing better but getting up in the chair and walking in the hallways with assistance. We discussed initiating antidepressive therapy which she refuses at this time, will agree to take melatonin at night. Will consider antidepressive therapy over the next few days and will plan to have further discussions concerning that. Functional Status: Reports: Pain Controlled, Ambulating, Urinating - Review of Systems General: Reports: Weakness. Denies: Fever, Chills Pulmonary: Reports: No Symptoms Cardiovascular: Reports: No Symptoms Gastrointestinal: Reports: Abdominal Pain, Decreased Appetite, Nausea. Denies: Difficulty Swallowing, Vomiting - Patient Data Vitals - Most Recent: Last Vital Signs Temp 96.3 F 04/10/18 07:15 Pulse 117 H 04/10/18 07:15 Resp 16 04/10/18 07:15 BP 137/92 H 04/10/18 07:15 Pulse Ox 96 04/10/18 07:30 Weight - Most Recent: 152 lb 9.6 oz I&O - Last 24 Hours: Intake & Output 04/09/18 04/10/18 04/10/18 22:59 06:59 14:59 Intake Total 862 1554 Output Total 1100 1675 Balance -238 -121 Lab Results Last 24 Hours: Laboratory Results - last 24 hr 04/10/18 04/10/18 Range/Units 04:34 04:34 WBC 20.4 H (4.5-11.0) K/uL RBC 3.55 (3.30-5.50) M/uL Hgb 10.5 L (12.0-15.0) g/dL Hct 32.7 L (36.0-48.0) % MCV 92 (80-98) fL MCH 30 (27-31) pg MCHC 32 (32-36) % Plt Count 258 (150-400) K/uL Sodium 133 L (140-148) mmol/L Potassium 4.0 (3.6-5.2) mmol/L Chloride 97 L (100-108) mmol/L Carbon Dioxide 30 (21-32) mmol/L Anion Gap 10.0 (5.0-14.0) mmol/L BUN 13 (7-18) mg/dL Creatinine 0.6 (0.6-1.0) mg/dL Est Cr Clr Drug Dosing 106.66 mL/min Estimated GFR (MDRD) > 60 (>60) Glucose 163 H (74-106) mg/dL Calcium 8.5 (8.5-10.1) mg/dL Phosphorus 2.3 L (2.5-4.9) mg/dL Magnesium 2.0 (1.8-2.4) mg/dL Total Bilirubin 0.3 (0.2-1.0) mg/dL AST 12 L (15-37) U/L ALT 18 (12-78) U/L Alkaline Phosphatase 90 (46-116) U/L Total Protein 5.8 L (6.4-8.2) g/dL Albumin 2.4 L (3.4-5.0) g/dL Globulin 3.4 (2.3-3.5) g/dL Albumin/Globulin Ratio 0.7 L (1.2-2.2) Med Orders - Current: Current Medications Benzocaine/Menthol (Cepacol Sore Throat) 1 lozenge MUCMEM ASDIRECTED PRN PRN Reason: Sore Throat Last Admin: 03/22/18 09:19 Dose: 1 lozenge Clotrimazole (Mycelex) 10 mg PO 5XDAY [facility] Last Admin: 04/10/18 09:41 Dose: 10 mg Cyclobenzaprine HCl (Flexeril) 10 mg PO Q6H PRN PRN Reason: MUSCLE SPASM Diphenhydramine HCl (Benadryl) 50 mg IVPUSH Q4H PRN PRN Reason: ITCHING Heparin Sodium (Porcine) (Heparin Lock Flush 100 Units/Ml) 500 units FLUSH ASDIRECTED PRN PRN Reason: Flush central line Last Admin: 04/08/18 08:22 Dose: 500 units Hydromorphone HCl (Dilaudid Box Truck Owner Operator 15 Mg In Ns 30 Ml) 0 mg IV ASDIRECTED PRN; Protocol PRN Reason: WINDOWS ADMINISTRATOR PAIN CONTROL Last Admin: 04/10/18 03:19 Dose: 15 mg Hydroxyzine HCl (Vistaril) 100 mg IM Q4H PRN PRN Reason: pain Amino Ac/Electrol/Dextrose/Calcium (Clinimix E 08/15) 1,712 mls @ 107 mls/hr IV Q24H [facility] Last Admin: 04/09/18 15:45 Dose: 107 mls/hr Dextrose/Sodium Chloride (Dextrose 5%-Normal Saline) 1,000 mls @ 0 mls/hr IV TITRATE [facility] Last Infusion: 04/10/18 06:56 Dose: 60 mls/hr Potassium Phosphate 15 mmole/ (Sodium Chloride) 105 mls @ 50 mls/hr IV Q2H [facility] Stop: 04/10/18 15:59 Last Admin: 04/10/18 09:41 Dose: 50 mls/hr Labetalol HCl (Normodyne) 5 mg IVPUSH Q5M PRN PRN Reason: SBP over 160 OR DBP over 95 Lorazepam (Ativan) 0.5 mg IVPUSH Q4H PRN PRN Reason: ANXIETY/NAUSEA Last Admin: 04/10/18 05:17 Dose: 0.5 mg Melatonin (Melatonin) 9 mg PO BEDTIME [facility] Metoclopramide HCl (Reglan) 10 mg IVPUSH Q6H PRN PRN Reason: NAUSEA NOT CONTROL BY ZOFRAN Last Admin: 04/10/18 03:15 Dose: 10 mg Naloxone HCl (Narcan) 0.1 mg IV ASDIRECTED PRN PRN Reason: decreased respiratory rate Check Scopolamine (Patch Daily) 1 each .XX DAILY [facility] Last Admin: 04/10/18 08:23 Dose: Not Given Ondansetron HCl (Zofran) 4 mg IVPUSH Q4H PRN PRN Reason: Nausea/Vomiting Last Admin: 04/10/18 02:22 Dose: 4 mg Pantoprazole Sodium (Protonix Iv) 40 mg IVPUSH Q24H [facility] Last Admin: 04/10/18 08:23 Dose: 40 mg Scopolamine (Transderm-Scop) 1.5 mg TRDERM Q72H PRN PRN Reason: Nausea/Vomiting Last Admin: 04/10/18 05:05 Dose: 1.5 mg Sodium Chloride (Saline Flush) 10 ml FLUSH ASDIRECTED PRN PRN Reason: Keep Vein Open Last Admin: 04/04/18 15:45 Dose: 10 ml Discontinued Medications Acetaminophen (Tylenol Extra Strength) 1,000 mg PO ONETIME ONE Stop: 03/08/18 08:16 Last Admin: 03/08/18 08:32 Dose: 1,000 mg Acetaminophen (Tylenol) 650 mg PO Q6H [facility] Last Admin: 03/16/18 22:25 Dose: Not Given Acetaminophen (Tylenol) 650 mg PO Q4H PRN PRN Reason: Pain OR HEADACHE Last Admin: 03/25/18 03:20 Dose: 650 mg Bisacodyl (Dulcolax) 10 mg RECTAL BID [facility] Last Admin: 03/25/18 20:12 Dose: Not Given Bisacodyl (Dulcolax) 10 mg RECTAL BID PRN PRN Reason: Constipation Last Admin: 04/02/18 22:03 Dose: 10 mg Bisacodyl (Dulcolax) 10 mg RECTAL ONETIME ONE Stop: 03/28/18 08:16 Last Admin: 03/28/18 09:46 Dose: 10 mg Bupivacaine HCl (Marcaine 0.5%) Confirm Administered Dose 50 ml .ROUTE .STK-MED ONE Stop: 03/29/18 06:26 Last Admin: 03/29/18 11:11 Dose: 10 ml Bupivacaine HCl/Epinephrine Bitart (Marcaine 0.5%/Epinephrine 1:200,000) Confirm Administered Dose 50 ml .ROUTE .STK-MED ONE Stop: 03/21/18 07:27 Calcium Carbonate/Glycine (Tums) 1,000 mg PO Q2H PRN PRN Reason: Indigestion Last Admin: 03/14/18 21:09 Dose: 1,000 mg Celecoxib (Celebrex) 200 mg PO ONETIME ONE Stop: 03/08/18 08:16 Last Admin: 03/08/18 08:32 Dose: 200 mg Celecoxib (Celebrex) 200 mg PO DAILY@0800 [facility] Last Admin: 03/09/18 08:40 Dose: 200 mg Citalopram Hydrobromide (Celexa) 20 mg PO DAILY [facility] Clindamycin Phosphate (Cleocin) Confirm Administered Dose 900 mg .ROUTE .STK- MED ONE Stop: 03/29/18 08:46 Last Admin: 03/29/18 11:12 Dose: 900 mg Clotrimazole (Mycelex) 10 mg PO 5XDAY [facility] Last Admin: 04/05/18 06:20 Dose: Not Given Clotrimazole (Mycelex) 10 mg PO 5XDAY PRN PRN Reason: Other Last Admin: 04/09/18 20:02 Dose: 10 mg Ropivacaine 34 ml/Dexamethasone 8 mg/Epinephrine HCl 0.4 mg/ Sodium Chloride 43.6 ml 0 ml NERVRT ASDIRECTED [facility] Last Admin: 03/08/18 11:15 Dose: 80 syringe Ropivacaine 35 ml/Dexamethasone 8 mg/Epinephrine HCl 0.4 mg/ Sodium Chloride 42.6 ml 0 ml NERVRT ASDIRECTED [facility] Last Admin: 03/21/18 13:32 Dose: 80 syringe Ropivacaine 33 ml/Dexamethasone 8 mg/Epinephrine HCl 0.4 mg/ Sodium Chloride 44.6 ml 0 ml NERVRT ASDIRECTED [facility] Last Admin: 04/08/18 11:35 Dose: 80 syringe Cyanocobalamin (Vitamin B12) 1,000 mcg IM ONETIME ONE Stop: 03/10/18 09:01 Last Admin: 03/10/18 08:34 Dose: Not Given Cyanocobalamin (Vitamin B12) 1,000 mcg IM ONETIME ONE Stop: 04/10/18 09:01 Last Admin: 04/10/18 08:23 Dose: 1,000 mcg Cyclobenzaprine HCl (Flexeril) 10 mg PO Q6H PRN PRN Reason: muscle spasms Last Admin: 03/16/18 14:30 Dose: 10 mg Cyclobenzaprine HCl (Flexeril) 10 mg PO Q6H PRN PRN Reason: MUSCLE SPASM Last Admin: 03/31/18 19:52 Dose: 10 mg Cyclobenzaprine HCl (Flexeril) 10 mg PO Q6H PRN PRN Reason: Spasms Last Admin: 04/10/18 08:23 Dose: 10 mg Dexamethasone (Dexamethasone) Confirm Administered Dose 4 mg .ROUTE .STK-MED ONE Stop: 03/08/18 08:55 Dexamethasone (Dexamethasone) Confirm Administered Dose 4 mg .ROUTE .STK-MED ONE Stop: 03/21/18 09:19 Dexamethasone (Dexamethasone) Confirm Administered Dose 4 mg .ROUTE .STK-MED ONE Stop: 03/29/18 07:16 Dexamethasone (Dexamethasone) Confirm Administered Dose 4 mg .ROUTE .STK-MED ONE Stop: 04/08/18 07:56 Diphenhydramine HCl (Benadryl) 50 mg IVPUSH Q4H PRN PRN Reason: ITCHING Last Admin: 03/28/18 10:30 Dose: 50 mg Diphenhydramine HCl (Benadryl) 50 mg IVPUSH Q4H PRN PRN Reason: ITCHING Divalproex Sodium (Divalproex Sodium) 250 mg PO BIDMEALS [facility] Erythromycin Ethylsuccinate (Eryped 400) 50 mg PO QID [facility] Last Admin: 03/16/18 05:30 Dose: Not Given Erythromycin Ethylsuccinate (Eryped 400) 100 mg GTUBE Q6HR [facility] Last Admin: 04/07/18 03:34 Dose: Not Given Famotidine (Pepcid) 20 mg IVPUSH BID [facility] Last Admin: 04/06/18 20:48 Dose: 20 mg Fentanyl (Sublimaze) Confirm Administered Dose 250 mcg .ROUTE .STK-MED ONE Stop: 03/08/18 08:55 Fentanyl (Sublimaze) Confirm Administered Dose 250 mcg .ROUTE .STK-MED ONE Stop: 03/08/18 11:44 Fentanyl (Sublimaze) Confirm Administered Dose 250 mcg .ROUTE .STK-MED ONE Stop: 03/08/18 12:18 Fentanyl (Sublimaze) Confirm Administered Dose 100 mcg .ROUTE .STK-MED ONE Stop: 03/13/18 08:08 Fentanyl (Sublimaze) Confirm Administered Dose 100 mcg .ROUTE .STK-MED ONE Stop: 03/17/18 07:12 Fentanyl (Sublimaze) Confirm Administered Dose 250 mcg .ROUTE .STK-MED ONE Stop: 03/21/18 09:19 Fentanyl (Sublimaze) Confirm Administered Dose 250 mcg .ROUTE .STK-MED ONE Stop: 03/21/18 13:01 Fentanyl (Sublimaze) Confirm Administered Dose 250 mcg .ROUTE .STK-MED ONE Stop: 03/29/18 07:17 Fentanyl (Sublimaze) Confirm Administered Dose 100 mcg .ROUTE .STK-MED ONE Stop: 03/29/18 09:16 Fentanyl (Sublimaze) Confirm Administered Dose 250 mcg .ROUTE .STK-MED ONE Stop: 04/08/18 07:56 Fentanyl (Sublimaze) Confirm Administered Dose 250 mcg .ROUTE .STK-MED ONE Stop: 04/08/18 10:56 Fentanyl (Sublimaze) Confirm Administered Dose 250 mcg .ROUTE .STK-MED ONE Stop: 04/08/18 12:20 Fentanyl Citrate (Fentanyl In Ns 20 Mcg/Ml 30 Ml Box Truck Owner Operator) 0 mcg IV ASDIRECTED PRN; Protocol PRN Reason: PAIN Stop: 03/21/18 11:00 Last Admin: 03/19/18 16:28 Dose: 600 mcg Glycopyrrolate (Robinul) Confirm Administered Dose 1 mg .ROUTE .STK-MED ONE Stop: 03/08/18 08:55 Glycopyrrolate (Robinul) Confirm Administered Dose 1 mg .ROUTE .STK-MED ONE Stop: 03/21/18 09:19 Glycopyrrolate (Robinul) Confirm Administered Dose 1 mg .ROUTE .STK-MED ONE Stop: 03/29/18 07:16 Glycopyrrolate (Robinul) Confirm Administered Dose 1 mg .ROUTE .STK-MED ONE Stop: 04/08/18 07:56 Heparin Sodium (Porcine) (Heparin Lock Flush 100 Units/Ml) Confirm Administered Dose 500 units .ROUTE .STK-MED ONE Stop: 03/08/18 10:07 Last Admin: 03/08/18 11:13 Dose: 500 units Heparin Sodium (Porcine) (Heparin Lock Flush 100 Units/Ml) 500 units FLUSH ASDIRECTED PRN PRN Reason: Flush central line Last Admin: 04/07/18 08:28 Dose: 500 units Heparin Sodium (Porcine) (Heparin Lock Flush 100 Units/Ml) Confirm Administered Dose 1,500 units .ROUTE .STK-MED ONE Stop: 03/29/18 06:26 Last Admin: 03/29/18 11:11 Dose: 1,500 units Hydromorphone HCl (Dilaudid Box Truck Owner Operator 15 Mg In Ns 30 Ml) 0 mg IV ASDIRECTED PRN; Protocol PRN Reason: Pain Last Admin: 03/11/18 01:54 Dose: 15 mg Hydromorphone HCl (Dilaudid Box Truck Owner Operator 15 Mg In Ns 30 Ml) 0 mg IV ASDIRECTED PRN; Protocol PRN Reason: Pain Last Admin: 03/13/18 19:42 Dose: 15 mg Hydromorphone HCl (Dilaudid) 2 - 4 mg PO Q4H PRN PRN Reason: Pain Last Admin: 03/16/18 12:58 Dose: 4 mg Hydromorphone HCl (Dilaudid Box Truck Owner Operator 15 Mg In Ns 30 Ml) 0 mg IV ASDIRECTED PRN; Protocol PRN Reason: PAIN Last Admin: 03/18/18 02:51 Dose: 15 mg Hydromorphone HCl (Dilaudid Box Truck Owner Operator 15 Mg In Ns 30 Ml) 0 mg IV ASDIRECTED PRN; Protocol PRN Reason: WINDOWS ADMINISTRATOR PAIN CONTROL Last Admin: 03/22/18 21:43 Dose: 15 mg Hydromorphone HCl (Dilaudid) 1 mg IVPUSH Q4H PRN PRN Reason: Pain (moderate 4-6) Hydromorphone HCl (Dilaudid Box Truck Owner Operator 15 Mg In Ns 30 Ml) 0 mg IV ASDIRECTED PRN; Protocol PRN Reason: WINDOWS ADMINISTRATOR PAIN CONTROL Last Admin: 03/29/18 09:57 Dose: 15 mg Hydroxyzine HCl (Vistaril) 100 mg IM ONETIME ONE Stop: 03/08/18 15:30 Last Admin: 03/08/18 15:34 Dose: 100 mg Hydroxyzine HCl (Vistaril) 100 mg IM Q4H PRN PRN Reason: pain Last Admin: 03/12/18 23:48 Dose: 100 mg Hydroxyzine HCl (Atarax) 50 mg PO Q4H PRN PRN Reason: Pain (Severe 7-10) Last Admin: 03/15/18 04:19 Dose: 50 mg Hyoscyamine (Hyomax-Sl) 0.125 mg SL QID [facility] Last Admin: 03/28/18 05:05 Dose: Not Given Cefoxitin Sodium 2 gm/ Sodium (Chloride) 50 mls @ 100 mls/hr IV ONETIME ONE Stop: 03/08/18 09:59 Dextrose/Lactated Ringer's (Dextrose 5%-Lactated Ringers) 1,000 mls @ 100 mls/ hr IV ASDIRECTED [facility] Last Admin: 03/08/18 08:32 Dose: 100 mls/hr Lidocaine HCl/Dextrose (Lidocaine 2 Gm/D5w 500 Ml) 2 gm in 500 mls @ 15 mls/hr IV .Q24H [facility] Stop: 03/09/18 16:00 Last Admin: 03/09/18 12:48 Dose: Not Given Ketamine HCl 50 mg/ Sodium (Chloride) 50 mls @ 18.82 mls/hr IV ASDIRECTED [facility] Cefoxitin Sodium 2 gm/ Sodium (Chloride) 50 mls @ 100 mls/hr IV ONETIME ONE Stop: 03/08/18 09:59 Last Admin: 03/08/18 10:45 Dose: 100 mls/hr Lactated Ringer's (Ringers, Lactated) Confirm Administered Dose 1,000 mls @ as directed .ROUTE .STK-[facility] ONE Stop: 03/08/18 11:47 Lactated Ringer's (Ringers, Lactated) Confirm Administered Dose 1,000 mls @ as directed .ROUTE .STK-[facility] ONE Stop: 03/08/18 14:06 Dextrose/Lactated Ringer's (Dextrose 5%-Lactated Ringers) 1,000 mls @ 200 mls/ hr IV ASDIRECTED [facility] Last Admin: 03/09/18 05:21 Dose: 200 mls/hr Cefoxitin Sodium 2 gm/ Sodium (Chloride) 50 mls @ 100 mls/hr IV Q6H [facility] Last Admin: 03/15/18 09:05 Dose: 100 mls/hr Dextrose/Lactated Ringer's (Dextrose 5%-Lactated Ringers) 1,000 mls @ 75 mls/ hr IV ASDIRECTED [facility] Last Admin: 03/21/18 16:13 Dose: 25 mls/hr Magnesium Sulfate 2 gm/ Premix 50 mls @ 25 mls/hr IV Q6H [facility] Stop: 03/12/18 05:59 Last Admin: 03/12/18 03:25 Dose: 25 mls/hr Dextrose/Lactated Ringer's (Dextrose 5%-Lactated Ringers) 1,000 mls @ 100 mls/ hr IV ASDIRECTED [facility] Stop: 03/09/18 17:59 Amino Ac/Electrol/Dextrose/Calcium (Clinimix E 5/15) 2,000 mls @ 100 mls/hr IV .BY DURATION [facility] Stop: 03/11/18 22:59 Last Admin: 03/11/18 03:30 Dose: 100 mls/hr Amino Ac/Electrol/Dextrose/Calcium (Clinimix E 5/15) 2,000 mls @ 100 mls/hr IV .BY DURATION [facility] Stop: 03/11/18 22:59 Potassium Phosphate 20 mmole/ (Sodium Chloride) 106.6667 mls @ 35 mls/hr IV Q3H [facility] Stop: 03/10/18 18:29 Last Admin: 03/10/18 15:25 Dose: 35 mls/hr Albumin Human (Albumin 25%) 25 gm in 100 mls @ 25 mls/hr IV DAILY [facility] Stop: 03/14/18 09:01 Last Admin: 03/14/18 08:01 Dose: 25 mls/hr Amino Ac/Electrol/Dextrose/Calcium (Clinimix E 5/15) 1,000 mls @ 100 mls/hr IV .Q10H [facility] Last Admin: 03/17/18 11:52 Dose: 100 mls/hr Fat Emulsion Intravenous (Intralipid 20%) 100 mls @ 8.3 mls/hr IV Q24H [facility] Stop: 03/20/18 05:00 Last Admin: 03/19/18 16:17 Dose: 8.3 mls/hr Amino Ac/Electrol/Dextrose/Calcium (Clinimix E 5/15) 1,000 mls @ 100 mls/hr IV .Q10H [facility] Stop: 03/23/18 17:59 Last Admin: 03/23/18 12:06 Dose: 100 mls/hr Fluconazole/Sodium Chloride (200 mg/ Premix) 100 mls @ 100 mls/hr IV Q24H [facility] Stop: 03/30/18 10:00 Last Admin: 03/30/18 08:11 Dose: 100 mls/hr Fluconazole/Sodium Chloride (200 mg/ Premix) 100 mls @ 100 mls/hr IV ONETIME ONE Stop: 03/21/18 10:59 Last Admin: 03/21/18 11:16 Dose: 100 mls/hr Ampicillin Sodium/Sulbactam (Sodium 3 gm/ Sodium Chloride) 100 mls @ 200 mls/ hr IV ONETIME ONE Stop: 03/21/18 09:59 Last Admin: 03/21/18 15:15 Dose: Not Given Lactated Ringer's (Ringers, Lactated) Confirm Administered Dose 1,000 mls @ as directed .ROUTE .STK-MED ONE Stop: 03/21/18 12:24 Ampicillin Sodium/Sulbactam (Sodium 3 gm/ Sodium Chloride) 100 mls @ 200 mls/ hr IV Q6H [facility] Stop: 03/23/18 16:29 Last Admin: 03/23/18 16:00 Dose: 200 mls/hr Dextrose/Lactated Ringer's (Dextrose 5%-Lactated Ringers) 1,000 mls @ 75 mls/ hr IV ASDIRECTED [facility]LDO Lactated Ringer's (Ringers, Lactated) 500 mls @ 500 mls/hr IV .BOLUS REYNALDO Last Admin: 03/21/18 23:31 Dose: 500 mls/hr Dextrose/Lactated Ringer's (Dextrose 5%-Lactated Ringers) 1,000 mls @ 25 mls/ hr IV ASDIRECTED [facility]O Last Admin: 03/25/18 08:11 Dose: 25 mls/hr Amino Ac/Electrol/Dextrose/Calcium (Clinimix E 5/15) 1,000 mls @ 100 mls/hr IV .Q10H [facility] Last Admin: 03/25/18 05:13 Dose: 100 mls/hr Acetaminophen 1,000 mg/ Premix 100 mls @ 400 mls/hr IV NOW ONE Stop: 03/25/18 08:00 Last Admin: 03/25/18 08:14 Dose: 400 mls/hr Linezolid 600 mg/ Premix 300 mls @ 300 mls/hr IV Q12H [facility] Last Admin: 03/28/18 02:29 Dose: 150 mls/hr Meropenem 1 gm/ Sodium (Chloride) 50 mls @ 100 mls/hr IV Q8H [facility] Last Admin: 03/26/18 06:26 Dose: 100 mls/hr Lactated Ringer's (Ringers, Lactated) 1,000 mls @ 500 mls/hr IV ASDIRECTED [facility] Stop: 03/25/18 15:31 Acetaminophen 1,000 mg/ Premix 100 mls @ 400 mls/hr IV Q6H [facility] Stop: 03/26/18 09:14 Last Admin: 03/26/18 02:02 Dose: 400 mls/hr Dextrose/Lactated Ringer's (Dextrose 5%-Lactated Ringers) 1,000 mls @ 125 mls/ hr IV ASDIRECTED [facility] Sodium Chloride (Normal Saline) 1,000 mls @ 999 mls/hr IV ASDIRECTED [facility] Last Infusion: 03/25/18 20:46 Dose: 500 mls/hr Dextrose/Lactated Ringer's (Dextrose 5%-Lactated Ringers) 1,000 mls @ 125 mls/ hr IV ASDIRECTED [facility] Last Admin: 03/26/18 02:29 Dose: 125 mls/hr Dextrose/Lactated Ringer's (Dextrose 5%-Lactated Ringers) 1,000 mls @ 100 mls/ hr IV ASDIRECTED [facility] Last Admin: 03/27/18 01:27 Dose: 100 mls/hr Dextrose/Lactated Ringer's (Dextrose 5%-Lactated Ringers) 1,000 mls @ 125 mls/ hr IV ASDIRECTED [facility] Stop: 03/29/18 10:59 Last Admin: 03/29/18 02:41 Dose: 125 mls/hr Ciprofloxacin/Dextrose 400 mg/ (Premix) 200 mls @ 200 mls/hr IV Q12H [facility] Last Admin: 03/28/18 09:46 Dose: 200 mls/hr Magnesium Sulfate 2 gm/ Premix 50 mls @ 25 mls/hr IV BID [facility] Stop: 04/02/18 22:59 Last Admin: 03/28/18 20:17 Dose: 25 mls/hr Potassium Phosphate 22.5 mmole (/ Sodium Chloride) 257.5 mls @ 85 mls/hr IV Q3H [facility] Stop: 03/28/18 15:29 Last Admin: 03/28/18 18:54 Dose: 85 mls/hr Linezolid 600 mg/ Premix 300 mls @ 300 mls/hr IV Q12H [facility] Last Admin: 04/01/18 02:42 Dose: 300 mls/hr Lactated Ringer's (Ringers, Lactated) Confirm Administered Dose 1,000 mls @ as directed .ROUTE .STK-MED ONE Stop: 03/29/18 08:06 Magnesium Sulfate 2 gm/ Premix 50 mls @ 25 mls/hr IV Q6HR [facility] Stop: 04/01/18 05:59 Last Admin: 03/31/18 03:07 Dose: 25 mls/hr Dextrose/Lactated Ringer's (Dextrose 5%-Lactated Ringers) 1,000 mls @ 25 mls/ hr IV ASDIRECTED [facility] Potassium Phosphate 20 mmole/ (Sodium Chloride) 106.6667 mls @ 35 mls/hr IV Q3H [facility] Stop: 03/29/18 19:59 Last Admin: 03/29/18 18:23 Dose: 35 mls/hr Amino Ac/Electrol/Dextrose/Calcium (Clinimix E 5/15) 1,000 mls @ 100 mls/hr IV .Q10H [facility] Stop: 03/30/18 16:58 Last Admin: 03/30/18 08:06 Dose: 100 mls/hr Sodium Chloride (Normal Saline) 1,000 mls @ 0 mls/hr IV ASDIRECTED [facility] Last Admin: 04/07/18 05:47 Dose: 25 mls/hr Fat Emulsion Intravenous (Intralipid 20%) 100 mls @ 8.333 mls/hr IV ONETIME ONE Stop: 03/31/18 03:59 Last Admin: 03/30/18 16:50 Dose: 8.333 mls/hr Amino Ac/Electrol/Dextrose/Calcium (Clinimix E 5/15) 1,000 mls @ 100 mls/hr IV .Q10H [facility] Stop: 03/31/18 15:45 Last Admin: 03/31/18 15:28 Dose: Not Given Magnesium Sulfate 2 gm/ Premix 50 mls @ 25 mls/hr IV TID@0600,1600,2200 [facility] Stop: 04/01/18 23:59 Last Admin: 04/01/18 21:43 Dose: 25 mls/hr Fat Emulsion Intravenous (Intralipid 20%) 100 mls @ 8.333 mls/hr IV ONETIME ONE Stop: 04/01/18 03:59 Last Admin: 03/31/18 16:05 Dose: 8.333 mls/hr Amino Ac/Electrol/Dextrose/Calcium (Clinimix E 5/20) 1,712 mls @ 107 mls/hr IV Q24H [facility] Last Admin: 04/03/18 15:52 Dose: 107 mls/hr Fat Emulsion Intravenous (Intralipid 20%) 100 mls @ 8.333 mls/hr IV ONETIME ONE Stop: 04/02/18 03:59 Last Admin: 04/01/18 15:06 Dose: 8.333 mls/hr Linezolid 600 mg/ Premix 300 mls @ 300 mls/hr IV Q12H [facility] Last Admin: 04/04/18 15:55 Dose: 300 mls/hr Fat Emulsion Intravenous (Intralipid 20%) 100 mls @ 8.333 mls/hr IV Q24H [facility] Last Admin: 04/07/18 16:07 Dose: 8.333 mls/hr Magnesium Sulfate 2 gm/ Premix 50 mls @ 25 mls/hr IV Q12H REYNALDO Stop: 04/07/18 05:59 Last Admin: 04/07/18 03:35 Dose: 25 mls/hr Doxycycline Hyclate 100 mg/ (Sodium Chloride) 100 mls @ 100 mls/hr IV Q12H REYNALDO Stop: 04/08/18 04:59 Last Admin: 04/08/18 03:58 Dose: 100 mls/hr Meropenem 500 mg/ Sodium (Chloride) 50 mls @ 100 mls/hr IV ONCALL ONE Stop: 04/08/18 09:29 Last Admin: 04/08/18 10:15 Dose: 100 mls/hr Lactated Ringer's (Ringers, Lactated) Confirm Administered Dose 1,000 mls @ as directed .ROUTE .STK-MED ONE Stop: 04/08/18 11:31 Meropenem 500 mg/ Sodium (Chloride) 50 mls @ 100 mls/hr IV Q6H [facility] Stop: 04/09/18 10:29 Last Admin: 04/09/18 10:00 Dose: 100 mls/hr Dextrose/Lactated Ringer's (Dextrose 5%-Lactated Ringers) 1,000 mls @ 0 mls/hr IV TITRATE [facility] Acetaminophen 1,000 mg/ Premix 100 mls @ 400 mls/hr IV ONETIME ONE Stop: 04/10/18 08:14 Last Admin: 04/10/18 08:23 Dose: 400 mls/hr Iohexol (Omnipaque-300) 50 ml PO .ASDIRECTED STA Stop: 03/09/18 03:43 Last Admin: 03/09/18 04:27 Dose: 50 ml Iohexol (Omnipaque-300) 50 ml IVPUSH . DIRECTED PRN PRN Reason: RADIOLOGY EXAM Stop: 03/13/18 06:56 Last Admin: 03/12/18 07:09 Dose: 50 ml Iohexol (Omnipaque-300) 50 ml PO .ASDIRECTED REYNALDO Last Admin: 03/22/18 04:39 Dose: 50 ml Iohexol (Omnipaque-300) 100 ml PO . DIRECTED REYNALDO Stop: 04/04/18 14:00 Last Admin: 04/04/18 13:05 Dose: 100 ml Iohexol (Omnipaque-300) 50 ml PO . DIRECTED PRN PRN Reason: RADIOLOGY EXAM Stop: 04/10/18 02:07 Last Admin: 04/09/18 04:10 Dose: 50 ml Ketamine HCl (Ketalar) 0 mg IV BOLUS [facility] Ketorolac Tromethamine (Toradol) 60 mg IM ONETIME ONE Stop: 03/26/18 09:01 Last Admin: 03/26/18 08:47 Dose: 60 mg Ketorolac Tromethamine (Toradol) 60 mg IM ONETIME ONE Stop: 03/27/18 09:31 Last Admin: 03/27/18 08:56 Dose: 60 mg Ketorolac Tromethamine (Toradol) 60 mg IM ONETIME PRN PRN Reason: Headache Stop: 04/02/18 08:00 Labetalol HCl (Normodyne) Confirm Administered Dose 20 mg .ROUTE .STK-MED ONE Stop: 03/08/18 12:58 Labetalol HCl (Normodyne) 5 mg IVPUSH Q5M PRN PRN Reason: SBP over 160 OR DBP over 95 Labetalol HCl (Normodyne) Confirm Administered Dose 20 mg .ROUTE .STK-MED ONE Stop: 04/08/18 11:31 Lidocaine HCl (Xylocaine 2%) 96 mg IVPUSH ASDIRECTED [facility] Lidocaine/Epinephrine (Xylocaine 1% With Epinephrine 1:100,000) Confirm Administered Dose 50 ml .ROUTE .STK-MED ONE Stop: 03/29/18 06:26 Last Admin: 03/29/18 11:12 Dose: 10 ml Lorazepam (Ativan) 0.5 mg PO BID PRN PRN Reason: Anxiety Lorazepam (Ativan) 0.5 mg IVPUSH Q2H PRN PRN Reason: Anxiety Last Admin: 04/02/18 06:34 Dose: 0.5 mg Lorazepam (Ativan Oral Concentrate 1mg/0.5 Ml U/D) 1 mg BUCCAL Q4H PRN PRN Reason: ANXIETY Lorazepam (Ativan) 1 mg IVPUSH Q4H PRN PRN Reason: Nausea Last Admin: 04/04/18 03:28 Dose: 1 mg Lorazepam (Ativan) 0.5 mg IVPUSH Q2H PRN PRN Reason: Nausea Last Admin: 04/08/18 06:50 Dose: 0.5 mg Lorazepam (Ativan) 0.5 mg IVPUSH QID [facility] Last Admin: 04/08/18 09:39 Dose: 0.5 mg Magnesium Hydroxide (Milk Of Magnesia) 30 ml PO BID [facility] Stop: 03/11/18 23:59 Last Admin: 03/11/18 22:25 Dose: 30 ml Magnesium Hydroxide (Milk Of Magnesia) 30 ml PO BID [facility] Last Admin: 03/15/18 20:07 Dose: Not Given Meropenem (Merrem) Confirm Administered Dose 500 mg .ROUTE .STK-MED ONE Stop: 03/08/18 09:21 Last Admin: 03/08/18 11:44 Dose: 500 mg Meropenem (Merrem) Confirm Administered Dose 500 mg .ROUTE .STK-MED ONE Stop: 03/21/18 07:27 Last Admin: 03/21/18 13:32 Dose: 500 mg Meropenem (Merrem) Confirm Administered Dose 500 mg .ROUTE .STK-MED ONE Stop: 04/08/18 10:44 Last Admin: 04/08/18 11:23 Dose: 500 mg Metoclopramide HCl (Reglan) 10 mg IVPUSH Q6H PRN PRN Reason: NAUSEA NOT CONTROL BY ZOFRAN Last Admin: 03/11/18 15:34 Dose: 10 mg Metoclopramide HCl (Reglan) 10 mg IVPUSH Q6H [facility] Last Admin: 03/19/18 03:58 Dose: 10 mg Metoclopramide HCl (Reglan) 10 mg IV Q6H [facility] Last Admin: 03/30/18 05:54 Dose: 10 mg Metoclopramide HCl (Reglan) 10 mg IV Q6H [facility] Last Admin: 03/31/18 05:04 Dose: 10 mg Metoclopramide HCl (Reglan) 10 mg IVPUSH Q6H PRN PRN Reason: Nausea Last Admin: 04/01/18 15:06 Dose: 10 mg Metoclopramide HCl (Reglan) 10 mg PO QID [facility] Last Admin: 04/02/18 21:56 Dose: 10 mg Metoclopramide HCl (Reglan) 10 mg IVPUSH Q6H PRN PRN Reason: Nausea Metoclopramide HCl (Reglan) 10 mg IVPUSH Q6H [facility] Last Admin: 04/08/18 15:01 Dose: Not Given Midazolam HCl (Versed 1 Mg/Ml) Confirm Administered Dose 2 mg .ROUTE .STK-MED ONE Stop: 03/13/18 08:09 Midazolam HCl (Versed 1 Mg/Ml) Confirm Administered Dose 2 mg .ROUTE .STK-MED ONE Stop: 03/17/18 07:12 Multivitamins/Iron (Child Chew Iron) 2 tab PO DAILY [facility] Last Admin: 04/08/18 11:57 Dose: Not Given Naloxone HCl (Narcan) 0.1 mg IV ASDIRECTED PRN PRN Reason: decreased respiratory rate Naloxone HCl (Narcan) 0.1 mg IV ASDIRECTED PRN PRN Reason: decreased respiratory rate Naloxone HCl (Narcan) 0.1 mg IV ASDIRECTED PRN PRN Reason: decreased respiratory rate Naloxone HCl (Narcan) 0.1 mg IV ASDIRECTED PRN PRN Reason: decreased respiratory rate Neostigmine Methylsulfate (Neostigmine) Confirm Administered Dose 5 mg .ROUTE .STK-MED ONE Stop: 03/08/18 08:55 Neostigmine Methylsulfate (Neostigmine) Confirm Administered Dose 5 mg .ROUTE .STK-MED ONE Stop: 03/21/18 09:19 Neostigmine Methylsulfate (Neostigmine) Confirm Administered Dose 5 mg .ROUTE .STK-MED ONE Stop: 03/29/18 07:16 Neostigmine Methylsulfate (Neostigmine) Confirm Administered Dose 5 mg .ROUTE .STK-MED ONE Stop: 04/08/18 07:56 Scopolamine Patch (Check) 1 each TOP DAILY [facility] Stop: 03/10/18 16:01 Non-Formulary Medication (Total Parenteral Nutrition, Central) 1,000 ml .XX .Continue Order [facility] Stop: 03/11/18 09:00 Non-Formulary Medication (Total Parenteral Nutrition, Central) 1,000 ml .XX .Continue Order RE[facility]NALDO Stop: 03/13/18 11:00 Non-Formulary Medication (Total Parenteral Nutrition, Central) 1,000 ml .XX .Continue Order RE[facility]NALDO Stop: 03/14/18 16:00 Non-Formulary Medication (Total Parenteral Nutrition, Central) 1,000 ml .XX .Continue Order RE[facility]NALDO Stop: 03/16/18 12:00 Non-Formulary Medication (Total Parenteral Nutrition, Central) 1,000 ml .XX .Continue Order RE[facility]NALDO Stop: 03/17/18 07:31 Non-Formulary Medication (Total Parenteral Nutrition, Central) 1,000 ml .XX .Continue Order RE[facility]NALDO Stop: 03/24/18 16:00 Non-Formulary Medication (Total Parenteral Nutrition, Central) 1,000 ml .XX .Continue Order RE[facility]NALDO Stop: 03/30/18 09:08 Non-Formulary Medication (Total Parenteral Nutrition, Central) 1,000 ml .XX .Continue Order [facility] Stop: 04/01/18 12:00 Verify Scop Patch 0 each TOP DAILY [facility] Last Admin: 04/08/18 13:33 Dose: Not Given Non-Formulary Medication (Total Parenteral Nutrition, Central) 1,000 ml .XX .Continue Order [facility] Stop: 04/04/18 10:00 Non-Formulary Medication (Total Parenteral Nutrition, Central) 1,000 ml .XX .Continue Order RE[facility]NALDO Stop: 04/05/18 10:00 Non-Formulary Medication (Total Parenteral Nutrition, Central) 1,000 ml .XX .Continue Order [facility] Non-Formulary Medication (Total Parenteral Nutrition, Central) 1,000 ml .XX .Continue Order [facility] Stop: 04/08/18 05:00 Non-Formulary Medication (Tap Block, Pharmacy To Dose) 0 ml NERVRT ASDIRECTED [facility] Ondansetron HCl (Zofran) Confirm Administered Dose 4 mg .ROUTE .STK-MED ONE Stop: 03/08/18 08:55 Ondansetron HCl (Zofran) 4 mg IVPUSH Q4H PRN PRN Reason: Nausea/Vomiting Last Admin: 04/01/18 12:19 Dose: 4 mg Ondansetron HCl (Zofran) Confirm Administered Dose 4 mg .ROUTE .STK-MED ONE Stop: 03/21/18 09:19 Ondansetron HCl (Zofran) Confirm Administered Dose 4 mg .ROUTE .STK-MED ONE Stop: 03/29/18 07:16 Ondansetron HCl (Zofran Odt) 4 mg PO QID [facility] Last Admin: 04/02/18 21:55 Dose: 4 mg Ondansetron HCl (Zofran) Confirm Administered Dose 4 mg .ROUTE .STK-MED ONE Stop: 04/08/18 07:56 Oxycodone HCl (Oxycodone) 5 mg PO Q4H PRN PRN Reason: Pain (severe 7-10) Last Admin: 03/12/18 03:42 Dose: 5 mg Oxycodone HCl (Oxycodone) 5 - 10 mg PO Q4H PRN PRN Reason: Pain Last Admin: 04/01/18 09:59 Dose: 10 mg Oxycodone HCl (Oxycodone Oral Concentrate 10mg/0.5 Ml U/D) 5 - 10 mg PO Q4H PRN PRN Reason: Pain Oxycodone HCl (Oxycodone Oral Concentrate 10mg/0.5 Ml U/D) 5 - 10 mg SL Q4H PRN PRN Reason: Pain Last Admin: 04/02/18 04:36 Dose: 10 mg Oxycodone HCl (Oxycodone Oral Concentrate 10mg/0.5 Ml U/D) 10 mg SL Q3H PRN PRN Reason: Pain Last Admin: 04/06/18 03:22 Dose: 10 mg Pantoprazole Sodium (Protonix Iv) 40 mg IVPUSH Q24H [facility] Last Admin: 03/10/18 15:35 Dose: 40 mg Pantoprazole Sodium (Protonix Granules) 40 mg PO Q24H [facility] Last Admin: 03/14/18 16:13 Dose: 40 mg Pantoprazole Sodium (Protonix Granules) 40 mg PO DAILY@0730 [facility] Last Admin: 03/15/18 08:57 Dose: 40 mg Pantoprazole Sodium (Protonix Granules) 40 mg PO BIDAC [facility] Last Admin: 03/16/18 15:34 Dose: 40 mg Pantoprazole Sodium (Protonix Iv) 40 mg IVPUSH Q12H [facility] Last Admin: 04/04/18 08:37 Dose: 40 mg Pantoprazole Sodium (Protonix Iv) 40 mg IVPUSH Q12H [facility] Last Admin: 04/08/18 08:31 Dose: 40 mg Estradiol 1mg Tabs (Pom) 0 each PO DAILY [facility] Stop: 04/08/18 11:00 Last Admin: 04/08/18 11:57 Dose: Not Given Estradiol 1mg Tabs (Pom) 0 each PO DAILY [facility] Pharmacy Consult (Consult To Pharmacy) 1 each .XX ASDIRECTED [facility] Pharmacy Consult (Consult To Pharmacy) 1 each .XX ASDIRECTED [facility] Stop: 03/08/18 17:04 Pharmacy Consult (Consult To Pharmacy) 1 each .XX ASDIRECTED [facility] Stop: 04/08/18 18:00 Propofol (Diprivan 20 Ml) Confirm Administered Dose 200 mg .ROUTE .STK-MED ONE Stop: 03/08/18 08:55 Propofol (Diprivan 20 Ml) Confirm Administered Dose 200 mg .ROUTE .STK-MED ONE Stop: 03/13/18 08:09 Propofol (Diprivan 20 Ml) Confirm Administered Dose 200 mg .ROUTE .STK-MED ONE Stop: 03/17/18 07:12 Propofol (Diprivan 20 Ml) Confirm Administered Dose 200 mg .ROUTE .STK-MED ONE Stop: 03/21/18 09:19 Propofol (Diprivan 20 Ml) Confirm Administered Dose 200 mg .ROUTE .STK-MED ONE Stop: 03/29/18 07:16 Propofol (Diprivan 20 Ml) Confirm Administered Dose 200 mg .ROUTE .STK-MED ONE Stop: 04/08/18 07:56 Rocuronium [place] (Zemuron) Confirm Administered Dose 50 mg .ROUTE .STK-MED ONE Stop: 03/08/18 08:55 Rocuronium [place] (Zemuron) Confirm Administered Dose 50 mg .ROUTE .STK-MED ONE Stop: 03/08/18 11:45 Rocuronium [place] (Zemuron) Confirm Administered Dose 100 mg .ROUTE .STK-MED ONE Stop: 03/08/18 12:57 Rocuronium [place] (Zemuron) Confirm Administered Dose 50 mg .ROUTE .STK-MED ONE Stop: 03/21/18 09:19 Rocuronium [place] (Zemuron) Confirm Administered Dose 50 mg .ROUTE .STK-MED ONE Stop: 03/29/18 07:16 Rocuronium [place] (Zemuron) Confirm Administered Dose 50 mg .ROUTE .STK-MED ONE Stop: 04/08/18 07:56 Rocuronium [place] (Zemuron) Confirm Administered Dose 50 mg .ROUTE .STK-MED ONE Stop: 04/08/18 11:35 Scopolamine (Transderm-Scop) 1.5 mg TOP Q48H [facility] Last Admin: 04/07/18 10:20 Dose: Not Given Succinylcholine Chloride (Quelicin) Confirm Administered Dose 200 mg .ROUTE .STK -MED ONE Stop: 03/08/18 08:55 Succinylcholine Chloride (Quelicin) Confirm Administered Dose 200 mg .ROUTE .STK -MED ONE Stop: 03/21/18 09:19 Succinylcholine Chloride (Quelicin) Confirm Administered Dose 200 mg .ROUTE .STK -MED ONE Stop: 03/29/18 07:16 Succinylcholine Chloride (Quelicin) Confirm Administered Dose 200 mg .ROUTE .[facility] -MED ONE Stop: 04/08/18 07:56 - Exam General: Alert, Oriented, Cooperative, Mild Distress Lungs: Clear to Auscultation, Normal Respiratory Effort Cardiovascular: Regular Rate, Regular Rhythm, No Murmurs GI/Abdominal Exam: Soft, No Organomegaly, Tender. No: Distended, Guarding, Rigid, Rebound Consult PN Assessment/Plan Procedures: Procedures ASSAY OF LACTIC ACID (02/07/18) ASSAY OF LIPASE (02/07/18) C DIFF AMPLIFIED PROBE (02/09/18) COMPLETE CBC W/AUTO DIFF WBC (02/07/18) COMPREHEN METABOLIC PANEL (02/07/18) CT ABD & PELV W/CONTRAST (02/07/18) EMERGENCY DEPT VISIT (02/07/18) ROUTINE VENIPUNCTURE (02/07/18) THER/PROPH/DIAG INJ IV PUSH (02/07/18) TX/PRO/DX INJ NEW DRUG ADDON (02/07/18) URINALYSIS AUTO W/SCOPE (02/07/18) Problem List Initiated/Reviewed/Updated: Yes My Orders Last 24 Hours: My Active Orders 04/10/18 21:00 Melatonin 9 mg PO BEDTIME Plan: ASSESSMENT AND RECOMMENDATIONS PERSISTENT NAUSEA AND VOMITING-vomiting now improved but she has had ongoing difficulty with persistent nausea -Continue regimen as ordered by Dr. Atkinson -As needed lorazepam -Consider management of depression, patient currently refuses antidepressant therapy DEPRESSION-likely a factor in ongoing symptoms. Discussed initiating therapy which she refuses at the present time -Rediscuss antidepressive therapy over the next few days CENTRAL LINE CATHETER INFECTION-resolved, currently off of antibiotic therapy STATUS POST OZZY-EN-Y REVISION FOR MANAGEMENT OF GASTROPARESIS -Postoperative care per Dr. Atkinson Will plan to follow-up on cortisol level, hospitalist service will otherwise sign off on the patient at this time. If we can be of further assistance in ongoing management please feel free to reconsult.
[2018-04-10] MEDS ORDERED: Divalproex Sodium Delayed-Release 250 MG Tab.CR PO SCH (11:00)
[2018-04-10] MEDS ORDERED: Citalopram 20 MG Tab PO SCH (11:00)
[2018-04-10] MEDS: CALCIUM IV SCH (15:22)
[2018-04-10] MEDS: [UNRECOGNIZED DRUG - OTHER] IV SCH (15:22)
[2018-04-10] MEDS: LYTES IV SCH (15:22)
[2018-04-10] MEDS: Cyclobenzaprine 10 MG Tab PO PRN ×2 (16:21→22:40)
[2018-04-10] MEDS: Melatonin 3 MG Tab PO SCH (20:28)
[2018-04-11] MEDS: Ondansetron 4 MG/2 ML SDV IVPUSH PRN ×3 (01:25→21:58)
[2018-04-11] MEDS: LORazepam 2 MG/ML SDV IVPUSH PRN ×2 (02:05→06:00)
[2018-04-11] MEDS: Metoclopramide 10 MG/2 ML SDV IVPUSH PRN (02:48)
[2018-04-11] MEDS: Cyclobenzaprine 10 MG Tab PO PRN ×2 (05:59→21:58)
[2018-04-11] MEDS: Clotrimazole 10 MG Troche PO SCH ×5 (06:14→22:53)
[2018-04-11] MEDS ORDERED: Lidocaine 2% Viscous Solution 15 ML Cup PO PRN (06:58)
[2018-04-11] MEDS ORDERED: Central Total Parenteral Nutrition Bag SCH (07:00)
--- NOTE | 2018-04-11 08:06 | PN ---
DATE OF SERVICE: 04/11/2018 SUBJECTIVE: Trisha had her last surgery on 04/08/2018. She had a consult with Dr. Schulz in regard to starting antidepressants and ongoing nausea and vomiting. The stomach has been emptying well. She remains to be very depressed with flat affect and low energy. She refused to take the melatonin last evening and Dr. Rajesh Schulz offered her antidepressant, and she refused to take that also. She continues to have quite a bit in the way of nausea. Oral intake is 105 and urine output is 2150. Ej-Kelley drains #1 and #2 put out 55 and 20 respectively. She states pain is controlled. REVIEW OF SYSTEMS: The remainder of review of systems is negative for any pertinent positives and negatives. OBJECTIVE: GENERAL: Trisha Wilcox is a 52-year-old female. She does appear quite depressed. She answers questions with one-word answers. She continues to decline antidepressants and melatonin for sleep. VITAL SIGNS: Temperature is 96.2, pulse is 118, respirations are 18, and blood pressure is 138/85. HEENT: Negative. NECK: Supple. HEART: Regular rate and rhythm. PULMONARY: Lungs are clear. ABDOMEN: Dressings are dry and intact. JOSUE drains are intact. EXTREMITIES: Without peripheral edema. ASSESSMENT: Exploratory laparotomy with total gastrectomy, with Ozzy-en-Y gastrojejunostomy and takedown of gastrostomy tube and placement of Interceed mesh for gastroparesis refractory to medical management, status gastrostomy, and removal of extensive intra- abdominal adhesions. Date of surgery was 04/08/2018. PLAN: 1. Viscous lidocaine 15 mL every four hours p.r.n. for abdominal pain or swelling. 2. Continue same TPN rate and contents. 3. To keep windows and SAD light on at all times. Try to sit up in the chair as much as possible. Ambulate six times daily. 4. We will evaluate p.r.n. or in a.m. Peri Zambrano PA-C /[id number]
[2018-04-11] MEDS: Pantoprazole 40 MG Vial IVPUSH SCH (08:22)
--- NOTE | 2018-04-11 09:09 | CR ---
UGI wo KUB HISTORY: eval R -Y GBP FINDINGS: After administration of oral contrast, upright views were obtained. Post operative changes gastric bypass. Surgical drains in place. No evidence for leak. Contrast passes freely into proximal small bowel loops. IMPRESSION: No evidence for leak or obstruction.
--- NOTE | 2018-04-11 11:29 | PCM.CONSN ---
- General Info Date of Service: 04/11/18 Subjective Update: there were no acute events overnight. The patient continues to complain of a fair amount of nausea though she does think it's a little better today. She has done little better with oral intake but still has very poor intake. I expressed my concerns about depression and explained the behaviors that are being displayed and why we are concerned about depression. She denies being depressed. She said she just wants to go home. She has no interest in starting on an antidepressant. Functional Status: Reports: Pain Controlled, Tolerating Diet - Review of Systems General: Denies: Fever Gastrointestinal: Reports: Nausea - Patient Data Vitals - Most Recent: Last Vital Signs Temp 35.9 C 04/11/18 11:09 Pulse 115 H 04/11/18 11:09 Resp 18 04/11/18 11:09 BP 138/92 H 04/11/18 11:09 Pulse Ox 99 04/11/18 11:09 Weight - Most Recent: 68.855 kg I&O - Last 24 Hours: Intake & Output 04/10/18 04/11/18 04/11/18 22:59 06:59 14:59 Intake Total 460 1971 Output Total 1645 530 Balance -1185 1441 Lab Results Last 24 Hours: Laboratory Results - last 24 hr 04/07/18 04/11/18 04/11/18 Range/Units 04:00 04:35 04:35 WBC 12.5 H (4.5-11.0) K/uL RBC 3.35 (3.30-5.50) M/uL Hgb 9.7 L (12.0-15.0) g/dL Hct 30.5 L (36.0-48.0) % MCV 91 (80-98) fL MCH 29 (27-31) pg MCHC 32 (32-36) % Plt Count 284 (150-400) K/uL Sodium 131 L (140-148) mmol/L Potassium 4.3 (3.6-5.2) mmol/L Chloride 95 L (100-108) mmol/L Carbon Dioxide 28 (21-32) mmol/L Anion Gap 12.3 (5.0-14.0) mmol/L BUN 14 (7-18) mg/dL Creatinine 0.6 (0.6-1.0) mg/dL Est Cr Clr Drug Dosing 106.66 mL/min Estimated GFR (MDRD) > 60 (>60) Glucose 151 H (74-106) mg/dL Calcium 8.5 (8.5-10.1) mg/dL Phosphorus 2.5 (2.5-4.9) mg/dL Total Bilirubin 0.4 (0.2-1.0) mg/dL AST 9 L (15-37) U/L ALT 15 (12-78) U/L Alkaline Phosphatase 88 (46-116) U/L Total Protein 5.8 L (6.4-8.2) g/dL Albumin 2.3 L (3.4-5.0) g/dL Globulin 3.5 (2.3-3.5) g/dL Albumin/Globulin Ratio 0.7 L (1.2-2.2) TSH, Ultra Sensitive (0.358-3.740) uIU/mL Crossmatch See Detail 04/11/18 Range/Units 10:59 WBC (4.5-11.0) K/uL RBC (3.30-5.50) M/uL Hgb (12.0-15.0) g/dL Hct (36.0-48.0) % MCV (80-98) fL MCH (27-31) pg MCHC (32-36) % Plt Count (150-400) K/uL Sodium (140-148) mmol/L Potassium (3.6-5.2) mmol/L Chloride (100-108) mmol/L Carbon Dioxide (21-32) mmol/L Anion Gap (5.0-14.0) mmol/L BUN (7-18) mg/dL Creatinine (0.6-1.0) mg/dL Est Cr Clr Drug Dosing mL/min Estimated GFR (MDRD) (>60) Glucose (74-106) mg/dL Calcium (8.5-10.1) mg/dL Phosphorus (2.5-4.9) mg/dL Total Bilirubin (0.2-1.0) mg/dL AST (15-37) U/L ALT (12-78) U/L Alkaline Phosphatase (46-116) U/L Total Protein (6.4-8.2) g/dL Albumin (3.4-5.0) g/dL Globulin (2.3-3.5) g/dL Albumin/Globulin Ratio (1.2-2.2) TSH, Ultra Sensitive 0.345 L (0.358-3.740) uIU/mL Crossmatch Med Orders - Current: Current Medications Benzocaine/Menthol (Cepacol Sore Throat) 1 lozenge MUCMEM ASDIRECTED PRN PRN Reason: Sore Throat Last Admin: 03/22/18 09:19 Dose: 1 lozenge Clotrimazole (Mycelex) 10 mg PO 5XDAY [facility] Last Admin: 04/11/18 11:00 Dose: Not Given Cyclobenzaprine HCl (Flexeril) 10 mg PO Q6H PRN PRN Reason: MUSCLE SPASM Last Admin: 04/11/18 05:59 Dose: 10 mg Diphenhydramine HCl (Benadryl) 50 mg IVPUSH Q4H PRN PRN Reason: ITCHING Heparin Sodium (Porcine) (Heparin Lock Flush 100 Units/Ml) 500 units FLUSH ASDIRECTED PRN PRN Reason: Flush central line Last Admin: 04/08/18 08:22 Dose: 500 units Hydromorphone HCl (Dilaudid System Support Developer 15 Mg In Ns 30 Ml) 0 mg IV ASDIRECTED PRN; Protocol PRN Reason: MEAT GRINDER PAIN CONTROL Last Admin: 04/10/18 03:19 Dose: 15 mg Hydroxyzine HCl (Vistaril) 100 mg IM Q4H PRN PRN Reason: pain Last Admin: 04/10/18 21:55 Dose: 100 mg Amino Ac/Electrol/Dextrose/Calcium (Clinimix E 08/15) 1,712 mls @ 107 mls/hr IV Q24H [facility] Last Admin: 04/10/18 15:22 Dose: 107 mls/hr Dextrose/Sodium Chloride (Dextrose 5%-Normal Saline) 1,000 mls @ 0 mls/hr IV TITRATE [facility] Last Infusion: 04/10/18 06:56 Dose: 60 mls/hr Labetalol HCl (Normodyne) 5 mg IVPUSH Q5M PRN PRN Reason: SBP over 160 OR DBP over 95 Lidocaine HCl (Xylocaine 2% Viscous) 15 ml PO Q4H PRN PRN Reason: Abdominal Pain Lorazepam (Ativan) 0.5 mg IVPUSH Q4H PRN PRN Reason: ANXIETY/NAUSEA Last Admin: 04/11/18 06:00 Dose: 0.5 mg Melatonin (Melatonin) 9 mg PO BEDTIME [facility] Last Admin: 04/10/18 20:28 Dose: Not Given Metoclopramide HCl (Reglan) 10 mg IVPUSH Q6H PRN PRN Reason: NAUSEA NOT CONTROL BY ZOFRAN Last Admin: 04/11/18 02:48 Dose: 10 mg Naloxone HCl (Narcan) 0.1 mg IV ASDIRECTED PRN PRN Reason: decreased respiratory rate Check Scopolamine (Patch Daily) 1 each .XX DAILY [facility] Last Admin: 04/11/18 08:21 Dose: Not Given Ondansetron HCl (Zofran) 4 mg IVPUSH Q4H PRN PRN Reason: Nausea/Vomiting Last Admin: 04/11/18 01:25 Dose: 4 mg Pantoprazole Sodium (Protonix) 40 mg PO ACBREAKFAST [facility] Scopolamine (Transderm-Scop) 1.5 mg TRDERM Q72H PRN PRN Reason: Nausea/Vomiting Last Admin: 04/10/18 05:05 Dose: 1.5 mg Sodium Chloride (Saline Flush) 10 ml FLUSH ASDIRECTED PRN PRN Reason: Keep Vein Open Last Admin: 04/04/18 15:45 Dose: 10 ml Discontinued Medications Acetaminophen (Tylenol Extra Strength) 1,000 mg PO ONETIME ONE Stop: 03/08/18 08:16 Last Admin: 03/08/18 08:32 Dose: 1,000 mg Acetaminophen (Tylenol) 650 mg PO Q6H [facility] Last Admin: 03/16/18 22:25 Dose: Not Given Acetaminophen (Tylenol) 650 mg PO Q4H PRN PRN Reason: Pain OR HEADACHE Last Admin: 03/25/18 03:20 Dose: 650 mg Bisacodyl (Dulcolax) 10 mg RECTAL BID [facility] Last Admin: 03/25/18 20:12 Dose: Not Given Bisacodyl (Dulcolax) 10 mg RECTAL BID PRN PRN Reason: Constipation Last Admin: 04/02/18 22:03 Dose: 10 mg Bisacodyl (Dulcolax) 10 mg RECTAL ONETIME ONE Stop: 03/28/18 08:16 Last Admin: 03/28/18 09:46 Dose: 10 mg Bupivacaine HCl (Marcaine 0.5%) Confirm Administered Dose 50 ml .ROUTE .[facility] ONE Stop: 03/29/18 06:26 Last Admin: 03/29/18 11:11 Dose: 10 ml Bupivacaine HCl/Epinephrine Bitart (Marcaine 0.5%/Epinephrine 1:200,000) Confirm Administered Dose 50 ml .ROUTE .[facility] ONE Stop: 03/21/18 07:27 Calcium Carbonate/Glycine (Tums) 1,000 mg PO Q2H PRN PRN Reason: Indigestion Last Admin: 03/14/18 21:09 Dose: 1,000 mg Celecoxib (Celebrex) 200 mg PO ONETIME ONE Stop: 03/08/18 08:16 Last Admin: 03/08/18 08:32 Dose: 200 mg Celecoxib (Celebrex) 200 mg PO DAILY@0800 [facility] Last Admin: 03/09/18 08:40 Dose: 200 mg Citalopram Hydrobromide (Celexa) 20 mg PO DAILY [facility] Clindamycin Phosphate (Cleocin) Confirm Administered Dose 900 mg .ROUTE .[facility] ONE Stop: 03/29/18 08:46 Last Admin: 03/29/18 11:12 Dose: 900 mg Clotrimazole (Mycelex) 10 mg PO 5XDAY [facility] Last Admin: 04/05/18 06:20 Dose: Not Given Clotrimazole (Mycelex) 10 mg PO 5XDAY PRN PRN Reason: Other Last Admin: 04/09/18 20:02 Dose: 10 mg Ropivacaine 34 ml/Dexamethasone 8 mg/Epinephrine HCl 0.4 mg/ Sodium Chloride 43.6 ml 0 ml NERVRT ASDIRECTED [facility] Last Admin: 03/08/18 11:15 Dose: 80 syringe Ropivacaine 35 ml/Dexamethasone 8 mg/Epinephrine HCl 0.4 mg/ Sodium Chloride 42.6 ml 0 ml NERVRT ASDIRECTED [facility] Last Admin: 03/21/18 13:32 Dose: 80 syringe Ropivacaine 33 ml/Dexamethasone 8 mg/Epinephrine HCl 0.4 mg/ Sodium Chloride 44.6 ml 0 ml NERVRT ASDIRECTED [facility] Last Admin: 04/08/18 11:35 Dose: 80 syringe Cyanocobalamin (Vitamin B12) 1,000 mcg IM ONETIME ONE Stop: 03/10/18 09:01 Last Admin: 03/10/18 08:34 Dose: Not Given Cyanocobalamin (Vitamin B12) 1,000 mcg IM ONETIME ONE Stop: 04/10/18 09:01 Last Admin: 04/10/18 08:23 Dose: 1,000 mcg Cyclobenzaprine HCl (Flexeril) 10 mg PO Q6H PRN PRN Reason: muscle spasms Last Admin: 03/16/18 14:30 Dose: 10 mg Cyclobenzaprine HCl (Flexeril) 10 mg PO Q6H PRN PRN Reason: MUSCLE SPASM Last Admin: 03/31/18 19:52 Dose: 10 mg Cyclobenzaprine HCl (Flexeril) 10 mg PO Q6H PRN PRN Reason: Spasms Last Admin: 04/10/18 08:23 Dose: 10 mg Dexamethasone (Dexamethasone) Confirm Administered Dose 4 mg .ROUTE .[facility]-MED ONE Stop: 03/08/18 08:55 Dexamethasone (Dexamethasone) Confirm Administered Dose 4 mg .ROUTE .[facility]-MED ONE Stop: 03/21/18 09:19 Dexamethasone (Dexamethasone) Confirm Administered Dose 4 mg .ROUTE .[facility]-MED ONE Stop: 03/29/18 07:16 Dexamethasone (Dexamethasone) Confirm Administered Dose 4 mg .ROUTE .[facility]-MED ONE Stop: 04/08/18 07:56 Diphenhydramine HCl (Benadryl) 50 mg IVPUSH Q4H PRN PRN Reason: ITCHING Last Admin: 03/28/18 10:30 Dose: 50 mg Diphenhydramine HCl (Benadryl) 50 mg IVPUSH Q4H PRN PRN Reason: ITCHING Divalproex Sodium (Divalproex Sodium) 250 mg PO BIDMEALS [facility] Erythromycin Ethylsuccinate (Eryped 400) 50 mg PO QID [facility] Last Admin: 03/16/18 05:30 Dose: Not Given Erythromycin Ethylsuccinate (Eryped 400) 100 mg GTUBE Q6HR [facility] Last Admin: 04/07/18 03:34 Dose: Not Given Famotidine (Pepcid) 20 mg IVPUSH BID [facility] Last Admin: 04/06/18 20:48 Dose: 20 mg Fentanyl (Sublimaze) Confirm Administered Dose 250 mcg .ROUTE .[facility]-MED ONE Stop: 03/08/18 08:55 Fentanyl (Sublimaze) Confirm Administered Dose 250 mcg .ROUTE .[facility]-MED ONE Stop: 03/08/18 11:44 Fentanyl (Sublimaze) Confirm Administered Dose 250 mcg .ROUTE .[facility]-MED ONE Stop: 03/08/18 12:18 Fentanyl (Sublimaze) Confirm Administered Dose 100 mcg .ROUTE .[facility]-MED ONE Stop: 03/13/18 08:08 Fentanyl (Sublimaze) Confirm Administered Dose 100 mcg .ROUTE .[facility]-MED ONE Stop: 03/17/18 07:12 Fentanyl (Sublimaze) Confirm Administered Dose 250 mcg .ROUTE .[facility]-MED ONE Stop: 03/21/18 09:19 Fentanyl (Sublimaze) Confirm Administered Dose 250 mcg .ROUTE .[facility]-MED ONE Stop: 03/21/18 13:01 Fentanyl (Sublimaze) Confirm Administered Dose 250 mcg .ROUTE .[facility]-MED ONE Stop: 03/29/18 07:17 Fentanyl (Sublimaze) Confirm Administered Dose 100 mcg .ROUTE .[facility]-MED ONE Stop: 03/29/18 09:16 Fentanyl (Sublimaze) Confirm Administered Dose 250 mcg .ROUTE .[facility]-MED ONE Stop: 04/08/18 07:56 Fentanyl (Sublimaze) Confirm Administered Dose 250 mcg .ROUTE .ST[facility]-MED ONE Stop: 04/08/18 10:56 Fentanyl (Sublimaze) Confirm Administered Dose 250 mcg .ROUTE .[facility]-MED ONE Stop: 04/08/18 12:20 Fentanyl Citrate (Fentanyl In Ns 20 Mcg/Ml 30 Ml System Support Developer) 0 mcg IV ASDIRECTED PRN; Protocol PRN Reason: PAIN Stop: 03/21/18 11:00 Last Admin: 03/19/18 16:28 Dose: 600 mcg Glycopyrrolate (Robinul) Confirm Administered Dose 1 mg .ROUTE .ST[facility]-MED ONE Stop: 03/08/18 08:55 Glycopyrrolate (Robinul) Confirm Administered Dose 1 mg .ROUTE .STK-MED ONE Stop: 03/21/18 09:19 Glycopyrrolate (Robinul) Confirm Administered Dose 1 mg .ROUTE .STK-MED ONE Stop: 03/29/18 07:16 Glycopyrrolate (Robinul) Confirm Administered Dose 1 mg .ROUTE .STK-MED ONE Stop: 04/08/18 07:56 Heparin Sodium (Porcine) (Heparin Lock Flush 100 Units/Ml) Confirm Administered Dose 500 units .ROUTE .ST[facility]-MED ONE Stop: 03/08/18 10:07 Last Admin: 03/08/18 11:13 Dose: 500 units Heparin Sodium (Porcine) (Heparin Lock Flush 100 Units/Ml) 500 units FLUSH ASDIRECTED PRN PRN Reason: Flush central line Last Admin: 04/07/18 08:28 Dose: 500 units Heparin Sodium (Porcine) (Heparin Lock Flush 100 Units/Ml) Confirm Administered Dose 1,500 units .ROUTE .ST[facility]-MED ONE Stop: 03/29/18 06:26 Last Admin: 03/29/18 11:11 Dose: 1,500 units Hydromorphone HCl (Dilaudid System Support Developer 15 Mg In Ns 30 Ml) 0 mg IV ASDIRECTED PRN; Protocol PRN Reason: Pain Last Admin: 03/11/18 01:54 Dose: 15 mg Hydromorphone HCl (Dilaudid System Support Developer 15 Mg In Ns 30 Ml) 0 mg IV ASDIRECTED PRN; Protocol PRN Reason: Pain Last Admin: 03/13/18 19:42 Dose: 15 mg Hydromorphone HCl (Dilaudid) 2 - 4 mg PO Q4H PRN PRN Reason: Pain Last Admin: 03/16/18 12:58 Dose: 4 mg Hydromorphone HCl (Dilaudid System Support Developer 15 Mg In Ns 30 Ml) 0 mg IV ASDIRECTED PRN; Protocol PRN Reason: PAIN Last Admin: 03/18/18 02:51 Dose: 15 mg Hydromorphone HCl (Dilaudid System Support Developer 15 Mg In Ns 30 Ml) 0 mg IV ASDIRECTED PRN; Protocol PRN Reason: MEAT GRINDER PAIN CONTROL Last Admin: 03/22/18 21:43 Dose: 15 mg Hydromorphone HCl (Dilaudid) 1 mg IVPUSH Q4H PRN PRN Reason: Pain (moderate 4-6) Hydromorphone HCl (Dilaudid System Support Developer 15 Mg In Ns 30 Ml) 0 mg IV ASDIRECTED PRN; Protocol PRN Reason: MEAT GRINDER PAIN CONTROL Last Admin: 03/29/18 09:57 Dose: 15 mg Hydroxyzine HCl (Vistaril) 100 mg IM ONETIME ONE Stop: 03/08/18 15:30 Last Admin: 03/08/18 15:34 Dose: 100 mg Hydroxyzine HCl (Vistaril) 100 mg IM Q4H PRN PRN Reason: pain Last Admin: 03/12/18 23:48 Dose: 100 mg Hydroxyzine HCl (Atarax) 50 mg PO Q4H PRN PRN Reason: Pain (Severe 7-10) Last Admin: 03/15/18 04:19 Dose: 50 mg Hyoscyamine (Hyomax-Sl) 0.125 mg SL QID [facility] Last Admin: 03/28/18 05:05 Dose: Not Given Cefoxitin Sodium 2 gm/ Sodium (Chloride) 50 mls @ 100 mls/hr IV ONETIME ONE Stop: 03/08/18 09:59 Dextrose/Lactated Ringer's (Dextrose 5%-Lactated Ringers) 1,000 mls @ 100 mls/ hr IV ASDIRECTED [facility] Last Admin: 03/08/18 08:32 Dose: 100 mls/hr Lidocaine HCl/Dextrose (Lidocaine 2 Gm/D5w 500 Ml) 2 gm in 500 mls @ 15 mls/hr IV .Q24H [facility] Stop: 03/09/18 16:00 Last Admin: 03/09/18 12:48 Dose: Not Given Ketamine HCl 50 mg/ Sodium (Chloride) 50 mls @ 18.82 mls/hr IV ASDIRECTED [facility] Cefoxitin Sodium 2 gm/ Sodium (Chloride) 50 mls @ 100 mls/hr IV ONETIME ONE Stop: 03/08/18 09:59 Last Admin: 03/08/18 10:45 Dose: 100 mls/hr Lactated Ringer's (Ringers, Lactated) Confirm Administered Dose 1,000 mls @ as directed .ROUTE .STK-MED ONE Stop: 03/08/18 11:47 Lactated Ringer's (Ringers, Lactated) Confirm Administered Dose 1,000 mls @ as directed .ROUTE .STK-MED ONE Stop: 03/08/18 14:06 Dextrose/Lactated Ringer's (Dextrose 5%-Lactated Ringers) 1,000 mls @ 200 mls/ hr IV ASDIRECTED [facility] Last Admin: 03/09/18 05:21 Dose: 200 mls/hr Cefoxitin Sodium 2 gm/ Sodium (Chloride) 50 mls @ 100 mls/hr IV Q6H [facility] Last Admin: 03/15/18 09:05 Dose: 100 mls/hr Dextrose/Lactated Ringer's (Dextrose 5%-Lactated Ringers) 1,000 mls @ 75 mls/ hr IV ASDIRECTED [facility] Last Admin: 03/21/18 16:13 Dose: 25 mls/hr Magnesium Sulfate 2 gm/ Premix 50 mls @ 25 mls/hr IV Q6H [facility] Stop: 03/12/18 05:59 Last Admin: 03/12/18 03:25 Dose: 25 mls/hr Dextrose/Lactated Ringer's (Dextrose 5%-Lactated Ringers) 1,000 mls @ 100 mls/ hr IV ASDIRECTED [facility] Stop: 03/09/18 17:59 Amino Ac/Electrol/Dextrose/Calcium (Clinimix E 5/15) 2,000 mls @ 100 mls/hr IV .BY DURATION [facility] Stop: 03/11/18 22:59 Last Admin: 03/11/18 03:30 Dose: 100 mls/hr Amino Ac/Electrol/Dextrose/Calcium (Clinimix E 5/15) 2,000 mls @ 100 mls/hr IV .BY DURATION [facility] Stop: 03/11/18 22:59 Potassium Phosphate 20 mmole/ (Sodium Chloride) 106.6667 mls @ 35 mls/hr IV Q3H [facility] Stop: 03/10/18 18:29 Last Admin: 03/10/18 15:25 Dose: 35 mls/hr Albumin Human (Albumin 25%) 25 gm in 100 mls @ 25 mls/hr IV DAILY [facility] Stop: 03/14/18 09:01 Last Admin: 03/14/18 08:01 Dose: 25 mls/hr Amino Ac/Electrol/Dextrose/Calcium (Clinimix E 5/15) 1,000 mls @ 100 mls/hr IV .Q10H [facility] Last Admin: 03/17/18 11:52 Dose: 100 mls/hr Fat Emulsion Intravenous (Intralipid 20%) 100 mls @ 8.3 mls/hr IV Q24H [facility] Stop: 03/20/18 05:00 Last Admin: 03/19/18 16:17 Dose: 8.3 mls/hr Amino Ac/Electrol/Dextrose/Calcium (Clinimix E 5/15) 1,000 mls @ 100 mls/hr IV .Q10H [facility] Stop: 03/23/18 17:59 Last Admin: 03/23/18 12:06 Dose: 100 mls/hr Fluconazole/Sodium Chloride (200 mg/ Premix) 100 mls @ 100 mls/hr IV Q24H [facility] Stop: 03/30/18 10:00 Last Admin: 03/30/18 08:11 Dose: 100 mls/hr Fluconazole/Sodium Chloride (200 mg/ Premix) 100 mls @ 100 mls/hr IV ONETIME ONE Stop: 03/21/18 10:59 Last Admin: 03/21/18 11:16 Dose: 100 mls/hr Ampicillin Sodium/Sulbactam (Sodium 3 gm/ Sodium Chloride) 100 mls @ 200 mls/ hr IV ONETIME ONE Stop: 03/21/18 09:59 Last Admin: 03/21/18 15:15 Dose: Not Given Lactated Ringer's (Ringers, Lactated) Confirm Administered Dose 1,000 mls @ as directed .ROUTE .[facility]-MED ONE Stop: 03/21/18 12:24 Ampicillin Sodium/Sulbactam (Sodium 3 gm/ Sodium Chloride) 100 mls @ 200 mls/ hr IV Q6H [facility] Stop: 03/23/18 16:29 Last Admin: 03/23/18 16:00 Dose: 200 mls/hr Dextrose/Lactated Ringer's (Dextrose 5%-Lactated Ringers) 1,000 mls @ 75 mls/ hr IV ASDIRECTED [facility] Lactated Ringer's (Ringers, Lactated) 500 mls @ 500 mls/hr IV .BOLUS [facility] Last Admin: 03/21/18 23:31 Dose: 500 mls/hr Dextrose/Lactated Ringer's (Dextrose 5%-Lactated Ringers) 1,000 mls @ 25 mls/ hr IV ASDIRECTED [facility] Last Admin: 03/25/18 08:11 Dose: 25 mls/hr Amino Ac/Electrol/Dextrose/Calcium (Clinimix E 5/15) 1,000 mls @ 100 mls/hr IV .Q10H [facility] Last Admin: 03/25/18 05:13 Dose: 100 mls/hr Acetaminophen 1,000 mg/ Premix 100 mls @ 400 mls/hr IV NOW ONE Stop: 03/25/18 08:00 Last Admin: 03/25/18 08:14 Dose: 400 mls/hr Linezolid 600 mg/ Premix 300 mls @ 300 mls/hr IV Q12H [facility] Last Admin: 03/28/18 02:29 Dose: 150 mls/hr Meropenem 1 gm/ Sodium (Chloride) 50 mls @ 100 mls/hr IV Q8H [facility] Last Admin: 03/26/18 06:26 Dose: 100 mls/hr Lactated Ringer's (Ringers, Lactated) 1,000 mls @ 500 mls/hr IV ASDIRECTED [facility] Stop: 03/25/18 15:31 Acetaminophen 1,000 mg/ Premix 100 mls @ 400 mls/hr IV Q6H [facility] Stop: 03/26/18 09:14 Last Admin: 03/26/18 02:02 Dose: 400 mls/hr Dextrose/Lactated Ringer's (Dextrose 5%-Lactated Ringers) 1,000 mls @ 125 mls/ hr IV ASDIRECTED [facility] Sodium Chloride (Normal Saline) 1,000 mls @ 999 mls/hr IV ASDIRECTED [facility] Last Infusion: 03/25/18 20:46 Dose: 500 mls/hr Dextrose/Lactated Ringer's (Dextrose 5%-Lactated Ringers) 1,000 mls @ 125 mls/ hr IV ASDIRECTED [facility] Last Admin: 03/26/18 02:29 Dose: 125 mls/hr Dextrose/Lactated Ringer's (Dextrose 5%-Lactated Ringers) 1,000 mls @ 100 mls/ hr IV ASDIRECTED [facility] Last Admin: 03/27/18 01:27 Dose: 100 mls/hr Dextrose/Lactated Ringer's (Dextrose 5%-Lactated Ringers) 1,000 mls @ 125 mls/ hr IV ASDIRECTED [facility] Stop: 03/29/18 10:59 Last Admin: 03/29/18 02:41 Dose: 125 mls/hr Ciprofloxacin/Dextrose 400 mg/ (Premix) 200 mls @ 200 mls/hr IV Q12H [facility] Last Admin: 03/28/18 09:46 Dose: 200 mls/hr Magnesium Sulfate 2 gm/ Premix 50 mls @ 25 mls/hr IV BID [facility] Stop: 04/02/18 22:59 Last Admin: 03/28/18 20:17 Dose: 25 mls/hr Potassium Phosphate 22.5 mmole (/ Sodium Chloride) 257.5 mls @ 85 mls/hr IV Q3H [facility] Stop: 03/28/18 15:29 Last Admin: 03/28/18 18:54 Dose: 85 mls/hr Linezolid 600 mg/ Premix 300 mls @ 300 mls/hr IV Q12H [facility] Last Admin: 04/01/18 02:42 Dose: 300 mls/hr Lactated Ringer's (Ringers, Lactated) Confirm Administered Dose 1,000 mls @ as directed .ROUTE .STK-MED ONE Stop: 03/29/18 08:06 Magnesium Sulfate 2 gm/ Premix 50 mls @ 25 mls/hr IV Q6HR [facility] Stop: 04/01/18 05:59 Last Admin: 03/31/18 03:07 Dose: 25 mls/hr Dextrose/Lactated Ringer's (Dextrose 5%-Lactated Ringers) 1,000 mls @ 25 mls/ hr IV ASDIRECTED [facility] Potassium Phosphate 20 mmole/ (Sodium Chloride) 106.6667 mls @ 35 mls/hr IV Q3H [facility] Stop: 03/29/18 19:59 Last Admin: 03/29/18 18:23 Dose: 35 mls/hr Amino Ac/Electrol/Dextrose/Calcium (Clinimix E 5/15) 1,000 mls @ 100 mls/hr IV .Q10H [facility] Stop: 03/30/18 16:58 Last Admin: 03/30/18 08:06 Dose: 100 mls/hr Sodium Chloride (Normal Saline) 1,000 mls @ 0 mls/hr IV ASDIRECTED [facility] Last Admin: 04/07/18 05:47 Dose: 25 mls/hr Fat Emulsion Intravenous (Intralipid 20%) 100 mls @ 8.333 mls/hr IV ONETIME ONE Stop: 03/31/18 03:59 Last Admin: 03/30/18 16:50 Dose: 8.333 mls/hr Amino Ac/Electrol/Dextrose/Calcium (Clinimix E 5/15) 1,000 mls @ 100 mls/hr IV .Q10H [facility] Stop: 03/31/18 15:45 Last Admin: 03/31/18 15:28 Dose: Not Given Magnesium Sulfate 2 gm/ Premix 50 mls @ 25 mls/hr IV TID@0600,1600,2200 [facility] Stop: 04/01/18 23:59 Last Admin: 04/01/18 21:43 Dose: 25 mls/hr Fat Emulsion Intravenous (Intralipid 20%) 100 mls @ 8.333 mls/hr IV ONETIME ONE Stop: 04/01/18 03:59 Last Admin: 03/31/18 16:05 Dose: 8.333 mls/hr Amino Ac/Electrol/Dextrose/Calcium (Clinimix E /20) 1,712 mls @ 107 mls/hr IV Q24H [facility] Last Admin: 04/03/18 15:52 Dose: 107 mls/hr Fat Emulsion Intravenous (Intralipid 20%) 100 mls @ 8.333 mls/hr IV ONETIME ONE Stop: 04/02/18 03:59 Last Admin: 04/01/18 15:06 Dose: 8.333 mls/hr Linezolid 600 mg/ Premix 300 mls @ 300 mls/hr IV Q12H [facility] Last Admin: 04/04/18 15:55 Dose: 300 mls/hr Fat Emulsion Intravenous (Intralipid 20%) 100 mls @ 8.333 mls/hr IV Q24H [facility] Last Admin: 04/07/18 16:07 Dose: 8.333 mls/hr Magnesium Sulfate 2 gm/ Premix 50 mls @ 25 mls/hr IV Q12H [facility] Stop: 04/07/18 05:59 Last Admin: 04/07/18 03:35 Dose: 25 mls/hr Doxycycline Hyclate 100 mg/ (Sodium Chloride) 100 mls @ 100 mls/hr IV Q12H [facility] Stop: 04/08/18 04:59 Last Admin: 04/08/18 03:58 Dose: 100 mls/hr Meropenem 500 mg/ Sodium (Chloride) 50 mls @ 100 mls/hr IV ONCALL ONE Stop: 04/08/18 09:29 Last Admin: 04/08/18 10:15 Dose: 100 mls/hr Lactated Ringer's (Ringers, Lactated) Confirm Administered Dose 1,000 mls @ as directed .ROUTE .STK-MED ONE Stop: 04/08/18 11:31 Meropenem 500 mg/ Sodium (Chloride) 50 mls @ 100 mls/hr IV Q6H [facility] Stop: 04/09/18 10:29 Last Admin: 04/09/18 10:00 Dose: 100 mls/hr Dextrose/Lactated Ringer's (Dextrose 5%-Lactated Ringers) 1,000 mls @ 0 mls/hr IV TITRATE [facility] Acetaminophen 1,000 mg/ Premix 100 mls @ 400 mls/hr IV ONETIME ONE Stop: 04/10/18 08:14 Last Admin: 04/10/18 08:23 Dose: 400 mls/hr Potassium Phosphate 15 mmole/ (Sodium Chloride) 105 mls @ 50 mls/hr IV Q2H [facility] Stop: 04/10/18 15:59 Last Admin: 04/10/18 15:04 Dose: 50 mls/hr Iohexol (Omnipaque-300) 50 ml PO .ASDIRECTED STA Stop: 03/09/18 03:43 Last Admin: 03/09/18 04:27 Dose: 50 ml Iohexol (Omnipaque-300) 50 ml IVPUSH . DIRECTED PRN PRN Reason: RADIOLOGY EXAM Stop: 03/13/18 06:56 Last Admin: 03/12/18 07:09 Dose: 50 ml Iohexol (Omnipaque-300) 50 ml PO .ASDIRECTED [facility] Last Admin: 03/22/18 04:39 Dose: 50 ml Iohexol (Omnipaque-300) 100 ml PO . DIRECTED [facility] Stop: 04/04/18 14:00 Last Admin: 04/04/18 13:05 Dose: 100 ml Iohexol (Omnipaque-300) 50 ml PO . DIRECTED PRN PRN Reason: RADIOLOGY EXAM Stop: 04/10/18 02:07 Last Admin: 04/09/18 04:10 Dose: 50 ml Ketamine HCl (Ketalar) 0 mg IV BOLUS [facility] Ketorolac Tromethamine (Toradol) 60 mg IM ONETIME ONE Stop: 03/26/18 09:01 Last Admin: 03/26/18 08:47 Dose: 60 mg Ketorolac Tromethamine (Toradol) 60 mg IM ONETIME ONE Stop: 03/27/18 09:31 Last Admin: 03/27/18 08:56 Dose: 60 mg Ketorolac Tromethamine (Toradol) 60 mg IM ONETIME PRN PRN Reason: Headache Stop: 04/02/18 08:00 Labetalol HCl (Normodyne) Confirm Administered Dose 20 mg .ROUTE .STK-MED ONE Stop: 03/08/18 12:58 Labetalol HCl (Normodyne) 5 mg IVPUSH Q5M PRN PRN Reason: SBP over 160 OR DBP over 95 Labetalol HCl (Normodyne) Confirm Administered Dose 20 mg .ROUTE .STK-MED ONE Stop: 04/08/18 11:31 Lidocaine HCl (Xylocaine 2%) 96 mg IVPUSH ASDIRECTED [facility] Lidocaine/Epinephrine (Xylocaine 1% With Epinephrine 1:100,000) Confirm Administered Dose 50 ml .ROUTE .STK-MED ONE Stop: 03/29/18 06:26 Last Admin: 03/29/18 11:12 Dose: 10 ml Lorazepam (Ativan) 0.5 mg PO BID PRN PRN Reason: Anxiety Lorazepam (Ativan) 0.5 mg IVPUSH Q2H PRN PRN Reason: Anxiety Last Admin: 04/02/18 06:34 Dose: 0.5 mg Lorazepam (Ativan Oral Concentrate 1mg/0.5 Ml U/D) 1 mg BUCCAL Q4H PRN PRN Reason: ANXIETY Lorazepam (Ativan) 1 mg IVPUSH Q4H PRN PRN Reason: Nausea Last Admin: 04/04/18 03:28 Dose: 1 mg Lorazepam (Ativan) 0.5 mg IVPUSH Q2H PRN PRN Reason: Nausea Last Admin: 04/08/18 06:50 Dose: 0.5 mg Lorazepam (Ativan) 0.5 mg IVPUSH QID [facility] Last Admin: 04/08/18 09:39 Dose: 0.5 mg Magnesium Hydroxide (Milk Of Magnesia) 30 ml PO BID [facility] Stop: 03/11/18 23:59 Last Admin: 03/11/18 22:25 Dose: 30 ml Magnesium Hydroxide (Milk Of Magnesia) 30 ml PO BID [facility] Last Admin: 03/15/18 20:07 Dose: Not Given Meropenem (Merrem) Confirm Administered Dose 500 mg .ROUTE .STK-MED ONE Stop: 03/08/18 09:21 Last Admin: 03/08/18 11:44 Dose: 500 mg Meropenem (Merrem) Confirm Administered Dose 500 mg .ROUTE .K-MED ONE Stop: 03/21/18 07:27 Last Admin: 03/21/18 13:32 Dose: 500 mg Meropenem (Merrem) Confirm Administered Dose 500 mg .ROUTE .STK-MED ONE Stop: 04/08/18 10:44 Last Admin: 04/08/18 11:23 Dose: 500 mg Metoclopramide HCl (Reglan) 10 mg IVPUSH Q6H PRN PRN Reason: NAUSEA NOT CONTROL BY ZOFRAN Last Admin: 03/11/18 15:34 Dose: 10 mg Metoclopramide HCl (Reglan) 10 mg IVPUSH Q6H [facility] Last Admin: 03/19/18 03:58 Dose: 10 mg Metoclopramide HCl (Reglan) 10 mg IV Q6H [facility] Last Admin: 03/30/18 05:54 Dose: 10 mg Metoclopramide HCl (Reglan) 10 mg IV Q6H [facility] Last Admin: 03/31/18 05:04 Dose: 10 mg Metoclopramide HCl (Reglan) 10 mg IVPUSH Q6H PRN PRN Reason: Nausea Last Admin: 04/01/18 15:06 Dose: 10 mg Metoclopramide HCl (Reglan) 10 mg PO QID [facility] Last Admin: 04/02/18 21:56 Dose: 10 mg Metoclopramide HCl (Reglan) 10 mg IVPUSH Q6H PRN PRN Reason: Nausea Metoclopramide HCl (Reglan) 10 mg IVPUSH Q6H [facility] Last Admin: 04/08/18 15:01 Dose: Not Given Midazolam HCl (Versed 1 Mg/Ml) Confirm Administered Dose 2 mg .ROUTE .STK-MED ONE Stop: 03/13/18 08:09 Midazolam HCl (Versed 1 Mg/Ml) Confirm Administered Dose 2 mg .ROUTE .STK-MED ONE Stop: 03/17/18 07:12 Multivitamins/Iron (Child Chew Iron) 2 tab PO DAILY [facility] Last Admin: 04/08/18 11:57 Dose: Not Given Naloxone HCl (Narcan) 0.1 mg IV ASDIRECTED PRN PRN Reason: decreased respiratory rate Naloxone HCl (Narcan) 0.1 mg IV ASDIRECTED PRN PRN Reason: decreased respiratory rate Naloxone HCl (Narcan) 0.1 mg IV ASDIRECTED PRN PRN Reason: decreased respiratory rate Naloxone HCl (Narcan) 0.1 mg IV ASDIRECTED PRN PRN Reason: decreased respiratory rate Neostigmine Methylsulfate (Neostigmine) Confirm Administered Dose 5 mg .ROUTE .STK-MED ONE Stop: 03/08/18 08:55 Neostigmine Methylsulfate (Neostigmine) Confirm Administered Dose 5 mg .ROUTE .STK-MED ONE Stop: 03/21/18 09:19 Neostigmine Methylsulfate (Neostigmine) Confirm Administered Dose 5 mg .ROUTE .STK-MED ONE Stop: 03/29/18 07:16 Neostigmine Methylsulfate (Neostigmine) Confirm Administered Dose 5 mg .ROUTE .STK-MED ONE Stop: 04/08/18 07:56 Scopolamine Patch (Check) 1 each TOP DAILY [facility] Stop: 03/10/18 16:01 Non-Formulary Medication (Total Parenteral Nutrition, Central) 1,000 ml .XX .Continue Order [facility] Stop: 03/11/18 09:00 Non-Formulary Medication (Total Parenteral Nutrition, Central) 1,000 ml .XX .Continue Order [facility] Stop: 03/13/18 11:00 Non-Formulary Medication (Total Parenteral Nutrition, Central) 1,000 ml .XX .Continue Order [facility] Stop: 03/14/18 16:00 Non-Formulary Medication (Total Parenteral Nutrition, Central) 1,000 ml .XX .Continue Order [facility] Stop: 03/16/18 12:00 Non-Formulary Medication (Total Parenteral Nutrition, Central) 1,000 ml .XX .Continue Order [facility] Stop: 03/17/18 07:31 Non-Formulary Medication (Total Parenteral Nutrition, Central) 1,000 ml .XX .Continue Order [facility] Stop: 03/24/18 16:00 Non-Formulary Medication (Total Parenteral Nutrition, Central) 1,000 ml .XX .Continue Order [facility] Stop: 03/30/18 09:08 Non-Formulary Medication (Total Parenteral Nutrition, Central) 1,000 ml .XX .Continue Order [facility] Stop: 04/01/18 12:00 Verify Scop Patch 0 each TOP DAILY [facility] Last Admin: 04/08/18 13:33 Dose: Not Given Non-Formulary Medication (Total Parenteral Nutrition, Central) 1,000 ml .XX .Continue Order [facility] Stop: 04/04/18 10:00 Non-Formulary Medication (Total Parenteral Nutrition, Central) 1,000 ml .XX .Continue Order [facility] Stop: 04/05/18 10:00 Non-Formulary Medication (Total Parenteral Nutrition, Central) 1,000 ml .XX .Continue Order [facility] Non-Formulary Medication (Total Parenteral Nutrition, Central) 1,000 ml .XX .Continue Order [facility] Stop: 04/08/18 05:00 Non-Formulary Medication (Tap Block, Pharmacy To Dose) 0 ml NERVRT ASDIRECTED [facility] Non-Formulary Medication (Total Parenteral Nutrition, Central) 1,000 ml .XX .Continue Order [facility] Stop: 04/11/18 10:00 Ondansetron HCl (Zofran) Confirm Administered Dose 4 mg .ROUTE .STK-MED ONE Stop: 03/08/18 08:55 Ondansetron HCl (Zofran) 4 mg IVPUSH Q4H PRN PRN Reason: Nausea/Vomiting Last Admin: 04/01/18 12:19 Dose: 4 mg Ondansetron HCl (Zofran) Confirm Administered Dose 4 mg .ROUTE .STK-MED ONE Stop: 03/21/18 09:19 Ondansetron HCl (Zofran) Confirm Administered Dose 4 mg .ROUTE .STK-MED ONE Stop: 03/29/18 07:16 Ondansetron HCl (Zofran Odt) 4 mg PO QID [facility] Last Admin: 04/02/18 21:55 Dose: 4 mg Ondansetron HCl (Zofran) Confirm Administered Dose 4 mg .ROUTE .STK-MED ONE Stop: 04/08/18 07:56 Oxycodone HCl (Oxycodone) 5 mg PO Q4H PRN PRN Reason: Pain (severe 7-10) Last Admin: 03/12/18 03:42 Dose: 5 mg Oxycodone HCl (Oxycodone) 5 - 10 mg PO Q4H PRN PRN Reason: Pain Last Admin: 04/01/18 09:59 Dose: 10 mg Oxycodone HCl (Oxycodone Oral Concentrate 10mg/0.5 Ml U/D) 5 - 10 mg PO Q4H PRN PRN Reason: Pain Oxycodone HCl (Oxycodone Oral Concentrate 10mg/0.5 Ml U/D) 5 - 10 mg SL Q4H PRN PRN Reason: Pain Last Admin: 04/02/18 04:36 Dose: 10 mg Oxycodone HCl (Oxycodone Oral Concentrate 10mg/0.5 Ml U/D) 10 mg SL Q3H PRN PRN Reason: Pain Last Admin: 04/06/18 03:22 Dose: 10 mg Pantoprazole Sodium (Protonix Iv) 40 mg IVPUSH Q24H [facility] Last Admin: 03/10/18 15:35 Dose: 40 mg Pantoprazole Sodium (Protonix Granules) 40 mg PO Q24H [facility] Last Admin: 03/14/18 16:13 Dose: 40 mg Pantoprazole Sodium (Protonix Granules) 40 mg PO DAILY@0730 [facility] Last Admin: 03/15/18 08:57 Dose: 40 mg Pantoprazole Sodium (Protonix Granules) 40 mg PO BIDAC [facility] Last Admin: 03/16/18 15:34 Dose: 40 mg Pantoprazole Sodium (Protonix Iv) 40 mg IVPUSH Q12H [facility] Last Admin: 04/04/18 08:37 Dose: 40 mg Pantoprazole Sodium (Protonix Iv) 40 mg IVPUSH Q12H [facility] Last Admin: 04/08/18 08:31 Dose: 40 mg Pantoprazole Sodium (Protonix Iv) 40 mg IVPUSH Q24H [facility] Last Admin: 04/11/18 08:22 Dose: 40 mg Estradiol 1mg Tabs (Pom) 0 each PO DAILY [facility] Stop: 04/08/18 11:00 Last Admin: 04/08/18 11:57 Dose: Not Given Estradiol 1mg Tabs (Pom) 0 each PO DAILY [facility] Pharmacy Consult (Consult To Pharmacy) 1 each .XX ASDIRECTED [facility] Pharmacy Consult (Consult To Pharmacy) 1 each .XX ASDIRECTED [facility] Stop: 03/08/18 17:04 Pharmacy Consult (Consult To Pharmacy) 1 each .XX ASDIRECTED [facility] Stop: 04/08/18 18:00 Propofol (Diprivan 20 Ml) Confirm Administered Dose 200 mg .ROUTE .STK-MED ONE Stop: 03/08/18 08:55 Propofol (Diprivan 20 Ml) Confirm Administ[facility] Stop: 03/13/18 08:09 Propofol (Diprivan 20 Ml) Confirm Administered Dose 200 mg .ROUTE .[facility] ONE Stop: 03/17/18 07:12 Propofol (Diprivan 20 Ml) Confirm Administered Dose 200 mg .ROUTE .[facility] ONE Stop: 03/21/18 09:19 Propofol (Diprivan 20 Ml) Confirm Administered Dose 200 mg .ROUTE .[facility] ONE Stop: 03/29/18 07:16 Propofol (Diprivan 20 Ml) Confirm Administered Dose 200 [address] .[address] .[facility] ONE Stop: 04/08/18 07:56 Rocuronium [place] (Zemuron) Confirm Administered Dose 50 mg .ROUTE .[facility] ONE Stop: 03/08/18 08:55 Rocuronium [place] (Zemuron) Confirm Administered Dose 50 mg .ROUTE .[facility] ONE Stop: 03/08/18 11:45 Rocuronium [place] (Zemuron) Confirm Administered Dose 100 mg [facility] Stop: 03/08/18 12:57 Rocuronium [place] (Zemuron) Confirm Administered Dose 50 mg .ROUTE .[facility] ONE Stop: 03/21/18 09:19 Rocuronium [place] (Zemuron) Confirm Administered Dose 50 mg .ROUTE .[facility] ONE Stop: 03/29/18 07:16 Rocuronium [place] (Zemuron) Confirm Administered Dose [facility] Stop: 04/08/18 07:56 Rocuronium [place] (Zemuron) Confirm Administered Dose 50 mg .ROUTE .[facility] ONE Stop: 04/08/18 11:35 Scopolamine (Transderm-Scop) 1.5 mg TOP Q48H [facility] Last Admin: 04/07/18 10:20 Dose: Not Given Succinylcholine Chloride (Quelicin) Confirm Administered Dose 200 mg .ROUTE .[facility] ONE Stop: 03/08/18 08:55 Succinylcholine Chloride (Quelicin) Confirm Administered Dose 200 mg .ROUTE .[facility] ONE Stop: 03/21/18 09:19 Succinylcholine Chloride (Quelicin) Confirm Administered Dose 200 mg .ROUTE .[facility] -MED ONE Stop: 03/29/18 07:16 Succinylcholine Chloride (Quelicin) Confirm Administered Dose 200 mg .ROUTE .STK -MED ONE Stop: 04/08/18 07:56 - Exam Quality Assessment: No: Supplemental Oxygen General: Alert, Oriented, Cooperative, No Acute Distress Lungs: Normal Respiratory Effort GI/Abdominal Exam: Soft, No Distention Psy/Mental Status: Alert. No: Normal Affect (very flat affect), Anxious Consult PN Assessment/Plan Procedures: Procedures ASSAY OF LACTIC ACID (02/07/18) ASSAY OF LIPASE (02/07/18) C DIFF AMPLIFIED PROBE (02/09/18) COMPLETE CBC W/AUTO DIFF WBC (02/07/18) COMPREHEN METABOLIC PANEL (02/07/18) CT ABD & PELV W/CONTRAST (02/07/18) EMERGENCY DEPT VISIT (02/07/18) ROUTINE VENIPUNCTURE (02/07/18) THER/PROPH/DIAG INJ IV PUSH (02/07/18) TX/PRO/DX INJ NEW DRUG ADDON (02/07/18) URINALYSIS AUTO W/SCOPE (02/07/18) Problem List Initiated/Reviewed/Updated: Yes My Orders Last 24 Hours: My Active Orders 04/11/18 11:26 Head wo Cont [CT] Routine 04/12/18 09:00 Pantoprazole [ProTONIX] 40 mg PO DAILY Plan: ASSESSMENT AND RECOMMENDATIONS PERSISTENT NAUSEA AND VOMITING - vomiting now improved but she has had ongoing difficulty with persistent nausea -Continue regimen as ordered by Dr. Atkinson -head CT to rule out mass/other pathology -As needed lorazepam -Consider management of depression, patient currently refuses antidepressant therapy DEPRESSION, SUSPECTED - likely a factor in ongoing symptoms. Discussed initiating therapy which she refuses at the present time. She does not endorse being depressed. -Rediscuss antidepressive therapy in a few days STATUS POST LEL[facility]-EN-Y REVISION FOR MANAGEMENT OF GASTROPARESIS -Postoperative care per Dr. Demetrio Leiva MD
--- NOTE | 2018-04-11 14:09 | CT ---
Head wo Cont CLINICAL HISTORY: Headache and nausea COMPARISON: None TECHNIQUE: Transverse scans were obtained from the base of the skull through the vertex without IV contrast on a multislice, multidetector CT scanner. Auto dosage reduction and iterative reconstruction techniques employed. FINDINGS: No focal abnormal parenchymal density is identified. There is no mass effect, hemorrhage, or extraaxial collection. The basal cisterns and sulci over the convexities are are normal. The ventricles are normal for age. IMPRESSION: Essentially negative noncontrast CT brain for age
--- NOTE | 2018-04-11 15:06 | PN ---
DATE OF SERVICE: 04/09/2018 The patient has been afebrile with stable vital signs. Heart rates running in the 110 range predominantly. Clinically, she looks to be fairly stable. Urine output has been good. Oxygenation is satisfactory. Still complaining of some nausea, but her upper GI x-ray looks very good with all the dye emptying out of the esophagus, gastric pouch area, and upper small bowel by the time of the second x-ray. I suspect if nausea should gradually subside here over the next 24 hours, we will add a scopolamine patch on, which is on her allergy list, but she has tolerated this hospitalization. Otherwise continue the TPN, maximize activity, and work with pulmonary toilet. Stan Atkinson MD /[id number]
[2018-04-11] MEDS: Dextrose 5%-0.9% NaCl 1,000 ML IV SCH (15:54)
[2018-04-11] MEDS: LYTES IV SCH (16:00)
[2018-04-11] MEDS: CALCIUM IV SCH (16:00)
[2018-04-11] MEDS: [UNRECOGNIZED DRUG - OTHER] IV SCH (16:00)
[2018-04-11] MEDS: Melatonin 3 MG Tab PO SCH (22:53)
[2018-04-12] MEDS: Ondansetron 4 MG/2 ML SDV IVPUSH PRN ×2 (03:06→21:08)
[2018-04-12] MEDS: Cyclobenzaprine 10 MG Tab PO PRN (03:54)
[2018-04-12] MEDS: Clotrimazole 10 MG Troche PO SCH ×5 (05:23→22:26)
[2018-04-12] MEDS: Metoclopramide 10 MG/2 ML SDV IVPUSH PRN ×2 (05:55→22:22)
[2018-04-12] MEDS: Pantoprazole 40 MG Tab.CR PO SCH (08:12)
--- NOTE | 2018-04-12 08:35 | PN ---
DATE OF SERVICE: 04/10/2018 The patient's temperature is in the range of 95 to 96, heart rate tends to be in the 110 to 115 range. Vital signs are otherwise stable. Oxygenation appears to be adequate. She still complains of nausea, but has no emesis, and obviously, based on the upper GI x-ray, there is nothing pooling in that she would be able to bring up. This morning much of a discomfort as they do with muscle spasm and probably some other medication. We will add some Flexeril and encourage the use of Vistaril in addition to the GRINDER CHIPPER. The only thing medication-chaudhry that seems like it might be related to the nausea would be the Dilaudid. I think we're more or less needing to have some narcotic onboard for pain control for the next day or so at least. The use of Vistaril and Flexeril as an accent to that as well. I think we will give her a single dose of IV Tylenol this morning to see if we can break some of the pain. Potassium and phosphate are marginally low this morning. Those will be supplemented. She also has low chloride and sodium, so we will give the piggybacks with saline for now. She is off antibiotics at this point, but does have some thrush. We will give her some oral treatment for that. Otherwise, continue the TPN and treatment of the nausea as much as we can. Stan Atkinson MD /[id number]
[2018-04-12] MEDS ORDERED: Pantoprazole 40 MG Tab.CR PO SCH (09:00)
[2018-04-12] MEDS: Alum Hydrox/Mag Hydrox/Simeth 15 ML, Lidocaine 2% 15 ML PO SCH ×6 (09:19→20:54)
[2018-04-12] MEDS: Bisacodyl 5 MG Tab PO SCH ×2 (09:21→20:55)
[2018-04-12] MEDS: Dextrose 5%-0.9% NaCl 1,000 ML IV SCH (12:53)
--- NOTE | 2018-04-12 13:51 | PCM.CONSN ---
- General Info Date of Service: 04/12/18 Subjective Update: There were no acute events overnight. The patient continues to report nearly persistent nausea. Oral intake was a little better yesterday than it had been. No significant vomiting noted. Head CT yesterday was unremarkable. Patient continues to say that she is not depressed. She continues to exhibit behaviors concerning for depression including significant fatigue, flat affect and little interest in doing anything other than laying in bed. - Patient Data Vitals - Most Recent: Last Vital Signs Temp 36.3 C 04/12/18 11:41 Pulse 115 H 04/12/18 11:41 Resp 16 04/12/18 11:41 BP 144/91 H 04/12/18 11:41 Pulse Ox 97 04/12/18 13:38 Weight - Most Recent: 67.767 kg I&O - Last 24 Hours: Intake & Output 04/11/18 04/12/18 04/12/18 22:59 06:59 14:59 Intake Total 1252 1558 180 Output Total 1520 1370 450 Balance -268 188 -270 Lab Results Last 24 Hours: Laboratory Results - last 24 hr 04/07/18 04/12/18 04/12/18 Range/Units 04:00 05:00 06:08 WBC 10.7 (4.5-11.0) K/uL RBC 3.43 (3.30-5.50) M/uL Hgb 9.9 L (12.0-15.0) g/dL Hct 31.1 L (36.0-48.0) % MCV 91 (80-98) fL MCH 29 (27-31) pg MCHC 32 (32-36) % Plt Count 294 (150-400) K/uL Free T4 0.96 (0.76-1.46) ng/dL Crossmatch See Detail Med Orders - Current: Current Medications Benzocaine/Menthol (Cepacol Sore Throat) 1 lozenge MUCMEM ASDIRECTED PRN PRN Reason: Sore Throat Last Admin: 03/22/18 09:19 Dose: 1 lozenge Bisacodyl (Dulcolax) 10 mg PO BID [facility] Last Admin: 04/12/18 09:21 Dose: 10 mg Clotrimazole (Mycelex) 10 mg PO 5XDAY [facility] Last Admin: 04/12/18 09:20 Dose: 10 mg Al Hydroxide/Mg Hydroxide 15 (ml/ Lidocaine HCl 15 ml) 0 ml PO TID [facility] Last Admin: 04/12/18 09:19 Dose: Not Given Cyclobenzaprine HCl (Flexeril) 10 mg PO Q6H PRN PRN Reason: MUSCLE SPASM Last Admin: 04/12/18 03:54 Dose: 10 mg Diphenhydramine HCl (Benadryl) 50 mg IVPUSH Q4H PRN PRN Reason: ITCHING Heparin Sodium (Porcine) (Heparin Lock Flush 100 Units/Ml) 500 units FLUSH ASDIRECTED PRN PRN Reason: Flush central line Last Admin: 04/12/18 08:37 Dose: 500 units Hydromorphone HCl (Dilaudid [employer]ade [employer]isher 15 Mg In Ns 30 Ml) 0 mg IV ASDIRECTED PRN; Protocol PRN Reason: RECYCLER PAIN CONTROL Last Admin: 04/10/18 03:19 Dose: 15 mg Hydroxyzine HCl (Vistaril) 100 mg IM Q4H PRN PRN Reason: pain Last Admin: 04/10/18 21:55 Dose: 100 mg Amino Ac/Electrol/Dextrose/Calcium (Clinimix E /20) 1,712 mls @ 107 mls/hr IV Q24H [facility] Last Admin: 04/11/18 16:00 Dose: 107 mls/hr Dextrose/Sodium Chloride (Dextrose 5%-Normal Saline) 1,000 mls @ 0 mls/hr IV TITRATE [facility] Last Admin: 04/12/18 12:53 Dose: 30 mls/hr Labetalol HCl (Normodyne) 5 mg IVPUSH Q5M PRN PRN Reason: SBP over 160 OR DBP over 95 Lidocaine HCl (Xylocaine 2% Viscous) 15 ml PO Q4H PRN PRN Reason: Abdominal Pain Lorazepam (Ativan) 0.5 mg IVPUSH Q4H PRN PRN Reason: ANXIETY/NAUSEA Last Admin: 04/11/18 06:00 Dose: 0.5 mg Melatonin (Melatonin) 9 mg PO BEDTIME [facility] Last Admin: 04/11/18 22:53 Dose: Not Given Metoclopramide HCl (Reglan) 10 mg IVPUSH Q6H PRN PRN Reason: NAUSEA NOT CONTROL BY ZOFRAN Last Admin: 04/12/18 05:55 Dose: 10 mg Naloxone HCl (Narcan) 0.1 mg IV ASDIRECTED PRN PRN Reason: decreased respiratory rate Check Scopolamine (Patch Daily) 1 each .XX DAILY [facility] Last Admin: 04/12/18 08:11 Dose: Not Given Ondansetron HCl (Zofran) 4 mg IVPUSH Q4H PRN PRN Reason: Nausea/Vomiting Last Admin: 04/12/18 03:06 Dose: 4 mg Pantoprazole Sodium (Protonix) 40 mg PO ACBREAKFAST [facility] Last Admin: 04/12/18 08:12 Dose: 40 mg Scopolamine (Transderm-Scop) 1.5 mg TRDERM Q72H PRN PRN Reason: Nausea/Vomiting Last Admin: 04/10/18 05:05 Dose: 1.5 mg Sodium Chloride (Saline Flush) 10 ml FLUSH ASDIRECTED PRN PRN Reason: Keep Vein Open Last Admin: 04/04/18 15:45 Dose: 10 ml Discontinued Medications Acetaminophen (Tylenol Extra Strength) 1,000 mg PO ONETIME ONE Stop: 03/08/18 08:16 Last Admin: 03/08/18 08:32 Dose: 1,000 mg Acetaminophen (Tylenol) 650 mg PO Q6H [facility] Last Admin: 03/16/18 22:25 Dose: Not Given Acetaminophen (Tylenol) 650 mg PO Q4H PRN PRN Reason: Pain OR HEADACHE Last Admin: 03/25/18 03:20 Dose: 650 mg Bisacodyl (Dulcolax) 10 mg RECTAL BID [facility] Last Admin: 03/25/18 20:12 Dose: Not Given Bisacodyl (Dulcolax) 10 mg RECTAL BID PRN PRN Reason: Constipation Last Admin: 04/02/18 22:03 Dose: 10 mg Bisacodyl (Dulcolax) 10 mg RECTAL ONETIME ONE Stop: 03/28/18 08:16 Last Admin: 03/28/18 09:46 Dose: 10 mg Bupivacaine HCl (Marcaine 0.5%) Confirm Administered Dose 50 ml .ROUTE .STK-MED ONE Stop: 03/29/18 06:26 Last Admin: 03/29/18 11:11 Dose: 10 ml Bupivacaine HCl/Epinephrine Bitart (Marcaine 0.5%/Epinephrine 1:200,000) Confirm Administered Dose 50 ml .ROUTE .STK-MED ONE Stop: 03/21/18 07:27 Calcium Carbonate/Glycine (Tums) 1,000 mg PO Q2H PRN PRN Reason: Indigestion Last Admin: 03/14/18 21:09 Dose: 1,000 mg Celecoxib (Celebrex) 200 mg PO ONETIME ONE Stop: 03/08/18 08:16 Last Admin: 03/08/18 08:32 Dose: 200 mg Celecoxib (Celebrex) 200 mg PO DAILY@0800 [facility] Last Admin: 03/09/18 08:40 Dose: 200 mg Citalopram Hydrobromide (Celexa) 20 mg PO DAILY [facility] Clindamycin Phosphate (Cleocin) Confirm Administered Dose 900 mg .ROUTE .STK- MED ONE Stop: 03/29/18 08:46 Last Admin: 03/29/18 11:12 Dose: 900 mg Clotrimazole (Mycelex) 10 mg PO 5XDAY [facility] Last Admin: 04/05/18 06:20 Dose: Not Given Clotrimazole (Mycelex) 10 mg PO 5XDAY PRN PRN Reason: Other Last Admin: 04/09/18 20:02 Dose: 10 mg Ropivacaine 34 ml/Dexamethasone 8 mg/Epinephrine HCl 0.4 mg/ Sodium Chloride 43.6 ml 0 ml NERVRT ASDIRECTED [facility] Last Admin: 03/08/18 11:15 Dose: 80 syringe Ropivacaine 35 ml/Dexamethasone 8 mg/Epinephrine HCl 0.4 mg/ Sodium Chloride 42.6 ml 0 ml NERVRT ASDIRECTED [facility] Last Admin: 03/21/18 13:32 Dose: 80 syringe Ropivacaine 33 ml/Dexamethasone 8 mg/Epinephrine HCl 0.4 mg/ Sodium Chloride 44.6 ml 0 ml NERVRT ASDIRECTED [facility] Last Admin: 04/08/18 11:35 Dose: 80 syringe Cyanocobalamin (Vitamin B12) 1,000 mcg IM ONETIME ONE Stop: 03/10/18 09:01 Last Admin: 03/10/18 08:34 Dose: Not Given Cyanocobalamin (Vitamin B12) 1,000 mcg IM ONETIME ONE Stop: 04/10/18 09:01 Last Admin: 04/10/18 08:23 Dose: 1,000 mcg Cyclobenzaprine HCl (Flexeril) 10 mg PO Q6H PRN PRN Reason: muscle spasms Last Admin: 03/16/18 14:30 Dose: 10 mg Cyclobenzaprine HCl (Flexeril) 10 mg PO Q6H PRN PRN Reason: MUSCLE SPASM Last Admin: 03/31/18 19:52 Dose: 10 mg Cyclobenzaprine HCl (Flexeril) 10 mg PO Q6H PRN PRN Reason: Spasms Last Admin: 04/10/18 08:23 Dose: 10 mg Dexamethasone (Dexamethasone) Confirm Administered Dose 4 mg .ROUTE .STK-MED ONE Stop: 03/08/18 08:55 Dexamethasone (Dexamethasone) Confirm Administered Dose 4 mg .ROUTE .STK-MED ONE Stop: 03/21/18 09:19 Dexamethasone (Dexamethasone) Confirm Administered Dose 4 mg .ROUTE .STK-MED ONE Stop: 03/29/18 07:16 Dexamethasone (Dexamethasone) Confirm Administered Dose 4 mg .ROUTE .STK-MED ONE Stop: 04/08/18 07:56 Diphenhydramine HCl (Benadryl) 50 mg IVPUSH Q4H PRN PRN Reason: ITCHING Last Admin: 03/28/18 10:30 Dose: 50 mg Diphenhydramine HCl (Benadryl) 50 mg IVPUSH Q4H PRN PRN Reason: ITCHING Divalproex Sodium (Divalproex Sodium) 250 mg PO BIDMEALS [facility] Erythromycin Ethylsuccinate (Eryped 400) 50 mg PO QID [facility] Last Admin: 03/16/18 05:30 Dose: Not Given Erythromycin Ethylsuccinate (Eryped 400) 100 mg GTUBE Q6HR [facility] Last Admin: 04/07/18 03:34 Dose: Not Given Famotidine (Pepcid) 20 mg IVPUSH BID [facility] Last Admin: 04/06/18 20:48 Dose: 20 mg Fentanyl (Sublimaze) Confirm Administered Dose 250 mcg .ROUTE .STK-MED ONE Stop: 03/08/18 08:55 Fentanyl (Sublimaze) Confirm Administered Dose 250 mcg .ROUTE .STK-MED ONE Stop: 03/08/18 11:44 Fentanyl (Sublimaze) Confirm Administered Dose 250 mcg .ROUTE .STK-MED ONE Stop: 03/08/18 12:18 Fentanyl (Sublimaze) Confirm Administered Dose 100 mcg .ROUTE .STK-MED ONE Stop: 03/13/18 08:08 Fentanyl (Sublimaze) Confirm Administered Dose 100 mcg .ROUTE .STK-MED ONE Stop: 03/17/18 07:12 Fentanyl (Sublimaze) Confirm Administered Dose 250 mcg .ROUTE .STK-MED ONE Stop: 03/21/18 09:19 Fentanyl (Sublimaze) Confirm Administered Dose 250 mcg .ROUTE .STK-MED ONE Stop: 03/21/18 13:01 Fentanyl (Sublimaze) Confirm Administered Dose 250 mcg .ROUTE .STK-MED ONE Stop: 03/29/18 07:17 Fentanyl (Sublimaze) Confirm Administered Dose 100 mcg .ROUTE .STK-MED ONE Stop: 03/29/18 09:16 Fentanyl (Sublimaze) Confirm Administered Dose 250 mcg .ROUTE .STK-MED ONE Stop: 04/08/18 07:56 Fentanyl (Sublimaze) Confirm Administered Dose 250 mcg .ROUTE .STK-MED ONE Stop: 04/08/18 10:56 Fentanyl (Sublimaze) Confirm Administered Dose 250 mcg .ROUTE .ST-MED ONE Stop: 04/08/18 12:20 Fentanyl Citrate (Fentanyl In Ns 20 Mcg/Ml 30 Ml [employer]ade [employer]isher) 0 mcg IV ASDIRECTED PRN; Protocol PRN Reason: PAIN Stop: 03/21/18 11:00 Last Admin: 03/19/18 16:28 Dose: 600 mcg Glycopyrrolate (Robinul) Confirm Administered Dose 1 mg .ROUTE .STK-MED ONE Stop: 03/08/18 08:55 Glycopyrrolate (Robinul) Confirm Administered Dose 1 mg .ROUTE .STK-MED ONE Stop: 03/21/18 09:19 Glycopyrrolate (Robinul) Confirm Administered Dose 1 mg .ROUTE .STK-MED ONE Stop: 03/29/18 07:16 Glycopyrrolate (Robinul) Confirm Administered Dose 1 mg .ROUTE .STK-MED ONE Stop: 04/08/18 07:56 Heparin Sodium (Porcine) (Heparin Lock Flush 100 Units/Ml) Confirm Administered Dose 500 units .ROUTE .STK-MED ONE Stop: 03/08/18 10:07 Last Admin: 03/08/18 11:13 Dose: 500 units Heparin Sodium (Porcine) (Heparin Lock Flush 100 Units/Ml) 500 units FLUSH ASDIRECTED PRN PRN Reason: Flush central line Last Admin: 04/07/18 08:28 Dose: 500 units Heparin Sodium (Porcine) (Heparin Lock Flush 100 Units/Ml) Confirm Administered Dose 1,500 units .ROUTE .K-MED ONE Stop: 03/29/18 06:26 Last Admin: 03/29/18 11:11 Dose: 1,500 units Hydromorphone HCl (Dilaudid Shade Cl[employer] Finisher 15 Mg In Ns 30 Ml) 0 mg IV ASDIRECTED PRN; Protocol PRN Reason: Pain Last Admin: 03/11/18 01:54 Dose: 15 mg Hydromorphone HCl (Dilaudid Shade Cloth Finisher 15 Mg In Ns 30 Ml) 0 mg IV ASDIRECTED PRN; Protocol PRN Reason: Pain Last Admin: 03/13/18 19:42 Dose: 15 mg Hydromorphone HCl (Dilaudid) 2 - 4 mg PO Q4H PRN PRN Reason: Pain Last Admin: 03/16/18 12:58 Dose: 4 mg Hydromorphone HCl (Dilaudid Shade Cloth Finisher 15 Mg In Ns 30 Ml) 0 mg IV ASDIRECTED PRN; Protocol PRN Reason: PAIN Last Admin: 03/18/18 02:51 Dose: 15 mg Hydromorphone HCl (Dilaudid Shade Cloth Finisher 15 Mg In Ns 30 Ml) 0 mg IV ASDIRECTED PRN; Protocol PRN Reason: RECYCLER PAIN CONTROL Last Admin: 03/22/18 21:43 Dose: 15 mg Hydromorphone HCl (Dilaudid) 1 mg IVPUSH Q4H PRN PRN Reason: Pain (moderate 4-6) Hydromorphone HCl (Dilaudid Shade Cl[employer] Finisher 15 Mg In Ns 30 Ml) 0 mg IV ASDIRECTED PRN; Protocol PRN Reason: RECYCLER PAIN CONTROL Last Admin: 03/29/18 09:57 Dose: 15 mg Hydroxyzine HCl (Vistaril) 100 mg IM ONETIME ONE Stop: 03/08/18 15:30 Last Admin: 03/08/18 15:34 Dose: 100 mg Hydroxyzine HCl (Vistaril) 100 mg IM Q4H PRN PRN Reason: pain Last Admin: 03/12/18 23:48 Dose: 100 mg Hydroxyzine HCl (Atarax) 50 mg PO Q4H PRN PRN Reason: Pain (Severe 7-10) Last Admin: 03/15/18 04:19 Dose: 50 mg Hyoscyamine (Hyomax-Sl) 0.125 mg SL QID [facility] Last Admin: 03/28/18 05:05 Dose: Not Given Cefoxitin Sodium 2 gm/ Sodium (Chloride) 50 mls @ 100 mls/hr IV ONETIME ONE Stop: 03/08/18 09:59 Dextrose/Lactated Ringer's (Dextrose 5%-Lactated Ringers) 1,000 mls @ 100 mls/ hr IV ASDIRECTED [facility] Last Admin: 03/08/18 08:32 Dose: 100 mls/hr Lidocaine HCl/Dextrose (Lidocaine 2 Gm/D5w 500 Ml) 2 gm in 500 mls @ 15 mls/hr IV .Q24H [facility] Stop: 03/09/18 16:00 Last Admin: 03/09/18 12:48 Dose: Not Given Ketamine HCl 50 mg/ Sodium (Chloride) 50 mls @ 18.82 mls/hr IV ASDIRECTED [facility] Cefoxitin Sodium 2 gm/ Sodium (Chloride) 50 mls @ 100 mls/hr IV ONETIME ONE Stop: 03/08/18 09:59 Last Admin: 03/08/18 10:45 Dose: 100 mls/hr Lactated Ringer's (Ringers, Lactated) Confirm Administered Dose 1,000 mls @ as directed .ROUTE .STK-MED ONE Stop: 03/08/18 11:47 Lactated Ringer's (Ringers, Lactated) Confirm Administered Dose 1,000 mls @ as directed .ROUTE .STK-MED ONE Stop: 03/08/18 14:06 Dextrose/Lactated Ringer's (Dextrose 5%-Lactated Ringers) 1,000 mls @ 200 mls/ hr IV ASDIRECTED [facility] Last Admin: 03/09/18 05:21 Dose: 200 mls/hr Cefoxitin Sodium 2 gm/ Sodium (Chloride) 50 mls @ 100 mls/hr IV Q6H [facility] Last Admin: 03/15/18 09:05 Dose: 100 mls/hr Dextrose/Lactated Ringer's (Dextrose 5%-Lactated Ringers) 1,000 mls @ 75 mls/ hr IV ASDIRECTED [facility] Last Admin: 03/21/18 16:13 Dose: 25 mls/hr Magnesium Sulfate 2 gm/ Premix 50 mls @ 25 mls/hr IV Q6H [facility] Stop: 03/12/18 05:59 Last Admin: 03/12/18 03:25 Dose: 25 mls/hr Dextrose/Lactated Ringer's (Dextrose 5%-Lactated Ringers) 1,000 mls @ 100 mls/ hr IV ASDIRECTED [facility] Stop: 03/09/18 17:59 Amino Ac/Electrol/Dextrose/Calcium (Clinimix E 5/15) 2,000 mls @ 100 mls/hr IV .BY DURATION [facility] Stop: 03/11/18 22:59 Last Admin: 03/11/18 03:30 Dose: 100 mls/hr Amino Ac/Electrol/Dextrose/Calcium (Clinimix E 5/15) 2,000 mls @ 100 mls/hr IV .BY DURATION [facility] Stop: 03/11/18 22:59 Potassium Phosphate 20 mmole/ (Sodium Chloride) 106.6667 mls @ 35 mls/hr IV Q3H [facility] Stop: 03/10/18 18:29 Last Admin: 03/10/18 15:25 Dose: 35 mls/hr Albumin Human (Albumin 25%) 25 gm in 100 mls @ 25 mls/hr IV DAILY [facility] Stop: 03/14/18 09:01 Last Admin: 03/14/18 08:01 Dose: 25 mls/hr Amino Ac/Electrol/Dextrose/Calcium (Clinimix E 5/15) 1,000 mls @ 100 mls/hr IV .Q10H [facility] Last Admin: 03/17/18 11:52 Dose: 100 mls/hr Fat Emulsion Intravenous (Intralipid 20%) 100 mls @ 8.3 mls/hr IV Q24H [facility] Stop: 03/20/18 05:00 Last Admin: 03/19/18 16:17 Dose: 8.3 mls/hr Amino Ac/Electrol/Dextrose/Calcium (Clinimix E 5/15) 1,000 mls @ 100 mls/hr IV .Q10H [facility] Stop: 03/23/18 17:59 Last Admin: 03/23/18 12:06 Dose: 100 mls/hr Fluconazole/Sodium Chloride (200 mg/ Premix) 100 mls @ 100 mls/hr IV Q24H [facility] Stop: 03/30/18 10:00 Last Admin: 03/30/18 08:11 Dose: 100 mls/hr Fluconazole/Sodium Chloride (200 mg/ Premix) 100 mls @ 100 mls/hr IV ONETIME ONE Stop: 03/21/18 10:59 Last Admin: 03/21/18 11:16 Dose: 100 mls/hr Ampicillin Sodium/Sulbactam (Sodium 3 gm/ Sodium Chloride) 100 mls @ 200 mls/ hr IV ONETIME ONE Stop: 03/21/18 09:59 Last Admin: 03/21/18 15:15 Dose: Not Given Lactated Ringer's (Ringers, Lactated) Confirm Administered Dose 1,000 mls @ as directed .ROUTE .STK-MED ONE Stop: 03/21/18 12:24 Ampicillin Sodium/Sulbactam (Sodium 3 gm/ Sodium Chloride) 100 mls @ 200 mls/ hr IV Q6H [facility] Stop: 03/23/18 16:29 Last Admin: 03/23/18 16:00 Dose: 200 mls/hr Dextrose/Lactated Ringer's (Dextrose 5%-Lactated Ringers) 1,000 mls @ 75 mls/ hr IV ASDIRECTED [facility] Lactated Ringer's (Ringers, Lactated) 500 mls @ 500 mls/hr IV .BOLUS [facility] Last Admin: 03/21/18 23:31 Dose: 500 mls/hr Dextrose/Lactated Ringer's (Dextrose 5%-Lactated Ringers) 1,000 mls @ 25 mls/ hr IV ASDIRECTED [facility] Last Admin: 03/25/18 08:11 Dose: 25 mls/hr Amino Ac/Electrol/Dextrose/Calcium (Clinimix E 5/15) 1,000 mls @ 100 mls/hr IV .Q10H [facility] Last Admin: 03/25/18 05:13 Dose: 100 mls/hr Acetaminophen 1,000 mg/ Premix 100 mls @ 400 mls/hr IV NOW ONE Stop: 03/25/18 08:00 Last Admin: 03/25/18 08:14 Dose: 400 mls/hr Linezolid 600 mg/ Premix 300 mls @ 300 mls/hr IV Q12H [facility] Last Admin: 03/28/18 02:29 Dose: 150 mls/hr Meropenem 1 gm/ Sodium (Chloride) 50 mls @ 100 mls/hr IV Q8H [facility] Last Admin: 03/26/18 06:26 Dose: 100 mls/hr Lactated Ringer's (Ringers, Lactated) 1,000 mls @ 500 mls/hr IV ASDIRECTED [facility] Stop: 03/25/18 15:31 Acetaminophen 1,000 mg/ Premix 100 mls @ 400 mls/hr IV Q6H [facility] Stop: 03/26/18 09:14 Last Admin: 03/26/18 02:02 Dose: 400 mls/hr Dextrose/Lactated Ringer's (Dextrose 5%-Lactated Ringers) 1,000 mls @ 125 mls/ hr IV ASDIRECTED [facility] Sodium Chloride (Normal Saline) 1,000 mls @ 999 mls/hr IV ASDIRECTED [facility] Last Infusion: 03/25/18 20:46 Dose: 500 mls/hr Dextrose/Lactated Ringer's (Dextrose 5%-Lactated Ringers) 1,000 mls @ 125 mls/ hr IV ASDIRECTED [facility] Last Admin: 03/26/18 02:29 Dose: 125 mls/hr Dextrose/Lactated Ringer's (Dextrose 5%-Lactated Ringers) 1,000 mls @ 100 mls/ hr IV ASDIRECTED [facility] Last Admin: 03/27/18 01:27 Dose: 100 mls/hr Dextrose/Lactated Ringer's (Dextrose 5%-Lactated Ringers) 1,000 mls @ 125 mls/ hr IV ASDIRECTED [facility] Stop: 03/29/18 10:59 Last Admin: 03/29/18 02:41 Dose: 125 mls/hr Ciprofloxacin/Dextrose 400 mg/ (Premix) 200 mls @ 200 mls/hr IV Q12H [facility] Last Admin: 03/28/18 09:46 Dose: 200 mls/hr Magnesium Sulfate 2 gm/ Premix 50 mls @ 25 mls/hr IV BID [facility] Stop: 04/02/18 22:59 Last Admin: 03/28/18 20:17 Dose: 25 mls/hr Potassium Phosphate 22.5 mmole (/ Sodium Chloride) 257.5 mls @ 85 mls/hr IV Q3H [facility] Stop: 03/28/18 15:29 Last Admin: 03/28/18 18:54 Dose: 85 mls/hr Linezolid 600 mg/ Premix 300 mls @ 300 mls/hr IV Q12H [facility] Last Admin: 04/01/18 02:42 Dose: 300 mls/hr Lactated Ringer's (Ringers, Lactated) Confirm Administered Dose 1,000 mls @ as directed .ROUTE .STK-MED ONE Stop: 03/29/18 08:06 Magnesium Sulfate 2 gm/ Premix 50 mls @ 25 mls/hr IV Q6HR [facility] Stop: 04/01/18 05:59 Last Admin: 03/31/18 03:07 Dose: 25 mls/hr Dextrose/Lactated Ringer's (Dextrose 5%-Lactated Ringers) 1,000 mls @ 25 mls/ hr IV ASDIRECTED [facility] Potassium Phosphate 20 mmole/ (Sodium Chloride) 106.6667 mls @ 35 mls/hr IV Q3H [facility] Stop: 03/29/18 19:59 Last Admin: 03/29/18 18:23 Dose: 35 mls/hr Amino Ac/Electrol/Dextrose/Calcium (Clinimix E 5/15) 1,000 mls @ 100 mls/hr IV .Q10H [facility] Stop: 03/30/18 16:58 Last Admin: 03/30/18 08:06 Dose: 100 mls/hr Sodium Chloride (Normal Saline) 1,000 mls @ 0 mls/hr IV ASDIRECTED [facility] Last Admin: 04/07/18 05:47 Dose: 25 mls/hr Fat Emulsion Intravenous (Intralipid 20%) 100 mls @ 8.333 mls/hr IV ONETIME ONE Stop: 03/31/18 03:59 Last Admin: 03/30/18 16:50 Dose: 8.333 mls/hr Amino Ac/Electrol/Dextrose/Calcium (Clinimix E 5/15) 1,000 mls @ 100 mls/hr IV .Q10H [facility] Stop: 03/31/18 15:45 Last Admin: 03/31/18 15:28 Dose: Not Given Magnesium Sulfate 2 gm/ Premix 50 mls @ 25 mls/hr IV TID@0600,1600,2200 [facility] Stop: 04/01/18 23:59 Last Admin: 04/01/18 21:43 Dose: 25 mls/hr Fat Emulsion Intravenous (Intralipid 20%) 100 mls @ 8.333 mls/hr IV ONETIME ONE Stop: 04/01/18 03:59 Last Admin: 03/31/18 16:05 Dose: 8.333 mls/hr Amino Ac/Electrol/Dextrose/Calcium (Clinimix E 20) 1,712 mls @ 107 mls/hr IV Q24H [facility] Last Admin: 04/03/18 15:52 Dose: 107 mls/hr Fat Emulsion Intravenous (Intralipid 20%) 100 mls @ 8.333 mls/hr IV ONETIME ONE Stop: 04/02/18 03:59 Last Admin: 04/01/18 15:06 Dose: 8.333 mls/hr Linezolid 600 mg/ Premix 300 mls @ 300 mls/hr IV Q12H [facility] Last Admin: 04/04/18 15:55 Dose: 300 mls/hr Fat Emulsion Intravenous (Intralipid 20%) 100 mls @ 8.333 mls/hr IV Q24H [facility] Last Admin: 04/07/18 16:07 Dose: 8.333 mls/hr Magnesium Sulfate 2 gm/ Premix 50 mls @ 25 mls/hr IV Q12H [facility] Stop: 04/07/18 05:59 Last Admin: 04/07/18 03:35 Dose: 25 mls/hr Doxycycline Hyclate 100 mg/ (Sodium Chloride) 100 mls @ 100 mls/hr IV Q12H [facility] Stop: 04/08/18 04:59 Last Admin: 04/08/18 03:58 Dose: 100 mls/hr Meropenem 500 mg/ Sodium (Chloride) 50 mls @ 100 mls/hr IV ONCALL ONE Stop: 04/08/18 09:29 Last Admin: 04/08/18 10:15 Dose: 100 mls/hr Lactated Ringer's (Ringers, Lactated) Confirm Administered Dose 1,000 mls @ as directed .ROUTE .STK-MED ONE Stop: 04/08/18 11:31 Meropenem 500 mg/ Sodium (Chloride) 50 mls @ 100 mls/hr IV Q6H [facility] Stop: 04/09/18 10:29 Last Admin: 04/09/18 10:00 Dose: 100 mls/hr Dextrose/Lactated Ringer's (Dextrose 5%-Lactated Ringers) 1,000 mls @ 0 mls/hr IV TITRATE REYNALDO Acetaminophen 1,000 mg/ Premix 100 mls @ 400 mls/hr IV ONETIME ONE Stop: 04/10/18 08:14 Last Admin: 04/10/18 08:23 Dose: 400 mls/hr Potassium Phosphate 15 mmole/ (Sodium Chloride) 105 mls @ 50 mls/hr IV Q2H [facility] Stop: 04/10/18 15:59 Last Admin: 04/10/18 15:04 Dose: 50 mls/hr Iohexol (Omnipaque-300) 50 ml PO .ASDIRECTED STA Stop: 03/09/18 03:43 Last Admin: 03/09/18 04:27 Dose: 50 ml Iohexol (Omnipaque-300) 50 ml IVPUSH . DIRECTED PRN PRN Reason: RADIOLOGY EXAM Stop: 03/13/18 06:56 Last Admin: 03/12/18 07:09 Dose: 50 ml Iohexol (Omnipaque-300) 50 ml PO .ASDIRECTED REYNALDO Last Admin: 03/22/18 04:39 Dose: 50 ml Iohexol (Omnipaque-300) 100 ml PO . DIRECTED REYNALDO Stop: 04/04/18 14:00 Last Admin: 04/04/18 13:05 Dose: 100 ml Iohexol (Omnipaque-300) 50 ml PO . DIRECTED PRN PRN Reason: RADIOLOGY EXAM Stop: 04/10/18 02:07 Last Admin: 04/09/18 04:10 Dose: 50 ml Ketamine HCl (Ketalar) 0 mg IV BOLUS [facility] Ketorolac Tromethamine (Toradol) 60 mg IM ONETIME ONE Stop: 03/26/18 09:01 Last Admin: 03/26/18 08:47 Dose: 60 mg Ketorolac Tromethamine (Toradol) 60 mg IM ONETIME ONE Stop: 03/27/18 09:31 Last Admin: 03/27/18 08:56 Dose: 60 mg Ketorolac Tromethamine (Toradol) 60 mg IM ONETIME PRN PRN Reason: Headache Stop: 04/02/18 08:00 Labetalol HCl (Normodyne) Confirm Administered Dose 20 mg .ROUTE .STK-MED ONE Stop: 03/08/18 12:58 Labetalol HCl (Normodyne) 5 mg IVPUSH Q5M PRN PRN Reason: SBP over 160 OR DBP over 95 Labetalol HCl (Normodyne) Confirm Administered Dose 20 mg .ROUTE .STK-MED ONE Stop: 04/08/18 11:31 Lidocaine HCl (Xylocaine 2%) 96 mg IVPUSH ASDIRECTED [facility] Lidocaine/Epinephrine (Xylocaine 1% With Epinephrine 1:100,000) Confirm Administered Dose 50 ml .ROUTE .STK-MED ONE Stop: 03/29/18 06:26 Last Admin: 03/29/18 11:12 Dose: 10 ml Lorazepam (Ativan) 0.5 mg PO BID PRN PRN Reason: Anxiety Lorazepam (Ativan) 0.5 mg IVPUSH Q2H PRN PRN Reason: Anxiety Last Admin: 04/02/18 06:34 Dose: 0.5 mg Lorazepam (Ativan Oral Concentrate 1mg/0.5 Ml U/D) 1 mg BUCCAL Q4H PRN PRN Reason: ANXIETY Lorazepam (Ativan) 1 mg IVPUSH Q4H PRN PRN Reason: Nausea Last Admin: 04/04/18 03:28 Dose: 1 mg Lorazepam (Ativan) 0.5 mg IVPUSH Q2H PRN PRN Reason: Nausea Last Admin: 04/08/18 06:50 Dose: 0.5 mg Lorazepam (Ativan) 0.5 mg IVPUSH QID [facility] Last Admin: 04/08/18 09:39 Dose: 0.5 mg Magnesium Hydroxide (Milk Of Magnesia) 30 ml PO BID [facility] Stop: 03/11/18 23:59 Last Admin: 03/11/18 22:25 Dose: 30 ml Magnesium Hydroxide (Milk Of Magnesia) 30 ml PO BID [facility] Last Admin: 03/15/18 20:07 Dose: Not Given Meropenem (Merrem) Confirm Administered Dose 500 mg .ROUTE .STK-MED ONE Stop: 03/08/18 09:21 Last Admin: 03/08/18 11:44 Dose: 500 mg Meropenem (Merrem) Confirm Administered Dose 500 mg .ROUTE .STK-MED ONE Stop: 03/21/18 07:27 Last Admin: 03/21/18 13:32 Dose: 500 mg Meropenem (Merrem) Confirm Administered Dose 500 mg .ROUTE .STK-[employer] ONE Stop: 04/08/18 10:44 Last Admin: 04/08/18 11:23 Dose: 500 mg Metoclopramide HCl (Reglan) 10 mg IVPUSH Q6H PRN PRN Reason: NAUSEA NOT CONTROL BY ZOFRAN Last Admin: 03/11/18 15:34 Dose: 10 mg Metoclopramide HCl (Reglan) 10 mg IVPUSH Q6H [facility] Last Admin: 03/19/18 03:58 Dose: 10 mg Metoclopramide HCl (Reglan) 10 mg IV Q6H [facility] Last Admin: 03/30/18 05:54 Dose: 10 mg Metoclopramide HCl (Reglan) 10 mg IV Q6H [facility] Last Admin: 03/31/18 05:04 Dose: 10 mg Metoclopramide HCl (Reglan) 10 mg IVPUSH Q6H PRN PRN Reason: Nausea Last Admin: 04/01/18 15:06 Dose: 10 mg Metoclopramide HCl (Reglan) 10 mg PO QID [facility] Last Admin: 04/02/18 21:56 Dose: 10 mg Metoclopramide HCl (Reglan) 10 mg IVPUSH Q6H PRN PRN Reason: Nausea Metoclopramide HCl (Reglan) 10 mg IVPUSH Q6H [facility] Last Admin: 04/08/18 15:01 Dose: Not Given Midazolam HCl (Versed 1 Mg/Ml) Confirm Administered Dose 2 mg .ROUTE .[employer] ONE Stop: 03/13/18 08:09 Midazolam HCl (Versed 1 Mg/Ml) Confirm Administered Dose 2 mg .ROUTE .[employer] ONE Stop: 03/17/18 07:12 Multivitamins/Iron (Child Chew Iron) 2 tab PO DAILY [facility] Last Admin: 04/08/18 11:57 Dose: Not Given Naloxone HCl (Narcan) 0.1 mg IV ASDIRECTED PRN PRN Reason: decreased respiratory rate Naloxone HCl (Narcan) 0.1 mg IV ASDIRECTED PRN PRN Reason: decreased respiratory rate Naloxone HCl (Narcan) 0.1 mg IV ASDIRECTED PRN PRN Reason: decreased respiratory rate Naloxone HCl (Narcan) 0.1 mg IV ASDIRECTED PRN PRN Reason: decreased respiratory rate Neostigmine Methylsulfate (Neostigmine) Confirm Administered Dose 5 mg .ROUTE .STK-MED ONE Stop: 03/08/18 08:55 Neostigmine Methylsulfate (Neostigmine) Confirm Administered Dose 5 mg .ROUTE .STK-MED ONE Stop: 03/21/18 09:19 Neostigmine Methylsulfate (Neostigmine) Confirm Administered Dose 5 mg .ROUTE .STK-MED ONE Stop: 03/29/18 07:16 Neostigmine Methylsulfate (Neostigmine) Confirm Administered Dose 5 mg .ROUTE .STK-MED ONE Stop: 04/08/18 07:56 Scopolamine Patch (Check) 1 each TOP DAILY [facility] Stop: 03/10/18 16:01 Non-Formulary Medication (Total Parenteral Nutrition, Central) 1,000 ml .XX .Continue Order [facility] Stop: 03/11/18 09:00 Non-Formulary Medication (Total Parenteral Nutrition, Central) 1,000 ml .XX .Continue Order [facility] Stop: 03/13/18 11:00 Non-Formulary Medication (Total Parenteral Nutrition, Central) 1,000 ml .XX .Continue Order [facility] Stop: 03/14/18 16:00 Non-Formulary Medication (Total Parenteral Nutrition, Central) 1,000 ml .XX .Continue Order [facility] Stop: 03/16/18 12:00 Non-Formulary Medication (Total Parenteral Nutrition, Central) 1,000 ml .XX .Continue Order [facility] Stop: 03/17/18 07:31 Non-Formulary Medication (Total Parenteral Nutrition, Central) 1,000 ml .XX .Continue Order [facility] Stop: 03/24/18 16:00 Non-Formulary Medication (Total Parenteral Nutrition, Central) 1,000 ml .XX .Continue Order [facility] Stop: 03/30/18 09:08 Non-Formulary Medication (Total Parenteral Nutrition, Central) 1,000 ml .XX .Continue Order [facility] Stop: 04/01/18 12:00 Verify Scop Patch 0 each TOP DAILY [facility] Last Admin: 04/08/18 13:33 Dose: Not Given Non-Formulary Medication (Total Parenteral Nutrition, Central) 1,000 ml .XX .Continue Order [facility] Stop: 04/04/18 10:00 Non-Formulary Medication (Total Parenteral Nutrition, Central) 1,000 ml .XX .Continue Order [facility] Stop: 04/05/18 10:00 Non-Formulary Medication (Total Parenteral Nutrition, Central) 1,000 ml .XX .Continue Order [facility] Non-Formulary Medication (Total Parenteral Nutrition, Central) 1,000 ml .XX .Continue Order [facility] Stop: 04/08/18 05:00 Non-Formulary Medication (Tap Block, Pharmacy To Dose) 0 ml NERVRT ASDIRECTED [facility] Non-Formulary Medication (Total Parenteral Nutrition, Central) 1,000 ml .XX .Continue Order [facility] Stop: 04/11/18 10:00 Ondansetron HCl (Zofran) Confirm Administered Dose 4 mg .ROUTE .STK-MED ONE Stop: 03/08/18 08:55 Ondansetron HCl (Zofran) 4 mg IVPUSH Q4H PRN PRN Reason: Nausea/Vomiting Last Admin: 04/01/18 12:19 Dose: 4 mg Ondansetron HCl (Zofran) Confirm Administered Dose 4 mg .ROUTE .STK-MED ONE Stop: 03/21/18 09:19 Ondansetron HCl (Zofran) Confirm Administered Dose 4 mg .ROUTE .STK-MED ONE Stop: 03/29/18 07:16 Ondansetron HCl (Zofran Odt) 4 mg PO QID [facility] Last Admin: 04/02/18 21:55 Dose: 4 mg Ondansetron HCl (Zofran) Confirm Administered Dose 4 mg .ROUTE .STK-MED ONE Stop: 04/08/18 07:56 Oxycodone HCl (Oxycodone) 5 mg PO Q4H PRN PRN Reason: Pain (severe 7-10) Last Admin: 03/12/18 03:42 Dose: 5 mg Oxycodone HCl (Oxycodone) 5 - 10 mg PO Q4H PRN PRN Reason: Pain Last Admin: 04/01/18 09:59 Dose: 10 mg Oxycodone HCl (Oxycodone Oral Concentrate 10mg/0.5 Ml U/D) 5 - 10 mg PO Q4H PRN PRN Reason: Pain Oxycodone HCl (Oxycodone Oral Concentrate 10mg/0.5 Ml U/D) 5 - 10 mg SL Q4H PRN PRN Reason: Pain Last Admin: 04/02/18 04:36 Dose: 10 mg Oxycodone HCl (Oxycodone Oral Concentrate 10mg/0.5 Ml U/D) 10 mg SL Q3H PRN PRN Reason: Pain Last Admin: 04/06/18 03:22 Dose: 10 mg Pantoprazole Sodium (Protonix Iv) 40 mg IVPUSH Q24H [facility] Last Admin: 03/10/18 15:35 Dose: 40 mg Pantoprazole Sodium (Protonix Granules) 40 mg PO Q24H [facility] Last Admin: 03/14/18 16:13 Dose: 40 mg Pantoprazole Sodium (Protonix Granules) 40 mg PO DAILY@0730 [facility] Last Admin: 03/15/18 08:57 Dose: 40 mg Pantoprazole Sodium (Protonix Granules) 40 mg PO BIDAC [facility] Last Admin: 03/16/18 15:34 Dose: 40 mg Pantoprazole Sodium (Protonix Iv) 40 mg IVPUSH Q12H [facility] Last Admin: 04/04/18 08:37 Dose: 40 mg Pantoprazole Sodium (Protonix Iv) 40 mg IVPUSH Q12H [facility] Last Admin: 04/08/18 08:31 Dose: 40 mg Pantoprazole Sodium (Protonix Iv) 40 mg IVPUSH Q24H [facility] Last Admin: 04/11/18 08:22 Dose: 40 mg Estradiol 1mg Tabs (Pom) 0 each PO DAILY [facility] Stop: 04/08/18 11:00 Last Admin: 04/08/18 11:57 Dose: Not Given Estradiol 1mg Tabs (Pom) 0 each PO DAILY [facility] Pharmacy Consult (Consult To Pharmacy) 1 each .XX ASDIRECTED [facility] Pharmacy Consult (Consult To Pharmacy) 1 each .XX ASDIRECTED [facility] Stop: 03/08/18 17:04 Pharmacy Consult (Consult To Pharmacy) 1 each .XX ASDIRECTED [facility] Stop: 04/08/18 18:00 Propofol (Diprivan 20 Ml) Confirm Administered Dose 200 mg .ROUTE .STK-MED ONE Stop: 03/08/18 08:55 Propofol (Diprivan 20 Ml) Confirm Administered Dose 200 mg .ROUTE .STK-MED ONE Stop: 03/13/18 08:09 Propofol (Diprivan 20 Ml) Confirm Administered Dose 200 mg .ROUTE .STK-MED ONE Stop: 03/17/18 07:12 Propofol (Diprivan 20 Ml) Confirm Administered Dose 200 mg .ROUTE .[facility] ONE Stop: 03/21/18 09:19 Propofol (Diprivan 20 Ml) Confirm Administered Dose 200 mg .ROUTE .[facility] ONE Stop: 03/29/18 07:16 Propofol (Diprivan 20 Ml) Confirm Administered Dose 200 mg .ROUTE .[facility] ONE Stop: 04/08/18 07:56 Rocuronium [place] ([place]) Confirm Administered Dose 50 mg .ROUTE .[facility] ONE Stop: 03/08/18 08:55 Rocuronium [place] ([place]) Confirm Administered Dose 50 mg .ROUTE .[facility] ONE Stop: 03/08/18 11:45 Rocuronium [place] ([place]) Confirm Administered Dose 100 mg .ROUTE .[facility] ONE Stop: 03/08/18 12:57 Rocuronium [place] ([place]) Confirm Administered Dose 50 mg .ROUTE .[facility] ONE Stop: 03/21/18 09:19 Rocuronium [place] ([place]) Confirm Administered Dose 50 mg .ROUTE .[facility] ONE Stop: 03/29/18 07:16 Rocuronium [place] ([place]) Confirm Administered Dose 50 mg .ROUTE .[facility] ONE Stop: 04/08/18 07:56 Rocuronium [place] ([place]) Confirm Administered Dose 50 mg .ROUTE .[facility] ONE Stop: 04/08/18 11:35 Scopolamine (Transderm-Scop) 1.5 mg TOP Q48H [facility] Last Admin: 04/07/18 10:20 Dose: Not Given Succinylcholine Chloride (Quelicin) Confirm Administered Dose 200 mg .ROUTE .[facility] ONE Stop: 03/08/18 08:55 Succinylcholine Chloride (Quelicin) Confirm Administered Dose 200 mg .ROUTE .[facility] ONE Stop: 03/21/18 09:19 Succinylcholine Chloride (Quelicin) Confirm Administered Dose 200 mg .ROUTE .[facility] ONE Stop: 03/29/18 07:16 Succinylcholine Chloride (Quelicin) Confirm Administered Dose 200 mg .ROUTE .[facility] ONE Stop: 04/08/18 07:56 - Exam Quality Assessment: No: Supplemental Oxygen General: Alert, Oriented, Cooperative, No Acute Distress Lungs: Normal Respiratory Effort GI/Abdominal Exam: Soft, No Distention Skin: Warm, Dry Psy/Mental Status: Alert, Depressed Consult PN Assessment/Plan Procedures: Procedures ASSAY OF LACTIC ACID (02/07/18) ASSAY OF LIPASE (02/07/18) C DIFF AMPLIFIED PROBE (02/09/18) COMPLETE CBC W/AUTO DIFF WBC (02/07/18) COMPREHEN METABOLIC PANEL (02/07/18) CT ABD & PELV W/CONTRAST (02/07/18) EMERGENCY DEPT VISIT (02/07/18) ROUTINE VENIPUNCTURE (02/07/18) THER/PROPH/DIAG INJ IV PUSH (02/07/18) TX/PRO/DX INJ NEW DRUG ADDON (02/07/18) URINALYSIS AUTO W/SCOPE (02/07/18) Problem List Initiated/Reviewed/Updated: Yes My Orders Last 24 Hours: My Active Orders 04/12/18 11:37 Consult to Physician [CONS] Routine 04/12/18 11:38 Notify Provider Consults [RC] ASDIRECTED Plan: ASSESSMENT AND RECOMMENDATIONS PERSISTENT NAUSEA AND VOMITING - vomiting now improved but not resolved and still troublesome. I'm suspicious a component of depression is contributing to a significant degree but the patient does not endorse being depressed. Head CT was negative. -Continue regimen as ordered by Dr. Atkinson -As needed lorazepam -Consider management of depression, patient currently refuses antidepressant therapy MAJOR DEPRESSION, SUSPECTED - likely a factor in ongoing symptoms. She continues to display behaviors concerning for depression symptoms but patient strongly states that she is not depressed. She was agreeable to talking to a psychologist. She continues to be very adamant that she will not take an antidepressant. -Consult psychology for further evaluation STATUS POST LELAND-EN-Y REVISION FOR MANAGEMENT OF GASTROPARESIS -Postoperative care per Dr. Demetrio Leiva MD
[2018-04-12] MEDS: CALCIUM IV SCH (15:04)
[2018-04-12] MEDS: LYTES IV SCH (15:04)
[2018-04-12] MEDS: [UNRECOGNIZED DRUG - OTHER] IV SCH (15:04)
[2018-04-12] MEDS: Melatonin 3 MG Tab PO SCH (20:53)
[2018-04-13] MEDS: Ondansetron 4 MG/2 ML SDV IVPUSH PRN ×2 (03:13→16:02)
[2018-04-13] MEDS: Metoclopramide 10 MG/2 ML SDV IVPUSH PRN ×2 (04:22→20:58)
[2018-04-13] MEDS: Clotrimazole 10 MG Troche PO SCH ×5 (05:42→20:59)
[2018-04-13] MEDS ORDERED: Central Total Parenteral Nutrition Bag SCH (08:00)
[2018-04-13] MEDS ORDERED: oxyCODONE 10 MG/0.5 ML ORAL U/D SL PRN (08:33)
[2018-04-13] MEDS ORDERED: FLUoxetine Solution 20 MG/5 ML ML 120 ML Bottle PO SCH (09:00)
--- NOTE | 2018-04-13 09:40 | PN ---
DATE OF SERVICE: 04/13/2018 SUBJECTIVE: Trisha's hemoglobin is 9.9. JOSUE drains put out 15 and 15 respectively. She had 2 emesis, 100 mL total. Afebrile. Pulse remains to run high. She did have a consult with Puma Ness, psychologist, yesterday. Remains to be nauseated. TPN is running. REVIEW OF SYSTEMS: Remainder of review of systems negative for any pertinent positives and negatives. OBJECTIVE: GENERAL: Trisha Wilcox is a 52-year-old female. She looks a little better today. VITAL SIGNS: TPR is 96.2, 108, 18, blood pressure 137/86. HEENT: Negative. NECK: Supple. HEART: Regular rate and rhythm. LUNGS: Clear. ABDOMEN: Subcostal kecia intact. Midline incision negative. [place] intact. Abdominal binder is on. JOSUE drains x2. TPN is running without difficulty. EXTREMITIES: Without peripheral edema. ASSESSMENT: 1. Exploratory laparotomy with total gastrectomy with Ozzy-en-Y gastrojejunostomy and takedown of the gastrostomy tube and placement of Interceed mesh for gastroparesis refractory to medical management, status gastrostomy, removal of extensive intraabdominal adhesions. Date of surgery: 04/08/2018. In addition, other surgical procedures as noted on progress report. 2. Chronic nausea. PLAN: 1. Check CBC, CMP, mag, and phos in a.m. Continue TPN rate and content with addition of 100 mEq chloride per liter. Marinol 2.5 mg p.o. b.i.d. 2. Fluoxetine (Prozac 20 mg solution p.o. every a.m.) Remove subcostal kecia. No Steri- Strips. 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 Resume buccal OxyContin per pharmacy. DC Aquacel dressing. 3. Good pulmonary toilet. 4. Plan discharge to transitional care on , 04/14/2018. Peri Zambrano PA-C /[id number]
[2018-04-13] MEDS: Bisacodyl 5 MG Tab PO SCH ×2 (09:49→20:49)
[2018-04-13] MEDS: Pantoprazole 40 MG Tab.CR PO SCH (09:49)
[2018-04-13] MEDS: Alum Hydrox/Mag Hydrox/Simeth 15 ML, Lidocaine 2% 15 ML PO SCH ×6 (10:02→20:50)
[2018-04-13] MEDS: Dronabinol 2.5 MG Cap PO SCH ×2 (10:23→20:59)
--- NOTE | 2018-04-13 11:00 | PN ---
DATE OF SERVICE: 03/29/2018 The patient continues to have ongoing nausea and some intermittent emesis. This appears to be primarily gastric secretions as the emesis has minimal slight yellow tinge to it. The picture is that of of gastroparesis at this point and one hopes that this will actually resolve to try to limit the amount of nausea and vomiting. Well plan to proceed to the gastrostomy tube today. We will attempt via endoscopic percutaneous approach with the stomach not being visible through the abdominal wall due to adhesions and such in the case we would need to do a limited laparotomy. If we did that we would do a subcostal incision so as to not re-use the recent midline incision. At this point, she is far enough out from the positive blood cultures. We will plan to proceed with a Boyd catheter insertion for planned ongoing TPN and probable TPN at home. Potential risks of the procedure including bleeding, infection, pneumohemothorax, injury to the viscera during the course of the G-tube insertion were all reviewed as well as possibility that the gastrostomy tube may not be entirely efficacious in terms of alleviating the nausea and vomiting were all gone over and the patient wishes to proceed. Procedure will be undertaken later today. Stan Atkinson MD /[id number]
--- NOTE | 2018-04-13 12:25 | PN ---
DATE OF SERVICE: 04/12/2018 The patient has been afebrile with stable vital signs. She is still fairly nauseated, did have around 300 mL of oral intake, but since then the nausea is slightly better. She is reducing amount of Dilaudid use which may be helpful at this point in terms of the nausea. We will give her some Dulcolax oral tablets, so we can get the bowels at this time going as well, and encourage to shower. Otherwise, continue TPN. She has not been willing to take the antidepressants. We will have Etelvina Yan, licensed chemical spray technician see the patient daily to help regarding what is evidently a situational depression, and otherwise continue the present TPN. We will offer some Ensure today as well and encourage the patient to get in the shower. Stan Atkinson MD /[id number]
--- NOTE | 2018-04-13 13:19 | OR ---
DATE OF PROCEDURE: 03/29/2018 PREOPERATIVE DIAGNOSES: 1. Indication for long-term venous access. 2. Persistent gastroparesis. POSTOPERATIVE DIAGNOSES: 1. Indication for central venous access. 2. Persistent gastroparesis with large amount of retained gastric contents. OPERATIVE PROCEDURE: 1. Insertion of double-lumen Boyd catheter (36461). 2. Esophagogastroduodenoscopy with evacuation of gastric contents (36689). 3. Laparotomy for placement of tube gastrostomy (48744). ANESTHESIA: General. INDICATION FOR PROCEDURE: Please see the progress note dated today. DETAILS OF PROCEDURE: The patient was taken to the operating room and placed in a semi- sitting position. Initially, some IV sedation was administered, after which the general endotracheal anesthetic was induced. Maintaining in the semi-sitting position, the upper GI endoscope was then passed orally through the length of the esophagus and into the stomach. A large volume of fluid and some scattered solid material was present. This was then evacuated until the stomach was empty. The pylorus was inspected as was the recent gastrojejunostomy and both of these found to be patent with the patient retaining fluid despite those areas being mechanically open consistent with her gastroparesis. We initially brought the scope back into the body of the stomach and maneuvers were used in transposition of the gastroscope and at no point did we see any light emanating from the abdominal wall indicating that the stomach was probably covered up by adhesions and other viscera to the extent that a percutaneous approach to the gastrostomy tube would not be possible. Given this, the gastroscope was then withdrawn. Additionally, maintaining sterility of the instruments, the upper chest and neck areas had been prepped and draped and a right subclavian vein area was then cannulated and a guidewire passed and manipulated from there into the superior vena cava. Two fingerbreadths below the region of the skin puncture site, a second incision was made and a double-lumen Boyd catheter was then pulled through between the two incisions with the fibrous cuff just inside the skin of the lower incision. The catheter was cut such that the tip would lie in the area of the upper right atrium and over the introducer and Peel-Away catheter, the Boyd catheter was then placed under fluoroscopic surveillance. Good positioning was noted and the original skin puncture site was closed with 4-0 Vicryl subdermal stitch and Steri-Strips and the Boyd catheter sutured to the skin at the exit site with a 3-0 nylon stitch. The ports were then aspirated and flushed with heparinized saline. Good return in each direction was noted. At this point, the area was prepped and draped. A limited left subcostal incision was made and carried down through the skin and subcutaneous tissue, musculature, and peritoneum. There were some adhesions between the splenic flexure of the colon, which were taken down bluntly to confirm that the vicera had been exposed was the stomach. An Guerline tube was passed per Anesthesia and the tube could be felt within the stomach. This was then withdrawn. The gastroscope was then placed once again into the stomach and initially, a guidewire was passed through a needle where it positioned medial and superior to the incision. The wire which would be used for the percutaneous gastrostomy tube insertion device was then passed through that and then passed into the stomach via the second needle puncture. The needle was then grasped with endoscopic biopsy forceps and pulled out the mouth. This was then affixed to the gastrostomy tube complex, which was then pulled down through the mouth and up against the abdominal wall thus fixing the gastrostomy tube in proper position. Endoscopic evaluation showed good positioning of the gastrostomy tube, which was then sutured to the skin with some 2-0 nylon stitch. At that point, the area was irrigated with antibiotic-containing saline solution. The posterior rectus sheath was then closed with a running #2 Vicryl stitch as was the anterior rectus sheath and the subcutaneous tissue approximated with some 4-0 Vicryl stitch and the skin with kecia. The patient was taken to the recovery room in satisfactory condition. There were no other complications. Stan Atkinson MD /[id number]
[2018-04-13] MEDS: Dextrose 5%-0.9% NaCl 1,000 ML IV SCH (16:02)
[2018-04-13] MEDS: CALCIUM IV SCH (16:03)
[2018-04-13] MEDS: [UNRECOGNIZED DRUG - OTHER] IV SCH (16:03)
[2018-04-13] MEDS: LYTES IV SCH (16:03)
[2018-04-13] MEDS: Melatonin 3 MG Tab PO SCH (20:50)
[2018-04-14] MEDS: Ondansetron 4 MG/2 ML SDV IVPUSH PRN ×3 (00:26→21:06)
[2018-04-14] MEDS: Metoclopramide 10 MG/2 ML SDV IVPUSH PRN ×2 (02:34→23:49)
[2018-04-14] MEDS: Clotrimazole 10 MG Troche PO SCH ×5 (06:09→21:03)
[2018-04-14] MEDS ORDERED: Bisacodyl 10 MG Supp RECTAL ONE (06:57)
[2018-04-14] MEDS ORDERED: Bisacodyl 10 MG Supp RECTAL PRN (06:58)
[2018-04-14] MEDS ORDERED: Central Total Parenteral Nutrition Bag SCH (07:00)
[2018-04-14] MEDS: Cyclobenzaprine 10 MG Tab PO PRN (08:25)
[2018-04-14] MEDS: Pantoprazole 40 MG Tab.CR PO SCH (08:27)
[2018-04-14] MEDS: Bisacodyl 5 MG Tab PO SCH ×2 (08:27→21:02)
[2018-04-14] MEDS: FLUoxetine Solution 20 MG/5 ML ML 120 ML Bottle PO SCH (08:28)
[2018-04-14] MEDS: Alum Hydrox/Mag Hydrox/Simeth 15 ML, Lidocaine 2% 15 ML PO SCH ×6 (08:30→21:03)
[2018-04-14] MEDS: Dronabinol 2.5 MG Cap PO SCH ×2 (08:31→21:03)
--- NOTE | 2018-04-14 08:31 | PN ---
DATE OF SERVICE: 04/14/2018 SUBJECTIVE: Trisha reports continued nausea. States when she swallows, it feels sick. She did talk to Dr. Atkinson about an esophagogastroduodenoscopy and talked to me about it separately. Reassurance was given that her upper GI was negative. Oral intake was 90 and her urine output 2900. Last bowel movement was on 04/09/2018. REVIEW OF SYSTEMS: Remainder of review of systems negative for any pertinent positives and negatives. OBJECTIVE: GENERAL: Trisha Wilcox is a 52-year-old female. VITAL SIGNS: TPR is 95.7, 112, 14, blood pressure is 132/80. HEENT: Negative. NECK: Supple. HEART: Regular rate and rhythm. LUNGS: Clear. ABDOMEN: Negative. EXTREMITIES: Negative. ASSESSMENT: 1. Chronic nausea. 2. Exploratory laparotomy with total gastrectomy with Ozzy-en-Y gastrojejunostomy and takedown of the gastrostomy tube and placement of Interceed mesh for gastroparesis refractory to medical management, status gastrostomy, removal of extensive intraabdominal adhesions. Date of surgery: 04/08/2018. 3. Additional surgical procedures noted on previous progress report. PLAN: 1. Continue same TPN rate and content. 2. Discontinue JOSUE drain. 3. Dulcolax suppository 1 now, then may give Dulcolax suppositories b.i.d. p.r.n. constipation. 4. Check CBC, CMP, mag, and phos in the a.m. 5. Reassurance and reinforcement of Stan Atkinson MD, answer to her regarding not having an esophagogastroduodenoscopy at this time that would risk possible . Recommended to Trisha at this time that she is only getting 90 mL in and she should be getting that in every hour. That feeling she has is partially attributed to dehydration and she will work on getting fluids in and to set up when she is drinking remainder. 6. We will evaluate p.r.n. or in a.m. and plan discharge to home with Home Health Care, home TPN, and family will be rotating staying with her, so she is not alone. Peri Zambrano PA-C /[id number]
--- NOTE | 2018-04-14 15:00 | OR ---
DATE OF PROCEDURE: 04/08/2018 PREOPERATIVE DIAGNOSES: 1. Gastroparesis refractory to medical management. 2. Status gastrostomy. 3. Extensive intraabdominal adhesions. OPERATIVE PROCEDURES: Exploratory laparotomy with: 1. Total gastrectomy with Ozzy-en-Y gastrojejunostomy (76886). 2. Takedown of gastrostomy (75554). 3. Placement of Interceed mesh to limit recurrent pelvic and abdominal wall adhesions to underlying viscera (62534). ANESTHESIA: General. PLANT PROTECTION GUARD: Peri Zambrano PA-C. INDICATIONS FOR PROCEDURE: This is a 52-year-old recently status post reversal of Ozzy-en-Y gastric bypass despite variety of nonsurgical attempts including placement of gastrostomy tube, dilations of her pylorus, and at no point could we establish adequate gastric emptying and the patient has been plagued with persistent nausea at all times. When placing the gastroscope, she had a large volume of fluid retained within the stomach. The plan at this point is to proceed with a total gastrectomy with Ozzy-en-Y gastrojejunostomy. She knows that the gastrostomy will also be taken down. The potential risks of procedure including bleeding; infection; leakage from various GI tract closures; problems with stricturing at the anastomosis over time as well as possibility of persistent nausea in the postoperative period; and remote possibility of cardiopulmonary, septic, or hemorrhagic complications leading to were all discussed, and the patient wishes to proceed. DETAILS OF PROCEDURE: The patient was taken to the operating room, and after general endotracheal anesthesia was induced, a Keller catheter was inserted, and the abdomen prepped and draped. Bilateral subcostal transversus abdominis plane blocks were then placed using ultrasound guidance. The upper midline incision was then reused and carried down through the skin and subcutaneous tissue. As one entered into the peritoneal cavity, as expected, there was quite a bit in the way of extensive adhesions present. These for the most part were able to be taken down bluntly with the interval from the previous open laparotomy being short enough that they had not formed dense scar. Eventually, the area around the stomach and previous gastrojejunostomy was dissected out. The point where the gastrostomy tube was placed, was then taken down. The gastrostomy tube was removed, and the wall of the stomach where it was attached to the abdominal wall was divided with a FAIZAN stapler and then dissected away from the underlying abdominal wall and sent as a separate specimen. At this point, the pylorus was identified, and the duodenum and several centimeters distal to that were divided with a FAIZAN black load. The dissection then began along the greater curvature dividing the omentum from that area. As one approached the previous antrum through Ozzy limb anastomosis, that anastomosis was divided flush with the stomach with the FAIZAN stapler. The dissection was then continued along the lesser curvature up to the area of the gastroesophageal junction. The lesser omental tissue was then divided as well and we maintained a plane of dissection. Immediately, on the stomach surface, we maintained blood supply to that area along the gastrojejunostomy supplied by the branches of the left gastric artery. Once this was accomplished, an Guerline tube was passed orally per Anesthesia to delineate the previous esophagogastric anastomosis. The stomach was divided more or less flush with that with FAIZAN black loads. There was a small rim of stomach tissue present which maintained good blood supply, and this would be a more satisfactory anastomotic site than the now quite shortened distal esophagus. The anvil of the 25 mm EEA stapler was then initially attached to [place] sump tube and brought down through the mouth and taken out through a small opening in the divided area around the gastroesophageal junction. The anvil turned on its side, could not be passed through that area. There appeared to be probably some degree of narrowing at the esophagogastric anastomosis. This was then pulled out back per Anesthesia, and then a 21 mm EEA stapler anvil was then passed without difficulty and brought out through the end of the narrow esophagogastric junction area. The Ozzy limb at this point was satisfactorily mobile to get up to that anvil without any tension. This was brought through a retrocolic approach. The measured Ozzy limb now to be placed anastomosis measured at 60 cm and appeared to be satisfactory in terms of length. The divided end of the Ozzy limb was opened. The main body of EEA stapler passed few centimeters into the lumen of the small bowel, brought out through the anvil and united with thus creating the anastomosis. Upon removal of stapler, double donuts of mucosa were noted within it. Small bowel was closed off with a vascular staple line. The anastomosis between the esophagogastric junction area and the small Ozzy limb was then reinforced with some 3-0 Vicryl seromuscular stitch along with fibrin sealant. At that point, no further problems noted. Two Ej-Kelley drains were then placed, one across the area of the duodenal stump and the other brought up adjacent to the anastomosis between the esophagogastric junction and the Ozzy limb. The duodenal stump was then also reinforced with fibrin sealant, and the abdomen irrigated with meropenem-containing saline solution. At that point, no further problems noted. No omentum was available to cover the lower half of the incision in the pelvis, and given this, Interceed mesh was placed to displace the pelvic and the lower abdominal wall from the underlying viscera to limit recurrent adhesion formation. The midline fascia was then approximated with a #2 Vicryl stitch and the skin with 2 layers of 4-0 Vicryl stitch deep and kecia for the skin. Drains were placed with 4- 0 Vicryl stitch as well, and the patient was taken to the recovery room in satisfactory condition. There were no evident complications. Physician automotive service assistant, Peri Zambrano PA-C, played an essential role in assisting in this case, helping to position the patient, retract structures as needed as well as suturing and cutting sutures when indicated. Her presence improved patient safety and decreased the operative time. Stan Atkinson MD /[id number]
[2018-04-14] MEDS: [UNRECOGNIZED DRUG - OTHER] IV SCH (15:55)
[2018-04-14] MEDS: CALCIUM IV SCH (15:55)
[2018-04-14] MEDS: Dextrose 5%-0.9% NaCl 1,000 ML IV SCH (15:55)
[2018-04-14] MEDS: LYTES IV SCH (15:55)
[2018-04-14] MEDS: Melatonin 3 MG Tab PO SCH (21:03)
[2018-04-15] MEDS: Clotrimazole 10 MG Troche PO SCH ×2 (06:53→10:23)
[2018-04-15] MEDS: Pantoprazole 40 MG Tab.CR PO SCH (07:24)
[2018-04-15] MEDS: Ondansetron 4 MG/2 ML SDV IVPUSH PRN (08:04)
[2018-04-15] MEDS: Bisacodyl 5 MG Tab PO SCH (08:47)
[2018-04-15] MEDS: Dronabinol 2.5 MG Cap PO SCH (08:48)
[2018-04-15] MEDS: FLUoxetine Solution 20 MG/5 ML ML 120 ML Bottle PO SCH (08:48)
[2018-04-15] MEDS: Alum Hydrox/Mag Hydrox/Simeth 15 ML, Lidocaine 2% 15 ML PO SCH ×2 (08:49)
[2018-04-15 09:49] VITALS: BP 139/87
[2018-04-15] MEDS: Metoclopramide 10 MG/2 ML SDV IVPUSH PRN (10:29)
--- NOTE | 2018-04-19 09:11 | DISCH ---
ADMISSION DIAGNOSES: 1. Persistent stricturing and dysphagia of the esophagogastric junction and gastrojejunostomy. 2. Severe persistent diarrhea. 3. SP Ozzy-en-Y gastric bypass surgery, unspecified surgical malabsorption, B12 deficiency, dumping syndrome, fibromyalgia, hypertension, gastroesophageal reflux disease, irritable bowel syndrome, anxiety, history of iron deficiency anemia, hypertension, and hormonal replacement therapy. DISCHARGE DIAGNOSES: 1. Insertion of left subclavian vein triple-lumen catheter. 2. Exploratory laparotomy with lysis of extensive adhesions: a. Esophagogastrectomy with esophagogastric anastomosis. b. Small-bowel resection. c. Separate small bowel stricturoplasty. d. Partial left hepatic lobectomy. e. Excision of a nerve entering the probable neuroma lower midline incision. f. Placement of Interceed mesh to limit recurrent adhesion formation for persistent stricturing and dysphagia of esophagogastric junction and gastrojejunostomy, severe persistent diarrhea focal defunctionalization of small bowel, left lobe of liver densely adherent to previously gastrojejunostomy and esophagogastric junction, separate small-bowel stricture, probable neuroma of lower aspect of the midline incision and limited peripheral venous access. Date of surgery 03/08/2018. Surgeon, Stan Atkinson MD. HISTORY: Trisha is a 52-year-old status post previous Ozzy-en-Y gastric bypass surgery, presenting with problems of persistent stricturing and dysphagia at the esophagogastric junction and gastrojejunostomy and also severe persistent diarrhea despite ongoing medical management. After preoperative evaluation and discussion of possible risks and possible complications, she wished to proceed with surgical procedure. Esophagogastrojejunoscopy with: 1. Removal of foreign body (old food and fluid) from the stomach. 2. Dilation of the pyloric sphincter to facilitate gastric emptying for gastroparesis associated with large volume of retained fluid as well as food in the stomach. Trisha was status post takedown of the gastric bypass and now had problems with gastroparesis and large amount of retained fluid present within the stomach. She had the removal of the old food and fluid and dilation of the pyloric sphincter. Date of procedure 03/13/2018. Surgeon, Stan Atkinson MD. 1. Upper GI endoscopy and evacuation of gastric contents. 2. Exploratory laparotomy with lysis of extensive adhesions with: a. Partial gastrectomy and Ozzy-en-Y gastrojejunostomy. b. Placement of Interceed mesh to limit recurrent adhesion formation between the viscera and abdominopelvic wall. c. Debridement of abdominal wall for persistent gastroparesis refractory to medical management, retained intragastric contents, focal abdominal wall necrosis and extensive intraabdominal adhesions. Date of procedure 03/21/2018. Surgeon, Stan Atkinson MD. Trisha continued to have persistent heartburn, chronic nausea and stomach was not completely emptying. After preoperative evaluation and discussion of possible risks and possible complications, she elected to proceed with exploratory laparotomy with formation of the gastrojejunostomy. On 03/29/2018, insertion of double-lumen Boyd catheter. EGD with evacuation of gastric contents and laparotomy for placement of tube gastrostomy for indication for long-term venous access and persistent gastroparesis. Trisha persisted to have extreme nausea and heartburn and gastroparesis with removal of the previous triple lumen tip and blood culture showed Staphylococcus aureus. She was put on antibiotics. Another one will be put in, so TPN nutrition can be restarted. TPN nutrition and chronic nausea. HOSPITAL COURSE: Trisha had her first surgery on 03/08/2018. She developed postoperative nausea and heartburn. Her medications were restarted and pain had been controlled. On 03/10/2018, she was up ambulating. Albumin was replaced as well as K-Phos. She was started on a step-2 gastric bypass diet. On 03/11/2018, TPN was running without difficulty. She had bowel stimulation and was started on oral oxycodone and EVENT COORDINATOR was discontinued. On 03/12/2019, she had persistent ongoing nausea and heartburn type symptoms. Repeat GI x-ray showed that things were emptying out of the esophagus, but the stomach was not emptying like it should be. She was put back on the EVENT COORDINATOR and Levsin was added to help with any esophageal spasms. On 03/13/2018, she continued to have nausea and heartburn. X-ray showed retained contrast in the stomach consistent with gastroparesis. She did have an EGD scheduled that day. On 03/14/2018, she did feel better after the EGD and was started on step 1 gastric bypass diet and given Ensure Clear along with her TPN. On 03/15/2018, she remained to be afebrile with continued nausea and heartburn. She was on scheduled Reglan. Diet was advanced to step 2 with no cereal. She also was started on a low-dose erythromycin. The JOSUE drains were discontinued and TPN was continued. On 03/16/2018, oral intake was 350, she had several loose stools. TPN continued to run without difficulty. EGD was scheduled for 03/17/2018. On 03/17/2018, she had the EGD for continuation of the chronic nausea. On 03/18/2018, nausea and heartburn persisted. TPN continued. On 03/19/2018, there was no change and no improvement. On 03/21/2018, she had reoperation as above. On 03/22/2018, she was feeling a little bit better. She was back on ice chips and continuation of TPN. On 03/23/2018, abdomen x-ray showed quite a bit of dye in the stomach, but a large amount had gotten into a large bowel. On 03/25/2018, she is having more abdominal discomfort and gas. She reports headache and has been nauseated. On 03/26/2018, fever 101, heart rate was in the 130. Triple lumen was discontinued. Cultures of the tip of the central catheter as well as blood cultures were obtained. She was put on appropriate antibiotic. On 03/29/2018, gastrostomy tube and Boyd catheter were placed. She had episodic nausea. The gastrostomy tube on 03/31/2018. She felt that this time the nausea was a little bit better and it drained 350 mL. The TPN was changed from 24 hours to 8:00 a.m. until 4:00 p.m. daily. On 04/01/2018, TPN was continuing. She continued to have chronic nausea. Staphylococcus aureus, blood cultures and catheter tip were noted. She had the TPN restarted and looking into buccal oxycodone. On 04/02/2018, vital signs were stable, afebrile. She was switched to the buccal oxycodone. Reglan was changed to oral and she was given Zofran sublingual. On 04/03/2018, she remained to be quite nauseated. A scopolamine patch was added and on 04/04/2018, she had an abdominal x-ray. G-tube put out 550. She started having emesis and not much was coming out of the G-tube. On 04/05/2018, she continued to have nausea and vomiting with no relief from the G-tube. She was pretreated with Ativan before walk in to see if this would help with nausea. On 04/06/2018, oral intake was only 60. She had 960 emesis and gastrostomy tube put out 400. On 04/07/2018, she continued to have several emesis and had surgery on 04/08/2018. She had an exploratory laparotomy with total gastrectomy with Ozzy-en-Y gastrojejunostomy and takedown of gastrostomy, placement of Interceed mesh to limit recurrent pelvic and abdominal wall adhesions to underlying viscera for gastroparesis refractory to medical management status gastrostomy, extensive intraabdominal adhesions. Date 04/08/2018 and Surgeon, Stan Atkinson MD. Trisha Wilcox is a 52-year-old female was recently status post reversal of Ozzy-en-Y gastric bypass. Despite a variety of nonsurgical attempts including placement of gastrostomy tube, dilations of her pylorus and at no point was adequate gastric emptying achieved. She continued to have persistent nausea. When placing the gastrostomy tube, she continued with large amount of fluid retained in the stomach. After preoperative evaluation and discussion of possible risks and possible complications, she wished to proceed with above surgical procedure. On 04/09/2018, Trisha had no operative complications. She was afebrile. She continued to have some nausea. Upper GI was negative. She continued with the TPN therapy. On 04/10/2018, afebrile. No emesis. Nausea persisted and she also was noted to have some thrush and was treated with Mycelex. TPN did continue. On 04/11/2018, consult with Rajesh Schulz MD in regard to starting an antidepressant and nausea and vomiting. She declined taking any of this adjusted medications. On 04/12/2018, she was still nauseated. She was given bowel stimulation and she was seen daily by Nick Hearn, licensed master social worker and other members of the [facility], bariatric team on 04/13/2018. Her JOSUE drains were removed. She was started and consented to taking fluoxetine solution 20 mg daily, Marinol 2.5 mg p.o. b.i.d. and continued on the TPN therapy. Discharge planning was involved. On 04/15/2018, she was able to be discharged to home with home healthcare and TPN home nutritional therapy. PHYSICAL EXAMINATION: GENERAL: Trisha Wilcox is a pleasant 52-year-old female, in no acute distress. VITAL SIGNS: Height is 5 feet 7 inches and weight is 144 pounds. BMI is 22.6. TPR is 96.5, 117, 16 and blood pressure is 126/87. HEENT: Negative. NECK: Supple. HEART: Regular rate and rhythm. LUNGS: Clear. ABDOMEN: Gisselle intact. She has Steri-Strips on her first incision. Abdomen otherwise is soft, normally tender. Abdominal binder has been on. EXTREMITIES: Without peripheral edema. DISPOSITION: Discharged to home. CONDITION: Stable and improving. FOLLOWUP: Followup appointment on 04/20/2018 at 10:00 a.m. with Stan Atkinson MD to come to appointment fasting with nothing to eat or drink after midnight in case that she would need an EGD. HOME MEDICATIONS: 1. Dulcolax 10 mg rectal b.i.d. p.r.n. 2. Dulcolax tablets 10 mg oral twice daily. 3. Mycelex 10 mg oral 5 times a day #50 with 1 refill. 4. Marinol 2.5 mg oral b.i.d. #60, one refill. 5. Fluoxetine (Prozac) 20 mg/5 mL, one daily for 30 days and 5 refills. 6. Reglan 10 mg oral q.6 hours p.r.n. nausea #30. 7. Zofran ODT 4 mg oral q.4 hours p.r.n. nausea #30 with 2 refills. 8. She is to resume vitamins and supplements after her first postoperative appointment to resume taking aspirin 81 mg daily. 9. Acetaminophen 650 mg oral every 6 hours. 10.Flexeril 5 mg every 6 hours p.r.n. muscle spasm. 11.Diphenoxylate/atropine 2.5/0.025 mg oral as directed p.r.n. diarrhea. 12.Estradiol 2 mg oral daily. 13.Prevacid SoluTab 30 mg oral daily. 14.Ativan (lorazepam) 0.5 mg oral twice daily p.r.n. anxiety. 15.The patient declined any home OxyContin. DIET: Step 1 gastric bypass diet. Drink 8 to 10 glasses of water a day or do the best she can gradually increasing. ACTIVITY: No lifting greater than 10 pounds for 6 weeks. Other activity, walk at least 6 times daily inside your home. Driving, do not drive while on pain medication or muscle relaxants. Shower/bathing; may shower. Wear abdominal binder for 6 weeks and then as tolerated. Notify provider if any fever, increased pain, nausea, or vomiting. Keep site clean and dry. SPECIAL INSTRUCTION: Continue TPN as directed. See separate instructions. Keep a food journal of everything of eating or drinking. Use incentive spirometer 10 times every hour while awake. Keep record as home care will be assisting with the care of your triple-lumen catheter.
--- NOTE | 2018-04-20 11:43 | PN ---
DATE OF SERVICE: 03/24/2018 The patient has been afebrile with stable vital signs. quite a bit in the way of nausea. The contrast that was given on the upper GI is still to some extent in the stomach and, otherwise, what does get in the small bowel has passed into the right colon. She appeared, at this point, to still have quite a bit in the way of gastroparesis. I suspect there may be some edema at the gastrojejunostomy contributing to this as well. Hopefully, the stomach will begin to empty somewhat better over the next few days. If not, we may need to think in terms of a gastrostomy tube. Otherwise, continue the TPN and the nausea treatment as much as we are able to administer. Stan Atkinson MD Job #: [id number]
== END 2018-04-15 11:00 | disposition home health service (06) | DRG 220 ==
LOC: JP.SDS 07:52 → JP.SDSSCHI 07:52 → EDSTATUS 09:00 → JP.2SS 15:15 → JP.MS 03-09 15:53
PROVIDERS: ADMIT Surgery; ATTEND Surgery
PROC: 0DB40ZZ Excision of Esophagogastric Junction, Open Approach (ICD-10-PCS; principal; 2018-03-08)
PROC: 0DBA0ZZ Excision of Jejunum, Open Approach (ICD-10-PCS; 2018-03-08)
PROC: 0DBB0ZZ Excision of Ileum, Open Approach (ICD-10-PCS; 2018-03-08)
PROC: 02H633Z Insertion of Infusion Device into Right Atrium, Percutaneous Approach (ICD-10-PCS; 2018-03-08)
PROC: 3E0T3BZ Introduction of Anesthetic Agent into Peripheral Nerves and Plexi, Percutaneous Approach (ICD-10-PCS; 2018-03-08)
PROC: 018 Peripheral Nervous System, Division (ICD-10-PCS; 2018-03-08)
PROC: 0HB7XZZ Excision of Abdomen Skin, External Approach (ICD-10-PCS; 2018-03-08)
PROC: 0DN Gastrointestinal System, Release (ICD-10-PCS; 2018-03-08)
PROC: 0DNW0ZZ Release Peritoneum, Open Approach (ICD-10-PCS; 2018-03-08)
PROC: 0DN Gastrointestinal System, Release (ICD-10-PCS; 2018-03-08)
PROC: 0FN20ZZ Release Left Lobe Liver, Open Approach (ICD-10-PCS; 2018-03-08)
PROC: 0FB20ZX Excision of Left Lobe Liver, Open Approach, Diagnostic (ICD-10-PCS; 2018-03-08)
PROC: 3E0M05Z Introduction of Adhesion Barrier into Peritoneal Cavity, Open Approach (ICD-10-PCS; 2018-03-08)
PROC: 0D938ZZ Drainage of Lower Esophagus, Via Natural or Artificial Opening Endoscopic (ICD-10-PCS; 2018-03-13)
PROC: 0D968ZZ Drainage of Stomach, Via Natural or Artificial Opening Endoscopic (ICD-10-PCS; 2018-03-13)
PROC: 0D778ZZ Dilation of Stomach, Pylorus, Via Natural or Artificial Opening Endoscopic (ICD-10-PCS; 2018-03-13)
PROC: 0DC68ZZ Extirpation of Matter from Stomach, Via Natural or Artificial Opening Endoscopic (ICD-10-PCS; 2018-03-13)
PROC: 0DC48ZZ Extirpation of Matter from Esophagogastric Junction, Via Natural or Artificial Opening Endoscopic (ICD-10-PCS; 2018-03-17)
PROC: 0D778ZZ Dilation of Stomach, Pylorus, Via Natural or Artificial Opening Endoscopic (ICD-10-PCS; 2018-03-17)
PROC: 0D948ZZ Drainage of Esophagogastric Junction, Via Natural or Artificial Opening Endoscopic (ICD-10-PCS; 2018-03-17)
PROC: 0D968ZZ Drainage of Stomach, Via Natural or Artificial Opening Endoscopic (ICD-10-PCS; 2018-03-17)
PROC: 0D968ZZ Drainage of Stomach, Via Natural or Artificial Opening Endoscopic (ICD-10-PCS; 2018-03-21)
PROC: 3E0T3BZ Introduction of Anesthetic Agent into Peripheral Nerves and Plexi, Percutaneous Approach (ICD-10-PCS; 2018-03-21)
PROC: 0DNW0ZZ Release Peritoneum, Open Approach (ICD-10-PCS; 2018-03-21)
PROC: 0DB60ZZ Excision of Stomach, Open Approach (ICD-10-PCS; 2018-03-21)
PROC: 0D160ZA Bypass Stomach to Jejunum, Open Approach (ICD-10-PCS; 2018-03-21)
PROC: 3E0M05Z Introduction of Adhesion Barrier into Peritoneal Cavity, Open Approach (ICD-10-PCS; 2018-03-21)
PROC: 0JD80ZZ Extraction of Abdomen Subcutaneous Tissue and Fascia, Open Approach (ICD-10-PCS; 2018-03-21)
PROC: 0D968ZZ Drainage of Stomach, Via Natural or Artificial Opening Endoscopic (ICD-10-PCS; 2018-03-29)
PROC: 05H533Z Insertion of Infusion Device into Right Subclavian Vein, Percutaneous Approach (ICD-10-PCS; 2018-03-29)
PROC: B516ZZA Fluoroscopy of Right Subclavian Vein, Guidance (ICD-10-PCS; 2018-03-29)
PROC: 02H633Z Insertion of Infusion Device into Right Atrium, Percutaneous Approach (ICD-10-PCS; 2018-03-29)
PROC: 0DH60UZ Insertion of Feeding Device into Stomach, Open Approach (ICD-10-PCS; 2018-03-29)
PROC: 30233N1 Transfusion of Nonautologous Red Blood Cells into Peripheral Vein, Percutaneous Approach (ICD-10-PCS; 2018-04-07)
PROC: 3E0T3BZ Introduction of Anesthetic Agent into Peripheral Nerves and Plexi, Percutaneous Approach (ICD-10-PCS; 2018-04-08)
PROC: 0DP60UZ Removal of Feeding Device from Stomach, Open Approach (ICD-10-PCS; 2018-04-08)
PROC: 0DT60ZZ Resection of Stomach, Open Approach (ICD-10-PCS; 2018-04-08)
PROC: 0D160ZA Bypass Stomach to Jejunum, Open Approach (ICD-10-PCS; 2018-04-08)
PROC: 3E0M05Z Introduction of Adhesion Barrier into Peritoneal Cavity, Open Approach (ICD-10-PCS; 2018-04-08)
DX: K22.2 Esophageal obstruction (principal); K91.2 Postsurgical malabsorption, not elsewhere classified; K31.84 Gastroparesis; B95.61 Methicillin susceptible Staphylococcus aureus infection as the cause of diseases classified elsewhere; T82.7XXA Infection and inflammatory reaction due to other cardiac and vascular devices, implants and grafts, initial encounter; K56.7 Ileus, unspecified; R13.10 Dysphagia, unspecified; D36.16 Benign neoplasm of peripheral nerves and autonomic nervous system of pelvis; K59.8 Other specified functional intestinal disorders; K66.0 Peritoneal adhesions (postprocedural) (postinfection); R19.7 Diarrhea, unspecified; K31.1 Adult hypertrophic pyloric stenosis; K31.89 Other diseases of stomach and duodenum; I96 Gangrene, not elsewhere classified; R11.2 Nausea with vomiting, unspecified; Z53.29 Procedure and treatment not carried out because of patient's decision for other reasons; F32.89 Other specified depressive episodes; I10 Essential (primary) hypertension; Z98.84 Bariatric surgery status; Z98.0 Intestinal bypass and anastomosis status; K91.1 Postgastric surgery syndromes; M79.7 Fibromyalgia; K21.9 Gastro-esophageal reflux disease without esophagitis; K58.9 Irritable bowel syndrome, unspecified; F41.9 Anxiety disorder, unspecified; E55.9 Vitamin D deficiency, unspecified; E61.2 Magnesium deficiency; E53.8 Deficiency of other specified B group vitamins; B37.0 Candidal stomatitis; L29.9 Pruritus, unspecified; T36.8X5A Adverse effect of other systemic antibiotics, initial encounter; Y92.230 Patient room in hospital as the place of occurrence of the external cause; K56.1 Intussusception; D50.9 Iron deficiency anemia, unspecified; Z79.82 Long term (current) use of aspirin; Z88.1 Allergy status to other antibiotic agents; Z88.5 Allergy status to narcotic agent; Z91.018 Allergy to other foods; Z88.8 Allergy status to other drugs, medicaments and biological substances; Z79.890 Hormone replacement therapy; R12 Heartburn; Z96.659 Presence of unspecified artificial knee joint
CPT/HCPCS: 36415; 36430; 70450; 70450-26; 71045; 71045-26; 71046; 71046-26; 74018; 74018-26; 74019; 74019-26; 74240; 74240-26; 80053; 81001; 82533; 82728; 82962; 83735; 84100; 84439; 84443; 84478; 84590; 84630; 85025; 85027; 85610; 86850; 86900; 86901; 86920; 86922; 87040; 87070; 87075; 87077; 87186; 87205; 88302; 88304; 88305; 88307; 88313; 93005; 94762; 97110-GP; 97162-GP; 97530-GP; 97535-GP; A9270-GY; C9113; J0131; J0171; J0295; J0330; J0694; J0744; J1100; J1170; J1200; J1450; J1642; J1885; J2001; J2020; J2060; J2185; J2250; J2405; J2704; J2710; J2765; J2795; J3010; J3410; J3420; J3475; J3490; J7030; J7042; J7050; J7120; P9016; P9047; Q9967

== ENCOUNTER 2018-05-04 10:14 | Day surgery (SDC) | payer BC, MEDICARE ==
[~2018-05-04 10:14] MED LIST: Midazolam 1 MG/ML 2 ML SDV ONE; Propofol 200 MG/20 ML SDV ONE; fentaNYL 100 MCG/2 ML SDV ONE
[2018-05-04] MEDS: Lactated Ringers 1,000 ML IV SCH ×2 (10:35→12:33)
[2018-05-04] MEDS ORDERED: Cyanocobalamin (Vitamin B12) 1,000 MCG/ML SDV IM ONE (11:00)
[2018-05-04] MEDS ORDERED: Thiamine 200 MG/2 ML MDV IM ONE (11:30)
[2018-05-04] MEDS ORDERED: Propofol 200 MG/20 ML SDV ONE (11:46)
[2018-05-04] MEDS ORDERED: Ondansetron 4 MG/2 ML SDV ONE (11:46)
[2018-05-04] MEDS ORDERED: Dexamethasone 4 MG/ML SDV ONE (11:46)
[2018-05-04] MEDS ORDERED: MVI, Adult with Vitamin K 10 ML, Thiamine 200 MG, Chromium/Copper/Mang/Selen/Zn 1 ML in... IV SCH ×4 (12:30)
[2018-05-04 13:46] VITALS: BP 127/75
--- NOTE | 2018-05-09 13:56 | OR ---
DATE OF PROCEDURE: 05/04/2018 PREOPERATIVE DIAGNOSIS: Probable stricture at gastrojejunostomy. POSTOPERATIVE DIAGNOSIS: Moderate stricture at gastrojejunostomy. OPERATIVE PROCEDURE: Upper gastrointestinal endoscopy with dilation of gastrojejunostomy (99634). ANESTHESIA: IV sedation. INDICATION FOR PROCEDURE: The patient is status post a complex reconstruction of the upper GI tract including a recent gastrojejunostomy. The patient presents with some dysphagia suggestive of stricturing at the gastrojejunostomy. Plan is to proceed with an upper GI endoscopy with dilation as indicated. Potential risks including bleeding and perforation were discussed and the patient wishes to proceed. DETAILS OF PROCEDURE: The patient was taken to the operating room, placed in a left lateral decubitus position. IV sedation was administered after which the upper GI endoscope was passed orally through the length of the esophagus and into the area of the gastrojejunostomy. No retained food or fluid was noted. The area previously had been quite ulcerated. This ulceration had now healed, although there was a rim of scar posteriorly and laterally on each side where the ulcer had healed. The 1 cm scope was not quite able to be passed through the anastomosis. A Bard gastrointestinal balloon catheter beginning with 30 and then a 36 Chinese were then centered across the anastomosis and inflated. After the 36- Chinese balloon had been dilated, the scope could easily be passed through the anastomosis. No complications were noted and the procedure concluded. The patient was taken to the recovery room in satisfactory condition. Stan Atkinson MD /[id number]
== END 2018-05-04 13:45 | disposition home or self-care (01) ==
LOC: JP.SDS 10:14
PROVIDERS: ATTEND Surgery
DX: K91.89 Other postprocedural complications and disorders of digestive system (principal); I10 Essential (primary) hypertension; K21.9 Gastro-esophageal reflux disease without esophagitis; Z93.4 Other artificial openings of gastrointestinal tract status
CPT/HCPCS: 43245; J1100; J1642; J2250; J2405; J2704; J3010; J3411; J3420; J7120

== ENCOUNTER 2018-05-30 10:35 | Day surgery (SDC) | payer BC, MEDICARE ==
[~2018-05-30 10:35] MED LIST changes: +Cyanocobalamin (Vitamin B12) 1,000 MCG/ML SDV IM ONE; +Glycopyrrolate 0.2 MG/ML 2 ML SDV IVPUSH ONE
[2018-05-30] MEDS ORDERED: Lactated Ringers 1,000 ML IV SCH (11:45)
[2018-05-30 13:32] VITALS: BP 143/62
--- NOTE | 2018-06-06 15:35 | OR ---
DATE OF PROCEDURE: 05/30/2018 PREOPERATIVE DIAGNOSIS: Possible stricture at gastrojejunostomy. POSTOPERATIVE DIAGNOSIS: Mild stricturing at gastrojejunostomy. PROCEDURE PERFORMED: Upper GI endoscopy with dilation of gastrojejunostomy (13723). ANESTHESIA: IV sedation. INDICATIONS: The patient presents once again with symptoms suggestive of stricturing at her gastrojejunostomy. Plan is to proceed with an upper GI endoscopy with dilation as indicated. Potential risks including bleeding and perforation were discussed, and the patient wishes to proceed. DESCRIPTION OF PROCEDURE: The patient was taken to the operating room, placed in a left lateral decubitus position. IV sedation was administered, after which the upper GI endoscope was passed orally through the length of the esophagus and into the area of the gastrojejunostomy. This was found to be mildly strictured, and at this point, complete healing of the previous ulcer. There was a significant at the mucosal level, which was 1 cm. Scope was not quite being able to be passed through the anastomosis. Bard gastrointestinal catheter was then centered across the anastomosis and inflated to 36-[place] size. This was held in position for 1 minute, after which balloon catheter was deflated and withdrawn. The scope was easily then passed through the anastomosis. No complications were noted. The patient's secondary anastomosis between the gastric pouch and the more distal small bowel was noted to be patent such that the scope easily passed through that area. The scope was then withdrawn. The above findings were reconfirmed. The patient was taken to the recovery room in satisfactory condition. Stan Atkinson MD /[id number]
== END 2018-05-30 13:50 | disposition home or self-care (01) ==
LOC: JP.SDS 10:35
PROVIDERS: ATTEND Surgery
DX: K91.89 Other postprocedural complications and disorders of digestive system (principal); Z88.1 Allergy status to other antibiotic agents; Z88.2 Allergy status to sulfonamides; Z88.5 Allergy status to narcotic agent; Z88.6 Allergy status to analgesic agent; Z91.018 Allergy to other foods
CPT/HCPCS: 36415; 43245; 80053; J1642; J2250; J2704; J3010; J3420; J7120

== ENCOUNTER 2018-06-27 09:59 | Day surgery (SDC) | payer BC, MEDICARE ==
[~2018-06-27 09:59] MED LIST changes: -Cyanocobalamin (Vitamin B12) 1,000 MCG/ML SDV IM ONE; -Glycopyrrolate 0.2 MG/ML 2 ML SDV IVPUSH ONE; +Lactated Ringers 1,000 ML IV ONE; -Midazolam 1 MG/ML 2 ML SDV ONE; -Propofol 200 MG/20 ML SDV ONE; -fentaNYL 100 MCG/2 ML SDV ONE
[2018-06-27] MEDS ORDERED: Propofol 200 MG/20 ML SDV ONE (10:07)
[2018-06-27] MEDS ORDERED: fentaNYL 100 MCG/2 ML SDV ONE (10:07)
[2018-06-27] MEDS ORDERED: Midazolam 1 MG/ML 2 ML SDV ONE (10:07)
[2018-06-27] MEDS ORDERED: Glycopyrrolate 0.2 MG/ML 2 ML SDV IVPUSH ONE (10:15)
[2018-06-27] MEDS ORDERED: MVI, Adult with Vitamin K 10 ML, Thiamine 200 MG, Chromium/Copper/Mang/Selen/Zn 1 ML in... IV SCH ×4 (11:00)
[2018-06-27] MEDS ORDERED: Dexamethasone 4 MG/ML SDV ONE (11:13)
[2018-06-27 12:36] VITALS: BP 151/96
--- NOTE | 2018-06-30 08:30 | OR ---
DATE OF PROCEDURE: 06/27/2018 PREOPERATIVE DIAGNOSIS: Probable stricture at gastrojejunostomy. POSTOPERATIVE DIAGNOSIS: Moderate stricture at gastrojejunostomy. OPERATIVE PROCEDURE: Upper GI endoscopy with dilation of gastrojejunostomy (80222). ANESTHESIA: IV sedation. INDICATIONS FOR PROCEDURE: The patient presents with some recurrent symptoms of stricturing at her gastrojejunostomy. Plan is to proceed with an upper GI endoscopy with dilation as indicated. Potential risks including bleeding and perforation were discussed, and the patient wishes to proceed. DETAILS OF PROCEDURE: The patient was taken to the operating room and placed in a left lateral decubitus position. IV sedation was administered, after which the upper GI endoscope was passed orally through the length of the esophagus and into the gastric pouch. No retained food or fluid was noted. The patient was noted to have moderate stricture with the 1 cm scope not quite being able to be passed through the anastomosis. A Bard gastrointestinal catheter was then centered across the anastomosis and inflated to 36-Danish size. This was held in position for 1 minute, after which balloon catheter was deflated and withdrawn. Scope easily was passed through the anastomosis. No complications were noted. The patient was taken to the recovery room in satisfactory condition. Stan Atkinson MD /[id number]
== END 2018-06-27 13:00 | disposition home or self-care (01) ==
LOC: JP.SDS 09:59
PROVIDERS: ATTEND Surgery
DX: K91.89 Other postprocedural complications and disorders of digestive system (principal); I10 Essential (primary) hypertension; K21.9 Gastro-esophageal reflux disease without esophagitis; Z93.4 Other artificial openings of gastrointestinal tract status
CPT/HCPCS: 43245; J1100; J1642; J2250; J2704; J3010; J7120

== ENCOUNTER 2018-08-01 07:20 | Day surgery (SDC) | payer BC, MEDICARE ==
[2018-08-01] MEDS ORDERED: Cyanocobalamin (Vitamin B12) 1,000 MCG/ML SDV IM ONE (08:30)
[2018-08-01] MEDS ORDERED: Lactated Ringers 1,000 ML IV SCH (08:30)
[2018-08-01] MEDS ORDERED: fentaNYL 100 MCG/2 ML SDV ONE (08:35)
[2018-08-01] MEDS ORDERED: Propofol 200 MG/20 ML SDV ONE (08:35)
[2018-08-01] MEDS ORDERED: Midazolam 1 MG/ML 2 ML SDV ONE (08:35)
[2018-08-01] MEDS ORDERED: Glycopyrrolate 0.2 MG/ML 2 ML SDV IVPUSH ONE (09:00)
[2018-08-01] MEDS ORDERED: Lidocaine 1% with EPINEPHrine 1:100,000 50 ML MDV ONE (09:30)
[2018-08-01] MEDS ORDERED: Bupivacaine 0.5% 50 ML MDV ONE (09:30)
[2018-08-01] MEDS ORDERED: MVI, Adult with Vitamin K 10 ML, Thiamine 200 MG, Chromium/Copper/Mang/Selen/Zn 1 ML in... IV ONE ×4 (10:00)
[2018-08-01 11:04] VITALS: BP 120/76
--- NOTE | 2018-08-08 08:09 | OR ---
DATE OF PROCEDURE: 08/01/2018 SURGEON: Stan Atkinson MD PREOPERATIVE DIAGNOSES: 1. 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 2. Status post Boyd catheter placement. POSTOPERATIVE DIAGNOSES: 1. 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 2. Status post Boyd catheter placement. OPERATIVE PROCEDURE: 1. Upper GI endoscopy with: a. Dilation of esophagogastric anastomosis (28572). b. Dilation of gastrojejunostomy (99609). 2. Removal of Boyd catheter (04551). ANESTHESIA: Local plus IV sedation. HEADSTART TEACHER: TAMIA Rosenthal. INDICATION FOR PROCEDURE: This is a 53-year-old status post complicated revisional surgery, which involved an anastomosis between the esophagus and stomach and then just below that between the gastric pouch and the jejunum. She has had multiple strictures at the esophagogastric anastomosis and presents now with probable recurrent stricturing. She also at this point wishes to have the Boyd catheter removed, as she has been able to maintain reasonable oral intake with intermittent dilations being required. Potential risks of the procedure including bleeding and perforation were reviewed, and the patient wishes to proceed. DETAILS OF PROCEDURE: The patient was taken to the operating room and placed in a left lateral decubitus position. IV sedation was administered, after which the upper GI endoscope was passed orally through the length of the esophagus and into the area of the esophagogastric anastomosis. That area was not overly inflamed, but it was somewhat strictured, not quite allowing the 1 cm scope to be passed through it. Initially this was then dilated with a 36-Cuban balloon dilator, and at that point, adequate dilation of that anastomosis was encountered. As one passed further distally, the gastrojejunostomy was also noted to be somewhat strictured. This barely let the scope through, and this was also then dilated with 36-Cuban balloon catheter, and at that point, both anastomoses were inspected and found to be intact and the procedure then concluded with removal of the scope. With the patient now in supine position, the Boyd catheter, which was in the right upper chest wall and going up through the right subclavian vein was prepped and draped. The area around it was anesthetized with 1% lidocaine, and a small incision was made over the distalmost portion of the catheter as it entered the skin, and the fibrous cuff was dissected free. This allowed freeing up the catheter, which was then removed without difficulty. Pressure dressing was applied, and the patient was taken to the recovery room in satisfactory condition. There were no evident complications. Stan Atkinson MD /[id number]
== END 2018-08-01 11:11 | disposition home or self-care (01) ==
LOC: JP.SDS 07:20
PROVIDERS: ATTEND Surgery
DX: K22.2 Esophageal obstruction (principal); K56.699 Other intestinal obstruction unspecified as to partial versus complete obstruction; I10 Essential (primary) hypertension; Z95.9 Presence of cardiac and vascular implant and graft, unspecified
CPT/HCPCS: 36590; 43233; 43245; J2250; J2704; J3010; J3420; J3490; J7120

== ENCOUNTER 2018-08-31 09:25 | Day surgery (SDC) | payer BC, MEDICARE ==
[2018-08-31] MEDS ORDERED: fentaNYL 100 MCG/2 ML SDV ONE (09:37)
[2018-08-31] MEDS ORDERED: Propofol 200 MG/20 ML SDV ONE (09:37)
[2018-08-31] MEDS ORDERED: Midazolam 1 MG/ML 2 ML SDV ONE (09:37)
[2018-08-31] MEDS ORDERED: Lactated Ringers 1,000 ML IV SCH (09:45)
[2018-08-31] MEDS ORDERED: Cyanocobalamin (Vitamin B12) 1,000 MCG/ML SDV IM ONE (09:45)
[2018-08-31 11:43] VITALS: BP 171/97
--- NOTE | 2018-09-01 13:49 | OR ---
DATE OF PROCEDURE: 08/31/2018 PREOPERATIVE DIAGNOSIS: Probable stricture at esophagogastric anastomosis. POSTOPERATIVE DIAGNOSIS: Moderate stricture at both esophagogastric and gastrojejunal anastomoses. OPERATIVE PROCEDURES: Upper GI endoscopy with, 1. Dilation of stricture at esophagogastric anastomosis (59960). 2. Dilation of gastrojejunostomy (76631). ANESTHESIA: IV sedation. INDICATION FOR PROCEDURE: The patient presents once again with some evidence of stricturing at her esophagogastric anastomosis. The plan is to proceed with upper GI endoscopy with dilation of that anastomosis. We will also evaluate the gastrojejunostomy and if that is tight proceed with a dilation of that area as well. Potential risks of the procedure including bleeding and perforation were discussed, and the patient wishes to proceed. DETAILS OF PROCEDURE: The patient was taken to the operating room and placed in a left lateral decubitus position. IV sedation was administered, after which, the upper GI endoscope was passed orally through the length of the esophagus, down to the level of esophagogastric anastomosis. This was moderately tight with a 1-cm scope not quite being able to be passed through the anastomosis. There was only a little bit of inflammation at the mucosal level. Bard gastrointestinal balloon catheter was then centered across the anastomosis and, with fluoroscopic surveillance, inflated to 36-Slovenian size. This was held in position for 1 minute, after which, the balloon catheter was deflated and withdrawn. The scope was then easily passed through that anastomosis into the tiny remaining stomach. The gastrojejunal anastomosis was also found slightly tight, although, less tight than the esophagogastric anastomosis, and this was then dilated with a 36-Slovenian balloon dilator and visible dilation was completed without complications. The scope was withdrawn and procedure then concluded. The patient, as routine, received some Decadron prior to the dilation and, I think, to try to minimize some of the inflammation, we will give the patient a Medrol Dosepak starting tomorrow. Otherwise, she is set up to see Peri Zambrano in 3 months, but is aware that when and if she feels like the stricture or structures are recurring, she can contact us and we would address that issue at that point. Stan Atkinson MD /[id number]
== END 2018-08-31 11:47 | disposition home or self-care (01) ==
LOC: JP.SDS 09:25
PROVIDERS: ATTEND Surgery
DX: K91.89 Other postprocedural complications and disorders of digestive system (principal); I10 Essential (primary) hypertension; K21.9 Gastro-esophageal reflux disease without esophagitis
CPT/HCPCS: 43233; 43245; J2250; J2704; J3010; J3420; J7120